=== PATIENT | female | born 1935 | race Caucasian/White ===

== ENCOUNTER 2017-04-10 11:57 | Inpatient (IN) ==
[2017-04-10] MEDS ORDERED: MORPHINE 2 MG/1 ML SYRINGE IV STA (12:23)
[2017-04-10] MEDS ORDERED: MORPHINE 2 MG/1 ML SYRINGE ONE (12:28)
[2017-04-10] MEDS ORDERED: SODIUM CHLORIDE 0.9% 1,000 ML IV STA (12:30)
[2017-04-10 12:50] LABS: Basophils # 0.1 10*3/uL (0.0-0.2); Basophils % 0.3 % (0.0-0.8); Eosinophils # 0.1 10*3/uL (0.0-0.87); Eosinophils % 0.3 % (0.00-10.9); Hematocrit 39.9 VOL% (35.7-47.0); Hemoglobin 13.1 GM/DL (12.0-16.0); Immature Granulocytes % 0.5 %; Lymphocytes # 1.5 10*3/uL (1.4-4.0); Lymphocytes % 8.3 % (21.3-54.2); Mean Corpuscular HGB Conc 32.8 GM/DL (32-36); Mean Corpuscular Hemoglobin 27 PG (27-34); Mean Corpuscular Volume 82.6 FL (87-102); Mean Platelet Volume 11.4 FL (9.6-12.0); Monocytes # 0.8 10*3/uL (0.11-0.8); Monocytes % 4.5 % (1.7-12.7); Neutrophils % 86.1 % (38.7-73.9); Platelet Count 245 T/CUMM (130-400); Red Blood Count 4.83 MC/CUMM (3.8-5.5); Red Cell Distribution Width 12.8 % (9.3-17.3); White Blood Count 18.5 T/CUMM (4-12)
[2017-04-10] MEDS ORDERED: HYDROmorphone 2 MG/1 ML VIAL IV STA ×2 (12:59→14:18)
[2017-04-10] MEDS ORDERED: HYDROmorphone 2 MG/1 ML VIAL ONE ×2 (13:01→14:22)
[2017-04-10 13:20] LABS: Lactic Acid 1.7 MMOL/L (0.4-2.0)
[2017-04-10 13:21] LABS: Albumin 3.8 G/DL (3.4-5.0); Bilirubin,Total 0.6 MG/DL (0.2-1.0); Calcium 8.6 MG/DL (8.5-10.1); Osmolality,Calculated 274.2 MOS/KG (273-304); Potassium 3.5 MMOL/L (3.5-5.1); Total Protein 7.5 G/DL (6.4-8.3)
[2017-04-10] MEDS ORDERED: LORazepam 2 MG/1 ML VIAL IV STA (14:19)
[2017-04-10] MEDS ORDERED: LORazepam 2 MG/1 ML VIAL ONE (14:22)
--- NOTE | 2017-04-10 15:18 | CT Report ---
History generalized abdominal pain 100 cc Omnipaque 350 utilized Comparison 04/28/2009 There is a 2.5 cm hypodensity in the spleen. This is very questionably present on a prior chest CT 2012 obscured by differences in timing of the contrast bolus. The contours of the spleen in this area are unchanged from prior noncontrasted CT of 2008 No focal defects seen in the liver, pancreas, adrenals, or kidneys There is an mild gallbladder wall thickening There is a small hiatal hernia present. 1 cm periportal nodes unchanged No enlarged retroperitoneal narrowing seen. There are atherosclerotic changes present throughout the abdominal aorta. There are believed to be 4 vessels arising directly from the abdominal aorta supplying the celiac and SMA territories. The small caliber of some of these vessels limits visualization however there is atherosclerotic plaque present with at least mild stenosis of the main celiac axis and at least moderate to severe stenosis from a small branch just above this area and just below this area. There is also a severe stenosis of the superior mesenteric artery proximally. There are at least 2 renal arteries bilaterally. The JOEY is patent with at least moderate stenosis at its origin. Pelvis: There are mild sigmoid diverticuli present. No free fluid or focal inflammatory changes seen. Presumed ovary versus node in the far lateral left adnexa is unchanged. Impression: 1. 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 Mild diverticulosis 3. Mild nonspecific gallbladder wall thickening 4. Small hiatal hernia 5. 2.5 cm nonspecific splenic hypodensity is very questionably present on prior CT. Correlation with any additional prior studies be helpful for confirmation The CT exam was performed using one or more of the following dose reduction techniques: Automated exposure control, adjustment of the mA and/or kV according to patient size, or use of iterative reconstruction technique. PROCEDURE INTERPRETED AT [facility] DEPARTMENT OF RADIOLOGY Final Report Signed by: Dr. Tiffany Hercules
[2017-04-10 18:31] LABS: Apearance,Urine CLEAR (Clear); Bilirubin,Urine Negative (Negative); Blood, Urine Small mg/dL (Negative); Glucose,Urine (UA) 50 mg/dL (Negative); Ketones,Urine 5 mg/dL (Negative); Nitrite,Urine Negative (Negative); Protein,Urine Negative; RBC,Urine 1 /HPF (0-4); Squamous Epithelial Cell,Urine Occasional /HPF (0-10); Urine Color Straw (Yellow); Urine Specific Gravity 1.053 (1.001-1.035); Urine Urobilinogen < 2.0 EU/DL (0.2-1.0); WBC,Urine <1 /HPF (0-6)
--- NOTE | 2017-04-10 19:30 | Hospitalist History & Physical ---
Assessment and Plan - Time spent with patient Time spent with patient: Greater than 30 minutes (1) Abdominal pain Status: Acute Assessment and plan: Abnormal CT, however no definitive diagnosis. Admit to observation, ask Surgery to evaluate in the morning. Keep NPO except meds. Current Visit: Yes (2) Leukocytosis Status: Acute Assessment and plan: Most likely steroid induced. Current Visit: Yes (3) Atrial fibrillation Status: Acute Assessment and plan: In atrial fibrillation. Continue medications. Current Visit: Yes (4) Asthma Status: Acute Assessment and plan: Continue medications. Current Visit: No (5) Diabetes mellitus Status: Acute Assessment and plan: SSI and accuchecks. Obtain HgA1c tomorrow. Current Visit: No History of Present Illness Chief complaint: Abdominal Pain History of present illness: Ms. Charles is a 81 year old female with a medical history of Atrial fibrillation , asthma presents to the ER with several days of worsening abdominal pain. She states she has been having occasional episodes of abdominal pain for the last several months. She feels it is associated with constipation and states that upon defecation, with bright red blood per rectum. This time the pain kept worsening over the course of several days to the point where she would classify it as 10 out of 10. Right lower quadrant. She states it is very sharp and continuous with no radiation. Not associated with anything. Not aggravated by anything. Pain medications relieved the pain while in the ER. CT the abdomen revealed possible mesenteric artery stenosis. She denies a fever, shortness of breath, chest pain, vomiting or diarrhea however endorses nausea. Home Medications Medication Instructions Recorded Confirmed Type Esomeprazole Magnesium 40 mg PO DAILY 08/21/15 04/10/17 History [Esomeprazole] Montelukast Tab [Singulair Tab] 10 mg PO DAILY 08/21/15 04/10/17 History Tiotropium Inhalation [Spiriva 18 mcg INH DAILY 08/21/15 04/10/17 History Handihaler] traMADol TAB [Ultram] 100 mg PO BID PRN 08/21/15 04/10/17 History Apixaban [Eliquis] 5 mg PO BID #60 tablet 08/25/15 04/10/17 Rx Digoxin Tab [Lanoxin Tab] 0.125 mg PO BID 04/10/17 04/10/17 History Ipratropium Inhaler [Atrovent 2 puff INH Q6HR 04/10/17 04/10/17 History Inhaler] Olodaterol HCl [Striverdi Respimat] 4 gm IH DAILY 04/10/17 04/10/17 History Potassium Chloride 20 meq PO DAILY 04/10/17 04/10/17 History dilTIAZem HCl [Tiazac] 120 mg PO DAILY 04/10/17 04/10/17 History prednisoLONE [Millipred Tab] 5 mg PO DAILY 04/10/17 04/10/17 History Allergies Allergy/AdvReac Type Severity Reaction Status Date / Time No Known Allergies Allergy Verified 08/21/15 09:48 Medical,Surgical,& Family Hx - Medical History Cardio: History of: Cardiac Dysrhythmia (AFIB), Hypertension - Surgical History Abdominal Surgeries: Surgical HX of: Appendectomy Reproductive Surgeries: Surgical HX of;: Hysterectomy (PARTIAL) - Family History Family History: Reports;: Family Heart Disease (FATHER, SON), Family Hypertension (FATHER, SON), Family Stroke (FATHER) - Social History Smoking Status: Never smoker Frequency of Alcohol Use: None Type of Drug Use: None 12 point system: reviewed and no additional remarkable complaints except as stated - Constitutional Constitutional: Absent: anorexia, chills, daytime sleepiness, excessive sweating , fatigue, fever(s), frequent falls, headache(s), increased appetite, lethargy, night sweats, weakness, weight gain, weight loss - EENT Nose, mouth and throat: Absent: dysphagia, headache(s), sore throat, throat swelling - Cardiovascular Cardiovascular: Absent: chest pain at rest, chest pain with activity, claudication, diaphoresis, dyspnea, dyspnea on exertion, radiating jaw, neck or arm pain, orthopnea, palpitations - Gastrointestinal Gastrointestinal: Present: abdominal pain, constipation, hematochezia, nausea. Absent: bloating, diarrhea, dyspepsia, dysphagia, early satiety, fecal incontinence, hematemesis, melena, odynophagia, vomiting, jaundice - Genitourinary Genitourinary: Absent: dysuria, hematuria, urinary hesitancy, urinary incontinence, vaginal discharge - Neurological Neurological: Absent: abnormal gait, abnormal speech, disequilibrium, dizziness , headache(s) - Psychiatric Psychiatric: Absent: confusion, depression, difficulty concentrating - Endocrine Endocrine: Absent: cold intolerance, fatigue, polydipsia, polyphagia, polyuria Exam - Constitutional Vitals: Period Temp Pulse Resp BP Sys/Hernández Pulse Ox Last 24 Hr 97.2 F-97.2 F 94-127 16-22 125-168/78-109 94-100 General appearance: no acute distress - Head Head exam: Present: normocephalic, atraumatic - Eye Eye exam: Present: EOMI Pupils: Present: BRISEIDA - ENT ENT exam: Present: normal exam - Neck Neck exam: Present: normal inspection - Respiratory Respiratory exam: Present: clear to auscultation bilaterally. Absent: rhonchi, wheezes - Cardiovascular Cardiovascular exam: Present: irregular rhythm, tachycardia. Absent: gallop, rubs, systolic murmur - GI/Abdominal GI/Abdominal exam: Present: normal bowel sounds, tenderness, soft. Absent: distended, firm, guarding, rebound - Extremities Exam Extremities exam: Present: normal inspection. Absent: calf tenderness, edema Results - Labs CBC & BMP: 04/10/17 12:37 04/10/17 12:37 Lab Results: I have reviewed the past 24 hour labs
[2017-04-10] MEDS ORDERED: DEXTROSE 50% 25 GM/50 ML VIAL IV PRN (19:47)
[2017-04-10] MEDS ORDERED: GLUCAGON 1 MG VIAL IM PRN (19:47)
[2017-04-10] MEDS: traMADol 50 MG TABLET PO SCH (21:30)
[2017-04-10] MEDS: DIGOXIN 0.125 MG TABLET PO SCH (22:07)
[2017-04-10] MEDS: APIXABAN 5 MG TABLET PO SCH (22:07)
[2017-04-11] MEDS: INSULIN LISPRO 100 UNIT/ML SUBCUT SCH ×4 (00:33→18:07)
[2017-04-11] MEDS: HYDROmorphone 2 MG/1 ML VIAL IV PRN ×3 (03:57→22:08)
[2017-04-11 06:24] LABS: Basophils # 0.1 10*3/uL (0.0-0.2); Basophils % 0.4 % (0.0-0.8); Eosinophils # 0.2 10*3/uL (0.0-0.87); Eosinophils % 1.4 % (0.00-10.9); Hematocrit 37.6 VOL% (35.7-47.0); Hemoglobin 12.1 GM/DL (12.0-16.0); Immature Granulocytes % 0.5 %; Immature Granulocytes Absolute 0.07 #; Lymphocytes # 2.6 10*3/uL (1.4-4.0); Lymphocytes % 18.2 % (21.3-54.2); Mean Corpuscular HGB Conc 32.2 GM/DL (32-36); Mean Corpuscular Hemoglobin 27 PG (27-34); Mean Platelet Volume 12.5 FL (9.6-12.0); Monocytes # 1.4 10*3/uL (0.11-0.8); Monocytes % 9.4 % (1.7-12.7); Neutrophils # 10.1 10*3/uL (1.4-7.4); Neutrophils % 70.1 % (38.7-73.9); Platelet Count 245 T/CUMM (130-400); Red Blood Count 4.53 MC/CUMM (3.8-5.5); White Blood Count 14.4 T/CUMM (4-12)
[2017-04-11 07:03] LABS: Albumin 3.2 G/DL (3.4-5.0); Bilirubin,Total 0.7 MG/DL (0.2-1.0); Calcium 8.5 MG/DL (8.5-10.1); Osmolality,Calculated 275.7 MOS/KG (273-304); Potassium 3.7 MMOL/L (3.5-5.1); Total Protein 6.2 G/DL (6.4-8.3)
[2017-04-11] MEDS: IPRATROPIUM 500 MCG/2.5 ML NEB RESP TX SCH ×4 (07:17→20:33)
[2017-04-11] MEDS: DIGOXIN 0.125 MG TABLET PO SCH ×2 (08:30→20:52)
[2017-04-11] MEDS: MONTELUKAST 10 MG TABLET PO SCH (08:30)
[2017-04-11] MEDS: traMADol 50 MG TABLET PO SCH ×2 (08:31→20:54)
[2017-04-11] MEDS: APIXABAN 5 MG TABLET PO SCH ×2 (08:33→20:54)
[2017-04-11] MEDS ORDERED: NON-FORMULARY MEDICATION (Tiotropium Inhalation 18 MCG) INH SCH (09:00)
--- NOTE | 2017-04-11 10:14 | Pulmonology Consult Note ---
History of Present Illness Chief complaint: COPD. Right lower quadrant abdominal pain History of present illness: Ms. Charles is a 81 year old white female whose been a patient of mine for several years. This patient was admitted to the hospital with 2 oh more day history of right lower quadrant abdominal pain. She complained of obstipation. She says the pain does not vary with bowel movements she is recently taken cathartics. She is also had a recent vaginal yeast infection and complain of mild dysuria. She said the pain in the right lower quadrant of her abdomen was not affected by urination. Patient is not seen any hematuria or melena. Patient says her breathing is doing fine she has not had any cardiac angina. There is been no syncope near syncope or TIAs. The remainder of the review of systems is negative. Allergy. Patient does not tolerate Daliresp well. Home medicines. See below Hospital medicines. See below Immunology. Pneumovax 2009. Flu vaccination 10/22/2016. Swine flu vaccination 2008. Past history. COPD. Lifelong history of asthma. High blood pressure. Pulmonary hypertension with cor pulmonale secondary to asthma. Degenerative joint disease. Gastroesophageal reflux disease. History of low back pain. July 2015 [place]'s hospitalization for atrial fib with rapid ventricular response. She is been seen in cardiology consultation the past by Dr. Dinesh Estrada. She is followed from a GI standpoint by Dr. Gilliam. Family history. Her brother had glaucoma and lung disease. Her father had arthritis and CVA at age 91. Her brother also had emphysema. Social history. Patient quit smoking in 1981. She is she occasionally drinks 1 she has an associate degree. She previously lived in [facility] in the 1949s. Her was a marine. She lived up and down the [facility] in [facility] in [facility]. Her cousin Ivonne Alfaro is a patient of [employer]. Surgeries. Hysterectomy 1970s. Breast surgery 196 in 1985. Eye surgery in 1999 with an implant. Varicose vein surgery of the right leg by Dr. Rao 08/2014. Procedures. Carotid ultrasound done 02/13/2014 showed 50% stenosis or less bilaterally. 2D echocardiogram done 01/17/[address] Ellis showed ejection fraction greater than 55% with mild concentric left ventricular hypertrophy and a trace of mitral regurgitation. Pulmonary function test done 01/27/2017 read by me showed 1. Pulse ox 95% on room air 2. Severe obstructive disease 3. Small positive response to inhaled bronchodilators 4. Normal diffusion 5. Severe decrease in maximum voluntary ventilation 6. Stable compared to studies done 06/11/2014 CT of the abdomen and pelvis done 04/10/2017. See report. Lab. Admit white blood cell count was 18,500 with 86 segs. This is dropped to 14,400 with 70 segs 18 lymphs and 9 monocytes. Electrolytes normal. Creatinine is 0.5. BUN is 9. Glucoses are normal. Hemoglobin A1c was elevated 8.7. Liver function tests are normal. Protein and albumin are low at 6.2 and 3.2 respectively. Urinalysis showed a specific gravity 1.053. Physical exam. Vital signs. See below Psychiatric. Oriented 3 Neurologic. Cranial nerves are intact. Long track motor functions intact. Sensory exam and gait were not done. Face. Symmetrical. Eyes lips tongue are normal. Neck. Symmetrical. No meningismus. Lymphatics. No submandibular cervical supraclavicular or epitrochlear adenopathy. Chest. Prolonged expiration. No wheeze. No chest wall tenderness. Heart. Beats are 80/min. There is a grade 1/6 systolic ejection murmur at the left sternal border. I do not hear any radiation of the murmur. There is no gallop. Abdomen is minimally tender with deep pressure just medial to McBurney's point in the right lower quadrant. No mass-effect. No direct or indirect rebound. Breasts. Deferred and rectal. Deferred Extremities. No edema. Nothing to suggest deep venous thrombophlebitis. Skin. Face and hands show no infectious or cancerous lesions. Appropriate on the dorsum of both upper extremities and there are changes of venous stasis over both lower extremities. No other areas of skin were examined Arterial. Carotid upstrokes decreased without bruits. Upper extremity pulses are palpable lower extremity pulses are nonpalpable. Venous exam neck upper extremities are normal lower extremities show some chronic venous stasis changes. The remainder the physical exam is noncontributory. Impression. #1. 2 day history of right lower quadrant abdominal pain with elevated white blood cell count. Etiology undetermined. Consider infectious etiology 2. COPD/asthma. Steroid dependent. Stable 3. High blood pressure. Good control 4. Arteriosclerotic heart disease 5. Atrial fib with a history of rapid ventricular response followed by Dr. Mitch Ellis and Dr. ron Alvarez. We have been advised to avoid beta blockers and amiodarone if possible 6. Hyperlipidemia 7. Diabetes mellitus. Januvia was started for 12/2016. Note elevated hemoglobin A1c. 8. Past history of pulmonary hypertension with cor pulmonale 9. Degenerative joint disease 10. Gastroesophageal reflux disease 11. Restless leg syndrome 12. Chronic constipation. Followed by Dr. Jonathan disla Plan. 1. Continue patient's present medicines. 2. Chest x-ray and EKG 3. We will cover for ingested infectious causes. 4. See orders. Home Medications Medication Instructions Recorded Confirmed Type Esomeprazole Magnesium 40 mg PO DAILY 08/21/15 04/10/17 History [Esomeprazole] Montelukast Tab [Singulair Tab] 10 mg PO DAILY 08/21/15 04/10/17 History Tiotropium Inhalation [Spiriva 18 mcg INH DAILY 08/21/15 04/10/17 History Handihaler] traMADol TAB [Ultram] 100 mg PO BID 08/21/15 04/10/17 History Apixaban [Eliquis] 5 mg PO BID #60 tablet 08/25/15 04/10/17 Rx Digoxin Tab [Lanoxin Tab] 0.125 mg PO DAILY 04/10/17 04/11/17 History Ipratropium Inhaler [Atrovent 2 puff INH Q6HR 04/10/17 04/10/17 History Inhaler] Olodaterol HCl [Striverdi Respimat] 4 gm IH BID 04/10/17 04/11/17 History Potassium Chloride 10 meq PO DAILY W/BREAKFAST 04/10/17 04/11/17 History dilTIAZem HCl [Tiazac] 120 mg PO BID 04/10/17 04/11/17 History prednisoLONE [Millipred Tab] 10 mg PO DAILY 04/10/17 04/11/17 History Allergies Allergy/AdvReac Type Severity Reaction Status Date / Time No Known Allergies Allergy Verified 08/21/15 09:48 Exam (Pulmonay) H&P - Constitutional Vitals: Period Temp Pulse Resp BP Sys/Hernández Pulse Ox Last 24 Hr 97.2 F-98.8 F 84-127 16-22 125-168/78-109 94-100 Medical,Surgical,& Family Hx - Medical History Cardio: History of: Cardiac Dysrhythmia (AFIB), Hypertension Endocrine: History of: Diabetes Mellitus (NIDDM) Gastrointestinal: History of: GERD - Surgical History Abdominal Surgeries: Surgical HX of: Appendectomy Reproductive Surgeries: Surgical HX of;: Hysterectomy (PARTIAL) - Family History Family History: Reports;: Family Heart Disease (FATHER, SON), Family Hypertension (FATHER, SON), Family Stroke (FATHER) - Social History Smoking Status: Never smoker Frequency of Alcohol Use: None Type of Drug Use: None Results - Labs CBC & BMP: 04/11/17 04:48 04/11/17 04:48 Quality Measures - Stroke Symptom Onset Unknown: No
--- NOTE | 2017-04-11 10:50 | General Surgery Consult Note ---
Assessment and Plan (1) Abdominal pain Status: Acute Assessment and plan: Right lower quadrant abdominal pain etiology unclear at this point. Patient does have a history of diverticulitis but there is no evidence of acute flare at this time on imaging. Patient with leukocytosis now decreased after IV antibiotics suggest possible infectious etiology; patient also on chronic steroids which could be a source. There is possibility of SMA severe stenosis which could be consideration for source of pain. Dr. Catherine to follow with assessment and additional recommendations. GI consultation also pending. Current Visit: Yes History of Present Illness Chief complaint: RLQ abd pain History of present illness: Ms. Charles is a 81 year old female with past medical history of steroid- dependent COPD, atrial fibrillation on Eliquis, diabetes mellitus, and diverticulosis/-itis currently admitted for observation and evaluation of right lower quadrant pain. The patient reports she began with constipation approximately a week ago which was relieved with Dulcolax and associated with department of blood per rectum; last bowel movement yesterday which then began with right lower quadrant pain approximately 4 days ago which has progressively worsened. Pain is described as sharp and relieved with lying flat and no specific exacerbating factors. She states this feels similar to when she had a diverticulitis flare in the past and is surprised this is the finding on CT scan. Regardless, she reports associated nausea with 2 episodes of nonbilious vomiting over the past 4 days. She denies fever, chills, rigors, rash or arthralgias. She has some irritative voiding symptoms and is currently being treated for yeast infection; she is status post partial hysterectomy and denies vaginal bleeding or discharge. White blood cell count on admission was 18 repeat this morning was 14; she has been treated with Levaquin and Flagyl. She reports she had severe abdominal pain requiring multiple medications in the emergency department after which she was able to actually rest overnight. Her pain did not return until this morning and was much less severe. She is currently virtually pain-free. GI consultation is pending. Home Medications Medication Instructions Recorded Confirmed Type Esomeprazole Magnesium 40 mg PO DAILY 08/21/15 04/10/17 History [Esomeprazole] Montelukast Tab [Singulair Tab] 10 mg PO DAILY 08/21/15 04/10/17 History Tiotropium Inhalation [Spiriva 18 mcg INH DAILY 08/21/15 04/10/17 History Handihaler] traMADol TAB [Ultram] 100 mg PO BID 08/21/15 04/10/17 History Apixaban [Eliquis] 5 mg PO BID #60 tablet 08/25/15 04/10/17 Rx Digoxin Tab [Lanoxin Tab] 0.125 mg PO DAILY 04/10/17 04/11/17 History Ipratropium Inhaler [Atrovent 2 puff INH Q6HR 04/10/17 04/10/17 History Inhaler] Olodaterol HCl [Striverdi Respimat] 4 gm IH BID 04/10/17 04/11/17 History Potassium Chloride 10 meq PO DAILY W/BREAKFAST 04/10/17 04/11/17 History dilTIAZem HCl [Tiazac] 120 mg PO BID 04/10/17 04/11/17 History prednisoLONE [Millipred Tab] 10 mg PO DAILY 04/10/17 04/11/17 History Allergies Allergy/AdvReac Type Severity Reaction Status Date / Time No Known Allergies Allergy Verified 08/21/15 09:48 Medical,Surgical,& Family Hx - Medical History Cardio: History of: Cardiac Dysrhythmia (AFIB on Eliquis), Hypertension, Cardiovascular Problems (Carotid artery disease) Endocrine: History of: Diabetes Mellitus (NIDDM) Respiratory: History of: Asthma, COPD (steroid-dependent) Gastrointestinal: History of: Diverticulitis/ Diverticulosis, GERD - Surgical History Abdominal Surgeries: Surgical HX of: Appendectomy Reproductive Surgeries: Surgical HX of;: Hysterectomy (PARTIAL) - Family History Family History: Reports;: Family Heart Disease (FATHER, SON), Family Hypertension (FATHER, SON), Family Stroke (FATHER) - Social History Smoking Status: Never smoker Frequency of Alcohol Use: None Type of Drug Use: None - Constitutional Constitutional: Present: as per HPI - Cardiovascular Cardiovascular: Absent: chest pain at rest, orthopnea, palpitations - Respiratory Respiratory: Present: other (no change in cough or wheeze) - Gastrointestinal Gastrointestinal: Present: as per HPI. Absent: coffee ground emesis, early satiety, heartburn, hematochezia, melena, odynophagia - Genitourinary Genitourinary: Absent: dysuria, flank pain, hematuria - Musculoskeletal Musculoskeletal: Present: as per HPI Hematologic/Lymphatic: Absent: easy bleeding, easy bruising Exam - Constitutional Vitals: Period Temp Pulse Resp BP Sys/Hernández Pulse Ox Last 24 Hr 97.2 F-98.8 F 84-127 16-22 125-168/78-109 94-100 General appearance: normal weight, no acute distress - Head Head exam: Present: normal inspection, normocephalic - Eye Eye exam: Absent: conjunctival injection, scleral icterus - Neck Neck exam: Present: trachea midline - Respiratory Respiratory exam: Present: decreased breath sounds. Absent: rhonchi, wheezes - Cardiovascular Cardiovascular exam: Present: irregular rhythm - GI/Abdominal GI/Abdominal exam: Present: normal bowel sounds, tenderness (Minimal RLQ tenderness. ), soft. Absent: distended, guarding, Florez's sign, psoas sign, rebound - Extremities Exam Extremities exam: Absent: calf tenderness, edema - Neurological Exam Neurological exam: Present: alert, oriented X3 Speech: Present: normal - Skin Skin exam: Present: normal color, warm Quality Measures - Stroke Symptom Onset Unknown: No Results - Labs CBC & BMP: 04/11/17 04:48 04/11/17 04:48 Labs: LFTs unremarkable Urinalysis without evidence of acute infection - Diagnostic Findings Procedure: CT Abdomen and Pelvis: image reviewed by me, report reviewed by me
[2017-04-11] MEDS: LEVOFLOXACIN INJ 500 MG in PREMIX 1 EACH IV SCH (11:09)
--- NOTE | 2017-04-11 11:40 | Gastrointestinal Consult Note ---
Assessment and Plan (1) Abdominal pain Status: Acute Assessment and plan: 04/11-5 day history of lower right lower quadrant abdominal pain with associated nausea, reported episodes of small amount of rectal bleeding with bowel movement. CT of abdomen findings noted as below. Hemoglobin stable at 12.1. Obtain endoscopy records from endoscopic center. Surgery consult noted. Plan an addendum to followed by Dr. Gilliam. Current Visit: Yes History of Present Illness Chief complaint: Abdominal pain History of present illness: Ms. Charles is a 81 year old female who was admitted to the hospital with 5 day history of severe right lower quadrant abdominal pain. Patient states that she was in her usual state of health until when she had a fairly sudden onset of right lower quadrant abdominal pain. She describes the pain as sharp and stabbing and became progressively more severe in nature. She denies any precipitating factors with the pain and denies any thing that improves the pain. She states that she had some mild nausea but denies any vomiting associated with this. Patient has a history of diverticulitis in the past and she states she felt like at onset of pain was very similar to previous episodes of diverticulitis. She states that she has had fairly normal bowel movements up until onset of the pain however has had some increased constipation the last several days. She also brought forth that she has had some bright red rectal bleeding over the last several days off and on but brought forth as well that she has had this in the past and it was related to what she felt like was her hemorrhoids. She denies any melena. Denies any fever or chills. 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 Findings of mild diverticulosis, nonspecific gallbladder wall thickening and nonspecific splenic hypodensities. On admission she was noted to have leukocytosis with WBCs at 18,000 IV antibiotics of Levaquin and Flagyl were initiated and today her WBCs are down at 14,000. Her pain is now more controlled with analgesics however states it is still present but much less severity. She has had colonoscopies in the past however cannot recall the date of her last one which she states was between 5 and 10 years which followed her last flare of diverticulitis. She reports that she has lost approximately 30 pounds over the last year just from decreased appetite. Denies family history of colon cancer. She does have COPD and has a history of tobacco use. She is also noted to be on Eliquis for history of atrial fibrillation. Home Medications Medication Instructions Recorded Confirmed Type Digoxin Tab [Lanoxin Tab] 0.125 mg PO DAILY 04/10/17 04/11/17 History Ipratropium Inhaler [Atrovent 2 puff INH Q6HR 04/10/17 04/10/17 History Inhaler] Olodaterol HCl [Striverdi Respimat] 4 gm IH BID 04/10/17 04/11/17 History Potassium Chloride 10 meq PO DAILY W/BREAKFAST 04/10/17 04/11/17 History dilTIAZem HCl [Tiazac] 120 mg PO BID 04/10/17 04/11/17 History prednisoLONE [Millipred Tab] 10 mg PO DAILY 04/10/17 04/11/17 History Allergies Allergy/AdvReac Type Severity Reaction Status Date / Time No Known Allergies Allergy Verified 08/21/15 09:48 Medical,Surgical,& Family Hx - Medical History Cardio: History of: Cardiac Dysrhythmia (AFIB on Eliquis), Hypertension, Cardiovascular Problems (Carotid artery disease) Endocrine: History of: Diabetes Mellitus (NIDDM) Respiratory: History of: Asthma, COPD (steroid-dependent) Gastrointestinal: History of: Diverticulitis/ Diverticulosis, GERD - Surgical History Abdominal Surgeries: Surgical HX of: Appendectomy Reproductive Surgeries: Surgical HX of;: Hysterectomy (PARTIAL) - Family History Family History: Reports;: Family Heart Disease (FATHER, SON), Family Hypertension (FATHER, SON), Family Stroke (FATHER) - Social History Smoking Status: Never smoker Frequency of Alcohol Use: None Type of Drug Use: None 12 point system: reviewed and no additional remarkable complaints except as stated - Constitutional Constitutional: Present: as per HPI - EENT Eyes: Present: as per HPI Ears: Present: as per HPI Nose, mouth and throat: Present: as per HPI - Cardiovascular Cardiovascular: Present: as per HPI - Respiratory Respiratory: Present: as per HPI - Gastrointestinal Gastrointestinal: Present: as per HPI, abdominal pain, hematochezia, nausea - Genitourinary Genitourinary: Present: as per HPI - Musculoskeletal Musculoskeletal: Present: as per HPI - Neurological Neurological: Present: as per HPI - Psychiatric Psychiatric: Present: as per HPI - Endocrine Endocrine: Present: as per HPI - Hematologic/Lymphatic Hematologic/Lymphatic: Present: as per HPI Exam - Constitutional Vitals: Period Temp Pulse Resp BP Sys/Hernández Pulse Ox Last 24 Hr 97.2 F-98.8 F 84-127 16-22 125-168/78-109 92-100 General appearance: normal weight, no acute distress - Head Head exam: Present: normal inspection, normocephalic - Eye Eye exam: Present: other (Lids and conjunctive are unremarkable). Absent: scleral icterus - ENT ENT exam: Present: normal exam, normal oropharynx - Neck Neck exam: Present: normal inspection - Respiratory Respiratory exam: Present: clear to auscultation bilaterally. Absent: rales, rhonchi, wheezes - Cardiovascular Cardiovascular exam: Present: regular rate and rhythm. Absent: diastolic murmur , JVD, systolic murmur - GI/Abdominal GI/Abdominal exam: Present: normal bowel sounds, tenderness (Right lower quadrant), soft. Absent: ascites, distended, mass, organomegaly - Extremities Exam Extremities exam: Present: normal inspection, full ROM - Back Exam Back exam: Present: normal inspection - Neurological Exam Neurological exam: Present: alert, oriented X3 - Psychiatric Psychiatric exam: Present: normal affect, normal mood - Skin Skin exam: Present: normal color, warm, dry Results - Labs CBC & BMP: 04/11/17 04:48 04/11/17 04:48 Lab Results: I have reviewed the past 24 hour labs - Diagnostic Findings Procedure: CT Abdomen and Pelvis: report reviewed by me Quality Measures - Stroke Symptom Onset Unknown: No
--- NOTE | 2017-04-11 13:01 | Hospitalist Progress Note ---
<Richard Curran - Last Filed: 04/11/17 12:51> Assessment and Plan (1) Abdominal pain Status: Acute Assessment and plan: Patient reports minimal relief from abdominal pain, tenderness noted upon gentle palpation to the right upper quadrant. Patient has been seen and evaluated by surgery; no abnormalities were identified. I agree with their recommendations to start a regular diet and reassess. Current Visit: Yes (2) Atrial fibrillation Status: Acute Assessment and plan: Rate is controlled; we will continue to monitor. Current Visit: Yes (3) Leukocytosis Status: Acute Assessment and plan: WBCs noted at 14.4, noted decrease from 18.5 noted at admission. We will continue empiric antibiotics as previously ordered. Current Visit: Yes (4) COPD, severe Status: Acute Assessment and plan: We will continue current medications as previously ordered. Current Visit: No Hospitalist: Subjective Interval history: Patient seen and examined; no significant overnight events. Continues to report right upper quadrant abdominal pain, however states that it is less severe than before but present. Evaluated by GI and surgery today. Exam - Constitutional Vitals: Period Temp Pulse Resp BP Sys/Hernández Pulse Ox Last 24 Hr 97.5 F-98.8 F 84-127 16-22 125-156/78-104 92-100 General appearance: normal weight, no acute distress - Head Head exam: Present: normal inspection, normocephalic - Eye Eye exam: Present: EOMI, conjunctival injection Pupils: Present: BRISEIDA, normal accommodation - ENT ENT exam: Present: normal exam, normal external ear exam, normal oropharynx - Neck Neck exam: Present: normal inspection. Absent: lymphadenopathy, meningismus, tenderness, thyromegaly - Respiratory Respiratory exam: Present: accessory muscle use, rhonchi - Cardiovascular Cardiovascular exam: Present: regular rate and rhythm. Absent: bradycardia, carotid bruit, diastolic murmur, gallop, irregular rhythm, JVD, rubs, systolic murmur, tachycardia - GI/Abdominal GI/Abdominal exam: Present: normal bowel sounds, tenderness (Right upper quadrant) - Extremities Exam Extremities exam: Present: normal inspection, normal capillary refill, full ROM - Back Exam Back exam: Present: normal inspection - Neurological Exam Neurological exam: Present: alert, oriented X3, CN II-XII intact - Psychiatric Psychiatric exam: Present: agitated - Skin Skin exam: Present: normal color, warm, dry Results - Labs CBC & BMP: 04/11/17 04:48 04/11/17 04:48 Lab Results: I have reviewed the past 24 hour labs Quality Measures - Stroke Symptom Onset Unknown: No <Cy Ingram - Last Filed: 04/11/17 16:37> Hospitalist: Subjective Interval history: Patient has seen and examined. I have reviewed the progress note by MARIBELL Curran , and I agree with the documentation to include the assessment and plan. Active issues: 1. A-fib with RVR: now transferred to telemetry on dilt drip; obtain TSH; keep K at least 4 and Magnesium at least 2; consult cardiology; on eliquis 2. 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 COPD, severe and steroid dependent: stable 5. Leukocytosis: improving; monitor Exam - Constitutional Vitals: Period Temp Pulse Resp BP Sys/Hernández Pulse Ox Last 24 Hr 96.2 F-98.8 F 84-131 16-20 117-156/68-99 92-992 Results - Labs CBC & BMP: 04/11/17 04:48 04/11/17 04:48
--- NOTE | 2017-04-11 13:09 | EKG Report ---
Stationary ECG Study [facility] Test Date: 04/11/2017 1:10:58 PM Pat Name: YESENIA FALCON Department: Room: 525 Gender: F [employer] Waste Technician: GABE TO READ : 1935 Requested by: Giancarlo Stahl Order Number: [id number] Reading MD: DOMINGO DUDLEY Intervals [place] Rate: 99 P: 999 DE: 0 QRS: 68 QRSD: 85 T: 69 QT: 324 QTc: 380 Interpretive Statements ATRIAL FIBRILLATION WITH CONTROLLED VENTRICULAR RESPONSE LOW VOLTAGE TRACING IN THE LIMB LEADS ST-T DEPRESSION IN THE INFEROLATERAL LEADS, CONSIDER ISCHEMIA Electronically Signed On 04-17-17 08:11:46 CDT by DOMINGO DUDLEY [email or web address]
[2017-04-11] MEDS: DILTIAZEM CD 120 MG CAPSULE PO SCH (14:32)
[2017-04-11] MEDS: metroNIDAZOLE INJ 250 MG in IV BAG 1 EACH IV SCH ×2 (14:33→22:10)
[2017-04-11] MEDS: prednisoLONE 5 MG TABLET PO SCH (14:48)
--- NOTE | 2017-04-11 14:48 | XRay Report ---
Exam: Chest 2 views Date: April 11, 2017 at 10:40 AM Comparison: Chest 2 views August 22, 2015 Reason: COPD Findings: The cardiac silhouette is upper normal in size, and there is calcified plaque at the aortic arch. There is minimal atelectasis or scarring within both lungs, mainly at the lung bases. No pneumothorax or pleural effusion is identified. No acute osseous process is seen. Impression: Minimal atelectasis or scarring within both lungs. PROCEDURE INTERPRETED AT [facility] DEPARTMENT OF RADIOLOGY Final Report Signed by: Dr. Efra Márquez
--- NOTE | 2017-04-11 15:02 | Event Note ---
Noted increase in heart rate. Upon review of EKG patient was noted in atrial fibrillation with RVR. She denies chest pain or discomfort. Vital signs are stable. We will transfer to telemetry and start Cardizem drip and titrate for rate control for rate control. We will reassess in a.m.
[2017-04-11] MEDS: DILTIAZEM INJ 100 MG in SODIUM CHLORIDE 0.9% 100 ML IV SCH (16:13)
[2017-04-12] MEDS: DILTIAZEM INJ 100 MG in SODIUM CHLORIDE 0.9% 100 ML IV SCH ×3 (01:38→21:53)
[2017-04-12] MEDS: INSULIN LISPRO 100 UNIT/ML SUBCUT SCH ×4 (01:49→17:54)
[2017-04-12] MEDS: HYDROmorphone 2 MG/1 ML VIAL IV PRN ×2 (03:13→08:28)
[2017-04-12] MEDS: metroNIDAZOLE INJ 250 MG in IV BAG 1 EACH IV SCH ×3 (04:45→23:07)
[2017-04-12 05:01] LABS: Basophils # 0.1 10*3/uL (0.0-0.2); Basophils % 0.5 % (0.0-0.8); Eosinophils # 0.3 10*3/uL (0.0-0.87); Eosinophils % 2.1 % (0.00-10.9); Hematocrit 37.3 VOL% (35.7-47.0); Hemoglobin 11.9 GM/DL (12.0-16.0); Immature Granulocytes % 0.4 %; Immature Granulocytes Absolute 0.05 #; Lymphocytes # 3.5 10*3/uL (1.4-4.0); Lymphocytes % 26.6 % (21.3-54.2); Mean Corpuscular HGB Conc 31.9 GM/DL (32-36); Mean Corpuscular Hemoglobin 26 PG (27-34); Mean Corpuscular Volume 82.7 FL (87-102); Mean Platelet Volume 11.7 FL (9.6-12.0); Monocytes # 1.5 10*3/uL (0.11-0.8); Monocytes % 11.1 % (1.7-12.7); Neutrophils # 7.8 10*3/uL (1.4-7.4); Neutrophils % 59.3 % (38.7-73.9); Platelet Count 257 T/CUMM (130-400); Red Blood Count 4.51 MC/CUMM (3.8-5.5); White Blood Count 13.1 T/CUMM (4-12)
[2017-04-12 05:51] LABS: Albumin 3.5 G/DL (3.4-5.0); Bilirubin,Total 0.6 MG/DL (0.2-1.0); Calcium 8.9 MG/DL (8.5-10.1); Magnesium 1.9 MG/DL (1.8-2.4); Osmolality,Calculated 274.8 MOS/KG (273-304); Phosphorous 3.8 MG/DL (2.5-4.9); Potassium 3.6 MMOL/L (3.5-5.1); Total Protein 6.5 G/DL (6.4-8.3)
[2017-04-12] MEDS: IPRATROPIUM 500 MCG/2.5 ML NEB RESP TX SCH ×4 (07:51→21:13)
[2017-04-12] MEDS: prednisoLONE 5 MG TABLET PO SCH (08:26)
[2017-04-12] MEDS: traMADol 50 MG TABLET PO SCH ×2 (08:27→22:02)
[2017-04-12] MEDS: DILTIAZEM CD 120 MG CAPSULE PO SCH ×2 (08:27→22:00)
[2017-04-12] MEDS: DIGOXIN 0.125 MG TABLET PO SCH ×2 (08:27→22:01)
[2017-04-12] MEDS: APIXABAN 5 MG TABLET PO SCH ×2 (08:28→22:00)
[2017-04-12] MEDS: MONTELUKAST 10 MG TABLET PO SCH (08:28)
--- NOTE | 2017-04-12 09:53 | Gastrointestinal Progress Note ---
Assessment and Plan (1) Abdominal pain Status: Acute Assessment and plan: 04/12-Abd pain controlled at present, no N/V. Afebrile. Tolerating small amounts of diet. Continue IV antibiotics if IV access can be obtained d/t cardizem infusion. Plan and addendum to follow by Dr Gilliam. 04/11-5 day history of lower right lower quadrant abdominal pain with associated nausea, reported episodes of small amount of rectal bleeding with bowel movement. CT of abdomen findings noted as below. Hemoglobin stable at 12.1. Obtain endoscopy records from endoscopic center. Surgery consult noted. Plan an addendum to followed by Dr. Gilliam. Current Visit: Yes Gastroenterology - PN: Subj Interval history: CC: Abdominal pain She is seen awake alert sitting up in chair, family in room. States that she was awake most of the night with abdominal discomfort. States that she was finally able to get some relief with her pain medication early this morning. Denies any nausea vomiting. Nursing staff is having difficulty with IV access due to her Cardizem infusion and patient is a difficult to obtain access. Abdomen is soft, mild tenderness to palpation. She is afebrile at this time. Pt is noted to have a bit of anxiety over things at this time and is asking to change her antibiotics to po at this time due to fear of another venous stick. After discussion, pt agreed to have one more attempt at starting additional IV to continue her antibiotics. ROS: Denies SOB or chest pain Exam (Progress Note) - Constitutional Vitals: Period Temp Pulse Resp BP Sys/Hernández Pulse Ox Last 24 Hr 96.2 F-98.7 F 69-131 18-20 104-150/55-83 92-992 - Other Additional findings: General appearance: normal weight, no acute distress - Head Head exam: Present: normal inspection, normocephalic - Eye Eye exam: Present: other (Lids and conjunctive are unremarkable). Absent: scleral icterus - ENT ENT exam: Present: normal exam, normal oropharynx - Neck Neck exam: Present: normal inspection - Respiratory Respiratory exam: Present: clear to auscultation bilaterally. Absent: rales, rhonchi, wheezes - Cardiovascular Cardiovascular exam: Present: regular rate and rhythm. Absent: diastolic murmur , JVD, systolic murmur - GI/Abdominal GI/Abdominal exam: Present: normal bowel sounds, tenderness (Right lower quadrant), soft. Absent: ascites, distended, mass, organomegaly - Extremities Exam Extremities exam: Present: normal inspection, full ROM - Back Exam Back exam: Present: normal inspection - Neurological Exam Neurological exam: Present: alert, oriented X3 - Psychiatric Psychiatric exam: Present: normal affect, normal mood - Skin Skin exam: Present: normal color, warm, dry Results - Labs CBC & BMP: 04/12/17 04:27 04/12/17 04:27 Lab Results: I have reviewed the past 24 hour labs
[2017-04-12] MEDS ORDERED: SODIUM PHOSPHATE ENEMA 133 ML BOTTLE RECTAL ONE (10:19)
[2017-04-12] MEDS ORDERED: SODIUM PHOSPHATE ENEMA 133 ML BOTTLE RECTAL PRN (10:19)
[2017-04-12] MEDS: LEVOFLOXACIN INJ 500 MG in PREMIX 1 EACH IV SCH (10:41)
[2017-04-12] MEDS: POTASSIUM CHLORIDE 20 MEQ TABLET PO SCH (10:41)
--- NOTE | 2017-04-12 10:46 | Pulmonology Progress Note ---
Pulmonary - PN: Subj Interval history: This is a 81-year-old white female who is also followed in my office. I saw her in consultation on 04/11/2017. My impressions were. #1. 2 day history of right lower quadrant abdominal pain with elevated white blood cell count. Etiology undetermined. Consider infectious etiology 2. COPD/asthma. Steroid dependent. Stable 3. High blood pressure. Good control 4. Arteriosclerotic heart disease 5. Atrial fib with a history of rapid ventricular response followed by Dr. Mitch Ellis and Dr. ron Alvarez. We have been advised to avoid beta blockers and amiodarone if possible 6. Hyperlipidemia 7. Diabetes mellitus. Januvia was started for 12/2016. Note elevated hemoglobin A1c. 8. Past history of pulmonary hypertension with cor pulmonale 9. Degenerative joint disease 10. Gastroesophageal reflux disease 11. Restless leg syndrome 12. Chronic constipation. Followed by Dr. Jonathan disla 04/12/2017. I have reviewed Dr. Gilliam's GI consultation and I agree with his recommendations. Patient still complains of pain and she is obstipated. I offered fleets enema and she also requested additional oral cathartics. Both have been ordered. Her family was present at the time and so was Giancarlo Stahl , nurse practitioner. White blood cell count is dropped from 18,000 513,100 with 59 segs 27 lymphs and 11 monos. H&H 11.9/37.3 and platelets are 257,000. Electrolytes are normal. Creatinine is 0.6 with a BUN of 11. Magnesium is normal. Protein and albumin are normal. Physical exam. Vital signs see below Face symmetrical. Lips and tongue show no edema. Neck is symmetrical with no meningismus. Lymphatics. No submandibular cervical supraclavicular or epitrochlear adenopathy. Psychiatric. Oriented 3. Neurologic. Cranial nerves are intact. Long track motor functions intact Chest. Hyperinflated with mild to moderate prolongation of expiration. No wheezing. No chest wall tenderness. Heart. Irregular at 80 bpm. Patient has known atrial fib. Abdomen. Very mild tenderness to direct pressure in the right lower quadrant. Extremities. Nothing to suggest deep venous thrombophlebitis. The remainder the physical exam is noncontributory. Plan. 04/11/2017 1. Continue patient's present medicines. 2. Chest x-ray and EKG 3. We will cover for ingested infectious causes. 4. See orders. 04/12/2017. 1. See today's note above. 2. Lactulose. Fleets enema. 3. Continue to treat as diverticulosis with diverticulitis Exam (Progress Note) - Constitutional Vitals: Period Temp Pulse Resp BP Sys/Hernández Pulse Ox Last 24 Hr 96.2 F-98.7 F 69-131 18-20 104-150/55-83 92-992 Results - Labs CBC & BMP: 04/12/17 04:27 04/12/17 04:27
[2017-04-12] MEDS: LACTULOSE 20 GM/30 ML UDCUP PO SCH ×2 (13:12→17:52)
--- NOTE | 2017-04-12 13:49 | General Surgery Progress Note ---
Assessment and Plan (1) Abdominal pain Status: Acute Assessment and plan: Patient's clinical presentation and improvement on IV antibiotics as well as decreasing leukocytosis leaning more towards infectious etiology for her pain; likely early diverticulitis. Recommend continued IV antibiotics and monitoring. No surgical indications present at this time. Current Visit: Yes Subjective Patient reports: Present: still having pain, no bowel movement, afebrile ( Patient went to [facility] with RVR overnight), other (Tolerating oral intake without difficulty. No nausea, vomiting or diarrhea overnight.) Exam - Constitutional Vitals: Period Temp Pulse Resp BP Sys/Hernández Pulse Ox Last 24 Hr 96.2 F-99.0 F 69-131 18-20 104-149/55-78 93-992 General appearance: no acute distress - GI/Abdominal GI/Abdominal exam: Present: normal bowel sounds, soft. Absent: distended, tenderness - Extremities Exam Extremities exam: Absent: calf tenderness, edema - Neurological Exam Neurological exam: Present: alert, oriented X3 Speech: Present: normal - Skin Skin exam: Present: normal color, warm Results - Labs CBC & BMP: 04/12/17 04:27 04/12/17 04:27 Quality Measures - Stroke Symptom Onset Unknown: No
--- NOTE | 2017-04-12 14:10 | Hospitalist Progress Note ---
Assessment and Plan (1) Abdominal pain Status: Acute Assessment and plan: The patient is admitted to the hospital with right lower quadrant pain and exacerbation of COPD. We are treating the patient with IV antibiotics, general surgery, GI and pulmonary consultations are ongoing. Current Visit: Yes (2) Lumbar back pain with radiculopathy affecting right lower extremity Status: Acute Current Visit: Yes (3) Atrial fibrillation with RVR Status: Acute Current Visit: Yes Hospitalist: Subjective Interval history: The patient is having some radiculopathy on the outside of the right leg today. She had pain during the night but now mostly pins and needle paresthesia. In addition the patient has a continued right lower quadrant discomfort that is thought to be due to early diverticulitis and improving with IV antibiotics. Exam - Constitutional Vitals: Period Temp Pulse Resp BP Sys/Hernández Pulse Ox Last 24 Hr 96.2 F-99.0 F 69-131 18-20 104-149/55-78 93-992 - Respiratory Respiratory exam: Present: clear to auscultation bilaterally - Cardiovascular Cardiovascular exam: Present: regular rate and rhythm - GI/Abdominal GI/Abdominal exam: Present: hypoactive bowel sounds, tenderness (Right lower quadrant) Results - Labs CBC & BMP: 04/12/17 04:27 04/12/17 04:27 Lab Results: I have reviewed the past 24 hour labs Quality Measures - Stroke Symptom Onset Unknown: No
--- NOTE | 2017-04-12 18:10 | ECHO Report ---
Bella Charles 04/12/2017 Exam Date: 10:01 Referring Physician: julien Dougherty Technologist: EMELI HORTON Age: 81 Ht (in): 63 Wt (lb): 143 FExam Location: [facility] Gender: Echo [id number]: Atrial fibrillation, Severe COPD, Indications:Leukocytosis, Abdominal pain BP: 104 / 55 HR: 99 SinusRhythm: Technical Quality: IMPRESSIONS Technically adequate study Normal chamber sizes 1+ concentric LVH Normal LV systolic function with ejection fraction estimated 55% without obvious segmental wall motion abnormality 1+ mitral regurgitation 1-2+ tricuspid regurgitation with RVSP 38 mmHg plus RAP Irregular rhythm noted MEASUREMENTS (Male / Female) Normal Values 2D ECHO LV Diastolic Diameter PLAX 3.9 cm 4.2 - 5.9 / 3.9 - 5.3 cm LV Systolic Diameter PLAX 2.9 cm LV Fractional Shortening PLAX 25.2 % IVS Diastolic Thickness 1.1 cm 0.6 - 1.0 / 0.6 - 0.9 cm LVPW Diastolic Thickness 1.1 cm 0.6 - 1.0 / 0.6 - 0.9 cm RV Internal Dim ED PLAX 2.9 cm Aortic Root Diameter 3.4 cm LA Systolic Diameter LX 3.1 cm 3.0 - 4.0 / 2.7 - 3.8 cm DOPPLER TR Peak Velocity 307.0 cm/s TR Peak Gradient 37.7 mmHg FINDINGS Left Ventricle Normal left ventricular cavity size. Normal left ventricular wall thickness. Left ventricular ejection fraction is estimated at 55%. Right Ventricle The right ventricle is normal in size and function. Right Atrium The right atrium is normal in size. Left Atrium Mild atrial enlargement in apical view (elongated LA). Mitral Valve Morphologically normal mitral valve. Mild-moderate mitral valve regurgitation. Aortic Valve Morphologically normal aortic valve without significant sclerosis or stenosis. There is no aortic regurgitation. Tricuspid Valve Morphologically normal tricuspid valve. [id number] tricuspid valve regurgitation. Tricuspid regurgitation velocities suggest a PAP of 48 mmHg. Pulmonic Valve Morphologically normal pulmonic valve without significant stenosis. There is no pulmonic regurgitation. Pericardium Normal pericardium without effusion. Aorta Normal ascending aorta dimension. Ambrocio Carrillo (Electronically Signed) 12 April 2017 Final Date: 18:09
[2017-04-13] MEDS: INSULIN LISPRO 100 UNIT/ML SUBCUT SCH ×5 (00:54→21:56)
[2017-04-13] MEDS: LACTULOSE 20 GM/30 ML UDCUP PO SCH ×3 (00:54→12:37)
[2017-04-13] MEDS: HYDROmorphone 2 MG/1 ML VIAL IV PRN ×3 (01:49→21:58)
[2017-04-13] MEDS: metroNIDAZOLE INJ 250 MG in IV BAG 1 EACH IV SCH ×3 (04:40→21:56)
[2017-04-13] MEDS: DILTIAZEM INJ 100 MG in SODIUM CHLORIDE 0.9% 100 ML IV SCH (07:14)
[2017-04-13] MEDS: IPRATROPIUM 500 MCG/2.5 ML NEB RESP TX SCH ×4 (07:25→20:14)
[2017-04-13] MEDS: APIXABAN 5 MG TABLET PO SCH ×2 (08:20→21:56)
[2017-04-13] MEDS: prednisoLONE 5 MG TABLET PO SCH (08:20)
[2017-04-13] MEDS: MONTELUKAST 10 MG TABLET PO SCH (08:21)
[2017-04-13] MEDS: DILTIAZEM CD 120 MG CAPSULE PO SCH (08:25)
[2017-04-13] MEDS: DIGOXIN 0.125 MG TABLET PO SCH (08:26)
[2017-04-13] MEDS: traMADol 50 MG TABLET PO SCH ×2 (08:27→21:55)
[2017-04-13] MEDS: POTASSIUM CHLORIDE 20 MEQ TABLET PO SCH (08:27)
[2017-04-13] MEDS: SPIRIVA INH SCH (08:30)
--- NOTE | 2017-04-13 08:46 | Cardiology Consult Note ---
Assessment and Plan (1) Atrial fibrillation with RVR Status: Acute Assessment and plan: 1. 81-year-old with hypertension, cor pulmonale, asthma, NIDDM, permanent atrial fibrillation, presented with right lower quadrant pain and some bright red blood per rectum with modest RVR control with IV diltiazem currently. 2. Ms. Hayes is adamant she does not want any of her p.o. medications changed to control her heart rate, and she is afraid that we will worsen her COPD; she is on her usual diltiazem and digoxin dose, we will simply discontinue her IV infusion and see how her rate response. 3. On Eliquis for her atrial fibrillation to reduce cardioembolic risk. 4. Echocardiogram December 2015 showed EF greater than 55% (also noted EF 55% this admission) 5. We will follow with you Current Visit: Yes (2) COPD, severe Status: Chronic Current Visit: Yes (3) Chronic anticoagulation Status: Chronic Current Visit: Yes History of Present Illness - Consult Narrative History of present illness: Ms. Charles is a 81 year old female who is routinely followed by Dr. Ellis, she last saw him in the office 02/03/2017. She had a history of permanent atrial fibrillation, hypertension, cor pulmonale, asthma, and NIDDM. She is chronically anticoagulated on Eliquis 5 mg twice daily and is on digoxin 0.25 daily and diltiazem 120 mg twice daily for rate control. She saw Dr. Tracey in December and he noted that amiodarone had been tried and provided better rate control, but was stopped due to her severe lung disease. She had an echocardiogram at Dr. Ellis's office January 15, 2016 with ejection fraction noted to be greater than 55%. Surgical history includes bilateral cataract, hysterectomy, and appendectomy. Family history is positive for father with arthritis and hypertension in brothers with lung disease. She reports she does not smoke, stating she quit about 35 years ago. She presented to the emergency room Tuesday with right lower quadrant abdominal pain that she had been complaining of for about 1 week. She is also reported bright red blood in her bowel movements. She has had CT abdomen and pelvis, GI and surgery are following. EKG done yesterday morning showed atrial fibrillation with heart rate of 99. According to nursing staff yesterday afternoon her heart rates in the 130s-140s and she was transferred to telemetry where she was started on Cardizem infusion. This morning she is sitting up in chair in no acute distress. She continues to complain of the abdominal discomfort she has been having and states that her right leg was the night before admission. She denies any chest pain or palpitations presently. Oxygen is in use via nasal cannula and she states she is at her baseline breathing. She reports she does get very dyspneic on exertion. She states yesterday when her heart rate was elevated she can feel her heart racing and she felt weak. She denies any other symptoms at that time. Cardizem is currently infusing at 10 cc an hour. trial court justice currently shows atrial fibrillation with heart rates in the 90s. Labs are unremarkable. RSJ she had RVR yesterday which responded to IV diltiazem. I discussed discussed with her adjusting her p.o. medications we can get her off of the IV infusion. She was taken off the infusion but does not want any medicines change from her usual home medications. She is adamant that "we got the medicine just right so as not to affect my asthma". She believes her right was just elevated because of her pain and distress when she came in. She currently has decrease in her right lower quadrant pain but it does persist and is modestly tender. She has not had any blood in her stool this morning. CC: Bert Donato MD - Home Medications and Allergies Home Medications: Home Medications Medication Instructions Recorded Confirmed Type Esomeprazole Magnesium 40 mg PO DAILY 08/21/15 04/10/17 History [Esomeprazole] Montelukast Tab [Singulair Tab] 10 mg PO DAILY 08/21/15 04/10/17 History Tiotropium Inhalation [Spiriva 18 mcg INH DAILY 08/21/15 04/10/17 History Handihaler] traMADol TAB [Ultram] 100 mg PO BID 08/21/15 04/10/17 History Apixaban [Eliquis] 5 mg PO BID #60 tablet 08/25/15 04/10/17 Rx Digoxin Tab [Lanoxin Tab] 0.125 mg PO DAILY 04/10/17 04/11/17 History Ipratropium Inhaler [Atrovent 2 puff INH Q6HR 04/10/17 04/10/17 History Inhaler] Olodaterol HCl [Striverdi Respimat] 2 puffs IH DAILY 04/10/17 04/11/17 History Potassium Chloride 10 meq PO DAILY W/BREAKFAST 04/10/17 04/11/17 History dilTIAZem HCl [Tiazac] 120 mg PO BID 04/10/17 04/11/17 History prednisoLONE [Millipred Tab] 10 mg PO DAILY 04/10/17 04/11/17 History Allergies/Adverse Reactions: Allergies Allergy/AdvReac Type Severity Reaction Status Date / Time No Known Allergies Allergy Verified 08/21/15 09:48 Medical,Surgical,& Family Hx - Medical History Cardio: History of: Cardiac Dysrhythmia (AFIB on Eliquis), Hypertension, Cardiovascular Problems (Carotid artery disease) Endocrine: History of: Diabetes Mellitus (NIDDM) Respiratory: History of: Asthma, COPD (steroid-dependent) Gastrointestinal: History of: Diverticulitis/ Diverticulosis, GERD - Surgical History Abdominal Surgeries: Surgical HX of: Appendectomy Reproductive Surgeries: Surgical HX of;: Hysterectomy (PARTIAL) - Family History Family History: Reports;: Family Heart Disease (FATHER, SON), Family Hypertension (FATHER, SON), Family Stroke (FATHER) - Social History Smoking Status: Never smoker Frequency of Alcohol Use: None Type of Drug Use: None Physical Examination Vital Signs Temp Pulse Resp BP Pulse Ox 97.2 F L 125 H 22 168/109 96 04/10/17 12:05 04/10/17 12:05 04/10/17 12:05 04/10/17 12:05 04/10/17 12:05 General: Present: Appears Well, No Apparent Distress Cardiac: Present: Reg Rate and Rhythm, Regular Rate, Regular Rhythm. Absent: Diastolic Murmur Lungs: Present: Normal Exam, No Wheeze, Rales, Rhonchi Neuro: Absent: Weakness, Essential Tremor Abdomen: Present: Soft, Tender (Modestly tender right lower quadrant) Extremities: Present: Normal Gait, No Edema Result/EKG - Labs CBC & BMP: 04/12/17 04:27 04/12/17 04:27 Labs: Laboratory Results - last 24 hr 04/12/17 04/12/17 04/12/17 11:14 15:19 20:50 POC Glucose 241 H 230 H 198 H 04/13/17 04/13/17 05:46 07:16 POC Glucose 156 H 169 H Quality Measures - Stroke Symptom Onset Unknown: No
--- NOTE | 2017-04-13 08:47 | EKG Report ---
Stationary ECG Study [facility] Test Date: 04/13/2017 8:49:16 AM Pat Name: YESENIA FALCON Department: Room: 270 Gender: F Hand Pattern Marker: : 1935 Requested by: Ambrocio Capone Order Number: [id number] Reading MD: VIJAYA VALENCIA Intervals [place] Rate: 91 P: 999 IN: 0 QRS: 74 QRSD: 99 T: -23 QT: 359 QTc: 408 Interpretive Statements ATRIAL FIBRILLATION ST DEVIATION AND MODERATE T-WAVE ABNORMALITY, CONSIDER LATERAL ISCHEMIA Electronically Signed On 04-14-17 07:37:30 CDT by VIJAYA VALENCIA [email or web address]
[2017-04-13] MEDS: LEVOFLOXACIN INJ 500 MG in PREMIX 1 EACH IV SCH (09:33)
--- NOTE | 2017-04-13 10:25 | Gastrointestinal Progress Note ---
Assessment and Plan (1) Abdominal pain Status: Acute Assessment and plan: 04/13-abdominal pain improved. Tolerating more of diet. No nausea vomiting. Continue IV antibiotics at present time. Plan an addendum to follow Dr. Gilliam. 04/12-Abd pain controlled at present, no N/V. Afebrile. Tolerating small amounts of diet. Continue IV antibiotics if IV access can be obtained d/t cardizem infusion. Plan and addendum to follow by Dr Gilliam. 04/11-5 day history of lower right lower quadrant abdominal pain with associated nausea, reported episodes of small amount of rectal bleeding with bowel movement. CT of abdomen findings noted as below. Hemoglobin stable at 12.1. Obtain endoscopy records from endoscopic center. Surgery consult noted. Plan an addendum to followed by Dr. Gilliam. Current Visit: Yes Gastroenterology - PN: Subj Interval history: CC: Abdominal pain Patient is seen awake and alert sitting up in chair. Family is at bedside. States that she had an uneventful night and rested better. States her abdominal pain has improved 100% from time of admission however she is having some continued episodes and requiring analgesics at times. Reports that she is tolerating her diet without nausea vomiting. States her bowels are moving without any reports of overt bleeding. Abdomen is soft, nontender. She is afebrile without leukocytosis. Nursing staff was able to obtain a second venous access and IV antibiotics have been continued. ROS: Denies shortness breath or chest pain Exam (Progress Note) - Constitutional Vitals: Period Temp Pulse Resp BP Sys/Hernández Pulse Ox Last 24 Hr 97 F-100.1 F 70-106 16-22 121-172/68-86 95-100 - Other Additional findings: General appearance: normal weight, no acute distress - Head Head exam: Present: normal inspection, normocephalic - Eye Eye exam: Present: other (Lids and conjunctive are unremarkable). Absent: scleral icterus - ENT ENT exam: Present: normal exam, normal oropharynx - Neck Neck exam: Present: normal inspection - Respiratory Respiratory exam: Present: clear to auscultation bilaterally. Absent: rales, rhonchi, wheezes - Cardiovascular Cardiovascular exam: Present: regular rate and rhythm. Absent: diastolic murmur , JVD, systolic murmur - GI/Abdominal GI/Abdominal exam: Present: normal bowel sounds, tenderness (Right lower quadrant), soft. Absent: ascites, distended, mass, organomegaly - Extremities Exam Extremities exam: Present: normal inspection, full ROM - Back Exam Back exam: Present: normal inspection - Neurological Exam Neurological exam: Present: alert, oriented X3 - Psychiatric Psychiatric exam: Present: normal affect, normal mood - Skin Skin exam: Present: normal color, warm, dry Results - Labs CBC & BMP: 04/12/17 04:27 04/12/17 04:27 Lab Results: I have reviewed the past 24 hour labs
--- NOTE | 2017-04-13 10:28 | Pulmonology Progress Note ---
Pulmonary - PN: Subj Interval history: This is a 81-year-old white female who is also followed in my office. I saw her in consultation on 04/11/2017. My impressions were. #1. 2 day history of right lower quadrant abdominal pain with elevated white blood cell count. Etiology undetermined. Consider infectious etiology 2. COPD/asthma. Steroid dependent. Stable 3. High blood pressure. Good control 4. Arteriosclerotic heart disease 5. Atrial fib with a history of rapid ventricular response followed by Dr. Mitch Ellis and Dr. ron Alvarez. We have been advised to avoid beta blockers and amiodarone if possible 6. Hyperlipidemia 7. Diabetes mellitus. Januvia was started for 12/2016. Note elevated hemoglobin A1c. 8. Past history of pulmonary hypertension with cor pulmonale 9. Degenerative joint disease 10. Gastroesophageal reflux disease 11. Restless leg syndrome 12. Chronic constipation. Followed by Dr. Jonathan disla 04/12/2017. I have reviewed Dr. Gilliam's GI consultation and I agree with his recommendations. Patient still complains of pain and she is obstipated. I offered fleets enema and she also requested additional oral cathartics. Both have been ordered. Her family was present at the time and so was Giancarlo Stahl , nurse practitioner. White blood cell count is dropped from 18,000 513,100 with 59 segs 27 lymphs and 11 monos. H&H 11.9/37.3 and platelets are 257,000. Electrolytes are normal. Creatinine is 0.6 with a BUN of 11. Magnesium is normal. Protein and albumin are normal. 04/13/2017. Patient has had several fairly large bowel movements. She says she still has pain in her right upper quadrant but is better. I have reviewed her medicines with her. Over time Dr. Mitch Ellis and I gradually adjusted her medicines to the protocol that she said she was taken at the time of this admission. We will continue that if all goes well. Patient is being treated for acute diverticulitis. There was no new lab today but all lab was reviewed and medicines have been reviewed. Physical exam. Vital signs see below Face symmetrical. Lips and tongue show no edema. Neck is symmetrical with no meningismus. Lymphatics. No submandibular cervical supraclavicular or epitrochlear adenopathy. Psychiatric. Oriented 3. Neurologic. Cranial nerves are intact. Long track motor functions intact Chest. Hyperinflated with mild to moderate prolongation of expiration. No wheezing. No chest wall tenderness. Heart. Irregular at 80 bpm. Patient has known atrial fib. Abdomen. Very mild tenderness to direct pressure in the right lower quadrant. Extremities. Nothing to suggest deep venous thrombophlebitis. The remainder the physical exam is noncontributory. Plan. 04/11/2017 1. Continue patient's present medicines. 2. Chest x-ray and EKG 3. We will cover for ingested infectious causes. 4. See orders. 04/12/2017. 1. See today's note above. 2. Lactulose. Fleets enema. 3. Continue to treat as diverticulosis with diverticulitis 04/13/2017. 1. See today's note above. 2. Having bowel movements. 3. Medicines adjusted. 4. Continue antibody Exam (Progress Note) - Constitutional Vitals: Period Temp Pulse Resp BP Sys/Hernández Pulse Ox Last 24 Hr 97 F-100.1 F 70-106 16-22 121-172/68-86 95-100 Results - Labs CBC & BMP: 04/12/17 04:27 04/12/17 04:27
--- NOTE | 2017-04-13 12:18 | Hospitalist Progress Note ---
Assessment and Plan (1) Diabetes mellitus Status: Chronic Current Visit: Yes (2) Atrial fibrillation Status: Acute Current Visit: Yes (3) Abdominal pain Status: Acute Current Visit: Yes (4) Leukocytosis Status: Acute Current Visit: Yes (5) Chronic anticoagulation Status: Chronic Assessment and plan: Patient seems to be doing okay. Will order a lower extremity ultrasound for asymmetric swelling. Continue with IV antibiotics. Going to recheck her labs tomorrow there were no labs drawn today. The elevation in white count would lead toward an infectious process regarding her abdominal pain. Surgery thought possibly early diverticulitis. GI is following along with us Current Visit: Yes Hospitalist: Subjective Interval history: Patient still complaining of right lower quadrant pain. She is very concerned about her lower extremity asymmetric swelling. Exam - Constitutional Vitals: Period Temp Pulse Resp BP Sys/Hernández Pulse Ox Last 24 Hr 97 F-100.1 F 70-104 16-22 133-172/68-86 91-100 General appearance: normal weight - Head Head exam: Present: normal inspection - ENT ENT exam: Present: normal exam - Neck Neck exam: Present: normal inspection - Respiratory Respiratory exam: Present: clear to auscultation bilaterally - Cardiovascular Cardiovascular exam: Present: regular rate and rhythm - GI/Abdominal GI/Abdominal exam: Present: normal bowel sounds, tenderness (Right lower quadrant) - Extremities Exam Extremities exam: Present: normal inspection, edema (Mild increase edema on the right leg.) - Back Exam Back exam: Present: normal inspection - Neurological Exam Neurological exam: Present: alert, oriented X3 - Psychiatric Psychiatric exam: Present: normal affect, normal mood Results - Labs CBC & BMP: 04/12/17 04:27 04/12/17 04:27 Quality Measures - Stroke Symptom Onset Unknown: No
[2017-04-13] MEDS ORDERED: LACTULOSE 20 GM/30 ML UDCUP PO PRN (12:38)
--- NOTE | 2017-04-13 13:24 | Ultrasound Report ---
Bilateral lower extremity venous Doppler with rose scale, Spectral Doppler and color-flow analysis performed and interpreted. Indication: Swelling. Scanning over both common femoral veins, superficial femoral veins, greater saphenous veins and popliteal veins demonstrates normal compressibility, color flow, and augmentation. Impression: No evidence of DVT seen in either lower extremity. PROCEDURE INTERPRETED AT [facility] DEPARTMENT OF RADIOLOGY Final Report Signed by: Dr. Dominique Hercules
--- NOTE | 2017-04-13 14:15 | General Surgery Progress Note ---
Assessment and Plan (1) Abdominal pain Status: Acute Assessment and plan: Patient continues to clinically improve. At this point, there are no surgical indications. If her pain persists repeat CT scan should be considered which could be on an outpatient basis at approximately 1 week. No follow-up is required. We will set up at this time. If there are any changes the patient's condition or questions please feel free to call. Current Visit: Yes Subjective Patient reports: Present: no new complaints, pain is less, tolerating a regular diet, afebrile (Patient is overall improved.) Exam - Constitutional Vitals: Period Temp Pulse Resp BP Sys/Hernández Pulse Ox Last 24 Hr 97 F-100.1 F 70-104 16-22 133-172/68-86 91-100 General appearance: no acute distress - Head Head exam: Present: normal inspection, normocephalic - Eye Eye exam: Absent: conjunctival injection, periorbital swelling - GI/Abdominal GI/Abdominal exam: Present: normal bowel sounds, soft. Absent: tenderness - Neurological Exam Neurological exam: Present: alert, oriented X3 Speech: Present: normal - Skin Skin exam: Present: normal color, warm Results - Labs CBC & BMP: 04/12/17 04:27 04/12/17 04:27 Quality Measures - Stroke Symptom Onset Unknown: No
[2017-04-14] MEDS: HYDROmorphone 2 MG/1 ML VIAL IV PRN (04:13)
[2017-04-14] MEDS: metroNIDAZOLE INJ 250 MG in IV BAG 1 EACH IV SCH (04:14)
[2017-04-14 04:33] LABS: Basophils # 0.1 10*3/uL (0.0-0.2); Basophils % 0.5 % (0.0-0.8); Eosinophils # 0.3 10*3/uL (0.0-0.87); Eosinophils % 2.6 % (0.00-10.9); Hematocrit 35.4 VOL% (35.7-47.0); Hemoglobin 11.3 GM/DL (12.0-16.0); Immature Granulocytes % 0.3 %; Immature Granulocytes Absolute 0.03 #; Lymphocytes # 3.2 10*3/uL (1.4-4.0); Mean Corpuscular HGB Conc 31.9 GM/DL (32-36); Mean Corpuscular Hemoglobin 27 PG (27-34); Mean Corpuscular Volume 82.9 FL (87-102); Mean Platelet Volume 12.2 FL (9.6-12.0); Monocytes # 1.2 10*3/uL (0.11-0.8); Monocytes % 10.8 % (1.7-12.7); Neutrophils # 6.5 10*3/uL (1.4-7.4); Neutrophils % 57.8 % (38.7-73.9); Platelet Count 215 T/CUMM (130-400); Red Blood Count 4.27 MC/CUMM (3.8-5.5); Red Cell Distribution Width 13.2 % (9.3-17.3); White Blood Count 11.3 T/CUMM (4-12)
[2017-04-14 05:02] LABS: Calcium 8.7 MG/DL (8.5-10.1); Osmolality,Calculated 280.1 MOS/KG (273-304); Potassium 3.7 MMOL/L (3.5-5.1)
[2017-04-14] MEDS: IPRATROPIUM 500 MCG/2.5 ML NEB RESP TX SCH ×2 (07:10→11:10)
[2017-04-14] MEDS: INSULIN LISPRO 100 UNIT/ML SUBCUT SCH ×2 (08:08→12:47)
[2017-04-14] MEDS: MONTELUKAST 10 MG TABLET PO SCH (08:22)
[2017-04-14] MEDS: prednisoLONE 5 MG TABLET PO SCH (08:22)
[2017-04-14] MEDS: traMADol 50 MG TABLET PO SCH (08:22)
[2017-04-14] MEDS: APIXABAN 5 MG TABLET PO SCH (08:23)
[2017-04-14] MEDS: POTASSIUM CHLORIDE 20 MEQ TABLET PO SCH (08:24)
[2017-04-14] MEDS: SPIRIVA INH SCH (08:25)
[2017-04-14] MEDS ORDERED: DILTIAZEM CD 120 MG CAPSULE PO SCH (09:00)
[2017-04-14] MEDS ORDERED: DIGOXIN 0.125 MG TABLET PO SCH (09:00)
[2017-04-14] MEDS: LEVOFLOXACIN INJ 500 MG in PREMIX 1 EACH IV SCH (09:39)
--- NOTE | 2017-04-14 10:29 | Cardiology Progress Note ---
<Dominique Corona - Last Filed: 04/14/17 10:07> Assessment and Plan (1) Abdominal pain Status: Acute Assessment and plan: SEE PLAN OF CARE LISTED BELOW Current Visit: Yes (2) Atrial fibrillation Status: Chronic Assessment and plan: SEE PLAN OF CARE LISTED BELOW Current Visit: Yes Qualifiers: Atrial fibrillation type: chronic Qualified Code(s): I48.2 - Chronic atrial fibrillation (3) Chronic anticoagulation Status: Chronic Assessment and plan: SEE PLAN OF CARE LISTED BELOW Current Visit: Yes (4) Asthma Status: Chronic Assessment and plan: SEE PLAN OF CARE LISTED BELOW Current Visit: Yes (5) Cor pulmonale Status: Chronic Assessment and plan: SEE PLAN OF CARE LISTED BELOW Current Visit: Yes Cardiology - PN: Subj Interval history: Epic Application Coordinator: Dr. Ellis SUMMARY - Ms. Charles is a 81 year old female who is routinely followed by Dr. Ellis, she last saw him in the office 02/03/2017. She had a history of permanent atrial fibrillation, hypertension, cor pulmonale, asthma, and NIDDM. She is chronically anticoagulated on Eliquis 5 mg twice daily and is on digoxin 0.25 daily and diltiazem 120 mg twice daily for rate control. She saw Dr. Tracey in December and he noted that amiodarone had been tried and provided better rate control, but was stopped due to her severe lung disease. She had an echocardiogram at Dr. Ellis's office January 15, 2016 with ejection fraction noted to be greater than 55%. She presented to the emergency room Tuesday with right lower quadrant abdominal pain that she had been complaining of for about 1 week. She is also reported bright red blood in her bowel movements. She has had CT abdomen and pelvis, GI and surgery are following. EKG done yesterday morning showed atrial fibrillation with heart rate of 99. According to nursing staff yesterday afternoon her heart rates in the 130s-140s and she was transferred to telemetry where she was started on Cardizem infusion. Cardiology was then consulted to further assist with patient's chronic atrial fibrillation. Cardizem infusion was discontinued yesterday as patient obtained rate control. Today, she remains rate controlled. March UPDATE - Patient was seen and examined on the telemetry unit. She is sitting up in bed in no acute distress. property assessment monitor has been reviewed. She remains in atrial fibrillation as this is chronic for her. She is rate controlled with heart rates in the 80s. At this point, we will continue with current plan of care. Anticoagulation with Eliquis. She denies chest pain, heaviness and tightness as well as shortness of breath and palpitations. She tells me that her abdominal pain is improving. Currently she is being treated empirically for diverticulitis. GI is following. At this point, she is doing reasonably well from a cardiac standpoint. We will not make any further changes today. I will further discuss with Dr. Carrillo and await his recommendations. ASSESSMENT/PLAN: 1. CHRONIC ATRIAL FIBRILLATION - Patient is now rate controlled. Will continue with current plan of care with Eliquis, digoxin and calcium channel michelle. 2. ABDOMINAL PAIN - Improving. Being treated empirically for diverticulitis. GI is following. 3. ASTHMA - Clinically stable at present. Continue with current plan of care. Dr. Medrano is following. 4. CHRONIC ANTICOAGULATION - H&H is stable. Continue Eliquis for stroke prevention. 5. COR PULMONALE - Stable at present. Further plan and addendum to follow per Dr. Carrillo. Exam (Progress Note) - Constitutional Vitals: Period Temp Pulse Resp BP Sys/Hernández Pulse Ox Last 24 Hr 97.1 F-98.9 F 82-101 16-20 123-159/60-90 91-99 Exam: General: Appears well with no apparent distress. Pleasant and cooperative. Appears comfortable. HEENT: PERRL, normocephalic, atraumatic. Mucous membranes moist. No jaundice noted. Conjunctiva moist and clear, sclerae anicteric Neck: No JVD/HJR, no thyromegaly or lymphadenopathy noted. No carotid bruit appreciated Cardiac: Irregular rhythm. No murmur rub or gallop. Lungs: Clear to auscultation without accessory muscle use to assist the respiratory pattern. Not requiring oxygen. Abdomen: Soft, bowel sounds normoactive. Mildly tender, nondistended. No abdominal bruit or thrill noted. Extremities: No clubbing, cyanosis noted. No edema noted. Upper extremity pulses 2+. Lower extremity pulses 2+. Capillary refill less than 3 seconds. Skin: No unusual lesions or rashes. No skin breakdown appreciated. Neuro: Awake, alert and oriented 3. Moves all extremities well without hemiparesis or paralysis. No essential tremor is appreciated. Result/EKG - Labs CBC & BMP: 04/14/17 03:32 04/14/17 03:32 Lab Results: I have reviewed the past 24 hour labs Labs: Laboratory Results - last 24 hr 04/13/17 04/13/17 04/13/17 11:56 15:21 19:28 WBC RBC Hgb Hct MCV MCH MCHC RDW Plt Count MPV Neut % (Auto) Lymph % (Auto) [place] % (Auto) Eos % (Auto) Baso % (Auto) Neut # (Auto) Lymph # (Auto) [place] # (Auto) Eos # (Auto) Baso # (Auto) Immature Gran % Nucleated RBC % Immature Gran # Nucleated RBCs # Sodium Potassium Chloride Carbon Dioxide Anion Gap BUN Creatinine GFR Calculation BUN/Creatinine Ratio Glucose POC Glucose 211 H 245 H 231 H Calculated Osmolality Calcium Magnesium 04/14/17 04/14/17 04/14/17 03:32 03:32 07:30 WBC 11.3 RBC 4.27 Hgb 11.3 L Hct 35.4 L MCV 82.9 L MCH 27 MCHC 31.9 L RDW 13.2 Plt Count 215 MPV 12.2 H Neut % (Auto) 57.8 Lymph % (Auto) 28.0 [place] % (Auto) 10.8 Eos % (Auto) 2.6 Baso % (Auto) 0.5 Neut # (Auto) 6.5 Lymph # (Auto) 3.2 [place] # (Auto) 1.2 H Eos # (Auto) 0.3 Baso # (Auto) 0.1 Immature Gran % 0.3 Nucleated RBC % 0.0 Immature Gran # 0.03 Nucleated RBCs # 0.00 Sodium 142 Potassium 3.7 Chloride 103 Carbon Dioxide 30 Anion Gap 12.7 BUN 5 L Creatinine 0.50 L GFR Calculation 89 BUN/Creatinine Ratio 10.00 Glucose 117 H POC Glucose 137 H Calculated Osmolality 280.1 Calcium 8.7 Magnesium 2.0 Quality Measures - Stroke Symptom Onset Unknown: No <Ambrocio Carrillo - Last Filed: 04/14/17 11:38> Assessment and Plan (1) Atrial fibrillation with RVR Status: Acute Current Visit: Yes (2) COPD, severe Status: Chronic Current Visit: Yes (3) Chronic anticoagulation Status: Chronic Current Visit: Yes Exam (Progress Note) - Constitutional Vitals: Period Temp Pulse Resp BP Sys/Hernández Pulse Ox Last 24 Hr 97.1 F-98.9 F 83-101 16-18 123-159/60-90 91-99 Result/EKG - Labs CBC & BMP: 04/14/17 03:32 04/14/17 03:32 Labs: Laboratory Results - last 24 hr 04/13/17 04/13/17 04/13/17 11:56 15:21 19:28 WBC RBC Hgb Hct MCV MCH MCHC RDW Plt Count MPV Neut % (Auto) Lymph % (Auto) [place] % (Auto) Eos % (Auto) Baso % (Auto) Neut # (Auto) Lymph # (Auto) [place] # (Auto) Eos # (Auto) Baso # (Auto) Immature Gran % Nucleated RBC % Immature Gran # Nucleated RBCs # Sodium Potassium Chloride Carbon Dioxide Anion Gap BUN Creatinine GFR Calculation BUN/Creatinine Ratio Glucose POC Glucose 211 H 245 H 231 H Calculated Osmolality Calcium Magnesium 04/14/17 04/14/17 04/14/17 03:32 03:32 07:30 WBC 11.3 RBC 4.27 Hgb 11.3 L Hct 35.4 L MCV 82.9 L MCH 27 MCHC 31.9 L RDW 13.2 Plt Count 215 MPV 12.2 H Neut % (Auto) 57.8 Lymph % (Auto) 28.0 [place] % (Auto) 10.8 Eos % (Auto) 2.6 Baso % (Auto) 0.5 Neut # (Auto) 6.5 Lymph # (Auto) 3.2 [place] # (Auto) 1.2 H Eos # (Auto) 0.3 Baso # (Auto) 0.1 Immature Gran % 0.3 Nucleated RBC % 0.0 Immature Gran # 0.03 Nucleated RBCs # 0.00 Sodium 142 Potassium 3.7 Chloride 103 Carbon Dioxide 30 Anion Gap 12.7 BUN 5 L Creatinine 0.50 L GFR Calculation 89 BUN/Creatinine Ratio 10.00 Glucose 117 H POC Glucose 137 H Calculated Osmolality 280.1 Calcium 8.7 Magnesium 2.0
--- NOTE | 2017-04-14 10:42 | Pulmonology Progress Note ---
Pulmonary - PN: Subj Interval history: This is a 81-year-old white female who is also followed in my office. I saw her in consultation on 04/11/2017. My impressions were. #1. 2 day history of right lower quadrant abdominal pain with elevated white blood cell count. Etiology undetermined. Consider infectious etiology 2. COPD/asthma. Steroid dependent. Stable 3. High blood pressure. Good control 4. Arteriosclerotic heart disease 5. Atrial fib with a history of rapid ventricular response followed by Dr. Mitch Ellis and Dr. ron Alvarez. We have been advised to avoid beta blockers and amiodarone if possible 6. Hyperlipidemia 7. Diabetes mellitus. Januvia was started for 12/2016. Note elevated hemoglobin A1c. 8. Past history of pulmonary hypertension with cor pulmonale 9. Degenerative joint disease 10. Gastroesophageal reflux disease 11. Restless leg syndrome 12. Chronic constipation. Followed by Dr. Jonathan disla 04/12/2017. I have reviewed Dr. Gilliam's GI consultation and I agree with his recommendations. Patient still complains of pain and she is obstipated. I offered fleets enema and she also requested additional oral cathartics. Both have been ordered. Her family was present at the time and so was Giancarlo Stahl , nurse practitioner. White blood cell count is dropped from 18,000 513,100 with 59 segs 27 lymphs and 11 monos. H&H 11.9/37.3 and platelets are 257,000. Electrolytes are normal. Creatinine is 0.6 with a BUN of 11. Magnesium is normal. Protein and albumin are normal. 04/13/2017. Patient has had several fairly large bowel movements. She says she still has pain in her right upper quadrant but is better. I have reviewed her medicines with her. Over time Dr. Mitch Ellis and I gradually adjusted her medicines to the protocol that she said she was taken at the time of this admission. We will continue that if all goes well. Patient is being treated for acute diverticulitis. There was no new lab today but all lab was reviewed and medicines have been reviewed. 04/14/2017. Patient says her stomach pain is better. She wonders when she will be discharged. From my standpoint I think she will be safe to discharge any time. I would send her home on her present medicines. She can see me in follow -up in about 2 or 3 months or just keep her next visit. The patient is off antibiotics and I suspect but I do not know for sure that she insisted these be stopped. She has no known allergies. Lighted her history and physical findings that strongly suggest diverticulitis I suggested we send her home on Cipro 250 mg p.o. twice daily for 7 days and Flagyl 250 mg p.o. 3 times daily for 7 days. If there is a problem with Flagyl from her standpoint we could send her home on Cleocin 150 mg p.o. 3 times daily for 7 days. Her abdomen is essentially nontender today. She says she has had a bowel movement. Patient was seen along with a male family member whom I think it is her son and also Giancarlo Stahl nurse practitioner was present Physical exam. Vital signs see below Face symmetrical. Lips and tongue show no edema. Neck is symmetrical with no meningismus. Lymphatics. No submandibular cervical supraclavicular or epitrochlear adenopathy. Psychiatric. Oriented 3. Neurologic. Cranial nerves are intact. Long track motor functions intact Chest. Hyperinflated with mild to moderate prolongation of expiration. No wheezing. No chest wall tenderness. Heart. Irregular at 80 bpm. Patient has known atrial fib. Abdomen. Very mild tenderness to direct pressure in the right lower quadrant. Extremities. Nothing to suggest deep venous thrombophlebitis. The remainder the physical exam is noncontributory. Plan. 04/11/2017 1. Continue patient's present medicines. 2. Chest x-ray and EKG 3. We will cover for ingested infectious causes. 4. See orders. 04/12/2017. 1. See today's note above. 2. Lactulose. Fleets enema. 3. Continue to treat as diverticulosis with diverticulitis 04/13/2017. 1. See today's note above. 2. Having bowel movements. 3. Medicines adjusted. 4. Continue antibody 04/14/2017. 1. Patient would like to go home. I think she is ready from my standpoint. Please see today's note above with my suggestions. 2. The patient has a follow-up appointment. We will let her keep that Exam (Progress Note) - Constitutional Vitals: Period Temp Pulse Resp BP Sys/Hernández Pulse Ox Last 24 Hr 97.1 F-98.9 F 82-101 16-20 123-159/60-90 91-99 Results - Labs CBC & BMP: 04/14/17 03:32 04/14/17 03:32
--- NOTE | 2017-04-14 11:34 | Cardiology Progress Note ---
Assessment and Plan (1) Atrial fibrillation with RVR Status: Acute Assessment and plan: 1. 81-year-old with hypertension, cor pulmonale, asthma, NIDDM, permanent atrial fibrillation, presented with right lower quadrant pain and some bright red blood per rectum with modest RVR control with IV diltiazem currently. 2. Ms. Hayes is adamant she does not want any of her p.o. medications changed to control her heart rate, and she is afraid that we will worsen her COPD; she is on her usual diltiazem and digoxin dose, we will simply discontinue her IV infusion and see how her rate response. 3. On Eliquis for her atrial fibrillation to reduce cardioembolic risk. 4. Echocardiogram December 2015 showed EF greater than 55% (also noted EF 55% this admission) 5. We will follow with you Current Visit: Yes (2) COPD, severe Status: Chronic Current Visit: Yes (3) Chronic anticoagulation Status: Chronic Current Visit: Yes Exam (Progress Note) - Constitutional Vitals: Period Temp Pulse Resp BP Sys/Hernández Pulse Ox Last 24 Hr 97.1 F-98.9 F 83-101 16-18 123-159/60-90 91-99 Result/EKG - Labs CBC & BMP: 04/14/17 03:32 04/14/17 03:32 Labs: Laboratory Results - last 24 hr 04/13/17 04/13/17 04/13/17 11:56 15:21 19:28 WBC RBC Hgb Hct MCV MCH MCHC RDW Plt Count MPV Neut % (Auto) Lymph % (Auto) [place] % (Auto) Eos % (Auto) Baso % (Auto) Neut # (Auto) Lymph # (Auto) [place] # (Auto) Eos # (Auto) Baso # (Auto) Immature Gran % Nucleated RBC % Immature Gran # Nucleated RBCs # Sodium Potassium Chloride Carbon Dioxide Anion Gap BUN Creatinine GFR Calculation BUN/Creatinine Ratio Glucose POC Glucose 211 H 245 H 231 H Calculated Osmolality Calcium Magnesium 04/14/17 04/14/17 04/14/17 03:32 03:32 07:30 WBC 11.3 RBC 4.27 Hgb 11.3 L Hct 35.4 L MCV 82.9 L MCH 27 MCHC 31.9 L RDW 13.2 Plt Count 215 MPV 12.2 H Neut % (Auto) 57.8 Lymph % (Auto) 28.0 [place] % (Auto) 10.8 Eos % (Auto) 2.6 Baso % (Auto) 0.5 Neut # (Auto) 6.5 Lymph # (Auto) 3.2 [place] # (Auto) 1.2 H Eos # (Auto) 0.3 Baso # (Auto) 0.1 Immature Gran % 0.3 Nucleated RBC % 0.0 Immature Gran # 0.03 Nucleated RBCs # 0.00 Sodium 142 Potassium 3.7 Chloride 103 Carbon Dioxide 30 Anion Gap 12.7 BUN 5 L Creatinine 0.50 L GFR Calculation 89 BUN/Creatinine Ratio 10.00 Glucose 117 H POC Glucose 137 H Calculated Osmolality 280.1 Calcium 8.7 Magnesium 2.0 Quality Measures - Stroke Symptom Onset Unknown: No
--- NOTE | 2017-04-14 11:38 | Gastrointestinal Progress Note ---
Assessment and Plan (1) Abdominal pain Status: Acute Assessment and plan: 04/14-Abd pain improved today, no N/V. Tolerating diet. Afebrile. Change to oral antibiotics today and continue to monitor. Plan and addendum to follow by DR Gilliam. 04/13-abdominal pain improved. Tolerating more of diet. No nausea vomiting. Continue IV antibiotics at present time. Plan an addendum to follow Dr. Gilliam. 04/12-Abd pain controlled at present, no N/V. Afebrile. Tolerating small amounts of diet. Continue IV antibiotics if IV access can be obtained d/t cardizem infusion. Plan and addendum to follow by Dr Gilliam. 04/11-5 day history of lower right lower quadrant abdominal pain with associated nausea, reported episodes of small amount of rectal bleeding with bowel movement. CT of abdomen findings noted as below. Hemoglobin stable at 12.1. Obtain endoscopy records from endoscopic center. Surgery consult noted. Plan an addendum to followed by Dr. Gilliam. Current Visit: Yes Gastroenterology - PN: Subj Interval history: CC: Abdominal pain Pt is awake and alert, ambulating around the room. States that she is feeling much better at this time. She states that her pain is improved however is continuing but states the pain medication is helping more than initially. She denies any nausea or vomiting. She is afebrile and tolerating her diet well. Abdomen is soft, nontender. ROS: Denies SOB or chest pain Exam (Progress Note) - Constitutional Vitals: Period Temp Pulse Resp BP Sys/Hernández Pulse Ox Last 24 Hr 97.1 F-98.9 F 83-101 16-18 123-159/60-90 91-99 - Other Additional findings: General appearance: normal weight, no acute distress - Head Head exam: Present: normal inspection, normocephalic - Eye Eye exam: Present: other (Lids and conjunctive are unremarkable). Absent: scleral icterus - ENT ENT exam: Present: normal exam, normal oropharynx - Neck Neck exam: Present: normal inspection - Respiratory Respiratory exam: Present: clear to auscultation bilaterally. Absent: rales, rhonchi, wheezes - Cardiovascular Cardiovascular exam: Present: regular rate and rhythm. Absent: diastolic murmur , JVD, systolic murmur - GI/Abdominal GI/Abdominal exam: Present: normal bowel sounds, tenderness (Right lower quadrant), soft. Absent: ascites, distended, mass, organomegaly - Extremities Exam Extremities exam: Present: normal inspection, full ROM - Back Exam Back exam: Present: normal inspection - Neurological Exam Neurological exam: Present: alert, oriented X3 - Psychiatric Psychiatric exam: Present: normal affect, normal mood - Skin Skin exam: Present: normal color, warm, dry Results - Labs CBC & BMP: 04/14/17 03:32 04/14/17 03:32 Lab Results: I have reviewed the past 24 hour labs
[2017-04-14 12:35] VITALS: BP 163/72
--- NOTE | 2017-04-14 13:37 | Discharge Summary ---
Hospital Course - Hospital Course Hospital Course: Ms. Hayes is a 81-year-old white female with history of A. fib on anticoagulation, asthma, diabetes admitted to the hospitalist service on 2016 with right lower quadrant abdominal pain due to acute diverticulitis. Patient was started on IV antibiotics and pain and nausea control. Dr. Catherine from surgery was consulted and he did not recommend surgery at this time. GI was consulted and they recommended continuing IV antibiotics as well. Dr. Medrano is her family doctor and he followed her during this hospital stay. She will follow-up with him in clinic in a few weeks. Cardiology was consulted due to patient going into A. fib with RVR. She was transitioned back to her home medicines and she is doing well at this time. She is on diltiazem and digoxin and Eliquis for her A. fib. Patient is still mildly tender in that right lower quadrant but she is much improved from admission. She has no nausea and no vomiting and she is tolerating a diet. All consultants are agreeable to her being discharged home. She will be discharged home on 7-10 more days of Cipro and Flagyl and narcotic pain medicine as needed. She will follow-up with Dr. Medrano in his office in 2 weeks and she already has an follow-up appointment with Dr. Ellis scheduled. Patient's case was coordinated with Dr. Abreu the hospitalist, GI, cardiology, pulmonary, patient family and nursing. Case coordination, chart review, and discharge paperwork took a total of 38 minutes. - Time spent with patient Time with patient DS: Greater than 30 minutes Diagnosis - Discharge Diagnosis (1) Atrial fibrillation with RVR Status: Resolved (2) Asthma Status: Chronic (3) Diabetes mellitus Status: Chronic (4) Abdominal pain Status: Resolved Specialty Discharge - Follow Up or Referrals Follow up with: Jeff Ellis MD [Physician] - 2 Weeks Discharge Plan - Discharge Data Disposition: Disch To Home/Self Care Condition at Discharge: Stable Discharge Diet: advance to your usual diet Activity: resume usual activities as tolerated Contact your physician if you experience:: Nausea/Vomiting, pain uncontrolled by pain medications - Discharge Medications New Levofloxacin Tab [Levaquin Tab] 500 mg PO DAILY #10 tablet metroNIDAZOLE TAB [Flagyl Cap/Tab] 250 mg PO QID #40 tablet Continue Montelukast Tab [Singulair Tab] 10 mg PO DAILY Esomeprazole Magnesium [Esomeprazole] 40 mg PO DAILY Tiotropium Inhalation [Spiriva Handihaler] 18 mcg INH DAILY Apixaban [Eliquis] 5 mg PO BID #60 tablet Ipratropium Inhaler [Atrovent Inhaler] 2 puff INH Q6HR prednisoLONE [Millipred Tab] 10 mg PO DAILY Digoxin Tab [Lanoxin Tab] 0.125 mg PO DAILY Potassium Chloride 10 meq PO DAILY W/BREAKFAST Olodaterol HCl [Striverdi Respimat] 2 puffs IH DAILY dilTIAZem HCl [Tiazac] 120 mg PO BID traMADol TAB [Ultram] 100 mg PO BID #30 - Follow Up or Referral Follow Up: Jeff Ellis MD [Physician] - 2 Weeks Gurvinder Medrano MD [Physician] - 2 Weeks - Forms/Instructions Exam - Constitutional Vitals: Period Temp Pulse Resp BP Sys/Hernández Pulse Ox Last 24 Hr 97.1 F-98.9 F 83-106 16-20 123-163/60-90 92-99 Exam: 81-year-old white female, no acute distress, alert and oriented Chest clear CV irregularly irregular Abdomen soft mild tenderness and right lower quadrant Extremities no edema Discharge Results Procedures and tests throughout hospitalization: Pending Orders 04/15/17 04:00 BMP w/ Mg [Basic Metabolic Panel w/Mg] IN AM CBC [Comp Blood Count Auto Diff] IN AM 04/16/17 04:00 BMP w/ Mg [Basic Metabolic Panel w/Mg] IN AM CBC [Comp Blood Count Auto Diff] IN AM 04/17/17 04:00 BMP w/ Mg [Basic Metabolic Panel w/Mg] IN AM CBC [Comp Blood Count Auto Diff] IN AM 04/18/17 04:00 BMP w/ Mg [Basic Metabolic Panel w/Mg] IN AM CBC [Comp Blood Count Auto Diff] IN AM Labs on day of discharge: Labs from last 24 hours 04/14/17 04/14/17 04/14/17 12:06 07:30 03:32 WBC RBC Hgb Hct MCV MCH MCHC RDW Plt Count MPV Neut % (Auto) Lymph % (Auto) [place] % (Auto) Eos % (Auto) Baso % (Auto) Neut # (Auto) Lymph # (Auto) [place] # (Auto) Eos # (Auto) Baso # (Auto) Immature Gran % Nucleated RBC % Immature Gran # Nucleated RBCs # Sodium 142 Potassium 3.7 Chloride 103 Carbon Dioxide 30 Anion Gap 12.7 BUN 5 L Creatinine 0.50 L GFR Calculation 89 BUN/Creatinine Ratio 10.00 Glucose 117 H POC Glucose 202 H 137 H Calculated Osmolality 280.1 Calcium 8.7 Magnesium 2.0 04/14/17 04/13/17 04/13/17 03:32 19:28 15:21 WBC 11.3 RBC 4.27 Hgb 11.3 L Hct 35.4 L MCV 82.9 L MCH 27 MCHC 31.9 L RDW 13.2 Plt Count 215 MPV 12.2 H Neut % (Auto) 57.8 Lymph % (Auto) 28.0 [place] % (Auto) 10.8 Eos % (Auto) 2.6 Baso % (Auto) 0.5 Neut # (Auto) 6.5 Lymph # (Auto) 3.2 [place] # (Auto) 1.2 H Eos # (Auto) 0.3 Baso # (Auto) 0.1 Immature Gran % 0.3 Nucleated RBC % 0.0 Immature Gran # 0.03 Nucleated RBCs # 0.00 Sodium Potassium Chloride Carbon Dioxide Anion Gap BUN Creatinine GFR Calculation BUN/Creatinine Ratio Glucose POC Glucose 231 H 245 H Calculated Osmolality Calcium Magnesium DS: Provider Date of admission: 04/11/17 14:46 Primary care physician: . No PCP Attending physician on admission: Yevgeniy Wu MD Consults: 04/10/17 19:21 Consult to Physician [CONS] Routine Comment: severe abdominal pain, Consulting Provider: Nicholas Catherine Consult to Specialist Group: Surgery When should Consulting Provider be notified: In am Person Notified: NEELA Date Notified: 04/11/17 Time Notified: 09:15 04/11/17 09:23 Consult to Physician [CONS] Routine Comment: Consulting Provider: Gurvinder Medrano Person Notified: Dr Medrano Date Notified: 04/11/17 Time Notified: 09:23 04/11/17 09:59 Consult to Physician [CONS] Routine Comment: known to you; abd pain, abn CT Consulting Provider: Gurvinder Gilliam Person Notified: Tiara GARIBAY Date Notified: 04/11/17 Time Notified: 15:27 04/11/17 16:37 Consult to Physician [CONS] Routine Comment: a-fib with rvr Consulting Provider: Ambrocio Carrillo Consulting Provider Notified: Yes When should Consulting Provider be notified: Now Consult to Specialist Group: Hospitalist When should Consulting Provider be notified: Now Person Notified: Libia Date Notified: 04/11/17 Time Notified: 16:51 Discharging clinician: CARITO Vyas Expected date of discharge: 04/14/17
[2017-04-14] MEDS ORDERED: metroNIDAZOLE 250 MG TABLET PO SCH (14:00)
[2017-04-15] MEDS ORDERED: LEVOFLOXACIN 500 MG TABLET PO SCH (09:00)
== END 2017-04-14 15:30 | disposition home or self-care (01) | DRG 392 ==
LOC: EDUNIT# → EDBD → N.EDINP 11:57 → N.ED 11:57 → SUATTDRO 18:24 → N.5E 19:20 → SUATTDRO 04-11 14:46 → N.TELES 04-11 16:07
PROVIDERS: ADMIT Internal Medicine Infectious Disease; ATTEND Internal Medicine Nephrology

== ENCOUNTER 2017-04-23 04:21 | Inpatient (IN) ==
[2017-04-23] MEDS ORDERED: KETOROLAC 30 MG/1 ML VIAL IV STA (04:56)
--- NOTE | 2017-04-23 04:58 | Emergency Department Note ---
IAkhil Rolonda, am scribing for, and in the presence of, Aysha Otero DO 04: 58. IBranden Debra, DO, personally performed the services described in this documentation, ascribed by Gerhard Landaverde in my presence, and it is both accurate and complete 458 . Arrival - Arrival ED Nursing Triage Note: Pt arrives via ems from home with complaints of right upper leg pain. States that it has been ongoing for a week. Pt has been seen for complaint and told they do not know what is wrong. Pt states she was given medication for her leg by her PCP today but that it just does not help. + pulse noted to right foot. No obvious deformity noted at time of triage. Mode of Arrival: Stretcher Limitations: No Limitations Source: Patient, Old Records Reviewed, RN Notes Reviewed - History of Present Illness Onset (ago): week(s) Consistency: constant Severity: mild Severity scale (1-10): 3 Quality: aching Date of Last Menstrual Period: Hyster <Aysha Otero - Last Filed: 04/23/17 05:43> <Gilberto Olivera - Last Filed: 04/23/17 10:27> - Arrival Chief Complaint: Extremity Problem - History of Present Illness HPI Narrative: Pt is a 81 y/o female who presents to the ED via EMS with a c/o right upper leg pain that radiates down her leg with an onset of x1 week. Pt has a PMHx of diverticulitis. She was seen in the ED x1 week ago and was d/c with no diagnosis. Pt f/u with her PCP today, was given medication PO but with no relief which prompted her visit to the ED. No other complaint/pain in ED. (Gerhard Landaverde) Pt is a 81 y/o female who presents to the ED via EMS with a c/o right upper leg pain that radiates down her leg with an onset of x1 week. Pt has a PMHx of diverticulitis. She was seen in the ED x1 week ago and was d/c with no diagnosis. Pt f/u with her PCP today, was given medication PO but with no relief which prompted her visit to the ED. No other complaint/pain in ED. (Aysha Otero) Allergies/Adverse Reactions: Allergies Allergy/AdvReac Type Severity Reaction Status Date / Time No Known Allergies Allergy Verified 08/21/15 09:48 Home Medications: Home Medications Medication Instructions Recorded Confirmed Type Esomeprazole Magnesium 40 mg PO DAILY 08/21/15 04/23/17 History [Esomeprazole] Montelukast Tab [Singulair Tab] 10 mg PO DAILY 08/21/15 04/23/17 History Tiotropium Inhalation [Spiriva 18 mcg INH DAILY 08/21/15 04/23/17 History Handihaler] Apixaban [Eliquis] 5 mg PO BID #60 tablet 08/25/15 04/23/17 Rx Digoxin Tab [Lanoxin Tab] 0.125 mg PO DAILY 04/10/17 04/23/17 History Ipratropium Inhaler [Atrovent 2 puff INH Q6HR 04/10/17 04/23/17 History Inhaler] Olodaterol HCl [Striverdi Respimat] 2 puffs IH DAILY 04/10/17 04/23/17 History Potassium Chloride 10 meq PO DAILY W/BREAKFAST 04/10/17 04/23/17 History dilTIAZem HCl [Tiazac] 120 mg PO BID 04/10/17 04/23/17 History prednisoLONE [Millipred Tab] 10 mg PO DAILY 04/10/17 04/23/17 History Levofloxacin Tab [Levaquin Tab] 500 mg PO DAILY #10 tablet 04/14/17 04/23/17 Rx metroNIDAZOLE TAB [Flagyl Cap/Tab] 250 mg PO QID #40 tablet 04/14/17 04/23/17 Rx traMADol TAB [Ultram] 100 mg PO BID #30 04/14/17 04/23/17 Rx traMADol TAB [Ultram] 100 mg PO BID #30 tablet 04/14/17 04/23/17 Rx Review of System - Review of System Constitutional: Absent: chills, fever Respiratory: Absent: cough, respiratory distress Cardiovascular: Absent: chest pain, dyspnea on exertion Gastrointestinal: Absent: abdominal pain Musculoskeletal: Present: leg pain (right ). Absent: back pain Skin: Absent: rash Neurological: Absent: headache, weakness <Aysha Otero - Last Filed: 04/23/17 05:43> Medical,Surgical,& Family Hx - Medical History Cardio: History of: Cardiac Dysrhythmia (AFIB on Eliquis), Hypertension, Cardiovascular Problems (Carotid artery disease) Endocrine: History of: Diabetes Mellitus (NIDDM) Respiratory: History of: Asthma, COPD (steroid-dependent) Gastrointestinal: History of: Diverticulitis/ Diverticulosis, GERD - Surgical History Abdominal Surgeries: Surgical HX of: Appendectomy Reproductive Surgeries: Surgical HX of;: Hysterectomy (PARTIAL) - Family History Family History: Reports;: Family Heart Disease (FATHER, SON), Family Hypertension (FATHER, SON), Family Stroke (FATHER) - Social History Smoking Status: Never smoker Frequency of Alcohol Use: None Type of Drug Use: None <Aysha Otero - Last Filed: 04/23/17 05:43> Exam - General General appearance: alert, in no apparent distress - Head Head exam: Present: atraumatic, normocephalic - Eye Eye exam: Present: normal appearance, PERRL, EOMI - ENT ENT exam: Present: normal exam, normal oropharynx, mucous membranes moist. Absent: mucous membranes dry - Neck Neck exam: Present: normal inspection, full ROM. Absent: tenderness - Chest Chest inspection: Present: normal inspection, symmetric chest wall rise. Absent : tenderness - Respiratory Respiratory exam: Present: normal lung sounds bilaterally. Absent: wheezes - Cardiovascular Cardiovascular exam: Present: regular rate, normal rhythm, normal heart sounds. Absent: bradycardia - Abdominal Exam Abdominal exam: Present: soft, normal bowel sounds. Absent: tenderness - Female exam ED: Present: other (groin pain) - Extremities Exam Extremities exam: Present: full ROM. Absent: normal inspection (right upper leg pain) - Back Exam Back exam: Present: normal inspection, full ROM. Absent: tenderness - Neurological Exam Neurological exam: Present: alert, oriented X3, CN II-XII intact - Psychiatric Psychiatric exam: Present: normal affect, normal mood - Skin Skin exam: Present: warm, dry, intact, normal color. Absent: rash <Aysha Otero - Last Filed: 04/23/17 05:43> Vital Signs: Vital Signs Temperature 98.4 F 04/23/17 04:21 Pulse Rate 114 H 04/23/17 09:45 Respiratory Rate 18 04/23/17 09:45 Blood Pressure 132/94 04/23/17 09:45 O2 Sat by Pulse Oximetry 96 04/23/17 09:45 Course <Aysha Otero - Last Filed: 04/23/17 05:43> <Gliberto Olivera - Last Filed: 04/23/17 10:27> - Reevaluation(s) Reevaluation #1: Discussed at length the results of her studies which revealed virtually nothing by standard laboratory but did demonstrate some significant problems with vasculature of the mesentery. To this end she was advised given the persistence of this problem to be hospitalized for further evaluation. (Gilberto Olivera) - Consultations Consultation #1: Discussed with Dr. Yi several times and it was her final decision to place the patient in for observation for further evaluation treatment. (Gilberto Olivera) Results - Labs CBC & BMP: 04/23/17 05:12 Lab Results: I have reviewed the patients labs <Aysha Otero - Last Filed: 04/23/17 05:43> - Labs CBC & BMP: 04/23/17 05:12 04/23/17 05:12 - Diagnostic Findings Procedure: CT Abdomen and Pelvis: image reviewed by me, report reviewed by me ( Evidence of significant ischemic disease of the mesenteric vasculature with a particularly severe stenotic area of the superior mesenteric artery. Likewise noted was constipation.), X-ray: image reviewed by me, report reviewed by me ( Right hip and pelvis films unremarkable) <Gilberto Olivera - Last Filed: 04/23/17 10:27> - Labs Labs: Laboratory Tests 04/23/17 05:12 WBC 15.9 H RBC 4.85 Hgb 13.3 Hct 39.6 MCV 81.6 L Plt Count 285 Neut # (Auto) 10.5 H [place] # (Auto) 1.6 H (Gerhard Landaverde) Laboratory Tests 04/23/17 05:12 WBC 15.9 H RBC 4.85 Hgb 13.3 Hct 39.6 MCV 81.6 L Plt Count 285 Neut # (Auto) 10.5 H [place] # (Auto) 1.6 H (Aysha Otero) I have reviewed the remainder the lab and noted its normality. (Gilberto Olivera ) Disposition <Aysha Otero - Last Filed: 04/23/17 05:43> Case discussed with: patient, patient's family Time of Disposition: 10:27 <Gilberto Olivera - Last Filed: 04/23/17 10:27> Clinical Impression: Chronic abdominal pain, Mesenteric vascular ischemic disease, Constipation Disposition: Still a Patient
[2017-04-23] MEDS ORDERED: KETOROLAC 30 MG/1 ML VIAL ONE (05:11)
[2017-04-23 05:31] LABS: Basophils # 0.1 10*3/uL (0.0-0.2); Basophils % 0.4 % (0.0-0.8); Eosinophils # 0.1 10*3/uL (0.0-0.87); Eosinophils % 0.8 % (0.00-10.9); Hematocrit 39.6 VOL% (35.7-47.0); Hemoglobin 13.3 GM/DL (12.0-16.0); Immature Granulocytes % 0.3 %; Immature Granulocytes Absolute 0.05 #; Lymphocytes # 3.6 10*3/uL (1.4-4.0); Lymphocytes % 22.5 % (21.3-54.2); Mean Corpuscular HGB Conc 33.6 GM/DL (32-36); Mean Corpuscular Hemoglobin 27 PG (27-34); Mean Corpuscular Volume 81.6 FL (87-102); Mean Platelet Volume 11.3 FL (9.6-12.0); Monocytes # 1.6 10*3/uL (0.11-0.8); Monocytes % 9.8 % (1.7-12.7); Neutrophils # 10.5 10*3/uL (1.4-7.4); Neutrophils % 66.2 % (38.7-73.9); Platelet Count 285 T/CUMM (130-400); Red Blood Count 4.85 MC/CUMM (3.8-5.5); Red Cell Distribution Width 13.2 % (9.3-17.3); White Blood Count 15.9 T/CUMM (4-12)
[2017-04-23 05:47] LABS: Apearance,Urine CLEAR (Clear); Bilirubin,Urine Negative (Negative); Blood, Urine Negative (Negative); Glucose,Urine (UA) Negative (Negative); Ketones,Urine Negative (Negative); Mucus,Urine Occasional /LPF (Occasional); Nitrite,Urine Negative (Negative); Protein,Urine Negative; RBC,Urine <1 /HPF (0-4); Urine Color Yellow (Yellow); Urine Specific Gravity 1.006 (1.001-1.035); Urine Urobilinogen < 2.0 EU/DL (0.2-1.0); WBC,Urine 1 /HPF (0-6)
[2017-04-23] MEDS ORDERED: HYDROmorphone 2 MG/1 ML VIAL IV STA (05:49)
[2017-04-23] MEDS ORDERED: ONDANSETRON 4 MG/2 ML VIAL IV STA (05:49)
[2017-04-23 05:51] LABS: Albumin 3.9 G/DL (3.4-5.0); Bilirubin,Total 0.5 MG/DL (0.2-1.0); Calcium 9.3 MG/DL (8.5-10.1); Potassium 3.6 MMOL/L (3.5-5.1)
[2017-04-23] MEDS ORDERED: ONDANSETRON 4 MG/2 ML VIAL ONE (05:53)
[2017-04-23] MEDS ORDERED: HYDROmorphone 2 MG/1 ML VIAL ONE (05:53)
[2017-04-23] MEDS ORDERED: LEVOFLOXACIN INJ 750 MG in PREMIX 1 EACH IV STA (06:29)
[2017-04-23] MEDS ORDERED: LEVOFLOXACIN INJ 150 ML IV ONE (06:36)
--- NOTE | 2017-04-23 07:53 | CT Report ---
Referring physician: Gilberto Olivera EXAM: CT abdomen and pelvis with contrast DATE: 04/23/2017 COMPARISON: 04/10/2017 REASON: Generalized abdominal pain, groin pain, history of diverticulitis TECHNIQUE: Axial images of the abdomen and pelvis were obtained after administration of 100 cc of Omnipaque 350 IV contrast. Oral contrast was also administered. Coronal and sagittal reformatted images were also provided. Total DLP is 639.40 mGy*cm. FINDINGS: No acute parenchymal findings at the lung bases. Elongation of the right lobe of the liver with fatty infiltration. No masses, dilated ducts, or calcified gallstones. Gallbladder folds upon itself with persistent minimal wall thickening. Stable 25 mm hypodensity in the spleen which fills in with contrast on the delayed scans. The pancreas, adrenal glands, and kidneys are stable in appearance. No renal or ureteral calculi are identified. Calcification in the wall of the nondilated abdominal aorta with no adjacent adenopathy. Atheromatous plaque formation with diffuse arterial calcifications with stenoses especially in the proximal SMA with persistent developmental variation with 4 vessels arising from the abdominal aorta supplying the celiac and SMA territories. 40 mm hiatal hernia. No dilatation of the small bowel. Diverticulosis of the colon with increased fecal material. Prior appendectomy and hysterectomy. No evidence of diverticulitis, free air, or free fluid. Stable urinary bladder. Degenerative changes are noted with grade 1 spondylolisthesis at L4-L5 and dextroscoliosis of the lumbar spine. IMPRESSION: Developmental variation of the mesenteric vessels with multifocal stenoses as previously described. Diverticulosis of the colon with increased fecal material consistent with constipation. Small hiatal hernia with limited evaluation of bowel without oral contrast. The gallbladder folds upon itself with nonspecific wall thickening. Stable 25 mm indeterminate splenic hypodensity. Prior hysterectomy and appendectomy. Grade 1 spondylolisthesis at L4-L5 with dextroscoliosis. The CT exam was performed using one or more of the following dose reduction techniques: Automated exposure control and adjustment of the mA and/or kV according to patient size. PROCEDURE INTERPRETED AT [facility] DEPARTMENT OF RADIOLOGY Final Report Signed by: Dr. Bella Muñoz
--- NOTE | 2017-04-23 09:01 | XRay Report ---
Exam: XR hip 2v w pelvis RT Date: 04/23/2017 8:16 AM Comparison: CT 04/23/2017 Indication: Pelvic pain Technique:[AP pelvis with AP and lateral right hip] Findings: Osteopenia. No fracture or dislocation. Degenerative changes especially in the visualized lumbar spine. Retained contrast in the urinary tract from recent CT. Impression: Osteopenia with degenerative changes. No fracture or dislocation. PROCEDURE INTERPRETED AT [facility] DEPARTMENT OF RADIOLOGY Final Report Signed by: Dr. Bella Muñoz
[2017-04-23 09:11] LABS: Lactic Acid 1.4 MMOL/L (0.4-2.0)
[2017-04-23] MEDS ORDERED: ONDANSETRON 4 MG/2 ML VIAL IV PRN (10:29)
[2017-04-23] MEDS ORDERED: ALBUTEROL/IPRATROPIUM 3 ML NEB RESP TX STA (10:31)
[2017-04-23] MEDS ORDERED: DIGOXIN 0.125 MG TABLET PO STA (10:31)
[2017-04-23] MEDS ORDERED: POLYETHYLENE GLYCOL POWDER 255 GM BOTTLE PO ONE (10:32)
[2017-04-23] MEDS ORDERED: DIGOXIN 0.125 MG TABLET ONE (10:39)
--- NOTE | 2017-04-23 12:14 | General Surg History&Physical ---
Assessment and Plan (1) Mesenteric ischemia, chronic Status: Acute Assessment and plan: This patient has chronic mesenteric ischemia that has been worsening over the past week. She has all the classic symptoms of this disease and given the severity of her abdominal pain she is admitted for optimization from cardiac and pulmonary standpoint. I will recommend an arteriogram on Tuesday so we space out her IV contrast load a little bit and we will see with the arteriogram shows whether or not any stent can be placed to avoid having to do an abdominal surgery on this medically comorbid patient that cannot walk up one flight of stairs without becoming short of breath significantly from her asthma and also has some difficulty with control of her atrial fibrillation. There is only about 4-5 mm of proximal SMA between the aorta and the narrowing of the SMA and this might not be enough to place a stent but I think we should at least get the diagnostic information with an arteriogram and see if any interventional procedure can be done to alleviate her symptoms. Dr. Dunn will be back Tuesday and I will discuss this case with him and handed over to him if he so desires at that time. There are no acute indications for operation or intervention today. Current Visit: Yes History of Present Illness Chief complaint: Abdominal pain History of present illness: Ms. Charles is a 81 year old female with a history of severe asthma on steroids but not home oxygen and also atrial fibrillation who is followed by Dr. Conor Medrano and Dr. Ellis who presents to the hospital with worsening abdominal pain was excruciating and she came in today. No nausea or vomiting. The patient had a CT scan done by the ER which showed findings of visceral disease in the celiac and superior mesenteric arteries with collateral formation consistent with chronic mesenteric ischemia. The patient reports food fear and 40 pound weight loss in the past year and she also had pain out of proportion to exam both when the ER doctor saw her and when I saw her today. She is limited by her asthma to the point where she cannot really walk across a room in her house without getting winded but she does live independently and take care of herself completely independently and currently lives in [facility]. Her atrial fibrillation is currently well-controlled but she had a recent admission for her A. fib was so out of control that none of her other workup was performed in her opinion because of her atrial fibrillation. She was recently admitted for similar episode of abdominal pain. She has never had a cardiac catheterization. Her lab work revealed leukocytosis 15,000 and she does have some symptoms of UTI but her urinalysis was negative for any infection. Her lactic acid was normal. She has a past surgical history of hysterectomy as well as bladder tack and also had an abdominoplasty by plastic surgeon and has had some work done for varicose veins in her right leg at the plastic surgery Center. He does not smoke tobacco. She has no symptoms of claudication or rest pain in her legs. Home Medications Medication Instructions Recorded Confirmed Type Esomeprazole Magnesium 40 mg PO DAILY 08/21/15 04/23/17 History [Esomeprazole] Montelukast Tab [Singulair Tab] 10 mg PO DAILY 08/21/15 04/23/17 History Tiotropium Inhalation [Spiriva 18 mcg INH DAILY 08/21/15 04/23/17 History Handihaler] Apixaban [Eliquis] 5 mg PO BID #60 tablet 08/25/15 04/23/17 Rx Digoxin Tab [Lanoxin Tab] 0.125 mg PO DAILY 04/10/17 04/23/17 History Ipratropium Inhaler [Atrovent 2 puff INH Q6HR 04/10/17 04/23/17 History Inhaler] Olodaterol HCl [Striverdi Respimat] 2 puffs IH DAILY 04/10/17 04/23/17 History Potassium Chloride 10 meq PO DAILY W/BREAKFAST 04/10/17 04/23/17 History dilTIAZem HCl [Tiazac] 120 mg PO BID 04/10/17 04/23/17 History prednisoLONE [Millipred Tab] 10 mg PO DAILY 04/10/17 04/23/17 History Levofloxacin Tab [Levaquin Tab] 500 mg PO DAILY #10 tablet 04/14/17 04/23/17 Rx metroNIDAZOLE TAB [Flagyl Cap/Tab] 250 mg PO QID #40 tablet 04/14/17 04/23/17 Rx traMADol TAB [Ultram] 100 mg PO BID #30 04/14/17 04/23/17 Rx traMADol TAB [Ultram] 100 mg PO BID #30 tablet 04/14/17 04/23/17 Rx Allergies Allergy/AdvReac Type Severity Reaction Status Date / Time No Known Allergies Allergy Verified 08/21/15 09:48 Medical,Surgical,& Family Hx - Medical History Cardio: History of: Cardiac Dysrhythmia (AFIB on Eliquis), Hypertension, Cardiovascular Problems (Carotid artery disease) Endocrine: History of: Diabetes Mellitus (NIDDM) Respiratory: History of: Asthma, COPD (steroid-dependent) Gastrointestinal: History of: Diverticulitis/ Diverticulosis, GERD - Surgical History Abdominal Surgeries: Surgical HX of: Appendectomy Reproductive Surgeries: Surgical HX of;: Hysterectomy (PARTIAL) - Family History Family History: Reports;: Family Heart Disease (FATHER, SON), Family Hypertension (FATHER, SON), Family Stroke (FATHER) - Social History Smoking Status: Never smoker Frequency of Alcohol Use: None Type of Drug Use: None Exam - Constitutional Vitals: Period Temp Pulse Resp BP Sys/Hernández Pulse Ox Last 24 Hr 98.4 F-98.4 F 84-134 18-21 105-168/66-113 95-98 General appearance: normal weight, no acute distress - Head Head exam: Present: normal inspection, normocephalic - Eye Eye exam: Present: EOMI Pupils: Present: BRISEIDA - ENT ENT exam: Present: normal exam Mouth exam: Present: normal external inspection, normal voice - Neck Neck exam: Present: normal inspection, trachea midline - Respiratory Respiratory exam: Present: clear to auscultation bilaterally. Absent: accessory muscle use, chest wall tenderness - Cardiovascular Cardiovascular exam: Present: RRR. Absent: irregular rhythm, systolic murmur - GI/Abdominal GI/Abdominal exam: Present: normal bowel sounds, soft. Absent: Florez's sign, tenderness, rebound - Extremities Exam Extremities exam: Present: normal inspection, normal capillary refill, other ( Patient has varicose veins worse in her right leg. She has palpable pulses in both feet) - Back Exam Back exam: Present: normal inspection - Neurological Exam Neurological exam: Present: alert, oriented X3 Speech: Present: normal - Skin Skin exam: Present: normal color, warm - Constitutional Constitutional: Present: as per HPI - EENT Nose, mouth and throat: Present: as per HPI - Cardiovascular Cardiovascular: Present: as per HPI - Respiratory Respiratory: Present: as per HPI - Gastrointestinal Gastrointestinal: Present: as per HPI - Genitourinary Genitourinary: Present: as per HPI - Musculoskeletal Musculoskeletal: Present: as per HPI - Neurological Neurological: Present: as per HPI - Endocrine Endocrine: Present: as per HPI Hematologic/Lymphatic: Present: as per HPI Results - Labs CBC & BMP: 04/23/17 05:12 04/23/17 05:12 - Diagnostic Findings Procedure: CT Abdomen and Pelvis: image reviewed by me, report reviewed by me ( Narrowing of the celiac and SMA near but not at the ostia of both vessels. There is about 5 mm or at least 4-5 mm between the SMA narrowing in the origin of the SMA off the aorta. There are collateral vessel formation consistent with chronic disease of these vessels. No other acute findings are present. The bowel looks healthy on CT scan.)
--- NOTE | 2017-04-23 12:54 | Cardiology Consult Note ---
Assessment and Plan (1) Abdominal pain Status: Resolved Assessment and plan: This was recently evaluated and may be secondary to some chronic mesenteric ischemia. Angiogram is being planned for Tuesday. Current Visit: No (2) Mesenteric ischemia, chronic Status: Acute Assessment and plan: Workup as per surgery recommendations Current Visit: Yes (3) Atrial fibrillation with RVR Status: Resolved Assessment and plan: I am going to start her on IV diltiazem and adjust oral medications to try to get this optimally controlled Current Visit: No (4) Asthma Status: Chronic Assessment and plan: She apparently has severe chronic asthma with chronic dyspnea on exertion. Pulmonary medicine will be consulted for assistance and management. Current Visit: No (5) Diabetes mellitus Status: Chronic Current Visit: No History of Present Illness - Consult Narrative History of present illness: Ms. Charles is a 81 year old female with a history of multiple medical problems including chronic atrial fibrillation, hypertension, asthma, tonic abdominal pain, and diabetes. She was recently in the hospital with some chronic right lower abdominal discomfort. She also had atrial fibrillation with rapid ventricular response during the hospital stay. Ultimately she was managed conservatively improved enough to go home, but is now readmitted with ongoing abdominal discomfort. This seems to be primarily in the right lower abdominal region. I discussed her case today with Dr. Yi. There is concern that this could be some degree of ischemic bowel. I have been asked to see the patient to assist in managing her cardiac status. Patient has chronic atrial fibrillation, really does not have any significant palpitations, even though at this time her heart rate is suboptimally controlled. During her last hospital stay, she was adamant that she did not want changes made to her oral medical regimen because she was concerned that this would worsen her asthma. At the time I was seeing her she does not appear to be in any significant discomfort. She did not have any chest pain, palpitations, or change in her baseline dyspnea , (she has chronic dyspnea with light to moderate exertion). She denies any fever, chills, or cough. She denies any nausea, vomiting, or gastrointestinal blood loss. Home Medications Medication Instructions Recorded Confirmed Type Esomeprazole Magnesium 40 mg PO DAILY 08/21/15 04/23/17 History [Esomeprazole] Montelukast Tab [Singulair Tab] 10 mg PO DAILY 08/21/15 04/23/17 History Tiotropium Inhalation [Spiriva 18 mcg INH DAILY 08/21/15 04/23/17 History Handihaler] Apixaban [Eliquis] 5 mg PO BID #60 tablet 08/25/15 04/23/17 Rx Digoxin Tab [Lanoxin Tab] 0.125 mg PO DAILY 04/10/17 04/23/17 History Ipratropium Inhaler [Atrovent 2 puff INH Q6HR 04/10/17 04/23/17 History Inhaler] Olodaterol HCl [Striverdi Respimat] 2 puffs IH DAILY 04/10/17 04/23/17 History Potassium Chloride 10 meq PO DAILY W/BREAKFAST 04/10/17 04/23/17 History dilTIAZem HCl [Tiazac] 120 mg PO BID 04/10/17 04/23/17 History prednisoLONE [Millipred Tab] 10 mg PO DAILY 04/10/17 04/23/17 History Levofloxacin Tab [Levaquin Tab] 500 mg PO DAILY #10 tablet 04/14/17 04/23/17 Rx metroNIDAZOLE TAB [Flagyl Cap/Tab] 250 mg PO QID #40 tablet 04/14/17 04/23/17 Rx traMADol TAB [Ultram] 100 mg PO BID #30 04/14/17 04/23/17 Rx traMADol TAB [Ultram] 100 mg PO BID #30 tablet 04/14/17 04/23/17 Rx CC: Elroy Yi MD - Home Medications and Allergies Home Medications: Home Medications Medication Instructions Recorded Confirmed Type Esomeprazole Magnesium 40 mg PO DAILY 08/21/15 04/23/17 History [Esomeprazole] Montelukast Tab [Singulair Tab] 10 mg PO DAILY 08/21/15 04/23/17 History Tiotropium Inhalation [Spiriva 18 mcg INH DAILY 08/21/15 04/23/17 History Handihaler] Apixaban [Eliquis] 5 mg PO BID #60 tablet 08/25/15 04/23/17 Rx Digoxin Tab [Lanoxin Tab] 0.125 mg PO DAILY 04/10/17 04/23/17 History Ipratropium Inhaler [Atrovent 2 puff INH Q6HR 04/10/17 04/23/17 History Inhaler] Olodaterol HCl [Striverdi Respimat] 2 puffs IH DAILY 04/10/17 04/23/17 History Potassium Chloride 10 meq PO DAILY W/BREAKFAST 04/10/17 04/23/17 History dilTIAZem HCl [Tiazac] 120 mg PO BID 04/10/17 04/23/17 History prednisoLONE [Millipred Tab] 10 mg PO DAILY 04/10/17 04/23/17 History Levofloxacin Tab [Levaquin Tab] 500 mg PO DAILY #10 tablet 04/14/17 04/23/17 Rx metroNIDAZOLE TAB [Flagyl Cap/Tab] 250 mg PO QID #40 tablet 04/14/17 04/23/17 Rx traMADol TAB [Ultram] 100 mg PO BID #30 04/14/17 04/23/17 Rx traMADol TAB [Ultram] 100 mg PO BID #30 tablet 04/14/17 04/23/17 Rx Allergies/Adverse Reactions: Allergies Allergy/AdvReac Type Severity Reaction Status Date / Time No Known Allergies Allergy Verified 08/21/15 09:48 12 point system: reviewed and no additional remarkable complaints except as stated Medical,Surgical,& Family Hx - Medical History Cardio: History of: Cardiac Dysrhythmia (AFIB on Eliquis), Hypertension, Cardiovascular Problems (Carotid artery disease) Endocrine: History of: Diabetes Mellitus (NIDDM) Respiratory: History of: Asthma, COPD (steroid-dependent) Gastrointestinal: History of: Diverticulitis/ Diverticulosis, GERD - Surgical History Abdominal Surgeries: Surgical HX of: Appendectomy Reproductive Surgeries: Surgical HX of;: Hysterectomy (PARTIAL) - Family History Family History: Reports;: Family Heart Disease (FATHER, SON), Family Hypertension (FATHER, SON), Family Stroke (FATHER) - Social History Smoking Status: Never smoker Frequency of Alcohol Use: None Type of Drug Use: None Physical Examination Vital Signs Temp Pulse Resp BP Pulse Ox 98.4 F 110 H 18 164/109 96 04/23/17 04:21 04/23/17 04:21 04/23/17 04:21 04/23/17 04:21 04/23/17 04:21 Other: General: Frail, elderly HEENT: Normocephalic, atraumatic Neck: Supple Neck, Midline Trachea Cardiac: Irregular Rhythm, 2/6 systolic murmur, no gallop, no rub Lungs: Clear to Ascultation, increased expiratory phase, no Wheeze, Rales, Rhonchi Neuro: Cranial Nerve 2-12 Intact, diffuse generalized weakness Abdomen: Soft, Active Bowel Sounds, No Masses, No Pulsations/Bruits, nontender nondistended Skin: Normal color, no rash Extremities: No Clubbing, No Cyanosis, No Edema, Normal Upper Extr. Pulses Musculoskeletal: No acute abnormality noted Psychiatric: The patient is alert and oriented. The patient has a flat affect but does not appear to be anxious or depressed. Result/EKG - Labs CBC & BMP: 04/23/17 05:12 04/23/17 05:12 Lab Results: I have reviewed the past 24 hour labs Labs: Laboratory Results - last 24 hr 04/23/17 04/23/17 04/23/17 05:12 05:12 05:12 WBC 15.9 H RBC 4.85 Hgb 13.3 Hct 39.6 MCV 81.6 L MCH 27 MCHC 33.6 RDW 13.2 Plt Count 285 MPV 11.3 Neut % (Auto) 66.2 Lymph % (Auto) 22.5 Harding % (Auto) 9.8 Eos % (Auto) 0.8 Baso % (Auto) 0.4 Neut # (Auto) 10.5 H Lymph # (Auto) 3.6 Harding # (Auto) 1.6 H Eos # (Auto) 0.1 Baso # (Auto) 0.1 Immature Gran % 0.3 Nucleated RBC % 0.0 Immature Gran # 0.05 Nucleated RBCs # 0.00 D-Dimer, Quantitative <= 0.5 Sodium Potassium Chloride Carbon Dioxide Anion Gap BUN Creatinine GFR Calculation BUN/Creatinine Ratio Glucose Calculated Osmolality Lactic Acid Calcium Total Bilirubin AST ALT Alkaline Phosphatase Total Protein Albumin Globulin Albumin/Globulin Ratio Amylase Lipase Urine Color Yellow Urine Appearance Clear Urine pH 6.0 Ur Specific [place] 1.006 Urine Protein Negative Urine Glucose (UA) Negative Urine Ketones Negative Urine Blood Negative Urine Nitrate Negative Urine Bilirubin Negative Urine Urobilinogen < 2.0 H Urine Leukocytes Negative Urine RBC <1 Urine WBC 1 Urine Mucus Occasional Ur Culture Indicated? Not indicated 04/23/17 04/23/17 05:12 08:37 WBC RBC Hgb Hct MCV MCH MCHC RDW Plt Count MPV Neut % (Auto) Lymph % (Auto) [place] % (Auto) Eos % (Auto) Baso % (Auto) Neut # (Auto) Lymph # (Auto) [place] # (Auto) Eos # (Auto) Baso # (Auto) Immature Gran % Nucleated RBC % Immature Gran # Nucleated RBCs # D-Dimer, Quantitative Sodium 136 Potassium 3.6 Chloride 99 Carbon Dioxide 30 Anion Gap 10.6 BUN 9 Creatinine 0.70 GFR Calculation 79 BUN/Creatinine Ratio 12.00 Glucose 157 H Calculated Osmolality 273.0 Lactic Acid 1.4 Calcium 9.3 Total Bilirubin 0.50 AST 18 ALT 23 Alkaline Phosphatase 66 Total Protein 7.0 Albumin 3.9 Globulin 3.1 Albumin/Globulin Ratio 1.2 Amylase 19 L Lipase 84.0 Urine Color Urine Appearance Urine pH Ur Specific [place] Urine Protein Urine Glucose (UA) Urine Ketones Urine Blood Urine Nitrate Urine Bilirubin Urine Urobilinogen Urine Leukocytes Urine RBC Urine WBC Urine Mucus Ur Culture Indicated? - EKG EKG results: interpreted by me
[2017-04-23] MEDS ORDERED: DILTIAZEM 100 MG VIAL.ADD IV ONE (13:34)
[2017-04-23] MEDS ORDERED: SODIUM CHLORIDE 0.9% 100 ML IV ONE ×2 (13:35→13:36)
[2017-04-23] MEDS: DILTIAZEM INJ 100 MG in SODIUM CHLORIDE 0.9% 100 ML IV SCH ×2 (13:54→22:50)
[2017-04-23] MEDS: IPRATROPIUM 500 MCG/2.5 ML NEB RESP TX SCH ×2 (14:13→19:47)
[2017-04-23] MEDS: HYDROmorphone 2 MG/1 ML VIAL IV PRN ×2 (14:31→23:54)
[2017-04-23] MEDS: MAGNESIUM CITRATE 300 ML BOTTLE PO SCH (15:03)
[2017-04-23] MEDS: metroNIDAZOLE INJ 500 MG in PREMIX 1 EACH IV SCH ×2 (15:22→20:13)
[2017-04-23] MEDS: LEVOFLOXACIN INJ 750 MG in PREMIX 1 EACH IV SCH (16:32)
[2017-04-23] MEDS: SODIUM CHLORIDE 0.9% 1,000 ML IV SCH (17:09)
[2017-04-23] MEDS ORDERED: IPRATROPIUM 500 MCG/2.5 ML NEB RESP TX SCH (19:00)
[2017-04-23] MEDS: traMADol 50 MG TABLET PO SCH (20:13)
[2017-04-23] MEDS: DILTIAZEM CD 120 MG CAPSULE PO SCH (20:13)
[2017-04-23] MEDS: APIXABAN 5 MG TABLET PO SCH (20:13)
[2017-04-23] MEDS ORDERED: DILTIAZEM 60 MG TABLET PO SCH (21:00)
[2017-04-23] MEDS ORDERED: traMADol 50 MG TABLET PO SCH (21:00)
[2017-04-23] MEDS ORDERED: MONTELUKAST 10 MG TABLET PO SCH (21:00)
[2017-04-24] MEDS: SODIUM CHLORIDE 0.9% 1,000 ML IV SCH ×2 (03:24→11:18)
[2017-04-24] MEDS: metroNIDAZOLE INJ 500 MG in PREMIX 1 EACH IV SCH ×4 (04:20→20:21)
[2017-04-24] MEDS: HYDROmorphone 2 MG/1 ML VIAL IV PRN (06:25)
[2017-04-24] MEDS: DILTIAZEM INJ 100 MG in SODIUM CHLORIDE 0.9% 100 ML IV SCH (06:25)
[2017-04-24] MEDS: IPRATROPIUM 500 MCG/2.5 ML NEB RESP TX SCH ×4 (07:39→20:43)
[2017-04-24] MEDS: MAGNESIUM CITRATE 300 ML BOTTLE PO SCH (08:46)
[2017-04-24] MEDS: POTASSIUM CHLORIDE 20 MEQ TABLET PO SCH (08:49)
[2017-04-24] MEDS: DIGOXIN 0.125 MG TABLET PO SCH (08:50)
[2017-04-24] MEDS: DILTIAZEM CD 120 MG CAPSULE PO SCH (08:50)
[2017-04-24] MEDS: PANTOPRAZOLE 40 MG TABLET PO SCH (08:50)
[2017-04-24] MEDS: prednisoLONE 5 MG TABLET PO SCH (08:51)
[2017-04-24] MEDS: MONTELUKAST 10 MG TABLET PO SCH (08:51)
[2017-04-24] MEDS: APIXABAN 5 MG TABLET PO SCH ×2 (08:51→20:22)
[2017-04-24] MEDS: traMADol 50 MG TABLET PO SCH ×2 (08:51→20:22)
[2017-04-24] MEDS ORDERED: PANTOPRAZOLE 40 MG TABLET PO SCH (09:00)
[2017-04-24] MEDS ORDERED: predniSONE 10 MG TABLET PO SCH (09:00)
--- NOTE | 2017-04-24 09:19 | General Surgery Progress Note ---
Assessment and Plan (1) Mesenteric ischemia, chronic Status: Acute Assessment and plan: I have discussed this case with Dr. Dunn and Dr. Felder. Based on her symptom complex and the findings of her CT scan we will plan for arteriogram tomorrow with possible angioplasty and stenting of celiac and SMA. Current Visit: Yes Subjective Patient reports: Present: no new complaints, feels better, still having pain, pain is less, tolerating a regular diet, afebrile Exam - Constitutional Vitals: Period Temp Pulse Resp BP Sys/Hernández Pulse Ox Last 24 Hr 97.1 F-98.8 F 64-130 15-21 115-157/56-100 93-100 General appearance: no acute distress, over weight - Head Head exam: Present: normal inspection, normocephalic - Eye Eye exam: Present: EOMI Pupils: Present: BRISEIDA - ENT ENT exam: Present: normal exam Mouth exam: Present: normal external inspection, normal voice - Neck Neck exam: Present: normal inspection, trachea midline - Respiratory Respiratory exam: Present: clear to auscultation bilaterally. Absent: accessory muscle use, chest wall tenderness - Cardiovascular Cardiovascular exam: Present: RRR. Absent: systolic murmur, tachycardia - GI/Abdominal GI/Abdominal exam: Present: soft. Absent: tenderness, rebound - Extremities Exam Extremities exam: Present: normal inspection, normal capillary refill - Back Exam Back exam: Present: normal inspection - Neurological Exam Neurological exam: Present: alert, oriented X3 Speech: Present: normal - Skin Skin exam: Present: normal color, warm Results - Labs CBC & BMP: 04/23/17 05:12 04/23/17 05:12
--- NOTE | 2017-04-24 09:23 | Pulmonology Consult Note ---
Assessment and Plan (1) COPD, severe Status: Chronic Assessment and plan: The patient has severe obstructive airways disease but is fairly stable at present. She gets short of breath moving around but is comfortable at rest. She is not wheezing now. She should do okay with the anticipated arteriogram. Current Visit: No (2) Atrial fibrillation Status: Chronic Assessment and plan: Patient's heart rate is under good control. Current Visit: No Qualifiers: Atrial fibrillation type: chronic Qualified Code(s): I48.2 - Chronic atrial fibrillation (3) Abdominal pain Status: Resolved Assessment and plan: She has had intermittent abdominal pain and constipation and is felt to have mesenteric ischemia. Current Visit: No (4) Mesenteric ischemia, chronic Status: Acute Assessment and plan: She is scheduled to have an arteriogram tomorrow. Current Visit: Yes History of Present Illness Chief complaint: Abdominal pain History of present illness: Ms. Charles is a 81 year old white female that has been followed by Dr. Medrano for a long time. She has had problems with abdominal pain off and on for quite some time and comes in with possible mesenteric ischemia. She is scheduled for an arteriogram tomorrow. The patient is a former smoker who has significant obstructive airways disease. She is felt to have at least some asthmatic component. She apparently has fixed obstruction also. She says she is not having that much trouble with her breathing at present. She has been using bronchodilators and is fairly stable. Other than the abdominal pain she has been doing okay lately. Home Medications Medication Instructions Recorded Confirmed Type Esomeprazole Magnesium 40 mg PO DAILY 08/21/15 04/23/17 History [Esomeprazole] Montelukast Tab [Singulair Tab] 10 mg PO DAILY 08/21/15 04/23/17 History Tiotropium Inhalation [Spiriva 18 mcg INH DAILY 08/21/15 04/23/17 History Handihaler] Apixaban [Eliquis] 5 mg PO BID #60 tablet 08/25/15 04/23/17 Rx Digoxin Tab [Lanoxin Tab] 0.125 mg PO DAILY 04/10/17 04/23/17 History Ipratropium Inhaler [Atrovent 2 puff INH Q6HR 04/10/17 04/23/17 History Inhaler] Olodaterol HCl [Striverdi Respimat] 2 puffs IH DAILY 04/10/17 04/23/17 History Potassium Chloride 10 meq PO DAILY W/BREAKFAST 04/10/17 04/23/17 History dilTIAZem HCl [Tiazac] 120 mg PO BID 04/10/17 04/23/17 History prednisoLONE [Millipred Tab] 10 mg PO DAILY 04/10/17 04/23/17 History Levofloxacin Tab [Levaquin Tab] 500 mg PO DAILY #10 tablet 04/14/17 04/23/17 Rx metroNIDAZOLE TAB [Flagyl Cap/Tab] 250 mg PO QID #40 tablet 04/14/17 04/23/17 Rx traMADol TAB [Ultram] 100 mg PO BID #30 04/14/17 04/23/17 Rx traMADol TAB [Ultram] 100 mg PO BID #30 tablet 04/14/17 04/23/17 Rx Allergies Allergy/AdvReac Type Severity Reaction Status Date / Time No Known Allergies Allergy Verified 08/21/15 09:48 - Constitutional Constitutional: Present: fatigue. Absent: chills, fever(s), weight loss - EENT Eyes: Absent: loss of vision Ears: Absent: decreased hearing Nose, mouth and throat: Absent: dysphagia, headache(s), sinus pressure - Cardiovascular Cardiovascular: Present: dyspnea on exertion. Absent: chest pain at rest, chest pain with activity, edema, orthopnea, palpitations, PND - Respiratory Respiratory: Present: dyspnea, wheezing. Absent: cough, hemoptysis, pain on inspiration, change in phlegm color - Gastrointestinal Gastrointestinal: Present: abdominal pain, constipation. Absent: dysphagia, nausea, vomiting - Genitourinary Genitourinary: Absent: difficulty urinating, dysuria, hematuria, urinary frequency - Musculoskeletal Musculoskeletal: Absent: arthralgias, joint swelling - Neurological Neurological: Absent: abnormal speech, focal weakness, paresthesias - Psychiatric Psychiatric: Absent: anxiety, depression Exam (Pulmonay) H&P - Constitutional Vitals: Period Temp Pulse Resp BP Sys/Hernández Pulse Ox Last 24 Hr 97.1 F-98.8 F 64-130 15-21 115-157/56-100 93-100 General appearance: normal weight, no acute distress, other (The patient does look somewhat chronically ill but is comfortable at rest.) - Head Head exam: Present: normal inspection, normocephalic - Eye Eye exam: Present: EOMI. Absent: scleral icterus Pupils: Present: BRISEIDA - ENT ENT exam: Present: normal exam - Neck Neck exam: Present: normal inspection. Absent: lymphadenopathy, thyromegaly - Respiratory Respiratory exam: Present: decreased breath sounds, prolonged expiratory phase. Absent: accessory muscle use, rhonchi, wheezes - Cardiovascular Cardiovascular exam: Present: irregular rhythm, systolic murmur (She does have a soft systolic murmur.). Absent: tachycardia - GI/Abdominal GI/Abdominal exam: Present: normal bowel sounds, soft. Absent: distended, organomegaly, tenderness - Extremities Exam Extremities exam: Absent: calf tenderness, edema - Neurological Exam Neurological exam: Present: alert, oriented X3, CN II-XII intact - Psychiatric Psychiatric exam: Present: normal affect, normal mood - Skin Skin exam: Present: warm, dry Medical,Surgical,& Family Hx - Medical History Cardio: History of: Cardiac Dysrhythmia (AFIB on Eliquis), Hypertension, Cardiovascular Problems (Carotid artery disease) Endocrine: History of: Diabetes Mellitus (NIDDM) Rheumatology: History of;: Rheumatoid Arthritis Respiratory: History of: Asthma, COPD (steroid-dependent) Gastrointestinal: History of: Diverticulitis/ Diverticulosis, GERD - Surgical History Abdominal Surgeries: Surgical HX of: Appendectomy, Colonoscopy Patient denies: Cholecystectomy Reproductive Surgeries: Surgical HX of;: Hysterectomy (PARTIAL) Orthopedic Surgeries: Patient denies;: Orthopedic Surgery - Family History Family History: Reports;: Family Heart Disease (FATHER, SON), Family Hypertension (FATHER, SON), Family Stroke (FATHER) - Social History Smoking Status: Former smoker Frequency of Alcohol Use: None Type of Drug Use: None Results - Labs CBC & BMP: 04/23/17 05:12 04/23/17 05:12
--- NOTE | 2017-04-24 11:01 | Cardiology Progress Note ---
Assessment and Plan (1) Abdominal pain Status: Resolved Assessment and plan: This was recently evaluated and may be secondary to some chronic mesenteric ischemia. Angiogram and possible intervention is planned for Tuesday. Current Visit: No (2) Mesenteric ischemia, chronic Status: Acute Assessment and plan: Workup as above Current Visit: Yes (3) Atrial fibrillation with RVR Status: Resolved Assessment and plan: Her heart rate was much better controlled with the IV diltiazem. I am going to adjust her oral dose to try to keep this better control. Current Visit: No (4) Asthma Status: Chronic Assessment and plan: She apparently has severe chronic asthma with chronic dyspnea on exertion. Pulmonary medicine will be consulted for assistance and management. Current Visit: No (5) Diabetes mellitus Status: Chronic Current Visit: No Cardiology - PN: Subj Interval history: Clinically, the patient is about the same. She still has some abdominal discomfort. Her atrial fibrillation rate was much better controlled with the IV diltiazem. I am going to change her oral dose to try to keep this better controlled on oral medication only. She is being scheduled for arteriogram and possible mesenteric arterial intervention tomorrow. Current Medications Apixaban (Eliquis) 5 mg PO BID [facility] Last Admin: 04/24/17 08:51 Dose: 5 mg Digoxin (Lanoxin Tab) 0.125 mg PO DAILY [facility] Last Admin: 04/24/17 08:50 Dose: 0.125 mg Diltiazem HCl (Cardizem Cd) 120 mg PO BID [facility] Last Admin: 04/24/17 08:50 Dose: 120 mg Metronidazole/Sodium Chloride (500 mg/ Premix) 100 mls @ 100 mls/hr IV Q8H [facility] Last Infusion: 04/24/17 05:39 Dose: Infused Levofloxacin/Dextrose 750 mg/ (Premix) 150 mls @ 100 mls/hr IV Q24H [facility] Last Infusion: 04/23/17 18:11 Dose: Infused Sodium Chloride (Ns) 1,000 mls @ 100 mls/hr IV .Q10H [facility] Last Admin: 04/24/17 03:24 Dose: 100 mls/hr Diltiazem HCl 100 mg/ Sodium (Chloride) 100 mls @ 5 mls/hr IV TITRATE JAZ; 5 MG /HR PRN Reason: Protocol Last Admin: 04/24/17 06:25 Dose: 5 mg/hr, 5 mls/hr Ipratropium [place] (Atrovent Neb) 500 mcg RESP TX RT QID [facility] Last Admin: 04/24/17 10:29 Dose: 500 mcg Magnesium Citrate (Citroma) 300 ml PO DAILY [facility] Stop: 04/24/17 23:59 Last Admin: 04/24/17 08:46 Dose: 300 ml Montelukast Sodium (Singulair Tab) 10 mg PO DAILY [facility] Last Admin: 04/24/17 08:51 Dose: 10 mg Non-Formulary Medication (Olodaterol Hcl [Striverdi Respimat]) 2 puffs IH DAILY [facility] Ondansetron HCl (Zofran Inj) 4 mg IV Q4H PRN PRN Reason: Nausea/Vomiting Pantoprazole Sodium (Protonix Tab) 40 mg PO DAILY [facility] Last Admin: 04/24/17 08:50 Dose: 40 mg Potassium Chloride (K Dur) 10 meq PO DAILY W/BREAKFAST [facility] Last Admin: 04/24/17 08:49 Dose: 10 meq Prednisolone () 10 mg PO DAILY [facility] Last Admin: 04/24/17 08:51 Dose: 10 mg Tramadol HCl (Ultram) 100 mg PO BID [facility] Last Admin: 04/24/17 08:51 Dose: 100 mg Exam (Progress Note) - Constitutional Vitals: Period Temp Pulse Resp BP Sys/Hernández Pulse Ox Last 24 Hr 97.1 F-98.8 F 64-130 15-21 115-143/56-100 93-100 Exam: General: Frail, elderly HEENT: Normocephalic, atraumatic Neck: Supple Neck, Midline Trachea Cardiac: Irregular Rhythm, 2/6 systolic murmur, no gallop, no rub Lungs: Clear to Ascultation, increased expiratory phase, no Wheeze, Rales, Rhonchi Neuro: Cranial Nerve 2-12 Intact, diffuse generalized weakness Abdomen: Soft, Active Bowel Sounds, No Masses, No Pulsations/Bruits, nontender nondistended Skin: Normal color, no rash Extremities: No Clubbing, No Cyanosis, No Edema, Normal Upper Extr. Pulses Musculoskeletal: No acute abnormality noted Psychiatric: The patient is alert and oriented. The patient has a flat affect but does not appear to be anxious or depressed. Result/EKG - Labs CBC & BMP: 04/23/17 05:12 04/23/17 05:12 Lab Results: I have reviewed the past 24 hour labs - EKG EKG results: interpreted by me
[2017-04-24] MEDS: LEVOFLOXACIN INJ 750 MG in PREMIX 1 EACH IV SCH (13:41)
[2017-04-24] MEDS: DILTIAZEM CD 180 MG CAPSULE PO SCH (20:22)
[2017-04-25] MEDS: metroNIDAZOLE INJ 500 MG in PREMIX 1 EACH IV SCH ×3 (04:34→20:17)
[2017-04-25 05:14] LABS: Basophils % 0.4 % (0.0-0.8); Eosinophils # 0.3 10*3/uL (0.0-0.87); Eosinophils % 2.5 % (0.00-10.9); Hematocrit 34.3 VOL% (35.7-47.0); Immature Granulocytes % 0.4 %; Immature Granulocytes Absolute 0.04 #; Lymphocytes # 2.7 10*3/uL (1.4-4.0); Lymphocytes % 25.5 % (21.3-54.2); Mean Corpuscular HGB Conc 32.1 GM/DL (32-36); Mean Corpuscular Hemoglobin 27 PG (27-34); Mean Corpuscular Volume 83.7 FL (87-102); Mean Platelet Volume 11.8 FL (9.6-12.0); Monocytes # 1.3 10*3/uL (0.11-0.8); Monocytes % 12.5 % (1.7-12.7); Neutrophils # 6.3 10*3/uL (1.4-7.4); Neutrophils % 58.7 % (38.7-73.9); Platelet Count 237 T/CUMM (130-400); Red Cell Distribution Width 13.5 % (9.3-17.3); White Blood Count 10.8 T/CUMM (4-12)
[2017-04-25 05:54] LABS: Calcium 8.3 MG/DL (8.5-10.1); Magnesium 2.5 MG/DL (1.8-2.4); Osmolality,Calculated 277.5 MOS/KG (273-304)
[2017-04-25] MEDS: IPRATROPIUM 500 MCG/2.5 ML NEB RESP TX SCH ×4 (07:25→20:03)
[2017-04-25] MEDS ORDERED: HEPARIN/NACL 0.9% 2 UNITS/ML 2,000 ML IV ONE (07:35)
[2017-04-25 08:26] LABS: INR 1.1; PT Patient Result 11.3 SECS
[2017-04-25] MEDS: prednisoLONE 5 MG TABLET PO SCH (08:27)
[2017-04-25] MEDS: DIGOXIN 0.125 MG TABLET PO SCH (08:27)
[2017-04-25] MEDS: PANTOPRAZOLE 40 MG TABLET PO SCH (08:27)
[2017-04-25] MEDS: MONTELUKAST 10 MG TABLET PO SCH (08:27)
[2017-04-25] MEDS: traMADol 50 MG TABLET PO SCH ×2 (08:28→20:18)
[2017-04-25] MEDS: DILTIAZEM CD 180 MG CAPSULE PO SCH ×2 (08:28→20:17)
[2017-04-25] MEDS: APIXABAN 5 MG TABLET PO SCH ×2 (09:00→20:17)
[2017-04-25] MEDS ORDERED: MIDAZOLAM 2 MG/2 ML VIAL IV ONE (09:28)
[2017-04-25] MEDS ORDERED: DIAZEPAM 5 MG TABLET PO ONE (09:28)
[2017-04-25] MEDS ORDERED: fentaNYL 100 MCG/2 ML VIAL IV ONE (09:28)
--- NOTE | 2017-04-25 09:32 | IR History and Physical Update ---
IR Pre-Procedure - History and Physical H&P was reviewed, the patient examined and there: are no changes in the patients condition since last H&P was completed. Reason for procedure:: 81-year-old female with 2 recent episodes of severe abdominal pain with subsequent bloody diarrhea. 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 Asked to evaluate for possible stent today via angiography. - Dictation Physical: refer to H&P completed by admitting physician - Physical Exam Vital Signs: Last Vital Signs Temp 97.7 F 04/25/17 07:56 Pulse 75 04/25/17 07:56 Resp 18 04/25/17 07:56 BP 154/75 04/25/17 07:56 Pulse Ox 95 04/25/17 07:56 Mental Status: alert and oriented - Sedation IR anesthesia plan for sedation: minimal ASA Class: III - Risks Risks: Procedures explained. Risks discussed include, but not limited to, the following:[Blood, propagation of the mesentery, need for emergency surgery, bleeding, pain, continued abdominal pain and bloody diarrhea despite t stenting] All questions answered. 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 History of abdominal pain with bloody diarrhea. Plan: Mesenteric angiogram. Possible stent if severity of stenosis warrants therapy. Extensive time spent with patient discussing risks of blood clot propagation, restenosis of the stent in the future, and possibility that SMA stenosis may not be the cause of her abdominal pain and other symptoms. Current Visit: Yes
--- NOTE | 2017-04-25 09:51 | Pulmonology Progress Note ---
Pulmonary - PN: Subj Interval history: Giancarlo Stahl, AGMARIBELL-, acting as scribe for Dr. Gurvinder Medrano Ms. Hayes is a 81-year-old white female who was admitted 04/23/2017 with right lower quadrant abdominal pain found to be secondary to chronic mesenteric ischemia. She was recently inpatient 04/11/2017 through 04/14/2017 for similar symptoms. At that time, the patient had a high white count was treated as diverticulitis. Her symptoms improved and she was discharged home. Please see those hospital records for more information. Other past history includes: #1: Atrial fibrillation with history of rapid ventricular response #2: COPD/asthma #3: Increased shortness of breath secondary to #1 and #2; resolved #4: Diabetes mellitus, usually diet controlled #5: Hypertension #6: Arteriosclerotic heart disease #7: Hyperlipidemia #8: Hx of chronic bronchitis, under much better control #9: Hx of pneumonia treated in the emergency room in the spring #10: Past history of pulmonary hypertension with cor pulmonale #11: Degenerative joint disease #12: Gastro-esophageal reflux disease #13: Restless leg syndrome #14: Chronic constipation #15: Mild allergic sinusitis 04/25/2017. Patient continues to report right lower quadrant abdominal pain. We have discussed the case with Dr. Felder and coordinated her care. The patient is planned for possible stent placement today via angiography. Her home medications have been restarted. From a pulmonary/medical standpoint she is stable at this time. Medications have been reviewed. We made no changes today. Labs have been reviewed. White count is 10,800 (note, was 15,900 at admission) with a normal differential; H&H 11.0/34.3; platelet count 237,000; INR 1.1; d- dimer less than 0.5; creatinine 0.60, BUN 11, electrolytes are normal; magnesium is slightly elevated at 2.5; calcium 8.3; amylase and lipase are 19 and 84 respectively; urinalysis obtained at admission showed no evidence of infection; liver function tests at admission were normal Exam (Progress Note) - Constitutional Vitals: Period Temp Pulse Resp BP Sys/Hernández Pulse Ox Last 24 Hr 97.7 F-100.1 F 72-107 15-20 127-185/61-83 92-99 Exam: Chest is wheeze free Heart no gallop Abdomen is presently nontender and nondistended; bowel sounds are positive 4 Lower extremities with nothing to suggest acute deep venous femoral phlebitis Psychiatric oriented 3 Neurologic long-term motor function is intact Plan: Continue present treatment. Agree with angiography as per Dr. Felder today. See orders. Results - Labs CBC & BMP: 04/25/17 04:44 04/25/17 04:44
--- NOTE | 2017-04-25 10:18 | Cardiology Progress Note ---
Assessment and Plan (1) Atrial fibrillation Status: Chronic Assessment and plan: SEE PLAN OF CARE LISTED BELOW. Current Visit: Yes Qualifiers: Atrial fibrillation type: chronic Qualified Code(s): I48.2 - Chronic atrial fibrillation (2) Mesenteric ischemia, chronic Status: Chronic Assessment and plan: SEE PLAN OF CARE LISTED BELOW. Current Visit: Yes (3) Abdominal pain Status: Acute Assessment and plan: SEE PLAN OF CARE LISTED BELOW. Current Visit: Yes (4) Asthma Status: Chronic Assessment and plan: SEE PLAN OF CARE LISTED BELOW. Current Visit: No (5) Chronic anticoagulation Status: Chronic Assessment and plan: SEE PLAN OF CARE LISTED BELOW. Current Visit: No (6) Cor pulmonale Status: Chronic Assessment and plan: SEE PLAN OF CARE LISTED BELOW. Current Visit: No (7) Diabetes mellitus Status: Chronic Assessment and plan: SEE PLAN OF CARE LISTED BELOW. Current Visit: Yes Qualifiers: Diabetes mellitus type: type 2 (8) Hypertension Status: Chronic Assessment and plan: SEE PLAN OF CARE LISTED BELOW. Current Visit: Yes Cardiology - PN: Subj Interval history: Head Waiter: Dr. Ellis SUMMARY - Ms. Charles is a 81 year old female who is routinely followed by Dr. Ellis, she last saw him in the office 02/03/2017. She had a history of chronic atrial fibrillation, hypertension, cor pulmonale, asthma, and NIDDM. She is chronically anticoagulated on Eliquis 5 mg twice daily and is on digoxin 0.125 daily and diltiazem 120 mg twice daily for rate control at home. She saw Dr. Tracey in December and he noted that amiodarone had been tried and provided better rate control, but was stopped due to her severe lung disease. She had an echocardiogram at Dr. Ellis's office January 15, 2016 with ejection fraction noted to be greater than 55%. She was recently in the hospital with some chronic right lower abdominal discomfort. She also had atrial fibrillation with rapid ventricular response during the hospital stay. She is now readmitted with ongoing abdominal discomfort. There is concern that this could be some degree of ischemic bowel. General surgery is following. Cardiology was consulted in order to assist in managing her chronic atrial fibrillation. During her last hospital stay, she was adamant that she did not want changes made to her oral medical regimen because she was concerned that this would worsen her asthma. Over the weekend, patient was started on IV diltiazem. She has now been transitioned to p.o. diltiazem. March UPDATE - Patient was seen and examined on the telemetry unit. She is sitting up in bed in no acute distress. air sampling and monitoring has been reviewed. She remains in atrial fibrillation as this is chronic for her. She is rate controlled with heart rates in the 70s. Patient was transitioned to p.o. Cardizem yesterday and is tolerating well. At this point, we will continue with current plan of care. Anticoagulate with Eliquis. She denies chest pain, heaviness and tightness as well as shortness of breath and palpitations. There is concern that this could be some degree of ischemic bowel. General surgery is following. Angiogram and possible intervention is planned for today. I will further discuss with Dr. Vega and await his recommendations. ASSESSMENT/PLAN: 1. CHRONIC ATRIAL FIBRILLATION - Patient is now rate controlled. Cardizem was transitioned to p.o. yesterday. Patient has tolerated well and remains rate controlled with current regimen. At this point, we will continue current plan of care with p.o. diltiazem, digoxin and Eliquis. We will adjust her medications as needed throughout her hospitalization. 2. ABDOMINAL PAIN - This was recently evaluated and may be secondary to some chronic mesenteric ischemia. Angiogram and possible intervention is planned for today. 3. MESENTERIC ISCHEMIA, CHRONIC - Workup underway per GI. 4. ASTHMA - Clinically stable at present. Continue with current plan of care. Dr. Medrano is following. 5. CHRONIC ANTICOAGULATION - H&H is stable. Continue Eliquis for stroke prevention. 6. COR PULMONALE - Stable at present. 7. DIABETES - Management per attending. 8. HYPERTENSION - Suboptimally controlled this morning. We will add a low- dose ISI inhibitor as patient is a diabetic. Further plan and addendum to follow per Dr. Vega. Exam (Progress Note) - Constitutional Vitals: Period Temp Pulse Resp BP Sys/Hernández Pulse Ox Last 24 Hr 97.7 F-100.1 F 72-107 15-20 127-185/61-83 92-99 Exam: General: Appears well with no apparent distress. Pleasant and cooperative. Appears comfortable. HEENT: PERRL, normocephalic, atraumatic. Mucous membranes moist. No jaundice noted. Conjunctiva moist and clear, sclerae anicteric Neck: No JVD/HJR, no thyromegaly or lymphadenopathy noted. No carotid bruit appreciated Cardiac: Irregular rhythm. 2/6 systolic murmur. No gallop or rub noted. Lungs: Clear to auscultation without accessory muscle use to assist the respiratory pattern. Increased expiratory phase. Not requiring oxygen. Abdomen: Soft, bowel sounds normoactive. Nontender and nondistended. No abdominal bruit or thrill noted. No masses noted. Extremities: No clubbing, cyanosis noted. No edema noted. Upper extremity pulses 2+. Lower extremity pulses 2+. Capillary refill less than 3 seconds. Skin: No unusual lesions or rashes. No skin breakdown appreciated. Neuro: Awake, alert and oriented 3. Moves all extremities well without hemiparesis or paralysis. No essential tremor is appreciated. Result/EKG - Labs CBC & BMP: 04/25/17 04:44 04/25/17 04:44 Lab Results: I have reviewed the past 24 hour labs Labs: Laboratory Results - last 24 hr 04/25/17 04/25/17 04/25/17 04:44 04:44 08:06 WBC 10.8 D RBC 4.10 Hgb 11.0 L D Hct 34.3 L MCV 83.7 L MCH 27 MCHC 32.1 RDW 13.5 Plt Count 237 MPV 11.8 Neut % (Auto) 58.7 Lymph % (Auto) 25.5 Crook % (Auto) 12.5 Eos % (Auto) 2.5 Baso % (Auto) 0.4 Neut # (Auto) 6.3 Lymph # (Auto) 2.7 Crook # (Auto) 1.3 H Eos # (Auto) 0.3 Baso # (Auto) 0.0 Immature Gran % 0.4 Nucleated RBC % 0.0 Immature Gran # 0.04 Nucleated RBCs # 0.00 INR 1.1 PT Patient/Control Mix 11.3 Sodium 139 Potassium 4.0 Chloride 103 Carbon Dioxide 30 Anion Gap 10.0 BUN 11 Creatinine 0.60 GFR Calculation 87 BUN/Creatinine Ratio 18.00 Glucose 140 H Calculated Osmolality 277.5 Calcium 8.3 L Magnesium 2.5 H
[2017-04-25] MEDS: SODIUM CHLORIDE 0.45% 1,000 ML IV SCH ×2 (11:08→23:30)
--- NOTE | 2017-04-25 11:15 | General Surgery Progress Note ---
Assessment and Plan (1) Mesenteric ischemia, chronic Status: Chronic Assessment and plan: Plan for visceral arteriogram with possible intervention today Current Visit: Yes Subjective Patient reports: Present: no new complaints, feels better, bowel movement, afebrile. Absent: nausea, vomiting Exam - Constitutional Vitals: Period Temp Pulse Resp BP Sys/Hernández Pulse Ox Last 24 Hr 97.7 F-100.1 F 72-107 15-20 127-185/61-83 92-99 General appearance: no acute distress, over weight - Head Head exam: Present: normal inspection, normocephalic - Eye Eye exam: Present: EOMI Pupils: Present: BRISEIDA - ENT ENT exam: Present: normal exam Mouth exam: Present: normal external inspection, normal voice - Neck Neck exam: Present: normal inspection, trachea midline - Respiratory Respiratory exam: Present: clear to auscultation bilaterally. Absent: accessory muscle use, chest wall tenderness - Cardiovascular Cardiovascular exam: Present: RRR. Absent: systolic murmur, tachycardia - GI/Abdominal GI/Abdominal exam: Present: normal bowel sounds, soft. Absent: tenderness, rebound - Extremities Exam Extremities exam: Present: normal inspection, normal capillary refill - Back Exam Back exam: Present: normal inspection - Neurological Exam Neurological exam: Present: alert, oriented X3 Speech: Present: normal - Skin Skin exam: Present: normal color, warm Results - Labs CBC & BMP: 04/25/17 04:44 04/25/17 04:44
--- NOTE | 2017-04-25 12:21 | Cardiology Progress Note ---
Cardiology - PN: Subj Interval history: Cardiology note 81-year-old woman with chronic abdominal pain. She reports a 30-40 pound weight pounds over the last year. Telemetry shows atrial fib with a controlled rate which is chronic. Blood pressure 140/80 O2 sat 96% Irregular rhythm no murmur Decreased breath sounds but no wheezing or rhonchi Abdomen soft nontender No leg edema Impression Chronic abdominal pain with weight loss evaluate for mesenteric ischemia Chronic atrial fibrillation Hypertension Cor pulmonale Asthma/ diabetes Plan Abdominal arteriogram today Exam (Progress Note) - Constitutional Vitals: Period Temp Pulse Resp BP Sys/Hernández Pulse Ox Last 24 Hr 97.7 F-100.1 F 75-107 15-20 128-185/61-83 92-99 Result/EKG - Labs CBC & BMP: 04/25/17 04:44 04/25/17 04:44 Labs: Laboratory Results - last 24 hr 04/25/17 04/25/17 04/25/17 04:44 04:44 08:06 WBC 10.8 D RBC 4.10 Hgb 11.0 L D Hct 34.3 L MCV 83.7 L MCH 27 MCHC 32.1 RDW 13.5 Plt Count 237 MPV 11.8 Neut % (Auto) 58.7 Lymph % (Auto) 25.5 Delta % (Auto) 12.5 Eos % (Auto) 2.5 Baso % (Auto) 0.4 Neut # (Auto) 6.3 Lymph # (Auto) 2.7 Delta # (Auto) 1.3 H Eos # (Auto) 0.3 Baso # (Auto) 0.0 Immature Gran % 0.4 Nucleated RBC % 0.0 Immature Gran # 0.04 Nucleated RBCs # 0.00 INR 1.1 PT Patient/Control Mix 11.3 Sodium 139 Potassium 4.0 Chloride 103 Carbon Dioxide 30 Anion Gap 10.0 BUN 11 Creatinine 0.60 GFR Calculation 87 BUN/Creatinine Ratio 18.00 Glucose 140 H Calculated Osmolality 277.5 Calcium 8.3 L Magnesium 2.5 H
[2017-04-25] MEDS: LISINOPRIL 5 MG TABLET PO SCH (12:53)
[2017-04-25] MEDS: LEVOFLOXACIN INJ 750 MG in PREMIX 1 EACH IV SCH (14:39)
[2017-04-25] MEDS ORDERED: fentaNYL 100 MCG/2 ML VIAL ONE (15:09)
[2017-04-25] MEDS ORDERED: MIDAZOLAM 2 MG/2 ML VIAL ONE (15:10)
--- NOTE | 2017-04-25 16:07 | Post Interventional Procedure ---
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 History of abdominal pain with bloody diarrhea. Plan: Mesenteric angiogram. Possible stent if severity of stenosis warrants therapy. Extensive time spent with patient discussing risks of blood clot propagation, restenosis of the stent in the future, and possibility that SMA stenosis may not be the cause of her abdominal pain and other symptoms. start Plavix 75 mg PO daily for 180 days Current Visit: Yes
--- NOTE | 2017-04-25 16:27 | Interventional Radiology Rpt ---
IR angio mesenteric Indication: Clinical mesenteric ischemia. Recent CT the abdomen and pelvis shows proximal SMA stenosis. MESENTERIC ANGIOGRAM, SMA STENT, PERCLOSE DEPLOYMENT Description: A formal timeout was performed. Maximum sterile barrier technique was instituted. The patient is on anticoagulation. Therefore, sonographic evaluation of the right groin was performed showing a patent and compressible common femoral artery. The artery was accessed with a micropunch needle with one pass using sonographic guidance. Captured sonographic image documents needle position. Needle was exchanged over a wire for a steerable 7 Welsh sheath which was advanced into the abdominal aorta. Aortogram was performed through the sheath confirming the position of the origin of the celiac and SMA. The tip of the sheath was deflected into the kwong's crook in the ostium of the celiac artery engaged. Celiac angiogram was performed showing no ostial stenosis. The tip was then engaged the origin of the SMA and an arteriogram performed. In both an AP and lateral projection, 70% diameter stenotic lesion of the proximal SMA was identified. Tegtmeier catheter was advanced across the stenosis into the distal SMA and a repeat arteriogram was performed confirming positioning. Tegtmeier catheter was removed over wire. A 7 x 17 mm Express balloon expandable stent was advanced and deployed across the stenotic lesion without difficulty. Post stent deployment angiogram through the steerable sheath showed excellent patency of the SMA and no dissection. Therefore, the sheath was removed over wire. A Perclose device was then advanced, wire removed, and the Perclose device successfully deployed for hemostasis. Patient tolerated the procedure well. Contrast: Omnipaque 350, 120 cc. Fluoroscopy: 7.2 minutes. Conscious sedation: Under physician supervision, Versed 1 mg, fentanyl 50 mcg were administered intravenously for conscious sedation. Vital signs, including pulse oximetry, heart rate and blood pressure, continuously monitored by nursing present in the room. Physicians spent 35 minutes [id number] sedation time with the patient. Impression: 1. 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 2. Uncomplicated deployment of a Perclose device for hemostasis. 3. Plavix 75 mg daily for 180 days minimum. Order written. PROCEDURE INTERPRETED AT [facility] DEPARTMENT OF RADIOLOGY Final Report Signed by: Bert Felder M.D.
[2017-04-25] MEDS: CLOPIDOGREL 75 MG TABLET PO SCH (18:05)
[2017-04-25] MEDS: POTASSIUM CHLORIDE 20 MEQ TABLET PO SCH (18:05)
[2017-04-26] MEDS: metroNIDAZOLE INJ 500 MG in PREMIX 1 EACH IV SCH (04:30)
[2017-04-26 04:54] LABS: Basophils # 0.1 10*3/uL (0.0-0.2); Basophils % 0.4 % (0.0-0.8); Eosinophils # 0.2 10*3/uL (0.0-0.87); Eosinophils % 1.5 % (0.00-10.9); Hematocrit 36.6 VOL% (35.7-47.0); Hemoglobin 11.8 GM/DL (12.0-16.0); Immature Granulocytes % 0.4 %; Immature Granulocytes Absolute 0.05 #; Lymphocytes # 2.4 10*3/uL (1.4-4.0); Lymphocytes % 17.8 % (21.3-54.2); Mean Corpuscular HGB Conc 32.2 GM/DL (32-36); Mean Corpuscular Hemoglobin 27 PG (27-34); Mean Corpuscular Volume 83.6 FL (87-102); Mean Platelet Volume 11.5 FL (9.6-12.0); Monocytes # 1.6 10*3/uL (0.11-0.8); Monocytes % 11.9 % (1.7-12.7); Neutrophils # 9.2 10*3/uL (1.4-7.4); Platelet Count 242 T/CUMM (130-400); Red Blood Count 4.38 MC/CUMM (3.8-5.5); Red Cell Distribution Width 13.5 % (9.3-17.3); White Blood Count 13.5 T/CUMM (4-12)
[2017-04-26 05:25] LABS: Calcium 8.3 MG/DL (8.5-10.1); Magnesium 2.3 MG/DL (1.8-2.4); Osmolality,Calculated 275.5 MOS/KG (273-304); Potassium 3.6 MMOL/L (3.5-5.1)
[2017-04-26] MEDS: IPRATROPIUM 500 MCG/2.5 ML NEB RESP TX SCH ×2 (07:26→10:57)
--- NOTE | 2017-04-26 08:17 | General Surgery Progress Note ---
Assessment and Plan (1) Mesenteric ischemia, chronic Status: Chronic Assessment and plan: The patient had successful placement of SMA stent and angioplasty by Dr. Felder yesterday her postprandial pain has resolved. She is having some pain in her right groin from her access. Her white blood cell count is barely elevated today but she has no complaints that are suspicious for infectious processes. We will go ahead and discharge her home today if this is okay with her medical teams and we will clarify the blood thinner regimen with Dr. Felder and the sheet metal worker helper team that seeing her. I will see her back in 2 weeks for follow-up. Current Visit: Yes Subjective Patient reports: Present: no new complaints, feels better, pain is less, tolerating a regular diet, afebrile Exam - Constitutional Vitals: Period Temp Pulse Resp BP Sys/Hernández Pulse Ox Last 24 Hr 97.4 F-98.9 F 80-113 14-22 115-167/61-94 92-100 General appearance: normal weight, no acute distress - Head Head exam: Present: normal inspection, normocephalic - Eye Eye exam: Present: EOMI Pupils: Present: BRISEIDA - ENT ENT exam: Present: normal exam Mouth exam: Present: normal external inspection, normal voice - Neck Neck exam: Present: normal inspection, trachea midline - Respiratory Respiratory exam: Present: clear to auscultation bilaterally. Absent: accessory muscle use, chest wall tenderness - Cardiovascular Cardiovascular exam: Present: irregular rhythm. Absent: systolic murmur, tachycardia - GI/Abdominal GI/Abdominal exam: Present: normal bowel sounds, soft. Absent: tenderness, rebound - Extremities Exam Extremities exam: Present: normal inspection, other (Puncture site in right groin with no significant hematoma or bleed) - Back Exam Back exam: Present: normal inspection - Neurological Exam Neurological exam: Present: alert, oriented X3 Speech: Present: normal - Skin Skin exam: Present: normal color, warm Results - Labs CBC & BMP: 04/26/17 04:33 04/26/17 04:33
[2017-04-26] MEDS: PANTOPRAZOLE 40 MG TABLET PO SCH (08:50)
[2017-04-26] MEDS: CLOPIDOGREL 75 MG TABLET PO SCH (08:50)
[2017-04-26] MEDS: DIGOXIN 0.125 MG TABLET PO SCH (08:50)
[2017-04-26] MEDS: APIXABAN 5 MG TABLET PO SCH (08:50)
[2017-04-26] MEDS: POTASSIUM CHLORIDE 20 MEQ TABLET PO SCH (08:51)
[2017-04-26] MEDS: LISINOPRIL 5 MG TABLET PO SCH (08:51)
[2017-04-26] MEDS: traMADol 50 MG TABLET PO SCH (08:51)
[2017-04-26] MEDS: MONTELUKAST 10 MG TABLET PO SCH (08:54)
[2017-04-26] MEDS: prednisoLONE 5 MG TABLET PO SCH (08:54)
[2017-04-26] MEDS: DILTIAZEM CD 180 MG CAPSULE PO SCH (08:54)
[2017-04-26] MEDS ORDERED: STRIVERDI RESPIMAT IH SCH (09:00)
--- NOTE | 2017-04-26 09:34 | Cardiology Progress Note ---
<Dominique Corona - Last Filed: 04/26/17 09:27> Assessment and Plan (1) Atrial fibrillation Status: Chronic Assessment and plan: SEE PLAN OF CARE LISTED BELOW. Current Visit: Yes Qualifiers: Atrial fibrillation type: chronic Qualified Code(s): I48.2 - Chronic atrial fibrillation (2) Mesenteric ischemia, chronic Status: Chronic Assessment and plan: SEE PLAN OF CARE LISTED BELOW. Current Visit: Yes (3) Abdominal pain Status: Acute Assessment and plan: SEE PLAN OF CARE LISTED BELOW. Current Visit: Yes (4) Asthma Status: Chronic Assessment and plan: SEE PLAN OF CARE LISTED BELOW. Current Visit: No (5) Chronic anticoagulation Status: Chronic Assessment and plan: SEE PLAN OF CARE LISTED BELOW. Current Visit: No (6) Cor pulmonale Status: Chronic Assessment and plan: SEE PLAN OF CARE LISTED BELOW. Current Visit: No (7) Diabetes mellitus Status: Chronic Assessment and plan: SEE PLAN OF CARE LISTED BELOW. Current Visit: Yes Qualifiers: Diabetes mellitus type: type 2 (8) Hypertension Status: Chronic Assessment and plan: SEE PLAN OF CARE LISTED BELOW. Current Visit: Yes Cardiology - PN: Subj Interval history: Varitypist: Dr. Ellis SUMMARY - Ms. Charles is a 81 year old female who is routinely followed by Dr. Ellis, she last saw him in the office 02/03/2017. She had a history of chronic atrial fibrillation, hypertension, cor pulmonale, asthma, and NIDDM. She is chronically anticoagulated on Eliquis 5 mg twice daily and is on digoxin 0.125 daily and diltiazem 120 mg twice daily for rate control at home. She saw Dr. Tracey in December and he noted that amiodarone had been tried and provided better rate control, but was stopped due to her severe lung disease. She had an echocardiogram at Dr. Ellis's office January 15, 2016 with ejection fraction noted to be greater than 55%. She was recently in the hospital with some chronic right lower abdominal discomfort. She also had atrial fibrillation with rapid ventricular response during the hospital stay. She is now readmitted with ongoing abdominal discomfort. There is concern that this could be some degree of ischemic bowel. General surgery is following. Cardiology was consulted in order to assist in managing her chronic atrial fibrillation. During her last hospital stay, she was adamant that she did not want changes made to her oral medical regimen because she was concerned that this would worsen her asthma. Over the weekend, patient was started on IV diltiazem. She has now been transitioned to p.o. diltiazem. March UPDATE - Patient was seen and examined on the telemetry unit. She is sitting up in bed in no acute distress. lift manager has been reviewed. She remains in atrial fibrillation as this is chronic for her. She is rate controlled with heart rates in the 80s. She is status post successful placement of SMA stent and angioplasty per Dr. Felder yesterday. Her abdominal pain has much improved per her report. Right groin is soft without bleeding, and hematoma and bruit. From a cardiology standpoint, she is stable for discharge home. Recommend that she be discharged home on both Plavix and Eliquis. She will be given a follow-up appointment with Dr. Ellis in 1 week with CBC, BMP and EKG. I will further discuss with Dr. Vega and await his recommendations. ASSESSMENT/PLAN: 1. CHRONIC ATRIAL FIBRILLATION - Patient is now rate controlled. At this point, we will continue current plan of care with p.o. diltiazem, digoxin and Eliquis. She is status post successful placement of SMA stent and angioplasty per Dr. Felder yesterday. From a cardiology standpoint, she is stable for discharge home. Recommend that she be discharged home on both Plavix and Eliquis. She will be given a follow-up appointment with Dr. Ellis in 1 week with CBC, BMP and EKG. 2. ABDOMINAL PAIN - Now resolved after successful placement of SMA stent and angioplasty per Dr. Felder yesterday. 3. MESENTERIC ISCHEMIA, CHRONIC - She is status post successful placement of SMA stent and angioplasty per Dr. Felder yesterday. Her abdominal pain has much improved per her report. Right groin is soft without bleeding, and hematoma and bruit. Patient will be discharged home on both Plavix and Eliquis. 4. ASTHMA - Clinically stable at present. Continue with current plan of care. Dr. Medrano is following. 5. CHRONIC ANTICOAGULATION - H&H is stable. Continue Eliquis for stroke prevention. 6. COR PULMONALE - Stable at present. 7. DIABETES - Management per attending. 8. HYPERTENSION - Continue current plan of care per Further plan and addendum to follow per Dr. Vega. Exam (Progress Note) - Constitutional Vitals: Period Temp Pulse Resp BP Sys/Hernández Pulse Ox Last 24 Hr 97.4 F-98.9 F 74-113 14-22 115-167/61-94 92-100 Exam: General: Appears well with no apparent distress. Pleasant and cooperative. Appears comfortable. HEENT: PERRL, normocephalic, atraumatic. Mucous membranes moist. No jaundice noted. Conjunctiva moist and clear, sclerae anicteric Neck: No JVD/HJR, no thyromegaly or lymphadenopathy noted. No carotid bruit appreciated Cardiac: Irregular rhythm. 2/6 systolic murmur. No gallop or rub noted. Lungs: Clear to auscultation without accessory muscle use to assist the respiratory pattern. Increased expiratory phase. Not requiring oxygen. Abdomen: Soft, bowel sounds normoactive. Nontender and nondistended. No abdominal bruit or thrill noted. No masses noted. Extremities: No clubbing, cyanosis noted. No edema noted. Upper extremity pulses 2+. Lower extremity pulses 2+. Capillary refill less than 3 seconds. Right groin without bleeding, hematoma and bruit. Pulses present. Skin: No unusual lesions or rashes. No skin breakdown appreciated. Neuro: Awake, alert and oriented 3. Moves all extremities well without hemiparesis or paralysis. No essential tremor is appreciated. Result/EKG - Labs CBC & BMP: 04/26/17 04:33 04/26/17 04:33 Lab Results: I have reviewed the past 24 hour labs Labs: Laboratory Results - last 24 hr 04/26/17 04/26/17 04:33 04:33 WBC 13.5 H RBC 4.38 Hgb 11.8 L Hct 36.6 MCV 83.6 L MCH 27 MCHC 32.2 RDW 13.5 Plt Count 242 MPV 11.5 Neut % (Auto) 68.0 Lymph % (Auto) 17.8 L [place] % (Auto) 11.9 Eos % (Auto) 1.5 Baso % (Auto) 0.4 Neut # (Auto) 9.2 H Lymph # (Auto) 2.4 [place] # (Auto) 1.6 H Eos # (Auto) 0.2 Baso # (Auto) 0.1 Immature Gran % 0.4 Nucleated RBC % 0.0 Immature Gran # 0.05 Nucleated RBCs # 0.00 Sodium 139 Potassium 3.6 Chloride 100 Carbon Dioxide 30 Anion Gap 12.6 BUN 6 L Creatinine 0.60 GFR Calculation 84 BUN/Creatinine Ratio 10.00 Glucose 118 H Calculated Osmolality 275.5 Calcium 8.3 L Magnesium 2.3 Specialty Discharge - Follow Up or Referrals Follow up with: Jeff Ellis MD [Physician] - (Patient will need to follow-up with Dr. Ellis in 1 week with CBC, BMP and EKG.) <Tab Vega - Last Filed: 04/26/17 09:40> Cardiology - PN: Subj Interval history: Cardiology addendum Status post SMA stent by Dr. Felder. Chronic atrial fibrillation Discharge home per Dr. Yi. Office visit with Dr. Ellis in 1 week. Continue Eliquis 5 mg twice daily Continue Plavix 75 mg daily Exam (Progress Note) - Constitutional Vitals: Period Temp Pulse Resp BP Sys/Hernández Pulse Ox Last 24 Hr 97.4 F-98.9 F 74-113 14-22 115-167/61-94 92-100 Result/EKG - Labs CBC & BMP: 04/26/17 04:33 04/26/17 04:33 Labs: Laboratory Results - last 24 hr 04/26/17 04/26/17 04:33 04:33 WBC 13.5 H RBC 4.38 Hgb 11.8 L Hct 36.6 MCV 83.6 L MCH 27 MCHC 32.2 RDW 13.5 Plt Count 242 MPV 11.5 Neut % (Auto) 68.0 Lymph % (Auto) 17.8 L [place] % (Auto) 11.9 Eos % (Auto) 1.5 Baso % (Auto) 0.4 Neut # (Auto) 9.2 H Lymph # (Auto) 2.4 [place] # (Auto) 1.6 H Eos # (Auto) 0.2 Baso # (Auto) 0.1 Immature Gran % 0.4 Nucleated RBC % 0.0 Immature Gran # 0.05 Nucleated RBCs # 0.00 Sodium 139 Potassium 3.6 Chloride 100 Carbon Dioxide 30 Anion Gap 12.6 BUN 6 L Creatinine 0.60 GFR Calculation 84 BUN/Creatinine Ratio 10.00 Glucose 118 H Calculated Osmolality 275.5 Calcium 8.3 L Magnesium 2.3
--- NOTE | 2017-04-26 10:31 | Pulmonology Progress Note ---
Pulmonary - PN: Subj Interval history: Ms. Hayes is a 81-year-old white female who was admitted 04/23/2017 with right lower quadrant abdominal pain found to be secondary to chronic mesenteric ischemia. She was recently inpatient 04/11/2017 through 04/14/2017 for similar symptoms. At that time, the patient had a high white count was treated as diverticulitis. Her symptoms improved and she was discharged home. Please see those hospital records for more information. Other past history includes: #1: Atrial fibrillation with history of rapid ventricular response #2: COPD/asthma #3: Increased shortness of breath secondary to #1 and #2; resolved #4: Diabetes mellitus, usually diet controlled #5: Hypertension #6: Arteriosclerotic heart disease #7: Hyperlipidemia #8: Hx of chronic bronchitis, under much better control #9: Hx of pneumonia treated in the emergency room in the spring #10: Past history of pulmonary hypertension with cor pulmonale #11: Degenerative joint disease #12: Gastro-esophageal reflux disease #13: Restless leg syndrome #14: Chronic constipation #15: Mild allergic sinusitis 04/25/2017. Patient continues to report right lower quadrant abdominal pain. We have discussed the case with Dr. Felder and coordinated her care. The patient is planned for possible stent placement today via angiography. Her home medications have been restarted. From a pulmonary/medical standpoint she is stable at this time. Medications have been reviewed. We made no changes today. Labs have been reviewed. White count is 10,800 (note, was 15,900 at admission) with a normal differential; H&H 11.0/34.3; platelet count 237,000; INR 1.1; d- dimer less than 0.5; creatinine 0.60, BUN 11, electrolytes are normal; magnesium is slightly elevated at 2.5; calcium 8.3; amylase and lipase are 19 and 84 respectively; urinalysis obtained at admission showed no evidence of infection; liver function tests at admission were normal 04/26/2017. On 04/25/2017 the patient had a stent placed in the superior mesenteric artery. She says her pain is less. She complains she did not sleep well last night. She is asking to go home. I agree and I note that the other doctors on the case of agreed. Dr. Echeverria is recommended that patient go home on Plavix and and Eliquis. See his consultation. The patient has done surprisingly well from the standpoint of her asthma and her heart disease. White count is 13,500 with 68 segs. H&H 11.8/36.6. Platelets 242,000. Electrolytes are normal. Creatinine is 0.60 with a BUN of 6. There are no positive cultures. Medicines have been reviewed. Labs been reviewed. Exam (Progress Note) - Constitutional Vitals: Period Temp Pulse Resp BP Sys/Hernández Pulse Ox Last 24 Hr 97.7 F-100.1 F 72-107 15-20 127-185/61-83 92-99 Exam: Face. Symmetrical. No swelling in the lips or tongue. Neck. Symmetrical. No mass. Thyroid was not palpated. No meningismus. Lymphatics. No submandibular cervical supraclavicular or epitrochlear adenopathy Chest is wheeze free Heart no gallop Abdomen is presently nontender and nondistended; bowel sounds are positive 4 Lower extremities with nothing to suggest acute deep venous femoral phlebitis Psychiatric oriented 3 Neurologic long-term motor function is intact The remainder the physical exam is negative. Plan: 04/25/2017 1. Continue present treatment. 2. Agree with angiography as per Dr. Felder today. 3. See orders. 04/26/2016. 1. See today's note above. 2. I agree with your plans. I will sign off. Please reconsult as needed Exam (Progress Note) - Constitutional Vitals: Period Temp Pulse Resp BP Sys/Hernández Pulse Ox Last 24 Hr 97.4 F-98.9 F 74-113 14-22 115-167/61-94 92-100 Results - Labs CBC & BMP: 04/26/17 04:33 04/26/17 04:33 Specialty Discharge - Follow Up or Referrals Follow up with: Jeff Ellis MD [Physician] - (Patient will need to follow-up with Dr. Ellis in 1 week with CBC, BMP and EKG.)
--- NOTE | 2017-04-26 10:47 | Discharge Summary ---
Hospital Course - Hospital Course Hospital Course: Ms. Charles is a 81-year-old white female with history of chronic A. fib on anticoagulation, COPD/asthma, diabetes, hypertension, CAD, hyperlipidemia, DJD and GERD admitted by Dr. Yi on 04/23/2017 with chronic mesenteric ischemia with worsening pain over the last week. She reported food fear and a 40 pound weight loss in the past year with pain out of proportion to exam and labs. CT of the abdomen and pelvis did show developmental variation of the mesenteric vessels with multifocal stenosis. Her mesenteric angiogram done by Dr. Felder showed a 70% diameter stenosis of the proximal SMA that was treated with a 7 x 17 mm Express stent on 04/25/2017. Dr. Felder is recommending Plavix 75 mg daily for a minimum of 6 months. Patient was followed by Dr. Medrano from pulmonary and Dr. ward from cardiology. She will be continued on her Eliquis for chronic anticoagulation. Patient is feeling well and is tolerating a diet with no abdominal pain. She will continue her current regimen of Levaquin and Flagyl for her presumed diverticulitis. She will need to follow- up with Dr. Yi's office in 2 weeks, Dr. Ellis in 1 week with a CBC, BMP, and EKG, and Dr. Medrano in 1 month with a CBC, BMP, and mag level. Patient's case was discussed with Dr. Yi, cardiology, pulmonary, patient and nursing staff. Care coordination, chart review, and discharge paperwork took approximately 40 minutes. - Time spent with patient Time with patient DS: Greater than 30 minutes Diagnosis - Discharge Diagnosis (1) Diabetes mellitus Status: Chronic (2) COPD, severe Status: Chronic (3) Atrial fibrillation Status: Chronic (4) Abdominal pain Status: Resolved (5) Chronic anticoagulation Status: Chronic (6) Mesenteric ischemia, chronic Status: Resolved Specialty Discharge - Follow Up or Referrals Follow up with: Jeff Ellis MD [Physician] - (Patient will need to follow-up with Dr. Ellis in 1 week with CBC, BMP and EKG.) Discharge Plan - Discharge Data Disposition: Disch To Home/Self Care Condition at Discharge: Stable Discharge Diet: advance to your usual diet Activity: resume usual activities as tolerated Hygiene: may shower Driving: other (No driving if taking pain medicine) Contact your physician if you experience:: fever over 101, Redness or swelling - Discharge Medications New Clopidogrel [Plavix] 75 mg PO DAILY #90 tablet Continue Montelukast Tab [Singulair Tab] 10 mg PO DAILY Esomeprazole Magnesium [Esomeprazole] 40 mg PO DAILY Tiotropium Inhalation [Spiriva Handihaler] 18 mcg INH DAILY Apixaban [Eliquis] 5 mg PO BID #60 tablet Ipratropium Inhaler [Atrovent Inhaler] 2 puff INH Q6HR prednisoLONE [Millipred Tab] 10 mg PO DAILY Digoxin Tab [Lanoxin Tab] 0.125 mg PO DAILY Potassium Chloride 10 meq PO DAILY W/BREAKFAST Levofloxacin Tab [Levaquin Tab] 500 mg PO DAILY #10 tablet metroNIDAZOLE TAB [Flagyl Cap/Tab] 250 mg PO QID #40 tablet Olodaterol HCl [Striverdi Respimat] 2 puffs IH DAILY dilTIAZem HCl [Tiazac] 120 mg PO BID traMADol TAB [Ultram] 100 mg PO BID #30 traMADol TAB [Ultram] 100 mg PO BID #30 tablet - Follow Up or Referral Follow Up: Jeff Ellis MD [Physician] - (Patient will need to follow-up with Dr. Ellis in 1 week with CBC, BMP and EKG.) Gurvinder Medrano MD [Primary Care Provider] - 1 Month (cx appt on 04/29 and resched for 1month cbc, bmp w mag) Elroy Yi MD [Physician] - 2 Weeks - Forms/Instructions Exam - Constitutional Vitals: Period Temp Pulse Resp BP Sys/Hernández Pulse Ox Last 24 Hr 97.4 F-98.9 F 74-113 14-22 115-167/61-94 92-100 Exam: 81-year-old white female, no acute distress, alert and oriented Chest clear CV irregularly irregular Abdomen soft nontender Extremities with no edema, right groin with mild tenderness but no signs of infection or hematoma Discharge Results Procedures and tests throughout hospitalization: Pending Orders 04/27/17 04:00 BMP w/ Mg [Basic Metabolic Panel w/Mg] IN AM CBC [Comp Blood Count Auto Diff] IN AM 04/28/17 04:00 BMP w/ Mg [Basic Metabolic Panel w/Mg] IN AM CBC [Comp Blood Count Auto Diff] IN AM 04/29/17 04:00 BMP w/ Mg [Basic Metabolic Panel w/Mg] IN AM CBC [Comp Blood Count Auto Diff] IN AM Labs on day of discharge: Labs from last 24 hours 04/26/17 04/26/17 04:33 04:33 WBC 13.5 H RBC 4.38 Hgb 11.8 L Hct 36.6 MCV 83.6 L MCH 27 MCHC 32.2 RDW 13.5 Plt Count 242 MPV 11.5 Neut % (Auto) 68.0 Lymph % (Auto) 17.8 L [place] % (Auto) 11.9 Eos % (Auto) 1.5 Baso % (Auto) 0.4 Neut # (Auto) 9.2 H Lymph # (Auto) 2.4 [place] # (Auto) 1.6 H Eos # (Auto) 0.2 Baso # (Auto) 0.1 Immature Gran % 0.4 Nucleated RBC % 0.0 Immature Gran # 0.05 Nucleated RBCs # 0.00 Sodium 139 Potassium 3.6 Chloride 100 Carbon Dioxide 30 Anion Gap 12.6 BUN 6 L Creatinine 0.60 GFR Calculation 84 BUN/Creatinine Ratio 10.00 Glucose 118 H Calculated Osmolality 275.5 Calcium 8.3 L Magnesium 2.3 DS: Provider Date of admission: 04/23/17 10:28 Primary care physician: Gurvinder Medrano MD Attending physician on admission: Elroy Yi MD Consults: 04/23/17 13:29 Consult to Physician [CONS] Routine Comment: established patient, atrial fibrillation Consulting Provider: Consult to Specialist Group: Cardiology When should Consulting Provider be notified: Now Consult to Physician [CONS] Routine Comment: established patient, severe asthma Consulting Provider: Gurvinder Medrano Person Notified: Dr Avendano Date Notified: 04/23/17 Time Notified: 14:50 Consult Notification Comment: will see pt tomorrow 04/23/17 13:37 Consult to Dietitian [CONS] Routine Reason for Dietitian: Other Discharging clinician: CARITO Vyas Expected date of discharge: 04/26/17
[2017-04-26 11:47] VITALS: BP 135/65
--- NOTE | 2017-04-26 11:58 | Event Note ---
No adverse events overnight. Patient's abdominal pain persists but is less severe. She was comfortable eating, which represents an improvement from her perspective. Afebrile. Vital signs are stable. Patient okay to discharge. Recommend antiplatelet therapy such as Plavix for 180 days.
[2017-04-26] MEDS ORDERED: PNEUMOCOCCAL VACCINE (23 VALENT) 0.5 ML VIAL IM ONE (12:16)
[2017-04-26] MEDS: SODIUM CHLORIDE 0.45% 1,000 ML IV SCH (12:17)
== END 2017-04-26 12:32 | disposition home or self-care (01) | DRG 357 ==
LOC: EDUNIT# → EDBD → N.ED 04:21 → N.EDINP 10:28 → N.3E 12:03 → N.TELEN 13:32
PROVIDERS: ADMIT Surgery; ATTEND Surgery
PROC: IRAGMES (2017-04-25 15:00)

== ENCOUNTER 2017-05-10 09:50 | Inpatient (IN) ==
[2017-05-10] MEDS ORDERED: SODIUM CHLORIDE 0.9% 500 ML IV STA (10:06)
[2017-05-10] MEDS ORDERED: DILTIAZEM 50 MG/10 ML VIAL IV STA (10:06)
[2017-05-10] MEDS ORDERED: HYDROmorphone 2 MG/1 ML VIAL IV STA ×3 (10:06→11:36)
[2017-05-10] MEDS ORDERED: ONDANSETRON 4 MG/2 ML VIAL IV STA (10:06)
--- NOTE | 2017-05-10 10:14 | Emergency Department Note ---
Arrival - Arrival Chief Complaint: Abdominal / Flank Pain Stated Complaint: abdominal pain ED Nursing Triage Note: Patient is status post abominal stent for 70% blockage right groin one week and a half ago. She reports continue right quadrant pain and radiates down her right leg with numbness. SHe reports the pain is the same as before surgery. Mode of Arrival: Stretcher Limitations: No Limitations Source: Patient Time Seen by Provider: 05/10/17 10:06 - History of Present Illness HPI Narrative: This 81-year-old white female previously treated 10 days ago for superior mesenteric artery thrombosis with stenting presents with complaints of evolving pain similar and at the same volume as prior to stenting. She states the pain is midepigastric radiating down the right leg as in the past. She denies red blood per rectum or melena but does have complaints of nausea without jordi vomiting. She currently appears very uncomfortable with significant acceleration of her atrial fibrillation. In that regard she has no complaints of chest pain or shortness of breath. Onset (ago): day(s) (Patient presents 2 days post onset of symptoms) Allergies/Adverse Reactions: Allergies Allergy/AdvReac Type Severity Reaction Status Date / Time No Known Allergies Allergy Verified 08/21/15 09:48 Home Medications: Home Medications Medication Instructions Recorded Confirmed Type Esomeprazole Magnesium 40 mg PO DAILY 08/21/15 04/23/17 History [Esomeprazole] Montelukast Tab [Singulair Tab] 10 mg PO DAILY 08/21/15 04/23/17 History Tiotropium Inhalation [Spiriva 18 mcg INH DAILY 08/21/15 04/23/17 History Handihaler] Apixaban [Eliquis] 5 mg PO BID #60 tablet 08/25/15 04/23/17 Rx Digoxin Tab [Lanoxin Tab] 0.125 mg PO DAILY 04/10/17 04/23/17 History Ipratropium Inhaler [Atrovent 2 puff INH Q6HR 04/10/17 04/23/17 History Inhaler] Olodaterol HCl [Striverdi Respimat] 2 puffs IH DAILY 04/10/17 04/23/17 History Potassium Chloride 10 meq PO DAILY W/BREAKFAST 04/10/17 04/23/17 History dilTIAZem HCl [Tiazac] 120 mg PO BID 04/10/17 04/23/17 History prednisoLONE [Millipred Tab] 10 mg PO DAILY 04/10/17 04/23/17 History Levofloxacin Tab [Levaquin Tab] 500 mg PO DAILY #10 tablet 04/14/17 04/23/17 Rx metroNIDAZOLE TAB [Flagyl Cap/Tab] 250 mg PO QID #40 tablet 04/14/17 04/23/17 Rx traMADol TAB [Ultram] 100 mg PO BID #30 04/14/17 04/23/17 Rx traMADol TAB [Ultram] 100 mg PO BID #30 tablet 04/14/17 04/23/17 Rx Clopidogrel [Plavix] 75 mg PO DAILY #90 tablet 04/26/17 Rx Review of System - Review of System 12 point system: reviewed and no additional remarkable complaints except as stated - Review of System Respiratory: Present: as per HPI Cardiovascular: Present: as per HPI Gastrointestinal: Present: as per HPI Medical,Surgical,& Family Hx - Medical History Cardio: History of: Cardiac Dysrhythmia (AFIB on Eliquis), Hypertension, Cardiovascular Problems (Carotid artery disease) Neurology: No history of: Seizures Endocrine: History of: Diabetes Mellitus (NIDDM) Rheumatology: History of;: Rheumatoid Arthritis Respiratory: History of: Asthma, COPD (steroid-dependent) Gastrointestinal: History of: Diverticulitis/ Diverticulosis, GERD - Surgical History Abdominal Surgeries: Surgical HX of: Appendectomy, Colonoscopy Patient denies: Cholecystectomy Reproductive Surgeries: Surgical HX of;: Hysterectomy (PARTIAL) Orthopedic Surgeries: Patient denies;: Orthopedic Surgery - Family History Family History: Reports;: Family Heart Disease (FATHER, SON), Family Hypertension (FATHER, SON), Family Stroke (FATHER) - Social History Smoking Status: Never smoker Frequency of Alcohol Use: None Type of Drug Use: None Exam Physical Examination: GENERAL: Well developed, well nourished elderly white female in no acute distress. HEENT: Normocephalic. No trauma. Moist mucous membranes. EOMI. PERRLA. ENT NML NECK: Supple. No adenopathy. CARDIAC: Irregular. No murmurs. Heart rate 140 CHEST: Clear to auscultation. No respiratory distress. ABDOMEN: Soft. Diffusely tender with hypoactive bowel sounds. EXTREMITIES: No trauma. Normal ROM. No pedal edema. SKIN: No diaphoresis. No rash. NEURO: Alert. Neuro intact. No focal deficits. Vital Signs: Vital Signs Temperature 98.8 F 05/10/17 09:51 Pulse Rate 96 H 05/10/17 13:13 Respiratory Rate 20 05/10/17 13:13 Blood Pressure 114/66 05/10/17 13:13 O2 Sat by Pulse Oximetry 99 05/10/17 12:45 Course Course Narrative: During the initial course of the hospitalization the patient demonstrated atrial fibrillation with rapid response which responded well to Cardizem. - Reevaluation(s) Reevaluation #1: Discussed with patient need for admission for further evaluation of her abdominal pain. - Consultations Consultation #1: Discussed the case with Dr. Yi who will see the patient in ER. It was both our feelings that despite the degree of constipation her chronic pain warrants further workup. Consultation #2: Discussed with the hospitalist service who will admit for further evaluation treatment. Results - Labs CBC & BMP: 05/10/17 10:06 05/10/17 10:06 Labs: I reviewed the laboratory noted the elevated white count and blood sugar. - Impressions EKG: Atrial fibrillation at 122 with normal QRS duration. Diffuse nonspecific ST changes. No acute injury pattern noted. - Diagnostic Findings Procedure: CT Abdomen and Pelvis: image reviewed by me, report reviewed by me ( Mesenteric vessels are remaining patent patient is significantly constipated.) Disposition Clinical Impression: Stable superior mesenteric atheroscleros, Atrial fibrillation, Constipation Case discussed with: patient Condition: Guarded Time of Disposition: 14:09
[2017-05-10 10:17] LABS: Basophils # 0.1 10*3/uL (0.0-0.2); Basophils % 0.5 % (0.0-0.8); Eosinophils # 0.3 10*3/uL (0.0-0.87); Eosinophils % 1.5 % (0.00-10.9); Hematocrit 38.9 VOL% (35.7-47.0); Hemoglobin 12.6 GM/DL (12.0-16.0); Immature Granulocytes % 0.4 %; Immature Granulocytes Absolute 0.07 #; Lymphocytes # 1.7 10*3/uL (1.4-4.0); Lymphocytes % 9.7 % (21.3-54.2); Mean Corpuscular HGB Conc 32.4 GM/DL (32-36); Mean Corpuscular Hemoglobin 27 PG (27-34); Mean Corpuscular Volume 82.6 FL (87-102); Mean Platelet Volume 11.2 FL (9.6-12.0); Monocytes # 0.8 10*3/uL (0.11-0.8); Monocytes % 4.8 % (1.7-12.7); Neutrophils # 14.3 10*3/uL (1.4-7.4); Neutrophils % 83.1 % (38.7-73.9); Platelet Count 277 T/CUMM (130-400); Red Blood Count 4.71 MC/CUMM (3.8-5.5); Red Cell Distribution Width 13.5 % (9.3-17.3); White Blood Count 17.3 T/CUMM (4-12)
[2017-05-10] MEDS ORDERED: HYDROmorphone 2 MG/1 ML VIAL ONE ×2 (10:18→11:43)
[2017-05-10] MEDS ORDERED: ONDANSETRON 4 MG/2 ML VIAL ONE (10:18)
[2017-05-10] MEDS ORDERED: DILTIAZEM 50 MG/10 ML VIAL IV ONE (10:18)
[2017-05-10] MEDS ORDERED: DILTIAZEM INJ 100 MG in SODIUM CHLORIDE 0.9% 100 ML IV SCH (10:30)
[2017-05-10 10:34] LABS: Alanine Aminotransferase 20 U/L (13-56); Albumin 3.5 G/DL (3.4-5.0); Alkaline Phosphatase 69 U/L (45-117); Amylase 21 U/L (25-115); Aspartate Amino Transferase 12 U/L (0-37); Blood Urea Nitrogen 8 MG/DL (7-18); Calcium 8.8 MG/DL (8.5-10.1); Glucose 259 MG/DL (74-106); Potassium 3.8 MMOL/L (3.5-5.1); Sodium 136 MMOL/L (136-145); Total Protein 6.9 G/DL (6.4-8.3); Troponin I Only < 0.015 NG/ML (0.00-0.045)
--- NOTE | 2017-05-10 10:57 | EKG Report ---
Stationary ECG Study [facility] ER Test Date: 05/10/2017 10:30:50 AM Pat Name: YESENIA FALCON Department: Room: Gender: F Cigar [employer]cer: : 1935 Requested by: Gilberto Mcduffie Order Number: [id number] Reading MD: VIJAYA VALENCIA Intervals [place] Rate: 122 P: 999 DE: 0 QRS: 76 QRSD: 90 T: 26 QT: 276 QTc: 349 Interpretive Statements ATRIAL FIBRILLATION WITH RAPID VENTRICULAR RESPONSE LOW QRS VOLTAGE IN EXTREMITY LEADS ABNORMAL RHYTHM ECG Electronically Signed On 05-10-17 17:18:06 CDT by VIJAYA VALENCIA [id number]
--- NOTE | 2017-05-10 12:29 | CT Report ---
CT angio abdomen pelvis TECHNIQUE: Axial CT images of the Abdomen and Pelvis were obtained during the arterial phase of contrast injection. 3-D vascular MIPS reconstructions and multiplanar reformats were evaluated. Omnipaque 350, 100 cc was administered intravenously with no immediate complication. Dose reduction: This CT exam was performed using one or more of the following dose reduction techniques: Automated exposure control, automated adjustment of the mA and/or KV according to patient size, or use of iterative reconstruction technique. COMPARISON: Prior angiographic imaging 04/25/[address] abdomen pelvis 04/23/2017 CLINICAL HISTORY: Right lower quadrant pain CTA FINDINGS: Since prior study, there has been interval stenting of moderate-severe stenosis at the proximal superior mesenteric artery. The superior mesenteric artery stent is widely patent and in good position on the current study. Again, there is mild-moderate (50%) proximal stenosis at the celiac artery origin with separate origin of the left gastric artery with moderate stenosis (75%), unchanged from prior. The descending thoracic aorta is nonaneurysmal. Multifocal atherosclerotic plaque is noted throughout the abdomen/pelvis. There is no evidence of aortic aneurysm. There are single bilateral dominant renal arteries with additional accessory bilateral renal arteries, which are all patent. Inferior mesenteric artery is diminutive but patent. The bilateral common iliac arteries are nonaneurysmal multifocal atherosclerotic plaque but no significant luminal stenosis. External and internal iliac vessels are also patent with no significant focal findings. The bilateral common femoral arteries are widely patent with no pseudoaneurysm or other focal abnormality. There is suggestion of at least mild stenosis at the proximal superficial femoral arteries bilaterally due to atherosclerotic plaque. NON--CTA FINDINGS: Very minimal posterior basilar atelectatic changes are noted bilaterally. Centrilobular emphysematous changes are noted. Lung bases are otherwise clear. There is no pleural or pericardial effusion. ABDOMEN: Liver/Gallbladder: No abnormal enhancing hepatic lesions. Gallbladder is nondilated. There is no biliary ductal dilatation or gallstones visualized. Spleen: No acute findings. Pancreas: No acute findings. Adrenals: Within normal limits in appearance. Kidneys: Both kidneys enhance symmetrically. No evidence of hydronephrosis or obstructive uropathy. Bowel/mesentery: Small bowel is nondilated. There is no free fluid/air within the abdomen. There is a prominent amount of stool throughout the colon suggesting fecal stasis/constipation changes. The appendix is not definitely identified. There are no secondary signs of acute appendicitis. There is no mesenteric adenopathy. There is no free fluid/air within the abdomen. Retroperitoneum: No evidence of significant retroperitoneal adenopathy. PELVIS: Bladder is mildly distended but otherwise unremarkable. There has been a prior hysterectomy. There are no adnexal masses. There is no free fluid in the pelvis. There is no pelvic adenopathy. BONES: No acute or suspicious osseous abnormalities are identified. Multilevel degenerative changes noted throughout the thoracic and lumbar spine with scoliotic deformity also partially imaged. Moderate disc space loss is noted at T12-L1. There is also moderate disc loss at L4-L5 with anterolisthesis grade 1 noted. Advanced facet arthropathy is noted at L3-S1. IMPRESSION: 1. No acute abnormality within the abdomen/pelvis to explain patient's symptoms. 2. Widely patent superior mesenteric artery with indwelling stent now noted in place. Distal branches of the SMA appear well opacified. Similar mild stenosis at the proximal celiac artery origin, which is likely of little significance clinically. 3. Prominent stool throughout the colon suggesting fecal stasis/constipation. 05/10/2017 12:16 PM PROCEDURE INTERPRETED AT [facility] DEPARTMENT OF RADIOLOGY Final Report Signed by: Bora Verma
[2017-05-10 13:15] LABS: Lactic Acid 1.6 MMOL/L (0.4-2.0)
[2017-05-10] MEDS ORDERED: ONDANSETRON 4 MG/2 ML VIAL IV PRN (14:43)
[2017-05-10] MEDS ORDERED: MORPHINE 2 MG/1 ML SYRINGE IV PRN ×2 (14:43→20:05)
--- NOTE | 2017-05-10 15:03 | Hospitalist History & Physical ---
Assessment and Plan (1) Leukocytosis Status: Acute Assessment and plan: White blood cell count noted at 17.3 at the time of admission. CT abdomen and pelvis showed insignificant for any possible infectious processes. We will obtain pancultures and reassess. The patient is not exhibiting any obvious signs of infection at the time of encounter therefore we will hold antibiotic initiation. The leukocytosis may attribute be attributed to the chronic steroid use. We will monitor closely Current Visit: No (2) Atrial fibrillation Status: Chronic Assessment and plan: The patient experienced atrial fibrillation with rapid ventricular response in the ED. The patient was given IV Cardizem and her heart rate responded appropriately. However and I anticipate the the patient may have issues regarding rate control, therefore the patient will be placed on the telemetry unit for close observation. Current Visit: No Qualifiers: Atrial fibrillation type: chronic Qualified Code(s): I48.2 - Chronic atrial fibrillation (3) Abdominal pain Status: Resolved Assessment and plan: CT abdomen pelvis was significant for constipation and fecal impaction. The patient reports chronic constipation. We will consult gastroenterology to evaluate. We will start a gentle bowel regimen. Current Visit: No History of Present Illness Chief complaint: Abdominal pain History of present illness: This is a very pleasant 81-year-old female that presented to the ED at [facility] this afternoon for the evaluation of abdominal pain. The patient has a medical history significant for: Superior mesenteric artery thrombosis, asthma, gastroesophageal reflux disease, atrial fibrillation, coronary artery disease, [id number] diabetes mellitus, rheumatoid arthritis, chronic obstructive pulmonary disease, diverticulitis, and diverticulosis. Patient has surgical history significant for appendectomy, colonoscopy, partial hysterectomy, and arteriogram with stenting of the celiac and superior mesenteric artery. The patient reported the onset of symptoms 1 week prior to presentation. Ironically, the patient was recently hospitalized here at [facility] from April 23, 2017 through April 26, 2017 for symptoms similar in nature. During that hospitalization, the patient was noted to have superior mesenteric artery thrombosis with an estimated 70% blockage. The patient subsequently underwent arteriogram with stent placement to the celiac and superior mesenteric artery. She reports that her pain has never subsided and that she has continued to experience numbness to the right leg. The patient denied melena or hematochezia however, reported intermittent feelings of nausea. The patient became alarmed and decided to present to the ED for further evaluation. At the time of ED presentation, the patient was noted to be in atrial fibrillation with rapid ventricular response. The patient was assessed and immediately given intravenous Cardizem. The patient's heart rate gradually improved. Labs were obtained; complete blood count reported blood cell count at 17.3, hemoglobin 12.6, hematocrit 30.9, platelet count of 277. Chemistry panel reported sodium at 136, potassium 3.8, chloride 98, carbon dioxide 27, BUN 8, creatinine 0.70, and glucose of 259. EKG reported atrial fibrillation with a rate of 122 and a normal QRS duration. In addition, EKG also reported diffuse nonspecific ST changes however no acute injury pattern was noted. CTA of the abdomen and pelvis suggested widely patent superior mesenteric artery with indwelling stent noted, distal branches of the superior mesenteric artery appear will opacified, similar mild stenosis was noted at the proximal celiac artery origin, and prominent stool was noted throughout the colon suggesting fecal stasis and constipation. After brief discussion with both Dr. Courtney and Dr. Gaspar, the patient will be admitted to the hospitalist services and placed on the telemetry unit for continuation of care. The patient has requested courtesy consultations with Dr. Wilkins, Dr. Ellis, and Dr. Yi the patient is well-known to these practices. Home medications have been reviewed and reconciled. CODE STATUS has been discussed; the patient is a FULL CODE. Home Medications Medication Instructions Recorded Confirmed Type Esomeprazole Magnesium 40 mg PO DAILY 08/21/15 05/10/17 History [Esomeprazole] Montelukast Tab [Singulair Tab] 10 mg PO DAILY 08/21/15 05/10/17 History Tiotropium Inhalation [Spiriva 18 mcg INH DAILY 08/21/15 05/10/17 History Handihaler] Digoxin Tab [Lanoxin Tab] 0.125 mg PO DAILY 04/10/17 05/10/17 History Ipratropium Inhaler [Atrovent 2 puff INH Q6HR 04/10/17 05/10/17 History Inhaler] Olodaterol HCl [Striverdi Respimat] 2 puffs IH DAILY 04/10/17 05/10/17 History Potassium Chloride 10 meq PO DAILY W/BREAKFAST 04/10/17 05/10/17 History dilTIAZem HCl [Tiazac] 120 mg PO BID 04/10/17 05/10/17 History traMADol TAB [Ultram] 100 mg PO BID #30 04/14/17 05/10/17 Rx Clopidogrel [Plavix] 75 mg PO DAILY #90 tablet 04/26/17 05/10/17 Rx Apixaban [Eliquis] 2.5 mg PO BID 05/10/17 05/10/17 History prednisoLONE [Millipred Tab] 10 mg PO DAILY 05/10/17 05/10/17 History Allergies Allergy/AdvReac Type Severity Reaction Status Date / Time No Known Allergies Allergy Verified 08/21/15 09:48 Medical,Surgical,& Family Hx - Medical History Cardio: History of: Cardiac Dysrhythmia (AFIB on Eliquis), Hypertension, Cardiovascular Problems (Carotid artery disease) Neurology: No history of: Seizures Endocrine: History of: Diabetes Mellitus (NIDDM) Rheumatology: History of;: Rheumatoid Arthritis Respiratory: History of: Asthma, COPD (steroid-dependent) Gastrointestinal: History of: Diverticulitis/ Diverticulosis, GERD - Surgical History Abdominal Surgeries: Surgical HX of: Appendectomy, Colonoscopy Patient denies: Cholecystectomy Reproductive Surgeries: Surgical HX of;: Hysterectomy (PARTIAL) Orthopedic Surgeries: Patient denies;: Orthopedic Surgery - Family History Family History: Reports;: Family Heart Disease (FATHER, SON), Family Hypertension (FATHER, SON), Family Stroke (FATHER) - Social History Smoking Status: Never smoker Frequency of Alcohol Use: None Type of Drug Use: None 12 point system: reviewed and no additional remarkable complaints except as stated Exam - Constitutional Vitals: Period Temp Pulse Resp BP Sys/Hernández Pulse Ox Last 24 Hr 98.8 F-98.8 F 88-135 12-28 110-167/62-98 92-99 General appearance: normal weight, no acute distress - Head Head exam: Present: normal inspection, normocephalic, atraumatic - Eye Eye exam: Present: EOMI, conjunctival injection Pupils: Present: BRISEIDA, normal accommodation - ENT ENT exam: Present: normal exam, normal external ear exam, normal oropharynx - Neck Neck exam: Present: normal inspection. Absent: lymphadenopathy, meningismus, thyromegaly - Respiratory Respiratory exam: Present: clear to auscultation bilaterally. Absent: rales, rhonchi, stridor, wheezes - Cardiovascular Cardiovascular exam: Present: irregular rhythm (Atrial fibrillation with rapid ventricular response) - GI/Abdominal GI/Abdominal exam: Present: normal bowel sounds, tenderness (Diffuse tenderness noted throughout), soft - Extremities Exam Extremities exam: Present: normal inspection, normal capillary refill, full ROM. Absent: edema - Back Exam Back exam: Present: CVA tenderness (R) - Neurological Exam Neurological exam: Present: alert, oriented X3, CN II-XII intact - Psychiatric Psychiatric exam: Present: normal affect, normal mood - Skin Skin exam: Present: normal color, warm, dry Results - Labs CBC & BMP: 05/10/17 10:06 05/10/17 10:06 Lab Results: I have reviewed the past 24 hour labs
[2017-05-10] MEDS ORDERED: LACTULOSE 20 GM/30 ML UDCUP PO ONE (17:55)
[2017-05-10] MEDS: SODIUM CHLORIDE 0.9% 1,000 ML IV SCH (18:18)
--- NOTE | 2017-05-10 19:42 | General Surgery Consult Note ---
Assessment and Plan (1) Leukocytosis Status: Acute Assessment and plan: This patient is admitted with leukocytosis and abdominal pain. I do not see any etiology for her pain on her CT scan and her SMA stent is patent. Would recommend further medical workup to determine etiology of abdominal pain. Current Visit: No History of Present Illness Chief complaint: Right lower quadrant abdominal pain History of present illness: Ms. Charles is a 81 year old female who has a history of chronic arterial mesenteric ischemia was recently treated with visceral arteriogram and SMA stent with angioplasty by Dr. Felder. She did well after the procedure but returns with recurrent abdominal pain mostly in the right lower quadrant and leukocytosis. She is admitted to medicine for evaluation and further management and treatment after initial workup revealed patency of the stent with no problems related to the stent itself. Home Medications Medication Instructions Recorded Confirmed Type Esomeprazole Magnesium 40 mg PO DAILY 08/21/15 05/10/17 History [Esomeprazole] Montelukast Tab [Singulair Tab] 10 mg PO DAILY 08/21/15 05/10/17 History Tiotropium Inhalation [Spiriva 18 mcg INH DAILY 08/21/15 05/10/17 History Handihaler] Digoxin Tab [Lanoxin Tab] 0.125 mg PO DAILY 04/10/17 05/10/17 History Ipratropium Inhaler [Atrovent 2 puff INH Q6HR PRN 04/10/17 05/10/17 History Inhaler] Olodaterol HCl [Striverdi Respimat] 2 puffs IH DAILY 04/10/17 05/10/17 History Potassium Chloride 10 meq PO DAILY W/BREAKFAST 04/10/17 05/10/17 History dilTIAZem HCl [Tiazac] 120 mg PO BID 04/10/17 05/10/17 History traMADol TAB [Ultram] 100 mg PO BID #30 04/14/17 05/10/17 Rx Clopidogrel [Plavix] 75 mg PO DAILY #90 tablet 04/26/17 05/10/17 Rx Apixaban [Eliquis] 2.5 mg PO BID 05/10/17 05/10/17 History prednisoLONE [Millipred Tab] 10 mg PO DAILY 05/10/17 05/10/17 History Allergies Allergy/AdvReac Type Severity Reaction Status Date / Time No Known Allergies Allergy Verified 08/21/15 09:48 Medical,Surgical,& Family Hx - Medical History Cardio: History of: Cardiac Dysrhythmia (AFIB on Eliquis), Hypertension, Cardiovascular Problems (Carotid artery disease) Neurology: No history of: Seizures Endocrine: History of: Diabetes Mellitus (NIDDM) Rheumatology: History of;: Rheumatoid Arthritis Respiratory: History of: Asthma, COPD (steroid-dependent) Gastrointestinal: History of: Diverticulitis/ Diverticulosis, GERD - Surgical History Cardiac Surgeries: Sugical HX of: Cardiac Surgery Abdominal Surgeries: Surgical HX of: Appendectomy, Colonoscopy Patient denies: Cholecystectomy Reproductive Surgeries: Surgical HX of;: Hysterectomy (PARTIAL) Orthopedic Surgeries: Patient denies;: Orthopedic Surgery - Family History Family History: Reports;: Family Heart Disease (FATHER, SON), Family Hypertension (FATHER, SON), Family Stroke (FATHER) - Social History Smoking Status: Never smoker Frequency of Alcohol Use: None Type of Drug Use: None - Constitutional Constitutional: Present: as per HPI - EENT Nose, mouth and throat: Present: as per HPI - Cardiovascular Cardiovascular: Present: as per HPI - Respiratory Respiratory: Present: as per HPI - Gastrointestinal Gastrointestinal: Present: as per HPI - Genitourinary Genitourinary: Present: as per HPI - Musculoskeletal Musculoskeletal: Present: as per HPI - Neurological Neurological: Present: as per HPI - Endocrine Endocrine: Present: as per HPI Hematologic/Lymphatic: Present: as per HPI Exam - Constitutional Vitals: Period Temp Pulse Resp BP Sys/Hernández Pulse Ox Last 24 Hr 98.8 F-98.8 F 88-135 12-28 110-167/62-98 92-99 General appearance: normal weight, no acute distress - Head Head exam: Present: normal inspection, normocephalic - Eye Eye exam: Present: EOMI Pupils: Present: BRISEIDA - ENT ENT exam: Present: normal exam Mouth exam: Present: normal external inspection, normal voice - Neck Neck exam: Present: normal inspection, trachea midline - Respiratory Respiratory exam: Present: clear to auscultation bilaterally. Absent: accessory muscle use, chest wall tenderness - Cardiovascular Cardiovascular exam: Present: RRR. Absent: systolic murmur, tachycardia - GI/Abdominal GI/Abdominal exam: Present: tenderness (Minimal tenderness in the right lower quadrant), soft. Absent: rebound - Extremities Exam Extremities exam: Present: normal inspection, normal capillary refill - Back Exam Back exam: Present: normal inspection - Neurological Exam Neurological exam: Present: alert, oriented X3 Speech: Present: normal - Skin Skin exam: Present: normal color, warm Results - Labs CBC & BMP: 05/10/17 10:06 05/10/17 10:06 - Diagnostic Findings Procedure: CT Abdomen and Pelvis: image reviewed by me, report reviewed by me ( Patent SMA stent. No evidence of acute infectious pathology on CT scan of abdomen and pelvis)
[2017-05-10] MEDS ORDERED: MAGNESIUM CITRATE 300 ML BOTTLE PO ONE (20:03)
[2017-05-10] MEDS ORDERED: IPRATROPIUM INH PRN (20:04)
[2017-05-10] MEDS: DOCUSATE SODIUM 100 MG CAPSULE PO SCH (21:43)
[2017-05-10] MEDS: SENNA 8.6 MG TABLET PO SCH (21:45)
[2017-05-10] MEDS: APIXABAN 2.5 MG TABLET PO SCH (21:51)
[2017-05-11] MEDS: HYDROmorphone 2 MG/1 ML VIAL IV PRN ×3 (00:22→09:00)
[2017-05-11] MEDS: traMADol 50 MG TABLET PO PRN ×3 (00:41→22:05)
[2017-05-11] MEDS: SODIUM CHLORIDE 0.9% 1,000 ML IV SCH ×3 (04:03→15:55)
[2017-05-11 04:42] LABS: Basophils # 0.1 10*3/uL (0.0-0.2); Basophils % 0.5 % (0.0-0.8); Eosinophils # 0.4 10*3/uL (0.0-0.87); Eosinophils % 2.3 % (0.00-10.9); Hematocrit 38.4 VOL% (35.7-47.0); Hemoglobin 12.2 GM/DL (12.0-16.0); Immature Granulocytes % 0.5 %; Immature Granulocytes Absolute 0.08 #; Lymphocytes # 3.6 10*3/uL (1.4-4.0); Lymphocytes % 21.3 % (21.3-54.2); Mean Corpuscular HGB Conc 31.8 GM/DL (32-36); Mean Corpuscular Hemoglobin 27 PG (27-34); Mean Platelet Volume 11.3 FL (9.6-12.0); Monocytes # 1.7 10*3/uL (0.11-0.8); Monocytes % 10.1 % (1.7-12.7); Neutrophils # 10.9 10*3/uL (1.4-7.4); Neutrophils % 65.3 % (38.7-73.9); Platelet Count 279 T/CUMM (130-400); Red Blood Count 4.57 MC/CUMM (3.8-5.5); Red Cell Distribution Width 13.5 % (9.3-17.3); White Blood Count 16.7 T/CUMM (4-12)
[2017-05-11 05:29] LABS: Albumin 3.6 G/DL (3.4-5.0); Bilirubin,Total 0.9 MG/DL (0.2-1.0); Magnesium 2.2 MG/DL (1.8-2.4); Osmolality,Calculated 273.7 MOS/KG (273-304); Potassium 3.5 MMOL/L (3.5-5.1); Risk Ratio 3.96; Thyroid Stimulating Hormone 1.43 uIU/ml (0.358-3.74); Total Protein 6.8 G/DL (6.4-8.3); VLDL CHOLESTEROL 37.2 MG/DL
--- NOTE | 2017-05-11 07:40 | General Surgery Progress Note ---
Assessment and Plan (1) Leukocytosis Status: Acute Assessment and plan: I will add a urinalysis because of the leukocytosis and no infection seen on CT scan. Patient is now complaining of some neurologic symptoms in her right leg and I will leave this up to the hospital service to workup. I agree with gastroenterology consultation for severe constipation and redundant colon. Current Visit: No Subjective Patient reports: Present: no new complaints, still having pain, afebrile Narrative: The patient is now stating that she has numbness and pain shooting down her right thigh but she denies any back pain or's paraspinal muscular type pain. Exam - Constitutional Vitals: Period Temp Pulse Resp BP Sys/Hernández Pulse Ox Last 24 Hr 98.7 F-98.9 F 88-135 12-28 110-167/62-99 92-99 General appearance: normal weight, no acute distress - Head Head exam: Present: normal inspection, normocephalic - Eye Eye exam: Present: EOMI Pupils: Present: BRISEIDA - ENT ENT exam: Present: normal exam Mouth exam: Present: normal external inspection, normal voice - Neck Neck exam: Present: normal inspection, trachea midline - Respiratory Respiratory exam: Present: clear to auscultation bilaterally. Absent: accessory muscle use, chest wall tenderness - Cardiovascular Cardiovascular exam: Present: RRR. Absent: systolic murmur, tachycardia - GI/Abdominal GI/Abdominal exam: Present: tenderness (Minimal right lower quadrant tenderness) , soft - Extremities Exam Extremities exam: Present: normal inspection, normal capillary refill - Back Exam Back exam: Present: normal inspection - Neurological Exam Neurological exam: Present: alert, oriented X3 Speech: Present: normal - Skin Skin exam: Present: normal color, warm Results - Labs CBC & BMP: 05/11/17 04:19 05/11/17 04:19
[2017-05-11] MEDS: IPRATROPIUM 500 MCG/2.5 ML NEB RESP TX SCH ×4 (08:02→19:12)
[2017-05-11] MEDS: APIXABAN 2.5 MG TABLET PO SCH ×2 (08:57→21:29)
[2017-05-11] MEDS: prednisoLONE 5 MG TABLET PO SCH (08:57)
[2017-05-11] MEDS: DOCUSATE SODIUM 100 MG CAPSULE PO SCH ×2 (08:58→21:30)
[2017-05-11] MEDS: MONTELUKAST 10 MG TABLET PO SCH (08:59)
[2017-05-11] MEDS: CLOPIDOGREL 75 MG TABLET PO SCH (08:59)
[2017-05-11] MEDS: POTASSIUM CHLORIDE 10 MEQ TABLET PO SCH (08:59)
[2017-05-11] MEDS: PANTOPRAZOLE 40 MG TABLET PO SCH (08:59)
--- NOTE | 2017-05-11 09:48 | Gastrointestinal Consult Note ---
Assessment and Plan (1) Abdominal pain Status: Resolved Assessment and plan: 05/11-8 month history of right lower quadrant abdominal pain with reported 40 pound weight loss with recent SMA stent placed last month, with findings of patent stent on repeat CTA. Reports of increased constipation with findings of this also on CT. No overt bleeding. Leukocytosis of 16,000 on admission without febrile illness. Last known colonoscopy 2008 with findings of diverticulosis. Plan an addendum to followed by Dr. Gilliam. Current Visit: No History of Present Illness Chief complaint: Abdominal pain History of present illness: Ms. Charles is a 81 year old female who was admitted to the hospital and yesterday with continued reports of abdominal pain. Patient was inpatient in our facility approximately 2 weeks ago and was discharged home on April 26 with similar complaints. Patient states that she has an 8 month history of right lower quadrant abdominal pain that has worsened in severity over the last several months. 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 This was successfully stented the arteriogram however patient states the pain has not subsided since this time. She states that she was discharged the pain is continued the same as prior admission however over the last 2-3 days this pain is worsened. She denies any nausea, vomiting or diarrhea associated with this pain. She denies any fever or chills. She states that she is continued to have bowel movements every 1-2 days however as of recent she has been unable to have these without the assistance of a laxative. Patient states that over the last year she has lost approximately 40 pounds due to the nature of this pain. She denies any melena or hematochezia. She is on Plavix daily for history of atrial fibrillation. On admission patient had an abdominal CTA with findings of widely patent SMA with stent in place and distal branches of SMA well opacified. She is also noted to have prominent stool throughout the colon with fecal stasis/ constipation. Surgery has consulted with patient and no further workup planned at this time. Patient is also complaining of some right leg pain which she states radiates down to her toes and causes numbness and tingling. She states she has had this pain since prior to onset of abdominal pain. She denies any associated back pain. Last known colonoscopy 2008 with findings of diverticulosis. Home Medications Medication Instructions Recorded Confirmed Type Esomeprazole Magnesium 40 mg PO DAILY 08/21/15 05/10/17 History [Esomeprazole] Montelukast Tab [Singulair Tab] 10 mg PO DAILY 08/21/15 05/10/17 History Tiotropium Inhalation [Spiriva 18 mcg INH DAILY 08/21/15 05/10/17 History Handihaler] Digoxin Tab [Lanoxin Tab] 0.125 mg PO DAILY 04/10/17 05/10/17 History Ipratropium Inhaler [Atrovent 2 puff INH Q6HR PRN 04/10/17 05/10/17 History Inhaler] Olodaterol HCl [Striverdi Respimat] 2 puffs IH DAILY 04/10/17 05/10/17 History Potassium Chloride 10 meq PO DAILY W/BREAKFAST 04/10/17 05/10/17 History dilTIAZem HCl [Tiazac] 120 mg PO BID 04/10/17 05/10/17 History traMADol TAB [Ultram] 100 mg PO BID #30 04/14/17 05/10/17 Rx Clopidogrel [Plavix] 75 mg PO DAILY #90 tablet 04/26/17 05/10/17 Rx Apixaban [Eliquis] 2.5 mg PO BID 05/10/17 05/10/17 History prednisoLONE [Millipred Tab] 10 mg PO DAILY 05/10/17 05/10/17 History Allergies Allergy/AdvReac Type Severity Reaction Status Date / Time No Known Allergies Allergy Verified 08/21/15 09:48 Medical,Surgical,& Family Hx - Medical History Cardio: History of: Cardiac Dysrhythmia (AFIB on Eliquis), Hypertension, Cardiovascular Problems (Carotid artery disease) Neurology: No history of: Seizures Endocrine: History of: Diabetes Mellitus (NIDDM) Rheumatology: History of;: Rheumatoid Arthritis Respiratory: History of: Asthma, COPD (steroid-dependent) Gastrointestinal: History of: Diverticulitis/ Diverticulosis, GERD - Surgical History Cardiac Surgeries: Sugical HX of: Cardiac Surgery Abdominal Surgeries: Surgical HX of: Appendectomy, Colonoscopy Patient denies: Cholecystectomy Reproductive Surgeries: Surgical HX of;: Hysterectomy (PARTIAL) Orthopedic Surgeries: Patient denies;: Orthopedic Surgery - Family History Family History: Reports;: Family Heart Disease (FATHER, SON), Family Hypertension (FATHER, SON), Family Stroke (FATHER) - Social History Smoking Status: Never smoker Frequency of Alcohol Use: None Type of Drug Use: None 12 point system: reviewed and no additional remarkable complaints except as stated - Constitutional Constitutional: Present: as per HPI - EENT Eyes: Present: as per HPI Ears: Present: as per HPI Nose, mouth and throat: Present: as per HPI - Cardiovascular Cardiovascular: Present: as per HPI - Respiratory Respiratory: Present: as per HPI - Gastrointestinal Gastrointestinal: Present: as per HPI, abdominal pain, constipation - Genitourinary Genitourinary: Present: as per HPI - Musculoskeletal Musculoskeletal: Present: as per HPI - Neurological Neurological: Present: as per HPI - Psychiatric Psychiatric: Present: as per HPI - Endocrine Endocrine: Present: as per HPI - Hematologic/Lymphatic Hematologic/Lymphatic: Present: as per HPI Exam - Constitutional Vitals: Period Temp Pulse Resp BP Sys/Hernández Pulse Ox Last 24 Hr 97.2 F-98.9 F 73-135 12-28 107-167/62-99 92-99 General appearance: normal weight, no acute distress - Head Head exam: Present: normal inspection, normocephalic - Eye Eye exam: Present: other (Lids and conjunctive are unremarkable). Absent: scleral icterus - ENT ENT exam: Present: normal exam, normal oropharynx - Neck Neck exam: Present: normal inspection - Respiratory Respiratory exam: Present: clear to auscultation bilaterally. Absent: rales, rhonchi, wheezes - Cardiovascular Cardiovascular exam: Present: regular rate and rhythm. Absent: diastolic murmur , JVD, systolic murmur - GI/Abdominal GI/Abdominal exam: Present: normal bowel sounds, soft. Absent: ascites, distended, mass, organomegaly, tenderness - Extremities Exam Extremities exam: Present: normal inspection, full ROM - Back Exam Back exam: Present: normal inspection - Neurological Exam Neurological exam: Present: alert, oriented X3 - Psychiatric Psychiatric exam: Present: normal affect, normal mood - Skin Skin exam: Present: normal color, warm, dry Results - Labs CBC & BMP: 05/11/17 04:19 05/11/17 04:19 Lab Results: I have reviewed the past 24 hour labs - Diagnostic Findings Procedure: CT: report reviewed by me
[2017-05-11] MEDS: LACTULOSE 20 GM/30 ML UDCUP PO PRN (11:04)
--- NOTE | 2017-05-11 11:27 | Cardiology Consult Note ---
<Dominique Corona - Last Filed: 05/11/17 10:28> Assessment and Plan - Time spent with patient Time spent with patient: Greater than 30 minutes (1) Chronic atrial fibrillation Status: Chronic Assessment and plan: See plan of care listed below. Current Visit: Yes (2) Leukocytosis Status: Acute Assessment and plan: See plan of care listed below. Current Visit: Yes (3) Asthma Status: Chronic Assessment and plan: See plan of care listed below. Current Visit: Yes (4) COPD, severe Status: Chronic Assessment and plan: See plan of care listed below. Current Visit: Yes (5) Chronic anticoagulation Status: Chronic Assessment and plan: See plan of care listed below. Current Visit: Yes (6) Cor pulmonale Status: Chronic Assessment and plan: See plan of care listed below. Current Visit: Yes (7) Diabetes mellitus Status: Chronic Assessment and plan: See plan of care listed below. Current Visit: Yes Qualifiers: Diabetes mellitus type: type 2 (8) Hypertension Status: Chronic Assessment and plan: See plan of care listed below. Current Visit: Yes (9) Abdominal pain Status: Acute Assessment and plan: See plan of care listed below. Current Visit: Yes Qualifiers: Abdominal location: epigastric Qualified Code(s): R10.13 - Epigastric pain History of Present Illness - Data of Consult Patient: known to practice within the last 3 years Consult date: 05/11/17 Requesting Physician: Richard Curran Primary care physician: Gurvinder Medrano - Consult Narrative Reason for consult: atrial fibrillation History of present illness: Bottom Stainer: Dr. Ellis PCP: Dr. Medrano Ms. Charles is a 81 year old female who is routinely followed by Dr. Ellis, she last saw him in the office 02/03/2017. She had a history of chronic atrial fibrillation, hypertension, cor pulmonale, asthma, and NIDDM. She is chronically anticoagulated on Eliquis 2.5 mg twice daily and is on digoxin 0.125 daily and diltiazem 120 mg twice daily for rate control at home. She saw Dr. Tracey in December and he noted that amiodarone had been tried and provided better rate control, but was stopped due to her severe lung disease. Her most recent stress test was performed March 2011. Perfusion scan was normal without segmental wall abnormality. Low risk for future cardiovascular events. Her most recent echocardiogram was performed March 2017. This revealed preserved LV systolic function with ejection fraction estimated 55%. 1+ LVH. Unable to determine diastolic function due to chronic atrial fibrillation. She has been in and out of the hospital over the past couple of months for complaints of recurrent abdominal pain. She was last hospitalized March 2017. At that time, there was concern that there could be some degree of ischemic bowel. She is status post successful angioplasty and placement of stent to SMA. She did well postoperatively and was discharged home on both Eliquis and Plavix. She last saw Dr. Ellis in the cardiology clinic May 29 and 17. At that time , he decreased her Eliquis to 2.5 twice daily due to significant weight loss. Patient presented to [facility] with complaints of recurrent abdominal pain May 10, 2017. Her pain is located in the midepigastric area and radiates down her right leg. She reports that her abdominal pain has been ongoing and has never gotten better even after stent placement to SMA in March. She confirms constipation, weight loss and nausea. Denies diarrhea and vomiting. Denies chest pain, heaviness or tightness. Reports her breathing has been under good control. Denies wheezing. Denies fever, chills, vomiting, bright red blood per rectum, melena, orthopnea, PND and lower extremity edema. She tells me that her atrial fibrillation has overall been under good control. She only has rapid ventricular response when she is having significant abdominal pain. While in the ER last night, she developed RVR. This responded well to IV Cardizem bolus. She was then transferred to the telemetry unit for close observation. Cardiology has been consulted to further assist in the management of her chronic atrial fibrillation. Patient was seen and examined on the telemetry unit. She remains in atrial fibrillation with a controlled ventricular response. She continues to complain of intermittent abdominal pain. She underwent abdominal CT yesterday which revealed widely patent superior mesenteric artery stent and constipation. She does report having a bowel movement this morning. No acute abnormality was found in order to explain patient's symptoms. Gastroenterology as well as general surgery has been consulted in order to further workup patient's symptomology. Leukocytosis was noted upon arrival to the emergency room. This is most likely secondary to patient's steroid therapy as she takes prednisone daily. Urinalysis is pending and patient has been afebrile. Patient is now rate controlled. At this point, we will continue current plan of care with p.o. diltiazem, digoxin and Eliquis. We will monitor her on the telemetry unit for recurrent RVR and adjust her medication regimen as needed throughout her hospitalization. I will discuss with Dr. Ellis and await his additional recommendations. ASSESSMENT/PLAN: 1. CHRONIC ATRIAL FIBRILLATION - Patient is now rate controlled. At this point, we will continue current plan of care with p.o. diltiazem, digoxin and Eliquis. We will monitor her on the telemetry unit for recurrent RVR and adjust her medication regimen as needed throughout her hospitalization. I will discuss with Dr. Ellis and await his additional recommendations. 2. ABDOMINAL PAIN - Continues to complain of ongoing abdominal pain. Abdominal CT revealed widely patent superior mesenteric artery stent and constipation. No acute abnormality was found in order to explain patient's symptoms. Will defer workup further workup of this to gastroenterology. 3. HISTORY OF SMA STENT - She is status post successful placement of SMA stent and angioplasty per Dr. Felder March 2017. Continue Plavix. 4. LEUKOCYTOSIS - Most likely secondary to patient's steroid therapy. Takes prednisone daily. Urinalysis pending. Afebrile. 5. ASTHMA - Clinically stable at present. Continue with current plan of care. 6. CHRONIC ANTICOAGULATION - Patient's Eliquis was decreased to low dose at her last cardiology appointment due to significant weight loss. She is tolerating this well. H&H is stable. Will monitor for bleeding with daily H&H. 7. COR PULMONALE - Stable at present. 8. DIABETES - Management per attending. 9. HYPERTENSION - Currently well controlled. Will monitor blood pressure and adjust her medications accordingly. 10. COPD - No wheezing auscultated. Appears to be clinically stable. Defer management of this to attending. Further plan and addendum to follow per Dr. Ellis CC: Johnson Gaspar MD - Home Medications and Allergies Home Medications: Home Medications Medication Instructions Recorded Confirmed Type Esomeprazole Magnesium 40 mg PO DAILY 08/21/15 05/10/17 History [Esomeprazole] Montelukast Tab [Singulair Tab] 10 mg PO DAILY 08/21/15 05/10/17 History Tiotropium Inhalation [Spiriva 18 mcg INH DAILY 08/21/15 05/10/17 History Handihaler] Digoxin Tab [Lanoxin Tab] 0.125 mg PO DAILY 04/10/17 05/10/17 History Ipratropium Inhaler [Atrovent 2 puff INH Q6HR PRN 04/10/17 05/10/17 History Inhaler] Olodaterol HCl [Striverdi Respimat] 2 puffs IH DAILY 04/10/17 05/10/17 History Potassium Chloride 10 meq PO DAILY W/BREAKFAST 04/10/17 05/10/17 History dilTIAZem HCl [Tiazac] 120 mg PO BID 04/10/17 05/10/17 History traMADol TAB [Ultram] 100 mg PO BID #30 04/14/17 05/10/17 Rx Clopidogrel [Plavix] 75 mg PO DAILY #90 tablet 04/26/17 05/10/17 Rx Apixaban [Eliquis] 2.5 mg PO BID 05/10/17 05/10/17 History prednisoLONE [Millipred Tab] 10 mg PO DAILY 05/10/17 05/10/17 History Allergies/Adverse Reactions: Allergies Allergy/AdvReac Type Severity Reaction Status Date / Time No Known Allergies Allergy Verified 08/21/15 09:48 - Constitutional Constitutional: Present: fatigue, malaise, weakness, weight loss. Absent: chills, excessive sweating, fever(s), frequent falls, headache(s), increased appetite, night sweats - Cardiovascular Cardiovascular: Present: dyspnea (Chronic), palpitations. Absent: chest pain at rest, chest pain with activity, diaphoresis, dyspnea on exertion, edema, radiating jaw, neck or arm pain, lightheadedness, orthopnea, PND - Respiratory Respiratory: Present: cough (Chronic), dyspnea (Chronic). Absent: hemoptysis, dyspnea on exertion, wheezing, snoring, pain on inspiration, change in phlegm color - Gastrointestinal Gastrointestinal: Present: abdominal pain, bloating, change in bowel habits, constipation, cramping, early satiety, nausea. Absent: coffee ground emesis, hematemesis, hematochezia, loose stools, melena, vomiting Medical,Surgical,& Family Hx - Medical History Cardio: History of: Cardiac Dysrhythmia (AFIB on Eliquis), Hypertension, Cardiovascular Problems (Carotid artery disease) Endocrine: History of: Diabetes Mellitus (NIDDM) Respiratory: History of: Asthma, Bronchitis, COPD (steroid-dependent) Gastrointestinal: History of: Diverticulitis/ Diverticulosis, GERD - Surgical History Abdominal Surgeries: Surgical HX of: Appendectomy, Colonoscopy Patient denies: Cholecystectomy Reproductive Surgeries: Surgical HX of;: Hysterectomy (PARTIAL) Orthopedic Surgeries: Patient denies;: Orthopedic Surgery - Family History Family History: Reports;: Family Heart Disease (FATHER, SON), Family Hypertension (FATHER, SON), Family Stroke (FATHER) - Social History Smoking Status: Never smoker Frequency of Alcohol Use: None Type of Drug Use: None Marital Status: Single Lives With:: Alone Functional capacity: independent ambulation Physical Examination Vital Signs Temp Pulse Resp BP Pulse Ox 98.8 F 135 H 24 158/98 96 05/10/17 09:51 05/10/17 09:51 05/10/17 09:51 05/10/17 09:51 05/10/17 09:51 Other: General: Appears well with no apparent distress. Pleasant and cooperative. Appears comfortable. HEENT: PERRL, normocephalic, atraumatic. Mucous membranes moist. No jaundice noted. Conjunctiva moist and clear, sclerae anicteric Neck: No JVD/HJR, no thyromegaly or lymphadenopathy noted. Cardiac: Irregular rhythm, controlled rate. No murmur rub or gallop. Lungs: Clear to auscultation without accessory muscle use to assist the respiratory pattern. Not requiring oxygen. Abdomen: Soft, bowel sounds normoactive. Slightly tender. No abdominal bruit or thrill noted. No masses noted. Extremities: No clubbing, cyanosis noted. No edema noted. Upper extremity pulses 2+. Lower extremity pulses 2+. Capillary refill less than 3 seconds. Skin: No unusual lesions or rashes. No skin breakdown appreciated. Neuro: Awake, alert and oriented 3. Moves all extremities well without hemiparesis or paralysis. No essential tremor is appreciated. Result/EKG - Labs CBC & BMP: 05/11/17 04:19 05/11/17 04:19 Lab Results: I have reviewed the past 24 hour labs Labs: Laboratory Results - last 24 hr 05/10/17 05/10/17 05/11/17 10:06 19:44 04:19 WBC 16.7 H RBC 4.57 Hgb 12.2 Hct 38.4 MCV 84.0 L MCH 27 MCHC 31.8 L RDW 13.5 Plt Count 279 MPV 11.3 Neut % (Auto) 65.3 Lymph % (Auto) 21.3 [place] % (Auto) 10.1 Eos % (Auto) 2.3 Baso % (Auto) 0.5 Neut # (Auto) 10.9 H Lymph # (Auto) 3.6 [place] # (Auto) 1.7 H Eos # (Auto) 0.4 Baso # (Auto) 0.1 Immature Gran % 0.5 Nucleated RBC % 0.0 Immature Gran # 0.08 Nucleated RBCs # 0.00 Sodium 136 Potassium 3.8 Chloride 98 Carbon Dioxide 27 Anion Gap 14.8 BUN 8 Creatinine 0.70 GFR Calculation 79 BUN/Creatinine Ratio 11.00 Glucose 259 H POC Glucose 198 H Calculated Osmolality 278.0 Lactic Acid 1.6 Calcium 8.8 Magnesium Total Bilirubin 0.60 AST 12 ALT 20 Alkaline Phosphatase 69 Total Creatine Kinase 47 CK-MB (CK-2) 1.4 Troponin I < 0.015 Total Protein 6.9 Albumin 3.5 Globulin 3.4 Albumin/Globulin Ratio 1.0 L Triglycerides Cholesterol LDL Cholesterol VLDL Cholesterol HDL Cholesterol Heart Disease Risk Ratio Amylase 21 L Lipase 65.0 L TSH 3rd Generation 05/11/17 05/11/17 04:19 08:04 WBC RBC Hgb Hct MCV MCH MCHC RDW Plt Count MPV Neut % (Auto) Lymph % (Auto) [place] % (Auto) Eos % (Auto) Baso % (Auto) Neut # (Auto) Lymph # (Auto) [place] # (Auto) Eos # (Auto) Baso # (Auto) Immature Gran % Nucleated RBC % Immature Gran # Nucleated RBCs # Sodium 138 Potassium 3.5 Chloride 100 Carbon Dioxide 28 Anion Gap 13.5 BUN 6 L Creatinine 0.50 L GFR Calculation 88 BUN/Creatinine Ratio 12.00 Glucose 114 H POC Glucose 128 H Calculated Osmolality 273.7 Lactic Acid Calcium 9.0 Magnesium 2.2 Total Bilirubin 0.90 AST 11 ALT 20 Alkaline Phosphatase 65 Total Creatine Kinase CK-MB (CK-2) Troponin I Total Protein 6.8 Albumin 3.6 Globulin 3.2 Albumin/Globulin Ratio 1.1 Triglycerides 186 H Cholesterol 186 LDL Cholesterol 107.0 VLDL Cholesterol 37.2 HDL Cholesterol 47 Heart Disease Risk Ratio 3.96 Amylase Lipase TSH 3rd Generation 1.430 <Jeff Ellis - Last Filed: 05/11/17 14:52> History of Present Illness - Consult Narrative History of present illness: Ms. Charles is a 81 year old female well known to me with a history of severe COPD cor pulmonale history of chronic atrial fibrillation for rate control. She has a history of chronic anticoagulation. She is admitted because of abdominal pain. She had stenting of the mesenteric artery and has done reasonably well from that and there is not evidence of any problem by CT today. She is on rate control meds and her rates are reasonable and we will continue as currently. Her exam is unchanged from a cardiovascular standpoint. I have discussed in detail the particulars of this case and I have examined the patient and reviewed the patient's chart both current and old. I was directly involved in the patient's evaluation and management and I completely agree with Dominique Corona NP regarding this patient's evaluation and treatment plan. CC: Johnson Gaspar MD Physical Examination Vital Signs Temp Pulse Resp BP Pulse Ox 98.8 F 135 H 24 158/98 96 05/10/17 09:51 05/10/17 09:51 05/10/17 09:51 05/10/17 09:51 05/10/17 09:51 Result/EKG - Labs CBC & BMP: 05/11/17 04:19 05/11/17 04:19 Labs: Laboratory Results - last 24 hr 05/10/17 05/11/17 05/11/17 19:44 04:19 04:19 WBC 16.7 H RBC 4.57 Hgb 12.2 Hct 38.4 MCV 84.0 L MCH 27 MCHC 31.8 L RDW 13.5 Plt Count 279 MPV 11.3 Neut % (Auto) 65.3 Lymph % (Auto) 21.3 [place] % (Auto) 10.1 Eos % (Auto) 2.3 Baso % (Auto) 0.5 Neut # (Auto) 10.9 H Lymph # (Auto) 3.6 [place] # (Auto) 1.7 H Eos # (Auto) 0.4 Baso # (Auto) 0.1 Immature Gran % 0.5 Nucleated RBC % 0.0 Immature Gran # 0.08 Nucleated RBCs # 0.00 Sodium 138 Potassium 3.5 Chloride 100 Carbon Dioxide 28 Anion Gap 13.5 BUN 6 L Creatinine 0.50 L GFR Calculation 88 BUN/Creatinine Ratio 12.00 Glucose 114 H POC Glucose 198 H Calculated Osmolality 273.7 Calcium 9.0 Magnesium 2.2 Total Bilirubin 0.90 AST 11 ALT 20 Alkaline Phosphatase 65 Total Protein 6.8 Albumin 3.6 Globulin 3.2 Albumin/Globulin Ratio 1.1 Triglycerides 186 H Cholesterol 186 LDL Cholesterol 107.0 VLDL Cholesterol 37.2 HDL Cholesterol 47 Heart Disease Risk Ratio 3.96 TSH 3rd Generation 1.430 05/11/17 05/11/17 08:04 12:17 WBC RBC Hgb Hct MCV MCH MCHC RDW Plt Count MPV Neut % (Auto) Lymph % (Auto) [place] % (Auto) Eos % (Auto) Baso % (Auto) Neut # (Auto) Lymph # (Auto) [place] # (Auto) Eos # (Auto) Baso # (Auto) Immature Gran % Nucleated RBC % Immature Gran # Nucleated RBCs # Sodium Potassium Chloride Carbon Dioxide Anion Gap BUN Creatinine GFR Calculation BUN/Creatinine Ratio Glucose POC Glucose 128 H 178 H Calculated Osmolality Calcium Magnesium Total Bilirubin AST ALT Alkaline Phosphatase Total Protein Albumin Globulin Albumin/Globulin Ratio Triglycerides Cholesterol LDL Cholesterol VLDL Cholesterol HDL Cholesterol Heart Disease Risk Ratio TSH 3rd Generation
[2017-05-11] MEDS: DIGOXIN 0.125 MG TABLET PO SCH (14:02)
--- NOTE | 2017-05-11 15:36 | Hospitalist Progress Note ---
Assessment and Plan - Time spent with patient Time spent with patient: Greater than 30 minutes (1) Abdominal pain Status: Chronic Assessment and plan: The etiology of this pain is unclear at this time. CTA shows patency of her SMA after stenting. Despite having a bowel movement she still has abdominal pain. She is considering colonoscopy. Awaiting GI evaluation. Current Visit: Yes Qualifiers: Abdominal location: epigastric Qualified Code(s): R10.13 - Epigastric pain (2) Atrial fibrillation with RVR Status: Acute Assessment and plan: Cardiology following. Rate controlled. Continue Eliquis. Current Visit: No (3) COPD, severe Status: Chronic Current Visit: Yes (4) Chronic anticoagulation Status: Chronic Assessment and plan: On Eliquis and Pradaxa after stent placement Current Visit: Yes (5) Cor pulmonale Status: Chronic Current Visit: Yes (6) Mesenteric ischemia, chronic Status: Resolved Current Visit: No (7) Hypertension Status: Chronic Current Visit: Yes Qualifiers: Hypertension type: essential hypertension Qualified Code(s): I10 - Essential (primary) hypertension Hospitalist: Subjective Interval history: Patient seen and examined. No acute events overnight. Case discussed with nursing staff. Labs reviewed. Patient continues to have pain. Magnesium citrate and lactulose have produced a bowel movement Exam - Constitutional Vitals: Period Temp Pulse Resp BP Sys/Hernández Pulse Ox Last 24 Hr 97.1 F-98.9 F 73-125 15-22 107-166/66-99 94-99 Exam: Constitutional System: Mild distress. No tremulousness. Head: Normocephalic, atraumatic. Ears, Nose and Throat System: No pain or tenderness. No epistaxis or discharge Eyes System: Pupils equal, round, and reactive. Extraocular muscles intact. Neck: Supple, without adenopathy, No jugular venous distention. Respiratory System: Chest clear to auscultation. Cardiovascular System: Heart with regular rate and rhythm. No murmur. GI System: Abdomen soft, nontender. Normo active bowel sounds present. Musculoskeletal System: limbs with no pedal edema. Full distal pulses. Neurological System: No discernable sensory deficit. No aphasia Psychiatric System: Conversation is rational Results - Labs CBC & BMP: 05/11/17 04:19 05/11/17 04:19 Lab Results: I have reviewed the past 24 hour labs - Diagnostic Findings Procedure: CT Abdomen and Pelvis: image reviewed by me, report reviewed by me
[2017-05-11 19:39] LABS: Apearance,Urine CLEAR (Clear); Bilirubin,Urine Negative (Negative); Blood, Urine Negative (Negative); Glucose,Urine (UA) Negative (Negative); Ketones,Urine Negative (Negative); Mucus,Urine Occasional /LPF (Occasional); Nitrite,Urine Negative (Negative); Protein,Urine Negative; Urine Color Yellow (Yellow); Urine Specific Gravity 1.008 (1.001-1.035); Urine Urobilinogen < 2.0 EU/DL (0.2-1.0); WBC,Urine 1 /HPF (0-6)
[2017-05-11] MEDS: SENNA 8.6 MG TABLET PO SCH (21:30)
[2017-05-12] MEDS: SODIUM CHLORIDE 0.9% 1,000 ML IV SCH ×2 (03:23→15:42)
[2017-05-12 04:44] LABS: Basophils # 0.1 10*3/uL (0.0-0.2); Basophils % 0.6 % (0.0-0.8); Eosinophils # 0.3 10*3/uL (0.0-0.87); Eosinophils % 2.8 % (0.00-10.9); Hemoglobin 11.9 GM/DL (12.0-16.0); Immature Granulocytes % 0.4 %; Immature Granulocytes Absolute 0.05 #; Lymphocytes # 2.9 10*3/uL (1.4-4.0); Lymphocytes % 25.3 % (21.3-54.2); Mean Corpuscular HGB Conc 32.2 GM/DL (32-36); Mean Corpuscular Hemoglobin 27 PG (27-34); Mean Corpuscular Volume 83.3 FL (87-102); Mean Platelet Volume 11.7 FL (9.6-12.0); Monocytes # 1.3 10*3/uL (0.11-0.8); Monocytes % 11.3 % (1.7-12.7); Neutrophils # 6.8 10*3/uL (1.4-7.4); Neutrophils % 59.6 % (38.7-73.9); Platelet Count 231 T/CUMM (130-400); Red Blood Count 4.44 MC/CUMM (3.8-5.5); Red Cell Distribution Width 13.4 % (9.3-17.3); White Blood Count 11.5 T/CUMM (4-12)
[2017-05-12 05:15] LABS: Calcium 8.9 MG/DL (8.5-10.1); Magnesium 2.2 MG/DL (1.8-2.4); Osmolality,Calculated 275.4 MOS/KG (273-304); Potassium 3.6 MMOL/L (3.5-5.1)
[2017-05-12 05:29] LABS: % Iron Saturation 25.9 % (18-50); Ferritin 21.7 ng/ml (8-252)
[2017-05-12] MEDS: HYDROmorphone 2 MG/1 ML VIAL IV PRN ×2 (05:46→20:41)
[2017-05-12] MEDS: IPRATROPIUM 500 MCG/2.5 ML NEB RESP TX SCH ×4 (07:26→21:29)
--- NOTE | 2017-05-12 08:11 | EKG Report ---
Stationary ECG Study [facility] Test Date: 05/12/2017 7:42:58 AM Pat Name: YESENIA FALCON Department: Room: 277 Gender: F [employer]: MARLEY : 1935 Requested by: Dominique Corona Order Number: [id number] Reading MD: JOSHUA STEWART Intervals [place] Rate: 80 P: 999 OR: 0 QRS: 17 QRSD: 97 T: 63 QT: 357 QTc: 393 Interpretive Statements ATRIAL FIBRILLATION WITH ABERRANT CONDUCTION OR VENTRICULAR PREMATURE COMPLEXES at 80 bpm [address] AXIS MODER[address] DEPRESSION; MAY BE RATE RELATED, CONSIDER ISCHEMIA Electronically Signed On 05-12-17 11:06:51 CDT by JOSHUA STEWART [email or web address]
[2017-05-12] MEDS: APIXABAN 2.5 MG TABLET PO SCH ×2 (08:50→20:34)
[2017-05-12] MEDS: MONTELUKAST 10 MG TABLET PO SCH (08:51)
[2017-05-12] MEDS: DOCUSATE SODIUM 100 MG CAPSULE PO SCH ×2 (08:51→20:35)
[2017-05-12] MEDS: prednisoLONE 5 MG TABLET PO SCH (08:51)
[2017-05-12] MEDS: POTASSIUM CHLORIDE 10 MEQ TABLET PO SCH (08:51)
[2017-05-12] MEDS: PANTOPRAZOLE 40 MG TABLET PO SCH (08:52)
[2017-05-12] MEDS: CLOPIDOGREL 75 MG TABLET PO SCH (08:52)
[2017-05-12] MEDS ORDERED: STRIVERDI RESPIMAT IH SCH (09:00)
[2017-05-12] MEDS: LACTULOSE 20 GM/30 ML UDCUP PO PRN (10:49)
--- NOTE | 2017-05-12 11:10 | Pulmonology Consult Note ---
History of Present Illness Chief complaint: Known to you. COPD. History of present illness: Giancarlo Stahl, ANP-BC, GNP-BC, scribe for Dr. Gurvinder Medrano Mrs. Charles is a 81-year-old white female from [place], [place]. She presented [facility] room 05/10/2017 with chief complaint of right lower quadrant abdominal pain. She has had 2 recent hospitalizations with similar complaints. 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 Dr. Felder placed a stent in this. The patient has been on Plavix since. Prior to discharge at that hospitalization, the patient reported that her pain had improved. Now, she states that never fully went away. Upon arrival in the emergency room, the patient was noted to be in atrial fibrillation with rapid ventricular response. She required IV Cardizem and quickly converted. We've been asked to see the patient in pulmonary consultation regarding her chronic medical conditions and COPD. The request for consultation was made by Dr. Gaspar. She has had progressively worsening right lower quadrant abdominal pain since discharge. She has chronic constipation/obstipation. Her breathing has remained stable without increased shortness of breath or dyspnea on exertion. She denies any fever. There's been no hemoptysis. She denies any reflux or dysphagia. No bleeding from any site reported. No change in bowel or bladder habits. She denies any cardiac angina or palpitations. No TIA symptoms or syncope. All other systems were reviewed and were noncontributory. She has been seen in GI consultation by Dr. Gilliam. She has been seen in cardiology consultation by Dr. Ellis. She has been seen in surgical consultation by Dr. Yi. All of their notes have been reviewed. Allergies: The patient does not tolerate Daliresp well Medications: See list She takes a yearly flu vaccination. She had a Pneumovax in 2009. She had an H1N1 vaccination 2008. Past medical history: [facility] 04/23/2017 3 04/26/2017 under the care of Dr. Yi. 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 Dr. Felder placed a stent in this. The patient has been on Plavix since. Prior to discharge at that hospitalization, the patient reported that her pain had improved. [facility] 04/11/2017 through 2016 care of the hospitalist secondary to abdominal pain. At that time, when she began having bowel movements her abdominal pain subsided. Severe COPD secondary to lifelong history of asthma. Hypertension. Pulmonary hypertension with cor pulmonale secondary to asthma. Degenerative joint disease. Gastroesophageal reflux, asymptomatic. History of low back pain. History of right hip and knee pain. Family history: Her brother has glaucoma and lung disease. Father had arthritis and had a CVA at age 91. Brother actually had emphysema. Social history: The patient quit smoking in 1981. She says she has one glass of wine about once a month. She is . She has an associate degree. The patient lived at [facility] in [place] in the 1950s. Her was a Marine. She [facility] and down the [facility] [place] Past surgical history: Stent placed in the SMA by Dr. Felder 04/25/2017. Hysterectomy in the . Breast surgery 1961 in 1985. Eye surgery in 1999 with an implant. She had varicose vein surgery of the right leg by Dr. Rao 04/10/2014. Past procedures: Carotid ultrasound done 02/13/2014 showed less than 50% stenosis bilaterally. 2-D echocardiogram done 01/17/[address] Ellis showed an ejection fraction greater than 55%, mild concentric left ventricular hypertrophy with trace MR. Pulmonary function tests done 07/30/2013 showed: #1 severe obstructive disease with a forced vital capacity of 1.24 L or 42% of predicted, an FEV1 of 0.59 L or 27% of predicted, and FEF 25/75 of 0.34 L or 19 % of predicted #2 no clear-cut bronchodilator effect #3 severe decrease in maximum voluntary ventilation at 23 L/m or 27% of predicted number for oxygen saturations were 95% on room air #5 the patient's pulmonary function tests were slightly better than on 05/07/2013 but there had been a small deterioration compared to test on 01/06/2012. CTA of the abdomen and pelvis done 05/10/2017 showed no acute abnormality within the abdomen/pelvis to explain her symptoms. Superior mesenteric artery was widely patent with indwelling stent. Distal branches of the SMA appeared well opacified. Minimal mild stenosis of the proximal celiac artery origin which is felt likely little significance clinically. There is also prominent stool throughout the colon suggesting fecal stasis/constipation. Laboratory: White count was initially 17,300 but has now fallen to 11,500 with 59.6% segs, 25.3% lymphs, 11.3% monos; H&H 11.9/37.0 with low to low normal indices and normal red blood cell distribution with; platelet count 231,000; creatinine 0.50, BUN 4, sodium 140, potassium 3.6, magnesium 2.2; calcium 8.9, albumin 3.6, total protein 6.8; liver function tests within normal limits; amylase and lipase were normal; TSH is normal at 1.430; fasting lipid profile showed a total cholesterol 186, LDL 107, HDL 47, triglycerides 186; iron studies were normal; urinalysis shows no evidence of infection Home Medications Medication Instructions Recorded Confirmed Type Esomeprazole Magnesium 40 mg PO DAILY 08/21/15 05/10/17 History [Esomeprazole] Montelukast Tab [Singulair Tab] 10 mg PO DAILY 08/21/15 05/10/17 History Tiotropium Inhalation [Spiriva 18 mcg INH DAILY 08/21/15 05/10/17 History Handihaler] Digoxin Tab [Lanoxin Tab] 0.125 mg PO DAILY 04/10/17 05/10/17 History Ipratropium Inhaler [Atrovent 2 puff INH Q6HR PRN 04/10/17 05/10/17 History Inhaler] Olodaterol HCl [Striverdi Respimat] 2 puffs IH DAILY 04/10/17 05/10/17 History Potassium Chloride 10 meq PO DAILY W/BREAKFAST 04/10/17 05/10/17 History dilTIAZem HCl [Tiazac] 120 mg PO BID 04/10/17 05/10/17 History traMADol TAB [Ultram] 100 mg PO BID #30 04/14/17 05/10/17 Rx Clopidogrel [Plavix] 75 mg PO DAILY #90 tablet 04/26/17 05/10/17 Rx Apixaban [Eliquis] 2.5 mg PO BID 05/10/17 05/10/17 History prednisoLONE [Millipred Tab] 10 mg PO DAILY 05/10/17 05/10/17 History Allergies Allergy/AdvReac Type Severity Reaction Status Date / Time No Known Allergies Allergy Verified 08/21/15 09:48 Exam (Pulmonay) H&P - Constitutional Vitals: Period Temp Pulse Resp BP Sys/Hernández Pulse Ox Last 24 Hr 97.1 F-98.3 F 76-129 16-20 110-144/57-84 91-99 Exam: Psych: Oriented x 3; a pleasant and mostly cooperative patient HEENT: Pupils, irises, sclera, conjunctiva, and eyelids are normal. The face is symmetrical without rash or masses. Lips, tongue, buccal mucosa, soft and hard palates, and pharynx are WNL Neck: Symmetrical. Thyroid was not palpated. Lymphatics: No submandibular, cervical, or supraclavicular adenopathy Chest: Symmetrical with a very faint high pitched end expiratory wheeze Breasts: Deferred CV: Slightly tachycardic and irregularly irregular. I can hear no murmur, rub, or gallop. Arterial: Decreased right carotid upstroke. No bruit. Exam of the upper and lower extremities is normal. Venous: Exam of the neck, upper, and lower extremities is normal Abd: No appreciable organomegaly, masses, tenderness, or bruit; Bowel sounds are positive x 4; The aorta was not palpated; we could not reproduce her pain with palpation /Rectal: Deferred Extremities: No clubbing, cyanosis, significant edema, or obvious DVT Skin: No cancerous or infectious lesions of the exposed, examined skin; the perineal area was not examined; there are some purpura on the dorsum of both upper extremities M/S: Age appropriate loss of the normal curvature of the cervical, thoracic, and lumbar spine Neurological: Cranial nerves are intact, Long tract motor function is intact; Sensory exam was not done; gait was not tested. The remainder of the exam was noncontributory. 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 Done 04/25/[address] Felder. #3: COPD/asthma #4: Leukocytosis--- improved; could be secondary to chronic steroid use, but consider other causes #5: Diabetes mellitus, usually diet controlled #6: Hypertension #7: Arteriosclerotic heart disease #8: Hyperlipidemia #9: Hx of chronic bronchitis, under much better control #10: Hx of pneumonia treated in the emergency room in the spring #11: Past history of pulmonary hypertension with cor pulmonale #12: Degenerative joint disease #13: Gastro-esophageal reflux disease #14: Restless leg syndrome #15: Chronic constipation/obstipation #16: Mild allergic sinusitis #17: Chronic atrial fibrillation on chronic anticoagulation with Eliquis. Followed by Dr. Ellis. Note, at presentation in the ER the patient was in A. fib with RVR. This is now controlled. #18: See past history Plan: #1: Continue home medications as she was taking them #2: Send stools for blood have been negative and Dr. Gilliam does not feel proceed with endoscopy at this time would offer any benefit in light of the fact she had a recent stent placed and is on Plavix/Eliquis, we have ordered an MRI of the lumbar spine. Note, the patient denies any known back pain, but when she has her abdominal pain there is extension into her right thigh. #3: Continue breathing treatments #4: See orders We appreciate this consult and will follow along with you. Medical,Surgical,& Family Hx - Medical History Cardio: History of: Cardiac Dysrhythmia (AFIB on Eliquis), Hypertension, Cardiovascular Problems (Carotid artery disease) Neurology: No history of: Seizures Endocrine: History of: Diabetes Mellitus (NIDDM) Rheumatology: History of;: Rheumatoid Arthritis Respiratory: History of: Asthma, Bronchitis, COPD (steroid-dependent) Gastrointestinal: History of: Diverticulitis/ Diverticulosis, GERD - Surgical History Cardiac Surgeries: Sugical HX of: Cardiac Surgery Abdominal Surgeries: Surgical HX of: Appendectomy, Colonoscopy Patient denies: Cholecystectomy Reproductive Surgeries: Surgical HX of;: Hysterectomy (PARTIAL) Orthopedic Surgeries: Patient denies;: Orthopedic Surgery - Family History Family History: Reports;: Family Heart Disease (FATHER, SON), Family Hypertension (FATHER, SON), Family Stroke (FATHER) - Social History Smoking Status: Never smoker Frequency of Alcohol Use: None Type of Drug Use: None Results - Labs CBC & BMP: 05/12/17 03:40 05/12/17 03:40
[2017-05-12] MEDS: DILTIAZEM CD 120 MG CAPSULE PO SCH ×3 (11:38→20:36)
--- NOTE | 2017-05-12 11:44 | Gastrointestinal Progress Note ---
Assessment and Plan (1) Abdominal pain Status: Chronic Assessment and plan: 05/12-abdominal pain improved, tolerating diet. Stools are negative for occult blood. Advance diet and continue to monitor at this time. Plan an addendum to followed by Dr. Gilliam. 05/11-8 month history of right lower quadrant abdominal pain with reported 40 pound weight loss with recent SMA stent placed last month, with findings of patent stent on repeat CTA. Reports of increased constipation with findings of this also on CT. No overt bleeding. Leukocytosis of 16,000 on admission without febrile illness. Last known colonoscopy 2008 with findings of diverticulosis. Plan an addendum to followed by Dr. Gilliam. Current Visit: Yes Qualifiers: Abdominal location: epigastric Qualified Code(s): R10.13 - Epigastric pain Gastroenterology - PN: Subj Interval history: CC: Abdominal pain Patient is seen, awake and alert sitting on side of bed. States she slept well overnight and have 1 of the best night she has had a long time with decreased abdominal pain. She denies any nausea, vomiting. She is tolerating clear liquids and is requesting to increase her diet at present time. Her stools 2 have been negative for occult blood. Hemoglobin is stable 11.9. Abdomen is soft, nontender. She is having good bowel movements at present time with the laxatives. ROS: Denies shortness of breath or chest pain Exam (Progress Note) - Constitutional Vitals: Period Temp Pulse Resp BP Sys/Hernández Pulse Ox Last 24 Hr 97.3 F-98.3 F 76-129 16-20 116-144/57-84 91-99 - Other Additional findings: General appearance: normal weight, no acute distress - Head Head exam: Present: normal inspection, normocephalic - Eye Eye exam: Present: other (Lids and conjunctive are unremarkable). Absent: scleral icterus - ENT ENT exam: Present: normal exam, normal oropharynx - Neck Neck exam: Present: normal inspection - Respiratory Respiratory exam: Present: clear to auscultation bilaterally. Absent: rales, rhonchi, wheezes - Cardiovascular Cardiovascular exam: Present: regular rate and rhythm. Absent: diastolic murmur , JVD, systolic murmur - GI/Abdominal GI/Abdominal exam: Present: normal bowel sounds, soft. Absent: ascites, distended, mass, organomegaly, tenderness - Extremities Exam Extremities exam: Present: normal inspection, full ROM - Back Exam Back exam: Present: normal inspection - Neurological Exam Neurological exam: Present: alert, oriented X3 - Psychiatric Psychiatric exam: Present: normal affect, normal mood - Skin Skin exam: Present: normal color, warm, dry Results - Labs CBC & BMP: 05/12/17 03:40 05/12/17 03:40 Lab Results: I have reviewed the past 24 hour labs
--- NOTE | 2017-05-12 12:08 | Hospitalist Progress Note ---
Assessment and Plan (1) Abdominal pain Status: Chronic Assessment and plan: The etiology of this pain is unclear at this time. CTA shows patency of her SMA after stenting. Despite having a bowel movement she still has abdominal pain. She is considering colonoscopy. GI evaluation underway. Current Visit: Yes Qualifiers: Abdominal location: epigastric Qualified Code(s): R10.13 - Epigastric pain (2) Atrial fibrillation with RVR Status: Acute Assessment and plan: Cardiology following. Rate controlled. Continue Eliquis. Current Visit: No (3) COPD, severe Status: Chronic Current Visit: Yes (4) Chronic anticoagulation Status: Chronic Assessment and plan: On Eliquis and Pradaxa after stent placement Current Visit: Yes (5) Cor pulmonale Status: Chronic Current Visit: Yes (6) Hypertension Status: Chronic Current Visit: Yes Qualifiers: Hypertension type: essential hypertension Qualified Code(s): I10 - Essential (primary) hypertension Hospitalist: Subjective Interval history: Patient seen and examined. No acute events overnight. Case discussed with nursing staff. Labs reviewed. Patient reports a good night last night. Multiple bowel movements and passing flatus. Exam - Constitutional Vitals: Period Temp Pulse Resp BP Sys/Hernández Pulse Ox Last 24 Hr 97.3 F-98.3 F 76-129 16-20 116-144/57-84 91-99 Exam: Constitutional System: Mild distress. No tremulousness. Head: Normocephalic, atraumatic. Ears, Nose and Throat System: No pain or tenderness. No epistaxis or discharge Eyes System: Pupils equal, round, and reactive. Extraocular muscles intact. Neck: Supple, without adenopathy, No jugular venous distention. Respiratory System: Chest clear to auscultation. Cardiovascular System: Heart with regular rate and rhythm. No murmur. GI System: Abdomen soft, nontender. Normo active bowel sounds present. Musculoskeletal System: limbs with no pedal edema. Full distal pulses. Neurological System: No discernable sensory deficit. No aphasia Psychiatric System: Conversation is rational Results - Labs CBC & BMP: 05/12/17 03:40 05/12/17 03:40 Lab Results: I have reviewed the past 24 hour labs
[2017-05-12] MEDS: DIGOXIN 0.125 MG TABLET PO SCH (13:05)
--- NOTE | 2017-05-12 13:12 | Cardiology Progress Note ---
Shyla Carson April RN, am scribing for, and in the presence of, Jeff Ellis MD 13:12. Assessment and Plan (1) Chronic atrial fibrillation Status: Chronic Assessment and plan: Patient is now rate controlled. At this point, we will continue current plan of care with p.o. diltiazem, digoxin and Eliquis. We will monitor her on the telemetry unit for recurrent RVR and adjust her medication regimen as needed throughout her hospitalization. Current Visit: Yes (2) Leukocytosis Status: Acute Assessment and plan: Most likely secondary to patient's steroid therapy. Takes prednisone daily. Afebrile. Current Visit: Yes (3) Abdominal pain Status: Chronic Assessment and plan: Reports improvement in her abdominal pain. Abdominal CT revealed widely patent superior mesenteric artery stent and constipation. No acute abnormality was found in order to explain patient's symptoms. Will defer workup further workup of this to gastroenterology. Current Visit: Yes Qualifiers: Abdominal location: epigastric Qualified Code(s): R10.13 - Epigastric pain (4) Asthma Status: Chronic Assessment and plan: Clinically stable at present. Continue with current plan of care. Current Visit: Yes (5) COPD, severe Status: Chronic Assessment and plan: No wheezing auscultated. Appears to be clinically stable. Defer management of this to attending. Current Visit: Yes (6) Chronic anticoagulation Status: Chronic Assessment and plan: Patient's Eliquis was decreased to low dose at her last cardiology appointment due to significant weight loss. She is tolerating this well. H&H is stable. Will monitor for bleeding with daily H&H. Current Visit: Yes (7) Cor pulmonale Status: Chronic Assessment and plan: Stable at present. Current Visit: Yes (8) Diabetes mellitus Status: Chronic Assessment and plan: This is being managed by the hospitalist service. Current Visit: Yes Qualifiers: Diabetes mellitus type: type 2 (9) Hypertension Status: Chronic Assessment and plan: Currently well controlled. Will monitor blood pressure and adjust her medications accordingly. Current Visit: Yes Qualifiers: Hypertension type: essential hypertension Qualified Code(s): I10 - Essential (primary) hypertension Cardiology - PN: Subj Interval history: [place] Cleaner: Dr. Ellis PCP: Dr. Medrano SUMMARY: Ms. Charles is a 81 year old female who is routinely followed by Dr. Ellis, she last saw him in the office 02/03/2017. She had a history of chronic atrial fibrillation, hypertension, cor pulmonale, asthma, and NIDDM. She is chronically anticoagulated on Eliquis 2.5 mg twice daily and is on digoxin 0.125 daily and diltiazem 120 mg twice daily for rate control at home. She saw Dr. Tracey in December and he noted that amiodarone had been tried and provided better rate control, but was stopped due to her severe lung disease. Her most recent stress test was performed March 2011. Perfusion scan was normal without segmental wall abnormality. Low risk for future cardiovascular events. Her most recent echocardiogram was performed March 2017. This revealed preserved LV systolic function with ejection fraction estimated 55%. 1+ LVH. Unable to determine diastolic function due to chronic atrial fibrillation. She has been in and out of the hospital over the past couple of months for complaints of recurrent abdominal pain. She was last hospitalized March 2017. At that time, there was concern that there could be some degree of ischemic bowel. She is status post successful angioplasty and placement of stent to [facility]. She did well postoperatively and was discharged home on both Eliquis and Plavix. She last saw Dr. Ellis in the cardiology clinic May 29 and 17. At that time , he decreased her Eliquis to 2.5 twice daily due to significant weight loss. Patient presented to [facility] with complaints of recurrent abdominal pain May 10, 2017. Her pain is located in the midepigastric area and radiates down her right leg. She reports that her abdominal pain has been ongoing and has never gotten better even after stent placement to SMA in March. She confirms constipation, weight loss and nausea. Denies diarrhea and vomiting. Denies chest pain, heaviness or tightness. Reports her breathing has been under good control. Denies wheezing. Denies fever, chills, vomiting, bright red blood per rectum, melena, orthopnea, PND and lower extremity edema. She tells me that her atrial fibrillation has overall been under good control. She only has rapid ventricular response when she is having significant abdominal pain. While in the ER last night, she developed RVR. This responded well to IV Cardizem bolus. She was then transferred to the telemetry unit for close observation. Cardiology has been consulted to further assist in the management of her chronic atrial fibrillation. She underwent abdominal CT yesterday which revealed widely patent superior mesenteric artery stent and constipation. Leukocytosis was noted upon arrival to the emergency room. This is most likely secondary to patient's steroid therapy as she takes prednisone daily. May 12, 2017: Ms. Hyaes is seen sitting up on side of bed in no acute distress. She reports she had a good night. She said the pain medications seem to relieve her abdominal pain better and she was able to go longer between doses. She says this is the first good night's sleep she has had in a while. Stool was negative for occult blood. She denies any chest pain, shortness of breath, palpitations. 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 Vital signs have been stable. Labs this morning are unremarkable. Her rhythm has been stable and she continues to have reasonable rate control of her atrial fibrillation. Hopefully we can discharge her in the next 12-24 hours. I have discussed in detail the particulars of this case and I have examined the patient and reviewed the patient's chart both current and old. I was directly involved in the patient's evaluation and management and I completely agree with Ledy Mansfield RN regarding this patient's evaluation and treatment plan. Exam (Progress Note) - Constitutional Vitals: Period Temp Pulse Resp BP Sys/Hernández Pulse Ox Last 24 Hr 97.3 F-98.3 F 76-129 16-20 116-144/57-84 91-99 Exam: General: Appears well with no apparent distress. Pleasant and cooperative. Appears comfortable. HEENT: PERRL, normocephalic, atraumatic. Mucous membranes moist. No jaundice noted. Conjunctiva moist and clear, sclerae anicteric Neck: No JVD/HJR, no thyromegaly or lymphadenopathy noted. Cardiac: Irregular rhythm, controlled rate. No murmur rub or gallop. Lungs: Clear to auscultation without accessory muscle use to assist the respiratory pattern. Not requiring oxygen. Abdomen: Soft, bowel sounds normoactive. Slightly tender. No abdominal bruit or thrill noted. No masses noted. Extremities: No clubbing, cyanosis noted. No edema noted. Upper extremity pulses 2+. Lower extremity pulses 2+. Capillary refill less than 3 seconds. Skin: No unusual lesions or rashes. No skin breakdown appreciated. Neuro: Awake, alert and oriented 3. Moves all extremities well without hemiparesis or paralysis. No essential tremor is appreciated. Result/EKG - Labs CBC & BMP: 05/12/17 03:40 05/12/17 03:40 Lab Results: I have reviewed the past 24 hour labs Labs: Laboratory Results - last 24 hr 05/11/17 05/11/17 05/11/17 12:17 15:32 22:10 WBC RBC Hgb Hct MCV MCH MCHC RDW Plt Count MPV Neut % (Auto) Lymph % (Auto) Hardeman % (Auto) Eos % (Auto) Baso % (Auto) Neut # (Auto) Lymph # (Auto) Hardeman # (Auto) Eos # (Auto) Baso # (Auto) Immature Gran % Nucleated RBC % Immature Gran # Nucleated RBCs # Sodium Potassium Chloride Carbon Dioxide Anion Gap BUN Creatinine GFR Calculation BUN/Creatinine Ratio Glucose POC Glucose 178 H 236 H 97 Calculated Osmolality Calcium Magnesium Iron TIBC % Saturation Ferritin Urine Color Urine Appearance Urine pH Ur Specific Kila Urine Protein Urine Glucose (UA) Urine Ketones Urine Blood Urine Nitrate Urine Bilirubin Urine Urobilinogen Urine Leukocytes Urine WBC Urine Mucus Ur Culture Indicated? 05/11/17 05/12/17 05/12/17 Unknown 03:40 03:40 WBC 11.5 D RBC 4.44 Hgb 11.9 L Hct 37.0 MCV 83.3 L MCH 27 MCHC 32.2 RDW 13.4 Plt Count 231 MPV 11.7 Neut % (Auto) 59.6 Lymph % (Auto) 25.3 Hardeman % (Auto) 11.3 Eos % (Auto) 2.8 Baso % (Auto) 0.6 Neut # (Auto) 6.8 Lymph # (Auto) 2.9 Hardeman # (Auto) 1.3 H Eos # (Auto) 0.3 Baso # (Auto) 0.1 Immature Gran % 0.4 Nucleated RBC % 0.0 Immature Gran # 0.05 Nucleated RBCs # 0.00 Sodium Potassium Chloride Carbon Dioxide Anion Gap BUN Creatinine GFR Calculation BUN/Creatinine Ratio Glucose POC Glucose Calculated Osmolality Calcium Magnesium Iron 89 TIBC 343 % Saturation 25.9 Ferritin 21.7 Urine Color Yellow Urine Appearance Clear Urine pH 5.0 Ur Specific Kila 1.008 Urine Protein Negative Urine Glucose (UA) Negative Urine Ketones Negative Urine Blood Negative Urine Nitrate Negative Urine Bilirubin Negative Urine Urobilinogen < 2.0 H Urine Leukocytes Negative Urine WBC 1 Urine Mucus Occasional Ur Culture Indicated? Not indicated 05/12/17 05/12/17 03:40 08:29 WBC RBC Hgb Hct MCV MCH MCHC RDW Plt Count MPV Neut % (Auto) Lymph % (Auto) Hardeman % (Auto) Eos % (Auto) Baso % (Auto) Neut # (Auto) Lymph # (Auto) Hardeman # (Auto) Eos # (Auto) Baso # (Auto) Immature Gran % Nucleated RBC % Immature Gran # Nucleated RBCs # Sodium 140 Potassium 3.6 Chloride 102 Carbon Dioxide 28 Anion Gap 13.6 BUN 4 L Creatinine 0.50 L GFR Calculation 88 BUN/Creatinine Ratio 8.00 Glucose 104 POC Glucose 163 H Calculated Osmolality 275.4 Calcium 8.9 Magnesium 2.2 Iron TIBC % Saturation Ferritin Urine Color Urine Appearance Urine pH Ur Specific Kila Urine Protein Urine Glucose (UA) Urine Ketones Urine Blood Urine Nitrate Urine Bilirubin Urine Urobilinogen Urine Leukocytes Urine WBC Urine Mucus Ur Culture Indicated? - EKG EKG results: interpreted by me EKG shows: atrial fibrillation ICaleb Wesley, MD, personally performed the services described in this documentation, ascribed by Ledy Mansfield RN in my presence, and it is both accurate and complete 312 .
--- NOTE | 2017-05-12 16:31 | Magnetic Resonance Report ---
MRI of the lumbar spine without contrast. Indication: Sciatica. Right thigh pain. Sagittal T2, sagittal T1, sagittal STIR, axial T2, axial T1. No prior studies. There is distention of the urinary bladder. There is exaggerated lordosis of the lumbar spine. A degree of scoliosis is present, convex to the right. There is a grade 1 retrolisthesis of T12 on L1. There is a grade 1 anterolisthesis of L4 on L5. The conus is normally located. At T12-L1, in addition to the retrolisthesis, there is loss of disc space height, disc desiccation and moderate anterior and mild posterior osteophyte formation. There is prominent right neural foraminal narrowing. At L1-L2, there is disc desiccation. There is mild bulging along both lateral aspects of the disc, with moderate right and mild left neural foraminal narrowing. There is moderate facet arthropathy. At L2-L3, there is disc desiccation. There is moderate circumferential disc bulging and moderate facet arthropathy. There is thecal sac effacement. There is prominent bilateral neural foraminal narrowing. There is ligamentum flavum hypertrophy. At L3-L4, there is disc desiccation. There is a small hemangioma. There is a prominent right lateral osteophyte. There is circumferential disc bulging and severe facet arthropathy. There is thecal sac effacement and prominent bilateral neural foraminal narrowing. At L4-L5, in addition to the malalignment, there is complete loss of disc space height with desiccation and circumferential disc bulging. There is severe facet arthropathy. There is canal stenosis, and prominent bilateral neural foraminal narrowing. There is left lateral recess narrowing from the osteophyte and facet arthropathy changes. At L5-S1, bilateral facet arthropathy worse to the left. Impression: Multilevel lumbar spondylosis with multilevel malalignment. The findings are most severe at L4-L5. PROCEDURE INTERPRETED AT [facility] DEPARTMENT OF RADIOLOGY Final Report Signed by: Dr. Dominique Hercules
[2017-05-12] MEDS: STRIVERDI RESPIMAT IH SCH (17:06)
[2017-05-12] MEDS: SENNA 8.6 MG TABLET PO SCH (20:35)
[2017-05-13] MEDS: SODIUM CHLORIDE 0.9% 1,000 ML IV SCH ×2 (01:58→14:55)
[2017-05-13 05:56] LABS: Basophils # 0.1 10*3/uL (0.0-0.2); Basophils % 0.6 % (0.0-0.8); Eosinophils # 0.3 10*3/uL (0.0-0.87); Eosinophils % 3.1 % (0.00-10.9); Hematocrit 34.2 VOL% (35.7-47.0); Hemoglobin 11.2 GM/DL (12.0-16.0); Immature Granulocytes % 0.3 %; Immature Granulocytes Absolute 0.03 #; Lymphocytes # 3.3 10*3/uL (1.4-4.0); Lymphocytes % 30.4 % (21.3-54.2); Mean Corpuscular HGB Conc 32.7 GM/DL (32-36); Mean Corpuscular Hemoglobin 27 PG (27-34); Mean Corpuscular Volume 82.8 FL (87-102); Mean Platelet Volume 11.5 FL (9.6-12.0); Monocytes # 1.2 10*3/uL (0.11-0.8); Neutrophils % 54.6 % (38.7-73.9); Platelet Count 208 T/CUMM (130-400); Red Blood Count 4.13 MC/CUMM (3.8-5.5); Red Cell Distribution Width 13.5 % (9.3-17.3)
[2017-05-13 06:37] LABS: Calcium 8.9 MG/DL (8.5-10.1); Magnesium 2.2 MG/DL (1.8-2.4); Osmolality,Calculated 279.3 MOS/KG (273-304); Potassium 3.6 MMOL/L (3.5-5.1)
[2017-05-13] MEDS: IPRATROPIUM 500 MCG/2.5 ML NEB RESP TX SCH ×4 (07:39→19:05)
--- NOTE | 2017-05-13 09:44 | Gastrointestinal Progress Note ---
Assessment and Plan (1) Abdominal pain Status: Chronic Assessment and plan: 05/13-Abd pain improved. Tolerating regular diet. Plan and addendum to follow by Dr Gilliam. 05/12-abdominal pain improved, tolerating diet. Stools are negative for occult blood. Advance diet and continue to monitor at this time. Plan an addendum to followed by Dr. Gilliam. 05/11-8 month history of right lower quadrant abdominal pain with reported 40 pound weight loss with recent SMA stent placed last month, with findings of patent stent on repeat CTA. Reports of increased constipation with findings of this also on CT. No overt bleeding. Leukocytosis of 16,000 on admission without febrile illness. Last known colonoscopy 2008 with findings of diverticulosis. Plan an addendum to followed by Dr. Gilliam. Current Visit: Yes Qualifiers: Abdominal location: epigastric Qualified Code(s): R10.13 - Epigastric pain Gastroenterology - PN: Subj Interval history: CC: Abdominal pain Patient is seen, awake and alert with son at bedside. She states that she is feeling some better at this time. She states that she has not had a bowel movement today however feels like when she gets up and moves around this will help facilitate that. Her abdominal pain is much better at this time and she is tolerating her diet without any nausea or vomiting. Discussed management of constipation and a bowel regimen including MiraLAX and Colace daily as well as other measures such as warm prune juice and dietary changes to help regulate her bowels better. Patient instructed that if upon discharge her pain continues or returns then she is to contact Dr Toledo office. Abdomen is soft , nontender. ROS: Denies SOB or chest pain Exam (Progress Note) - Constitutional Vitals: Period Temp Pulse Resp BP Sys/Hernández Pulse Ox Last 24 Hr 96.7 F-99.2 F 71-134 16-20 111-158/66-93 93-99 General appearance: normal weight, no acute distress - Head Head exam: Present: normal inspection, normocephalic - Eye Eye exam: Present: other (lids and conjunctiva unremarkable). Absent: scleral icterus - ENT ENT exam: Present: normal exam, normal oropharynx - Neck Neck exam: Present: normal inspection - Respiratory Respiratory exam: Present: clear to auscultation bilaterally. Absent: rales, rhonchi, wheezes - Cardiovascular Cardiovascular exam: Present: regular rate and rhythm. Absent: diastolic murmur , JVD, systolic murmur - GI/Abdominal GI/Abdominal exam: Present: normal bowel sounds, soft. Absent: ascites, distended, mass, organomegaly, tenderness - Extremities Exam Extremities exam: Present: normal inspection, full ROM - Back Exam Back exam: Present: normal inspection - Neurological Exam Neurological exam: Present: alert, oriented X3 - Psychiatric Psychiatric exam: Present: normal affect, normal mood - Skin Skin exam: Present: normal color, warm, dry Results - Labs CBC & BMP: 05/13/17 05:31 05/13/17 05:31 Lab Results: I have reviewed the past 24 hour labs
[2017-05-13] MEDS: POTASSIUM CHLORIDE 10 MEQ TABLET PO SCH (09:46)
[2017-05-13] MEDS: prednisoLONE 5 MG TABLET PO SCH (09:46)
[2017-05-13] MEDS: DOCUSATE SODIUM 100 MG CAPSULE PO SCH ×2 (09:46→22:34)
[2017-05-13] MEDS: PANTOPRAZOLE 40 MG TABLET PO SCH (09:47)
[2017-05-13] MEDS: MONTELUKAST 10 MG TABLET PO SCH (09:47)
[2017-05-13] MEDS: DILTIAZEM CD 120 MG CAPSULE PO SCH ×2 (09:47→22:35)
[2017-05-13] MEDS: APIXABAN 2.5 MG TABLET PO SCH ×2 (09:47→22:33)
[2017-05-13] MEDS: CLOPIDOGREL 75 MG TABLET PO SCH (09:47)
[2017-05-13] MEDS: STRIVERDI RESPIMAT IH SCH (09:50)
--- NOTE | 2017-05-13 11:16 | Hospitalist Progress Note ---
Assessment and Plan - Time spent with patient Time spent with patient: Less than 30 minutes (1) Leukocytosis Status: Acute Assessment and plan: Takes prednisone daily. WBC this 11.0. Will continue to monitor, a.m. labs. Current Visit: Yes (2) Abdominal pain Status: Chronic Assessment and plan: GI is following for abdominal pain. She has advanced her diet per recommendations and appreciate their assistance in the care. Continues to complain of right sided lower abdominal pain. XR KUB of abdomen for further evaluation ordered. Current Visit: Yes Qualifiers: Abdominal location: epigastric Qualified Code(s): R10.13 - Epigastric pain (3) Asthma Status: Chronic Assessment and plan: Continue inhalers and steroids. Current Visit: Yes (4) COPD, severe Status: Chronic Assessment and plan: No wheezing this a.m. No acute distress. Will continue inhalers, steroids, and respiratory treatments. Current Visit: Yes (5) Chronic anticoagulation Status: Chronic Assessment and plan: Continue Eliquis (low dose) and Plavix daily. Current Visit: Yes (6) Chronic atrial fibrillation Status: Chronic Assessment and plan: Cardiology following. Rate controlled. Continue Eliquis. Current Visit: Yes (7) Cor pulmonale Status: Chronic Current Visit: Yes (8) Hypertension Status: Chronic Assessment and plan: Hypertension is being controlled at present. Cardiology is following and adjusting medications. Current Visit: Yes Qualifiers: Hypertension type: essential hypertension Qualified Code(s): I10 - Essential (primary) hypertension Hospitalist: Subjective Interval history: 05/13/17 - Patient seen and examined. No acute events throughout the night. Labs reviewed. Verbalizes having the same right sided lower abdominal pain but no vomiting, diarrhea. She had ok night but did not rest as well as the night before. Exam - Constitutional Vitals: Period Temp Pulse Resp BP Sys/Hernández Pulse Ox Last 24 Hr 96.7 F-99.2 F 71-134 16-20 111-158/66-93 93-99 General appearance: no acute distress, under weight - Head Head exam: Present: normal inspection - Eye Eye exam: Present: EOMI Pupils: Present: BRISEIDA - Neck Neck exam: Present: normal inspection - Respiratory Respiratory exam: Present: clear to auscultation bilaterally - Cardiovascular Cardiovascular exam: Present: regular rate and rhythm - GI/Abdominal GI/Abdominal exam: Present: normal bowel sounds, soft - Extremities Exam Extremities exam: Present: full ROM. Absent: edema - Neurological Exam Neurological exam: Present: alert, oriented X3 - Psychiatric Psychiatric exam: Present: normal affect, normal mood - Skin Skin exam: Present: normal color, warm, dry Results - Labs CBC & BMP: 05/13/17 05:31 05/13/17 05:31 Lab Results: I have reviewed the past 24 hour labs
--- NOTE | 2017-05-13 12:00 | Pulmonology Progress Note ---
Pulmonary - PN: Subj Interval history: Giancarlo Stahl, [facility] acting as scribe for Dr. Gurvinder Medrano Mrs. Charles is a 81-year-old white female who we saw in initial pulmonary consultation on 05/12/2017. 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 Done 04/25/[address] Felder. #3: COPD/asthma #4: Leukocytosis--- improved; could be secondary to chronic steroid use, but consider other causes #5: Diabetes mellitus, usually diet controlled #6: Hypertension #7: Arteriosclerotic heart disease #8: Hyperlipidemia #9: Hx of chronic bronchitis, under much better control #10: Hx of pneumonia treated in the emergency room in the spring #11: Past history of pulmonary hypertension with cor pulmonale #12: Degenerative joint disease #13: Gastro-esophageal reflux disease #14: Restless leg syndrome #15: Chronic constipation/obstipation #16: Mild allergic sinusitis #17: Chronic atrial fibrillation on chronic anticoagulation with Eliquis. Followed by Dr. Ellis. Note, at presentation in the ER the patient was in A. fib with RVR. This is now controlled. #18: See past history 05/13/2017. Patient was seen today along with her son. See her note yesterday regarding the need for an MRI of the lumbar spine. This was done and showed multilevel lumbar spondylosis with multilevel malalignment the findings were most severe at L4-L5. We talked with patient again this morning about her pain. She is quite sure that the pain originates in her right lower quadrant with pain radiating down her right leg and seems to stop around her knee. External rotation does not cause the pain, but internal rotation does. We have ordered an x-ray of the right hip and thigh, but in the meantime we will consult Dr. Banks for pain management evaluation for any suggestions that he may have. Medications have been reviewed. We made no changes. Labs have been reviewed. White count is 11,000 with a normal differential; H&H 11.2/34.2; platelet count 208,000; creatinine 0.60, BUN 6, electrolytes are normal Exam (Progress Note) - Constitutional Vitals: Period Temp Pulse Resp BP Sys/Hernández Pulse Ox Last 24 Hr 96.7 F-99.2 F 71-134 16-20 111-158/66-93 93-99 Exam: Chest is fairly clear Heart no gallop Abdomen... See above Extremities with nothing to suggest acute deep venous thrombophlebitis Psychiatric oriented 3 Neurologic long-term motor function is intact Plan: X-ray of the right hip and thigh today. Consult Dr. Banks for pain management evaluation. Continue other present treatment. See orders. Results - Labs CBC & BMP: 05/13/17 05:31 05/13/17 05:31
--- NOTE | 2017-05-13 12:01 | XRay Report ---
KUB. Indication: Constipation. Right lower quadrant pain. The heart is normal in size. The lung bases are clear. There is scoliosis and spondylosis of the spinal column. A short stent projects over the midline of the abdomen. Considerable fecal material in the right colon. No evidence of bowel obstruction. Normal bowel gas pattern. No organomegaly. Impression: Increased right colon fecal material. PROCEDURE INTERPRETED AT [facility] DEPARTMENT OF RADIOLOGY Final Report Signed by: Dr. Dominique Hercules
--- NOTE | 2017-05-13 12:15 | XRay Report ---
Right femur, 4 views. Indication: Right leg pain. There is mild narrowing of the inferior medial hip joint space. There is mild spurring at the greater trochanter. There is femoral artery calcification. There is narrowing of the medial knee joint compartment, with medial and lateral compartment osteophyte formation and anterior tibial spine spurring. There is patellofemoral joint space loss and minimal osteophyte formation. No lytic or blastic lesion. No evidence of acute fracture. Impression: Degenerative changes at the hip and knee. PROCEDURE INTERPRETED AT [facility] DEPARTMENT OF RADIOLOGY Final Report Signed by: Dr. Dominique Hercules
--- NOTE | 2017-05-13 12:16 | XRay Report ---
Right hip, 2 views. Indication: Right leg pain. Comparison: April 23, 2017. Small bone island at the inferior pubic ramus. Narrowing of the inferior medial hip joint space with mild acetabular spurring. The osseous structures are diffusely demineralized. There is mild greater trochanter spurring. The trabecular pattern is preserved. No evidence of fracture or dislocation. No lytic or blastic lesion. The femoral head contour is preserved. Impression: Osteoarthritis and demineralization. PROCEDURE INTERPRETED AT [facility] DEPARTMENT OF RADIOLOGY Final Report Signed by: Dr. Dominique Hercules
--- NOTE | 2017-05-13 12:32 | Cardiology Progress Note ---
Shyla Carson April RN, am scribing for, and in the presence of, Jeff Ellis MD 12:32. Assessment and Plan (1) Chronic atrial fibrillation Status: Chronic Assessment and plan: Patient is now rate controlled. At this point, we will continue current plan of care with p.o. diltiazem, digoxin and Eliquis. We will monitor her on the telemetry unit for recurrent RVR and adjust her medication regimen as needed throughout her hospitalization. Current Visit: Yes (2) Leukocytosis Status: Acute Assessment and plan: Most likely secondary to patient's steroid therapy. Takes prednisone daily. Afebrile. Current Visit: Yes (3) Abdominal pain Status: Chronic Assessment and plan: Abdominal CT revealed widely patent superior mesenteric artery stent and constipation. No acute abnormality was found in order to explain patient's symptoms. KUB has been ordered per hospitalist to further evaluate. Will defer workup further workup of this to gastroenterology. Current Visit: Yes Qualifiers: Abdominal location: epigastric Qualified Code(s): R10.13 - Epigastric pain (4) Asthma Status: Chronic Assessment and plan: Clinically stable at present. Continue with current plan of care. Current Visit: Yes (5) COPD, severe Status: Chronic Assessment and plan: No wheezing auscultated. Appears to be clinically stable. Defer management of this to attending. Current Visit: Yes (6) Chronic anticoagulation Status: Chronic Assessment and plan: Patient's Eliquis was decreased to low dose at her last cardiology appointment due to significant weight loss. She is tolerating this well. H&H is stable. Will monitor for bleeding with daily H&H. Current Visit: Yes (7) Cor pulmonale Status: Chronic Assessment and plan: Stable at present. Current Visit: Yes (8) Diabetes mellitus Status: Deleted Assessment and plan: This is being managed by the hospitalist service. Current Visit: Yes Qualifiers: Diabetes mellitus type: type 2 (9) Hypertension Status: Chronic Assessment and plan: Currently well controlled. Will monitor blood pressure and adjust her medications accordingly. Current Visit: Yes Qualifiers: Hypertension type: essential hypertension Qualified Code(s): I10 - Essential (primary) hypertension Cardiology - PN: Subj Interval history: Comic Book Designer: Dr. Ellis PCP: Dr. Medrano SUMMARY: Ms. Charles is a 81 year old female who is routinely followed by Dr. Ellis, she last saw him in the office 02/03/2017. She had a history of chronic atrial fibrillation, hypertension, cor pulmonale, asthma, and NIDDM. She is chronically anticoagulated on Eliquis 2.5 mg twice daily and is on digoxin 0.125 daily and diltiazem 120 mg twice daily for rate control at home. She saw Dr. Tracey in December and he noted that amiodarone had been tried and provided better rate control, but was stopped due to her severe lung disease. Her most recent stress test was performed March 2011. Perfusion scan was normal without segmental wall abnormality. Low risk for future cardiovascular events. Her most recent echocardiogram was performed March 2017. This revealed preserved LV systolic function with ejection fraction estimated 55%. 1+ LVH. Unable to determine diastolic function due to chronic atrial fibrillation. She has been in and out of the hospital over the past couple of months for complaints of recurrent abdominal pain. She was last hospitalized March 2017. At that time, there was concern that there could be some degree of ischemic bowel. She is status post successful angioplasty and placement of stent to [facility]. She did well postoperatively and was discharged home on both Eliquis and Plavix. She last saw Dr. Ellis in the cardiology clinic May 29 and . At that time , he decreased her Eliquis to 2.5 twice daily due to significant weight loss. Patient presented to [facility] with complaints of recurrent abdominal pain May 10, 2017. Her pain is located in the midepigastric area and radiates down her right leg. She reports that her abdominal pain has been ongoing and has never gotten better even after stent placement to SMA in March. She confirms constipation, weight loss and nausea. Denies diarrhea and vomiting. Denies chest pain, heaviness or tightness. Reports her breathing has been under good control. Denies wheezing. Denies fever, chills, vomiting, bright red blood per rectum, melena, orthopnea, PND and lower extremity edema. She tells me that her atrial fibrillation has overall been under good control. She only has rapid ventricular response when she is having significant abdominal pain. While in the ER last night, she developed RVR. This responded well to IV Cardizem bolus. She was then transferred to the telemetry unit for close observation. Cardiology has been consulted to further assist in the management of her chronic atrial fibrillation. She underwent abdominal CT yesterday which revealed widely patent superior mesenteric artery stent and constipation. Leukocytosis was noted upon arrival to the emergency room. This is most likely secondary to patient's steroid therapy as she takes prednisone daily. May 12, 2017: Ms. Charles is seen sitting up on side of bed in no acute distress. She reports she had a good night. She said the pain medications seem to relieve her abdominal pain better and she was able to go longer between doses. She says this is the first good night's sleep she has had in a while. Stool was negative for occult blood. She denies any chest pain, shortness of breath, palpitations. contract forester currently shows A. fib with heart rates in the 90s. Vital signs have been stable. Labs this morning are unremarkable. May 13, 2017: Ms Charles does not feel as well today as yesterday. She is having increasing abdominal pain. KUB has been ordered to futher evaluate. She denies any chest pain, shortness of breath, palpitations, or dizziness. contract forester currently shows atrial fibrillation with heart rates in the 80s. She does complain of persistent nausea and will be sure we have checked a dig level to be sure that this not playing some role in her nausea. She is continuing a GI evaluation. Her rates are good and we will continue following. I have discussed in detail the particulars of this case and I have examined the patient and reviewed the patient's chart both current and old. I was directly involved in the patient's evaluation and management and I completely agree with Ledy Mansfield RN regarding this patient's evaluation and treatment plan. Exam (Progress Note) - Constitutional Vitals: Period Temp Pulse Resp BP Sys/Hernández Pulse Ox Last 24 Hr 96.7 F-99.2 F 71-134 16-20 111-158/66-93 93-99 Exam: General: Appears well with no apparent distress. Pleasant and cooperative. Appears comfortable. HEENT: PERRL, normocephalic, atraumatic. Mucous membranes moist. No jaundice noted. Conjunctiva moist and clear, sclerae anicteric Neck: No JVD/HJR, no thyromegaly or lymphadenopathy noted. Cardiac: Irregular rhythm, controlled rate. No murmur rub or gallop. Lungs: Clear to auscultation without accessory muscle use to assist the respiratory pattern. Not requiring oxygen. Abdomen: Soft, bowel sounds normoactive. Slightly tender. No abdominal bruit or thrill noted. No masses noted. Extremities: No clubbing, cyanosis noted. No edema noted. Upper extremity pulses 2+. Lower extremity pulses 2+. Capillary refill less than 3 seconds. Skin: No unusual lesions or rashes. No skin breakdown appreciated. Neuro: Awake, alert and oriented 3. Moves all extremities well without hemiparesis or paralysis. No essential tremor is appreciated. Result/EKG - Labs CBC & BMP: 05/13/17 05:31 05/13/17 05:31 Lab Results: I have reviewed the past 24 hour labs Labs: Laboratory Results - last 24 hr 05/12/17 05/12/17 05/12/17 11:36 16:47 18:56 WBC RBC Hgb Hct MCV MCH MCHC RDW Plt Count MPV Neut % (Auto) Lymph % (Auto) [place] % (Auto) Eos % (Auto) Baso % (Auto) Neut # (Auto) Lymph # (Auto) [place] # (Auto) Eos # (Auto) Baso # (Auto) Immature Gran % Nucleated RBC % Immature Gran # Nucleated RBCs # Sodium Potassium Chloride Carbon Dioxide Anion Gap BUN Creatinine GFR Calculation BUN/Creatinine Ratio Glucose POC Glucose 210 H 191 H 263 H Calculated Osmolality Calcium Magnesium 05/13/17 05/13/17 05/13/17 05:31 05:31 07:37 WBC 11.0 RBC 4.13 Hgb 11.2 L Hct 34.2 L MCV 82.8 L MCH 27 MCHC 32.7 RDW 13.5 Plt Count 208 MPV 11.5 Neut % (Auto) 54.6 Lymph % (Auto) 30.4 [place] % (Auto) 11.0 Eos % (Auto) 3.1 Baso % (Auto) 0.6 Neut # (Auto) 6.0 Lymph # (Auto) 3.3 [place]lette # (Auto) 1.2 H Eos # (Auto) 0.3 Baso # (Auto) 0.1 Immature Gran % 0.3 Nucleated RBC % 0.0 Immature Gran # 0.03 Nucleated RBCs # 0.00 Sodium 141 Potassium 3.6 Chloride 102 Carbon Dioxide 30 Anion Gap 12.6 BUN 6 L Creatinine 0.60 GFR Calculation 82 BUN/Creatinine Ratio 10.00 Glucose 125 H POC Glucose 165 H Calculated Osmolality 279.3 Calcium 8.9 Magnesium 2.2 - EKG EKG results: interpreted by me EKG shows: atrial fibrillation Caleb Carson Wesley, MD, personally performed the services described in this documentation, ascribed by Ledy Mansfield RN in my presence, and it is both accurate and complete [id number] .
[2017-05-13] MEDS: DIGOXIN 0.125 MG TABLET PO SCH (14:50)
[2017-05-13] MEDS: traMADol 50 MG TABLET PO PRN ×2 (14:53→22:44)
[2017-05-13] MEDS ORDERED: MAGNESIUM CITRATE 300 ML BOTTLE PO ONE (15:49)
[2017-05-13] MEDS: METHYLNALTREXONE 12 MG/0.6 ML VIAL SUBCUT SCH (17:06)
--- NOTE | 2017-05-13 17:14 | Pain Management Consult Note ---
Assessment and Plan (1) Lumbar back pain with radiculopathy affecting right lower extremity Problem details: Right lower quadrant back and right leg pain Status: Acute Assessment and plan: The patient has recent onset of right lower quadrant abdominal pain as well as back and leg pain in the right side. Associated with this she has numbness and tingling in the right leg. The pain started in the right lower quadrant into the right flank and lower back. She has had a very extensive workup and even stenting of the SMA. She continues to have discomfort however somewhat better over the past 24 hours. She has not asked for a pain pill or shot in over 20 hours. Reviewing her MRI she has a right-sided disc at T12-L1 as well as a significant disc protrusion broad-based at L4-5 that causes moderate spinal stenosis and significant foraminal narrowing bilaterally. I think that she has a lumbar radiculopathy related to both the disc at T12-L1 and at L4-5. She has secondary spondylolisthesis at L4-5. She is not a surgical candidate based on the multilevel pathology and other comorbid disease processes. Will initially try careful medical management. If this fails we will consider injection therapy only if she can come off of blood thinners. We will follow her carefully after discharge. Current Visit: No History of Present Illness Chief complaint: Right lower quadrant pain History of present illness: Ms. Charles is a 81 year old female who complains of the new onset of right lower quadrant abdominal pain 4-6 weeks ago. Over the past for this week 6 weeks it is progressed to back pain and down her right leg to pass the knee with numbness in the right leg. The pain is a throbbing aching pain worse with activity and lying flat on her back. It is not necessarily associated with eating. Home Medications Medication Instructions Recorded Confirmed Type Esomeprazole Magnesium 40 mg PO DAILY 08/21/15 05/10/17 History [Esomeprazole] Montelukast Tab [Singulair Tab] 10 mg PO DAILY 08/21/15 05/10/17 History Tiotropium Inhalation [Spiriva 18 mcg INH DAILY 08/21/15 05/10/17 History Handihaler] Digoxin Tab [Lanoxin Tab] 0.125 mg PO DAILY 04/10/17 05/10/17 History Ipratropium Inhaler [Atrovent 2 puff INH Q6HR PRN 04/10/17 05/10/17 History Inhaler] Olodaterol HCl [Striverdi Respimat] 2 puffs IH DAILY 04/10/17 05/10/17 History Potassium Chloride 10 meq PO DAILY W/BREAKFAST 04/10/17 05/10/17 History dilTIAZem HCl [Tiazac] 120 mg PO BID 04/10/17 05/10/17 History traMADol TAB [Ultram] 100 mg PO BID #30 04/14/17 05/10/17 Rx Clopidogrel [Plavix] 75 mg PO DAILY #90 tablet 04/26/17 05/10/17 Rx Apixaban [Eliquis] 2.5 mg PO BID 05/10/17 05/10/17 History prednisoLONE [Millipred Tab] 10 mg PO DAILY 05/10/17 05/10/17 History Allergies Allergy/AdvReac Type Severity Reaction Status Date / Time No Known Allergies Allergy Verified 08/21/15 09:48 Medical,Surgical,& Family Hx - Medical History Cardio: History of: Cardiac Dysrhythmia (AFIB on Eliquis), Hypertension, Cardiovascular Problems (Carotid artery disease) Neurology: No history of: Seizures Endocrine: History of: Diabetes Mellitus (NIDDM) Rheumatology: History of;: Rheumatoid Arthritis Respiratory: History of: Asthma, Bronchitis, COPD (steroid-dependent) Gastrointestinal: History of: Diverticulitis/ Diverticulosis, GERD - Surgical History Cardiac Surgeries: Sugical HX of: Cardiac Surgery Abdominal Surgeries: Surgical HX of: Appendectomy, Colonoscopy Patient denies: Cholecystectomy Reproductive Surgeries: Surgical HX of;: Hysterectomy (PARTIAL) Orthopedic Surgeries: Patient denies;: Orthopedic Surgery - Family History Family History: Reports;: Family Heart Disease (FATHER, SON), Family Hypertension (FATHER, SON), Family Stroke (FATHER) - Social History Smoking Status: Never smoker Frequency of Alcohol Use: None Type of Drug Use: None - Constitutional Constitutional: Present: fatigue - Gastrointestinal Gastrointestinal: Present: abdominal pain - Genitourinary Genitourinary: Present: flank pain - Musculoskeletal Musculoskeletal: Present: back pain - Neurological Neurological: Present: paresthesias (Right lower extremity) Exam - Constitutional Vitals: Period Temp Pulse Resp BP Sys/Hernández Pulse Ox Last 24 Hr 97.5 F-99.2 F 71-115 16-20 111-158/68-81 93-99 General appearance: normal weight, other (Anxious) - Head Head exam: Present: normal inspection - Eye Eye exam: Present: EOMI - Neck Neck exam: Present: trachea midline - Respiratory Respiratory exam: Present: clear to auscultation bilaterally - Cardiovascular Cardiovascular exam: Present: irregular rhythm - GI/Abdominal GI/Abdominal exam: Present: normal bowel sounds, soft (Mild right lower quadrant abdominal tenderness) - Back Exam Back exam: Present: vertebral tenderness - Neurological Exam Neurological exam: Present: alert, oriented X3, motor sensory deficit (Weakness dorsiflexion and plantar flexion right foot), other (Positive straight leg raise on the right) - Skin Skin exam: Present: normal color Results - Labs CBC & BMP: 05/13/17 05:31 05/13/17 05:31
[2017-05-13] MEDS: SENNA 8.6 MG TABLET PO SCH (22:34)
[2017-05-13] MEDS: GABAPENTIN 100 MG CAPSULE PO SCH (22:37)
[2017-05-13] MEDS: LACTULOSE 20 GM/30 ML UDCUP PO PRN (22:43)
--- NOTE | 2017-05-14 07:04 | Pulmonology Progress Note ---
Pulmonary - PN: Subj Interval history: This 81-year-old lady has a history of asthma. Also has atrial fibrillation. She has had a good bit of abdominal pain and apparently abdominal angina. She has had stents placed. She was having some constipation and was given medicine for that last night. She apparently has some back pain radiating to her leg and is being seen by pain physicians. Stable from a pulmonary standpoint Exam (Progress Note) - Constitutional Vitals: Period Temp Pulse Resp BP Sys/Hernández Pulse Ox Last 24 Hr 97.6 F-99 F 71-118 16-98 116-158/72-81 96-100 Exam: Patient's alert oriented vital signs normal. Pupils react to light. Throat is clear. Neck supple no bruits. Chest is clear equal breath sounds no wheezing. Heart irregular without murmur. Abdomen soft mild tenderness bowel sounds present. Extremities no clubbing cyanosis or edema. Calves nontender Results - Labs CBC & BMP: 05/13/17 05:31 05/13/17 05:31 Lab Results: I have reviewed the past 24 hour labs Assessment and Plan (1) Asthma Status: Chronic Assessment and plan: No active bronchospasm. Continuing current broncho-dilators. She is on Atrovent. Current Visit: Yes (2) Atrial fibrillation Status: Chronic Assessment and plan: On anticoagulants with Eliquis. Rate is controlled. Current Visit: No Qualifiers: Atrial fibrillation type: chronic Qualified Code(s): I48.2 - Chronic atrial fibrillation (3) Lumbar back pain with radiculopathy affecting right lower extremity Problem details: Right lower quadrant back and right leg pain Status: Acute Assessment and plan: Has been evaluated by Dr. Banks for pain clinic. Current Visit: No (4) Mesenteric ischemia, chronic Status: Resolved Assessment and plan: Has had stents and is on anticoagulants. Current Visit: No
[2017-05-14] MEDS: IPRATROPIUM 500 MCG/2.5 ML NEB RESP TX SCH ×2 (07:47→10:32)
[2017-05-14 07:57] VITALS: BP 145/84
--- NOTE | 2017-05-14 08:39 | Cardiology Progress Note ---
Assessment and Plan (1) Chronic atrial fibrillation Status: Chronic Assessment and plan: Patient is now rate controlled. At this point, we will continue current plan of care with p.o. diltiazem, digoxin and Eliquis. We will monitor her on the telemetry unit for recurrent RVR and adjust her medication regimen as needed throughout her hospitalization. Current Visit: Yes (2) Leukocytosis Status: Acute Assessment and plan: Most likely secondary to patient's steroid therapy. Takes prednisone daily. Afebrile. Current Visit: Yes (3) Abdominal pain Status: Chronic Assessment and plan: Abdominal CT revealed widely patent superior mesenteric artery stent and constipation. No acute abnormality was found in order to explain patient's symptoms. KUB has been ordered per hospitalist to further evaluate. Will defer workup further workup of this to gastroenterology. Current Visit: Yes Qualifiers: Abdominal location: epigastric Qualified Code(s): R10.13 - Epigastric pain (4) Asthma Status: Chronic Assessment and plan: Clinically stable at present. Continue with current plan of care. Current Visit: Yes (5) COPD, severe Status: Chronic Assessment and plan: No wheezing auscultated. Appears to be clinically stable. Defer management of this to attending. Current Visit: Yes (6) Chronic anticoagulation Status: Chronic Assessment and plan: Patient's Eliquis was decreased to low dose at her last cardiology appointment due to significant weight loss. She is tolerating this well. H&H is stable. Will monitor for bleeding with daily H&H. Current Visit: Yes (7) Cor pulmonale Status: Chronic Assessment and plan: Stable at present. Current Visit: Yes (8) Diabetes mellitus Status: Deleted Assessment and plan: This is being managed by the hospitalist service. Current Visit: Yes Qualifiers: Diabetes mellitus type: type 2 (9) Hypertension Status: Chronic Assessment and plan: Currently well controlled. Will monitor blood pressure and adjust her medications accordingly. Current Visit: Yes Qualifiers: Hypertension type: essential hypertension Qualified Code(s): I10 - Essential (primary) hypertension Cardiology - PN: Subj Interval history: This patient continues stable without significant problems related to tachycardia palpitations or dyspnea. She feels better today she is not complaining of lower abdominal discomfort and I think the plan is for her to be discharged if she continues to do well through the day today. Exam (Progress Note) - Constitutional Vitals: Period Temp Pulse Resp BP Sys/Hernández Pulse Ox Last 24 Hr 97.6 F-99 F 71-118 16-98 116-145/72-84 93-100 Exam: General: Appears well with no apparent distress. Pleasant and cooperative. Appears comfortable. HEENT: PERRL, normocephalic, atraumatic. Mucous membranes moist. No jaundice noted. Conjunctiva moist and clear, sclerae anicteric Neck: No JVD/HJR, no thyromegaly or lymphadenopathy noted. Cardiac: Irregular rhythm, controlled rate. No murmur rub or gallop. Lungs: Clear to auscultation without accessory muscle use to assist the respiratory pattern. Not requiring oxygen. Abdomen: Soft, bowel sounds normoactive. Slightly tender. No abdominal bruit or thrill noted. No masses noted. Extremities: No clubbing, cyanosis noted. No edema noted. Upper extremity pulses 2+. Lower extremity pulses 2+. Capillary refill less than 3 seconds. Skin: No unusual lesions or rashes. No skin breakdown appreciated. Neuro: Awake, alert and oriented 3. Moves all extremities well without hemiparesis or paralysis. No essential tremor is appreciated. Result/EKG - Labs CBC & BMP: 05/13/17 05:31 05/13/17 05:31 Labs: Laboratory Results - last 24 hr 05/13/17 05/13/17 05/13/17 11:47 16:47 20:03 POC Glucose 201 H 257 H 190 H Digoxin 05/14/17 05/14/17 05:02 07:35 POC Glucose 143 H Digoxin 0.60 L
--- NOTE | 2017-05-14 09:32 | Discharge Summary ---
Hospital Course - Hospital Course Hospital Course: 81-year-old white female admitted to the hospital with abdominal pain. The patient has a history of atrial fibrillation and is anticoagulated with Eliquis. 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 She presents to the emergency department with recurrent abdominal pain. She is noted to have significant retained fecal matter on the KUB and CT scan. The stent was widely patent. She was seen in consultation by general surgery and no operative interventions were offered due to patency of the stent. She was also seen by gastroenterology and cardiology. She has received multiple laxatives with a good result. A repeat KUB shows resolution of her severe constipation. This was the likely cause of her recurrent abdominal pain. She is also found to have degenerative disc disease in her back and hip. She will follow-up with pain management as an outpatient. She was advised to reduce the dose of narcotic medications to avoid opioid induced constipation. She did receive 1 dose of Relistor during the hospitalization in conjunction with multiple doses of magnesium citrate and lactulose. She is being discharged home today to continue her home medications without change. I have added MiraLAX and Colace. She was also given a prescription for lactulose as needed. She will follow-up with Dr. Medrano her primary care physician as well as GI as needed. - Time spent with patient Time with patient DS: Greater than 30 minutes (Total discharge time for this patient, including [id number] time, clinical documentation, medication reconciliation, and discharge planning was 40 minutes.) Diagnosis - Discharge Diagnosis (1) Abdominal pain Status: Resolved (2) Atrial fibrillation with RVR Status: Resolved (3) COPD, severe Status: Chronic (4) Chronic anticoagulation Status: Chronic (5) Cor pulmonale Status: Chronic (6) Hypertension Status: Chronic (7) Constipation Status: Resolved Discharge Plan - Discharge Data Disposition: Disch To Home/Self Care Condition at Discharge: Stable Discharge Diet: advance to your usual diet Activity: resume usual activities as tolerated Hygiene: no restrictions Weight Bearing at Discharge: full weight bearing Driving: no restrictions Contact your physician if you experience:: fever over 101, Shortness of breath, Bleeding, pain uncontrolled by pain medications - Discharge Medications New Docusate Sodium Cap [Colace Cap] 100 mg PO BID capsule HYDROcodone/ACETAMIN 7.5-325 [Pomeroy 7.5-325] 1 tablet PO Q4H PRN #30 tablet PRN Reason: Pain Moderate (4-7) Lactulose Liquid [Chronulac] 20 gm PO Q4H PRN #300 ml PRN Reason: Constipation Senna Tab [Senokot] 8.6 mg PO BEDTIME tablet Gabapentin Cap/Tab [Neurontin Cap/Tab] 100 mg PO TID #90 capsule Continue Montelukast Tab [Singulair Tab] 10 mg PO DAILY Esomeprazole Magnesium [Esomeprazole] 40 mg PO DAILY Tiotropium Inhalation [Spiriva Handihaler] 18 mcg INH DAILY Ipratropium Inhaler [Atrovent Inhaler] 2 puff INH Q6HR PRN PRN Reason: Shortness Of Breath Digoxin Tab [Lanoxin Tab] 0.125 mg PO DAILY Potassium Chloride 10 meq PO DAILY W/BREAKFAST Apixaban [Eliquis] 2.5 mg PO BID Olodaterol HCl [Striverdi Respimat] 2 puffs IH DAILY dilTIAZem HCl [Tiazac] 120 mg PO BID Clopidogrel [Plavix] 75 mg PO DAILY #90 tablet prednisoLONE [Millipred Tab] 10 mg PO DAILY traMADol TAB [Ultram] 100 mg PO BID #30 - Follow Up or Referral Follow Up: Gurvinder Medrano MD [Primary Care Provider] - William Manriquez MD [Physician] - - Forms/Instructions Exam - Constitutional Vitals: Period Temp Pulse Resp BP Sys/Hernández Pulse Ox Last 24 Hr 97.6 F-99 F 71-118 16-98 116-145/72-84 93-100 Discharge Results Procedures and tests throughout hospitalization: Pending Orders 05/10/17 16:36 Blood Culture Stat Labs on day of discharge: Labs from last 24 hours 05/14/17 05/14/17 05/13/17 07:35 05:02 20:03 POC Glucose 143 H 190 H Digoxin 0.60 L 05/13/17 05/13/17 16:47 11:47 POC Glucose 257 H 201 H Digoxin Preliminary micro results at discharge 05/10/17 16:36 Blood Culture - Preliminary Blood No growth at 3 days 05/10/17 16:37 Blood Culture - Preliminary Blood No growth at 3 days DS: Provider Date of admission: 05/10/17 14:41 Primary care physician: Gurvinder Medrano MD Attending physician on admission: Orlando Rodarte MD Consults: 05/10/17 14:43 Consult to Physician [CONS] Routine Comment: Consulting Provider: Jeff Ellis When should Consulting Provider be notified: Now Person Notified: Libia Date Notified: 05/10/17 Time Notified: 16:34 Consult to Physician [CONS] Routine Comment: known to you Consulting Provider: Gurvinder Medrano When should Consulting Provider be notified: Now Person Notified: Ivonne Date Notified: 05/10/17 Time Notified: 16:43 Consult Notification Comment: Called initially to Kia with ; states she is pt of . Spoke with Ivonne @ 's office regarding consult. States he will see in a.m. Consult to Physician [CONS] Routine Comment: pt. known to you, mesent. ischemia Consulting Provider: Gurvinder Gilliam When should Consulting Provider be notified: Now Person Notified: Haylie Date Notified: 05/10/17 Time Notified: 16:45 05/10/17 14:46 Consult to Physician [CONS] Routine Comment: Consulting Provider: Elroy Yi When should Consulting Provider be notified: Now Person Notified: Date Notified: 05/10/17 Time Notified: 16:55 Consult Notification Comment: States he saw in ER 05/13/17 10:48 Consult to Physician [CONS] Routine Comment: abn. MRI L/S spine Consulting Provider: Buster Banks Consult to Specialist Group: Pain Management Person Notified: rohan Date Notified: 05/13/17 Time Notified: 11:40 Discharging clinician: Johnson Gaspar MD Expected date of discharge: 05/14/17
[2017-05-14] MEDS: prednisoLONE 5 MG TABLET PO SCH (09:59)
[2017-05-14] MEDS: DOCUSATE SODIUM 100 MG CAPSULE PO SCH (09:59)
[2017-05-14] MEDS: GABAPENTIN 100 MG CAPSULE PO SCH (10:00)
[2017-05-14] MEDS: POTASSIUM CHLORIDE 10 MEQ TABLET PO SCH (10:00)
[2017-05-14] MEDS: traMADol 50 MG TABLET PO PRN (10:00)
[2017-05-14] MEDS: MONTELUKAST 10 MG TABLET PO SCH (10:00)
[2017-05-14] MEDS: PANTOPRAZOLE 40 MG TABLET PO SCH (10:00)
[2017-05-14] MEDS: CLOPIDOGREL 75 MG TABLET PO SCH (10:00)
[2017-05-14] MEDS: DILTIAZEM CD 120 MG CAPSULE PO SCH (10:00)
[2017-05-14] MEDS: STRIVERDI RESPIMAT IH SCH (10:01)
[2017-05-14] MEDS: APIXABAN 2.5 MG TABLET PO SCH (10:01)
[2017-05-14] MEDS: METHYLNALTREXONE 12 MG/0.6 ML VIAL SUBCUT SCH (10:02)
== END 2017-05-14 11:35 | disposition home or self-care (01) | DRG 392 ==
LOC: EDUNIT# → N.ED 09:50 → SUATTDRO 14:41 → N.EDINP 14:41 → N.TELES 16:05
PROVIDERS: ADMIT Internal Medicine; ATTEND Family Medicine

== ENCOUNTER 2018-03-10 09:14 | Inpatient (IN) ==
[2018-03-10] MEDS ORDERED: DILTIAZEM 50 MG/10 ML VIAL IV STA (10:06)
[2018-03-10 10:17] LABS: Basophils # 0.1 10*3/uL (0.0-0.2); Basophils % 0.3 % (0.0-0.8); Eosinophils # 0.1 10*3/uL (0.0-0.87); Eosinophils % 0.4 % (0.00-10.9); Hematocrit 37.2 VOL% (35.7-47.0); Hemoglobin 11.7 GM/DL (12.0-16.0); Immature Granulocytes % 0.3 %; Immature Granulocytes Absolute 0.05 #; Lymphocytes # 1.1 10*3/uL (1.4-4.0); Lymphocytes % 7.7 % (21.3-54.2); Mean Corpuscular HGB Conc 31.5 GM/DL (32-36); Mean Corpuscular Hemoglobin 24 PG (27-34); Mean Corpuscular Volume 76.5 FL (87-102); Mean Platelet Volume 12.1 FL (9.6-12.0); Monocytes # 1.2 10*3/uL (0.11-0.8); Monocytes % 7.9 % (1.7-12.7); Neutrophils # 12.1 10*3/uL (1.4-7.4); Neutrophils % 83.4 % (38.7-73.9); Platelet Count 223 T/CUMM (130-400); Red Blood Count 4.86 MC/CUMM (3.8-5.5); Red Cell Distribution Width 17.2 % (9.3-17.3); White Blood Count 14.5 T/CUMM (4-12)
[2018-03-10] MEDS ORDERED: DILTIAZEM INJ 100 MG in SODIUM CHLORIDE 0.9% 100 ML IV SCH (10:30)
[2018-03-10 10:33] LABS: Alanine Aminotransferase 16 U/L (13-56); Albumin 3.2 G/DL (3.4-5.0); Alkaline Phosphatase 80 U/L (45-117); Aspartate Amino Transferase 16 U/L (0-37); Blood Urea Nitrogen 9 MG/DL (7-18); Calcium 8.1 MG/DL (8.5-10.1); Glucose 161 MG/DL (74-106); Osmolality,Calculated 265.5 MOS/KG (273-304); Potassium 3.1 MMOL/L (3.5-5.1); Sodium 132 MMOL/L (136-145); Thyroid Stimulating Hormone 0.393 uIU/ml (0.358-3.74); Total Protein 7.2 G/DL (6.4-8.3); Troponin I Only < 0.015 NG/ML (0.00-0.045)
[2018-03-10] MEDS ORDERED: ONDANSETRON 4 MG/2 ML VIAL IV PRN (15:26)
[2018-03-10] MEDS ORDERED: ACETAMINOPHEN 325 MG TABLET PO PRN (15:26)
[2018-03-10] MEDS ORDERED: MELOXICAM 7.5 MG TABLET PO PRN (15:30)
[2018-03-10] MEDS: SODIUM CHLORIDE 0.9% 1,000 ML IV SCH (17:17)
[2018-03-10] MEDS: POTASSIUM CHLORIDE 20 MEQ TABLET PO PRN ×4 (17:32→23:41)
[2018-03-10 19:44] LABS: Apearance,Urine CLEAR (Clear); Bilirubin,Urine Negative (Negative); Blood, Urine Negative (Negative); Glucose,Urine (UA) Negative (Negative); Ketones,Urine Negative (Negative); Nitrite,Urine Negative (Negative); Protein,Urine Negative; Squamous Epithelial Cell,Urine Occasional /HPF (0-10); Urine Color Yellow (Yellow); Urine Specific Gravity 1.027 (1.001-1.035); Urine Urobilinogen < 2.0 EU/DL (0.2-1.0)
[2018-03-10] MEDS: traMADol 50 MG TABLET PO PRN (20:41)
[2018-03-10] MEDS: ZALEPLON 5 MG CAPSULE PO PRN (20:41)
[2018-03-10] MEDS: APIXABAN 2.5 MG TABLET PO SCH (20:41)
[2018-03-10] MEDS: DILTIAZEM 60 MG TABLET PO SCH (22:54)
[2018-03-10] MEDS: ALUMINUM/MAGNES/SIMETH MAX STR 30 ML UDCUP PO PRN (23:41)
[2018-03-11] MEDS: IPRATROPIUM 500 MCG/2.5 ML NEB RESP TX PRN ×2 (03:01→09:00)
[2018-03-11 05:39] LABS: Basophils # 0.1 10*3/uL (0.0-0.2); Basophils % 0.4 % (0.0-0.8); Eosinophils # 0.1 10*3/uL (0.0-0.87); Hemoglobin 11.4 GM/DL (12.0-16.0); Immature Granulocytes % 0.4 %; Immature Granulocytes Absolute 0.05 #; Lymphocytes # 1.9 10*3/uL (1.4-4.0); Lymphocytes % 15.4 % (21.3-54.2); Mean Corpuscular HGB Conc 30.8 GM/DL (32-36); Mean Corpuscular Hemoglobin 24 PG (27-34); Mean Corpuscular Volume 77.2 FL (87-102); Mean Platelet Volume 11.9 FL (9.6-12.0); Monocytes # 1.3 10*3/uL (0.11-0.8); Monocytes % 10.6 % (1.7-12.7); Neutrophils # 8.8 10*3/uL (1.4-7.4); Neutrophils % 72.2 % (38.7-73.9); Platelet Count 221 T/CUMM (130-400); Red Blood Count 4.79 MC/CUMM (3.8-5.5); Red Cell Distribution Width 17.3 % (9.3-17.3); White Blood Count 12.2 T/CUMM (4-12)
[2018-03-11 05:47] LABS: INR 1.1; PT Patient Result 11.4 SECS
[2018-03-11 06:06] LABS: Calcium 8.7 MG/DL (8.5-10.1); Osmolality,Calculated 269.1 MOS/KG (273-304); Potassium 4.2 MMOL/L (3.5-5.1); Risk Ratio 3.17; VLDL CHOLESTEROL 22.2 MG/DL
[2018-03-11] MEDS: APIXABAN 2.5 MG TABLET PO SCH ×2 (08:38→20:15)
[2018-03-11] MEDS: DILTIAZEM 60 MG TABLET PO SCH ×4 (08:38→20:15)
[2018-03-11] MEDS: MONTELUKAST 10 MG TABLET PO SCH (08:38)
[2018-03-11] MEDS: DIGOXIN 0.125 MG TABLET PO SCH (08:38)
[2018-03-11] MEDS: DOCUSATE SODIUM 100 MG CAPSULE PO SCH (08:39)
[2018-03-11] MEDS ORDERED: NON-FORMULARY MEDICATION (Tiotropium Inhalation 18 MCG) INH SCH (09:00)
[2018-03-11] MEDS ORDERED: PANTOPRAZOLE 40 MG TABLET PO SCH (09:00)
[2018-03-11] MEDS ORDERED: prednisoLONE 5 MG TABLET PO SCH (09:00)
[2018-03-11] MEDS: traMADol 50 MG TABLET PO PRN ×2 (09:10→17:42)
[2018-03-11] MEDS ORDERED: ALBUTEROL/IPRATROPIUM 3 ML NEB RESP TX PRN (09:40)
[2018-03-11] MEDS ORDERED: LACTULOSE 20 GM/30 ML UDCUP PO PRN (09:55)
[2018-03-11] MEDS ORDERED: SENNA 8.6 MG TABLET PO PRN (09:55)
[2018-03-11] MEDS ORDERED: DILTIAZEM CD 120 MG CAPSULE PO SCH (10:00)
[2018-03-11] MEDS: POTASSIUM CHLORIDE 10 MEQ TABLET PO SCH (12:09)
[2018-03-11] MEDS: ALUMINUM/MAGNES/SIMETH MAX STR 30 ML UDCUP PO PRN (12:09)
[2018-03-11] MEDS: methylPREDNISolone SOD SUC 40 MG/1 ML VIAL IV SCH ×2 (12:09→17:38)
[2018-03-11] MEDS: BENZONATATE 100 MG CAPSULE PO SCH ×2 (12:09→20:15)
[2018-03-11] MEDS: metFORMIN 500 MG TABLET PO SCH (12:09)
[2018-03-11] MEDS: ALBUTEROL 2 MG TABLET PO SCH (12:09)
[2018-03-11] MEDS: LEVOFLOXACIN INJ 750 MG in PREMIX 1 EACH IV SCH (12:10)
[2018-03-11] MEDS: SODIUM CHLORIDE 0.9% 1,000 ML IV SCH (12:20)
[2018-03-11] MEDS: ALBUTEROL/IPRATROPIUM 3 ML NEB RESP TX SCH ×2 (13:40→20:21)
[2018-03-11] MEDS: ZALEPLON 5 MG CAPSULE PO PRN (23:10)
[2018-03-12] MEDS: ALBUTEROL/IPRATROPIUM 3 ML NEB RESP TX SCH ×4 (01:40→20:08)
[2018-03-12] MEDS: methylPREDNISolone SOD SUC 40 MG/1 ML VIAL IV SCH ×3 (03:21→17:10)
[2018-03-12 04:54] LABS: Basophils % 0.1 % (0.0-0.8); Hematocrit 34.4 VOL% (35.7-47.0); Hemoglobin 10.7 GM/DL (12.0-16.0); Immature Granulocytes % 0.8 %; Immature Granulocytes Absolute 0.11 #; Lymphocytes # 0.9 10*3/uL (1.4-4.0); Lymphocytes % 6.7 % (21.3-54.2); Mean Corpuscular HGB Conc 31.1 GM/DL (32-36); Mean Corpuscular Hemoglobin 24 PG (27-34); Mean Corpuscular Volume 77.1 FL (87-102); Mean Platelet Volume 11.5 FL (9.6-12.0); Monocytes # 0.4 10*3/uL (0.11-0.8); Monocytes % 2.6 % (1.7-12.7); Neutrophils % 89.8 % (38.7-73.9); Platelet Count 218 T/CUMM (130-400); Red Blood Count 4.46 MC/CUMM (3.8-5.5); White Blood Count 13.3 T/CUMM (4-12)
[2018-03-12 05:21] LABS: Calcium 8.2 MG/DL (8.5-10.1); Osmolality,Calculated 271.8 MOS/KG (273-304); Potassium 4.1 MMOL/L (3.5-5.1)
[2018-03-12] MEDS: traMADol 50 MG TABLET PO PRN (08:57)
[2018-03-12] MEDS: DILTIAZEM 60 MG TABLET PO SCH ×4 (08:58→20:45)
[2018-03-12] MEDS: MONTELUKAST 10 MG TABLET PO SCH (08:58)
[2018-03-12] MEDS: POTASSIUM CHLORIDE 10 MEQ TABLET PO SCH (08:59)
[2018-03-12] MEDS: APIXABAN 2.5 MG TABLET PO SCH ×2 (08:59→20:45)
[2018-03-12] MEDS: DIGOXIN 0.125 MG TABLET PO SCH (08:59)
[2018-03-12] MEDS: metFORMIN 500 MG TABLET PO SCH (08:59)
[2018-03-12] MEDS: DOCUSATE SODIUM 100 MG CAPSULE PO SCH (08:59)
[2018-03-12] MEDS: BENZONATATE 100 MG CAPSULE PO SCH ×2 (08:59→20:45)
[2018-03-12] MEDS: LEVOFLOXACIN INJ 750 MG in PREMIX 1 EACH IV SCH (09:00)
[2018-03-12] MEDS: FAMOTIDINE 20 MG/2 ML VIAL IV SCH ×2 (09:00→20:45)
[2018-03-12] MEDS: ALUMINUM/MAGNES/SIMETH MAX STR 30 ML UDCUP PO PRN (09:00)
[2018-03-12] MEDS ORDERED: HYOSCYAMINE 0.125 MG TABLET PO PRN (10:23)
[2018-03-12] MEDS: ALBUTEROL 2 MG TABLET PO SCH (10:30)
[2018-03-12] MEDS: HYOSCYAMINE 0.125 MG TABLET PO SCH ×2 (11:51→17:10)
[2018-03-12] MEDS: PANTOPRAZOLE 40 MG VIAL IV SCH (11:51)
[2018-03-12 13:20] LABS: % Iron Saturation 6.9 % (18-50)
[2018-03-12 13:56] LABS: Folate 17.4 NG/ML (5.4-24.0)
[2018-03-12] MEDS: SODIUM CHLORIDE 0.9% 1,000 ML IV SCH (23:56)
[2018-03-13] MEDS: ALBUTEROL/IPRATROPIUM 3 ML NEB RESP TX SCH ×4 (00:20→19:32)
[2018-03-13] MEDS: methylPREDNISolone SOD SUC 40 MG/1 ML VIAL IV SCH ×3 (01:17→18:08)
[2018-03-13 04:42] LABS: Basophils % 0.1 % (0.0-0.8); Hematocrit 33.5 VOL% (35.7-47.0); Hemoglobin 10.8 GM/DL (12.0-16.0); Immature Granulocytes % 1.6 %; Immature Granulocytes Absolute 0.46 #; Lymphocytes # 0.9 10*3/uL (1.4-4.0); Lymphocytes % 3.3 % (21.3-54.2); Mean Corpuscular HGB Conc 32.2 GM/DL (32-36); Mean Corpuscular Hemoglobin 24 PG (27-34); Mean Corpuscular Volume 74.9 FL (87-102); Mean Platelet Volume 11.9 FL (9.6-12.0); Monocytes # 1.4 10*3/uL (0.11-0.8); Monocytes % 4.8 % (1.7-12.7); Neutrophils # 25.4 10*3/uL (1.4-7.4); Neutrophils % 90.2 % (38.7-73.9); Platelet Count 285 T/CUMM (130-400); Red Blood Count 4.47 MC/CUMM (3.8-5.5); Red Cell Distribution Width 17.2 % (9.3-17.3); White Blood Count 28.1 T/CUMM (4-12)
[2018-03-13 05:02] LABS: Calcium 8.5 MG/DL (8.5-10.1); Osmolality,Calculated 265.4 MOS/KG (273-304); Potassium 4.5 MMOL/L (3.5-5.1)
[2018-03-13 05:06] LABS: Band Neutrophils 2 % (0-10); Giant Platelets Few; Hypochromasia 1+; Lymphocytes 3 % (20-55); Platelet Estimate Adequate; Segmented Neutrophils 91 % (50-85); Total Cells Counted 100
[2018-03-13] MEDS: POTASSIUM CHLORIDE 10 MEQ TABLET PO SCH (09:10)
[2018-03-13] MEDS: FAMOTIDINE 20 MG/2 ML VIAL IV SCH ×2 (09:10→21:23)
[2018-03-13] MEDS: PANTOPRAZOLE 40 MG VIAL IV SCH (09:10)
[2018-03-13] MEDS: APIXABAN 2.5 MG TABLET PO SCH ×2 (09:10→21:23)
[2018-03-13] MEDS: HYOSCYAMINE 0.125 MG TABLET PO SCH ×3 (09:11→16:47)
[2018-03-13] MEDS: DILTIAZEM 60 MG TABLET PO SCH ×4 (09:11→21:23)
[2018-03-13] MEDS: metFORMIN 500 MG TABLET PO SCH (09:11)
[2018-03-13] MEDS: BENZONATATE 100 MG CAPSULE PO SCH ×2 (09:12→21:23)
[2018-03-13] MEDS: DIGOXIN 0.125 MG TABLET PO SCH (09:12)
[2018-03-13] MEDS: ALBUTEROL 2 MG TABLET PO SCH (09:13)
[2018-03-13] MEDS: DOCUSATE SODIUM 100 MG CAPSULE PO SCH (09:13)
[2018-03-13] MEDS: MONTELUKAST 10 MG TABLET PO SCH (09:13)
[2018-03-13] MEDS: LEVOFLOXACIN INJ 750 MG in PREMIX 1 EACH IV SCH (11:00)
[2018-03-13] MEDS: traMADol 50 MG TABLET PO PRN ×2 (11:07→21:28)
[2018-03-13] MEDS ORDERED: OLODATEROL HCL INH SCH (11:15)
[2018-03-13] MEDS: SODIUM CHLORIDE 1 GM TABLET PO SCH ×2 (15:12→21:36)
[2018-03-13] MEDS: INSULIN REGULAR 100 UNIT/ML SUBCUT SCH ×2 (16:46→23:06)
[2018-03-13] MEDS: ALUMINUM/MAGNES/SIMETH MAX STR 30 ML UDCUP PO PRN (16:47)
[2018-03-13] MEDS ORDERED: FLUCONAZOLE INJ 200 MG in PREMIX 1 EACH IV SCH (18:30)
[2018-03-13] MEDS: INSULIN GLARGINE 100 UNIT/ML SUBCUT SCH (21:33)
[2018-03-14] MEDS: ZALEPLON 5 MG CAPSULE PO PRN (00:05)
[2018-03-14] MEDS: ALBUTEROL/IPRATROPIUM 3 ML NEB RESP TX SCH ×4 (00:25→19:33)
[2018-03-14] MEDS: methylPREDNISolone SOD SUC 40 MG/1 ML VIAL IV SCH ×3 (03:37→18:55)
[2018-03-14 04:52] LABS: Basophils % 0.2 % (0.0-0.8); Hematocrit 35.2 VOL% (35.7-47.0); Immature Granulocytes % 2.2 %; Immature Granulocytes Absolute 0.54 #; Lymphocytes # 0.8 10*3/uL (1.4-4.0); Lymphocytes % 3.2 % (21.3-54.2); Mean Corpuscular HGB Conc 31.3 GM/DL (32-36); Mean Corpuscular Hemoglobin 24 PG (27-34); Mean Platelet Volume 11.4 FL (9.6-12.0); Monocytes # 1.2 10*3/uL (0.11-0.8); Monocytes % 4.7 % (1.7-12.7); Neutrophils # 22.4 10*3/uL (1.4-7.4); Neutrophils % 89.7 % (38.7-73.9); Platelet Count 302 T/CUMM (130-400); Red Blood Count 4.63 MC/CUMM (3.8-5.5); Red Cell Distribution Width 17.4 % (9.3-17.3); White Blood Count 24.9 T/CUMM (4-12)
[2018-03-14 05:11] LABS: Lymphocytes 2 % (20-55); Segmented Neutrophils 95 % (50-85); Total Cells Counted 100
[2018-03-14 05:12] LABS: Hypochromasia 1+; Microcytosis 1+; Ovalocytes Slight; Platelet Estimate Normal
[2018-03-14 05:41] LABS: Calcium 8.5 MG/DL (8.5-10.1)
[2018-03-14 05:42] LABS: Albumin 3.6 G/DL (3.4-5.0); Bilirubin,Total 0.6 MG/DL (0.2-1.0); Osmolality,Calculated 271.8 MOS/KG (273-304); Potassium 4.7 MMOL/L (3.5-5.1); Total Protein 6.9 G/DL (6.4-8.3)
[2018-03-14] MEDS: ALUMINUM/MAGNES/SIMETH MAX STR 30 ML UDCUP PO PRN ×2 (08:09→16:26)
[2018-03-14] MEDS: HYOSCYAMINE 0.125 MG TABLET PO SCH ×3 (08:09→16:26)
[2018-03-14] MEDS: APIXABAN 2.5 MG TABLET PO SCH ×2 (09:56→21:33)
[2018-03-14] MEDS: MONTELUKAST 10 MG TABLET PO SCH (09:57)
[2018-03-14] MEDS: INSULIN REGULAR 100 UNIT/ML SUBCUT SCH ×4 (09:57→21:41)
[2018-03-14] MEDS: metFORMIN 500 MG TABLET PO SCH (09:57)
[2018-03-14] MEDS: POTASSIUM CHLORIDE 10 MEQ TABLET PO SCH (09:57)
[2018-03-14] MEDS: DILTIAZEM 60 MG TABLET PO SCH ×4 (09:58→21:33)
[2018-03-14] MEDS: ALBUTEROL 2 MG TABLET PO SCH (09:58)
[2018-03-14] MEDS: DIGOXIN 0.125 MG TABLET PO SCH (09:58)
[2018-03-14] MEDS: FAMOTIDINE 20 MG/2 ML VIAL IV SCH ×2 (09:58→21:40)
[2018-03-14] MEDS: DOCUSATE SODIUM 100 MG CAPSULE PO SCH (09:58)
[2018-03-14] MEDS: PANTOPRAZOLE 40 MG VIAL IV SCH (09:59)
[2018-03-14] MEDS: SODIUM CHLORIDE 1 GM TABLET PO SCH ×3 (10:02→21:45)
[2018-03-14] MEDS: BENZONATATE 100 MG CAPSULE PO SCH ×2 (10:02→21:46)
[2018-03-14] MEDS: traMADol 50 MG TABLET PO PRN ×2 (10:03→21:43)
[2018-03-14] MEDS: LEVOFLOXACIN INJ 750 MG in PREMIX 1 EACH IV SCH (11:17)
[2018-03-14] MEDS: FLUCONAZOLE 200 MG TABLET PO SCH (14:18)
[2018-03-14] MEDS: CHLORHEXIDINE 0.12% ORAL RINSE 60 ML BOTTLE SWISH/SPIT SCH (21:40)
[2018-03-14] MEDS: INSULIN GLARGINE 100 UNIT/ML SUBCUT SCH (21:41)
[2018-03-15] MEDS: ALBUTEROL/IPRATROPIUM 3 ML NEB RESP TX SCH ×4 (01:10→19:06)
[2018-03-15] MEDS: methylPREDNISolone SOD SUC 40 MG/1 ML VIAL IV SCH ×3 (02:40→17:34)
[2018-03-15 04:37] LABS: Basophils # 0.1 10*3/uL (0.0-0.2); Basophils % 0.2 % (0.0-0.8); Hematocrit 35.6 VOL% (35.7-47.0); Hemoglobin 11.4 GM/DL (12.0-16.0); Immature Granulocytes % 2.2 %; Immature Granulocytes Absolute 0.53 #; Lymphocytes # 0.9 10*3/uL (1.4-4.0); Lymphocytes % 3.8 % (21.3-54.2); Mean Corpuscular Hemoglobin 24 PG (27-34); Mean Corpuscular Volume 75.3 FL (87-102); Mean Platelet Volume 12.2 FL (9.6-12.0); Monocytes # 1.6 10*3/uL (0.11-0.8); Monocytes % 6.5 % (1.7-12.7); Neutrophils # 20.9 10*3/uL (1.4-7.4); Neutrophils % 87.3 % (38.7-73.9); Platelet Count 345 T/CUMM (130-400); Red Blood Count 4.73 MC/CUMM (3.8-5.5); Red Cell Distribution Width 17.8 % (9.3-17.3)
[2018-03-15 05:06] LABS: Albumin 3.4 G/DL (3.4-5.0); Bilirubin,Total 0.7 MG/DL (0.2-1.0); Calcium 8.3 MG/DL (8.5-10.1); Osmolality,Calculated 279.1 MOS/KG (273-304); Potassium 4.7 MMOL/L (3.5-5.1); Total Protein 6.8 G/DL (6.4-8.3)
[2018-03-15 05:24] LABS: Giant Platelets Few; Hypochromasia 1+; Lymphocytes 3 % (20-55); Platelet Estimate Adequate; Segmented Neutrophils 92 % (50-85); Total Cells Counted 100
[2018-03-15 05:25] LABS: Microcytosis Slight
[2018-03-15] MEDS: SODIUM CHLORIDE 1 GM TABLET PO SCH ×3 (09:19→22:03)
[2018-03-15] MEDS: DOCUSATE SODIUM 100 MG CAPSULE PO SCH (09:19)
[2018-03-15] MEDS: BENZONATATE 100 MG CAPSULE PO SCH ×3 (09:19→22:19)
[2018-03-15] MEDS: MONTELUKAST 10 MG TABLET PO SCH (09:20)
[2018-03-15] MEDS: FLUCONAZOLE 200 MG TABLET PO SCH (09:20)
[2018-03-15] MEDS: DIGOXIN 0.125 MG TABLET PO SCH (09:20)
[2018-03-15] MEDS: APIXABAN 2.5 MG TABLET PO SCH ×2 (09:20→22:04)
[2018-03-15] MEDS: HYOSCYAMINE 0.125 MG TABLET PO SCH ×3 (09:20→17:33)
[2018-03-15] MEDS: DILTIAZEM 60 MG TABLET PO SCH ×4 (09:20→22:03)
[2018-03-15] MEDS: metFORMIN 500 MG TABLET PO SCH (09:21)
[2018-03-15] MEDS: POTASSIUM CHLORIDE 20 MEQ/15 ML UDCUP PO SCH (09:21)
[2018-03-15] MEDS: INSULIN REGULAR 100 UNIT/ML SUBCUT SCH ×4 (09:22→22:07)
[2018-03-15] MEDS: PANTOPRAZOLE 40 MG VIAL IV SCH (09:23)
[2018-03-15] MEDS: FAMOTIDINE 20 MG/2 ML VIAL IV SCH ×2 (09:23→22:08)
[2018-03-15] MEDS: CHLORHEXIDINE 0.12% ORAL RINSE 60 ML BOTTLE SWISH/SPIT SCH ×2 (09:24→22:08)
[2018-03-15] MEDS: ALBUTEROL 2 MG TABLET PO SCH (09:28)
[2018-03-15] MEDS: traMADol 50 MG TABLET PO PRN ×2 (09:37→22:02)
[2018-03-15] MEDS ORDERED: FLUCONAZOLE 100 MG TABLET PO SCH (18:40)
[2018-03-15] MEDS: INSULIN GLARGINE 100 UNIT/ML SUBCUT SCH (22:03)
[2018-03-15] MEDS: ZALEPLON 5 MG CAPSULE PO PRN (22:03)
[2018-03-16] MEDS: ALBUTEROL/IPRATROPIUM 3 ML NEB RESP TX SCH ×2 (00:10→07:44)
[2018-03-16] MEDS: methylPREDNISolone SOD SUC 40 MG/1 ML VIAL IV SCH (03:28)
[2018-03-16 04:49] LABS: Basophils # 0.1 10*3/uL (0.0-0.2); Basophils % 0.2 % (0.0-0.8); Hematocrit 36.2 VOL% (35.7-47.0); Hemoglobin 11.4 GM/DL (12.0-16.0); Immature Granulocytes % 2.2 %; Immature Granulocytes Absolute 0.46 #; Lymphocytes # 0.9 10*3/uL (1.4-4.0); Lymphocytes % 4.5 % (21.3-54.2); Mean Corpuscular HGB Conc 31.5 GM/DL (32-36); Mean Corpuscular Hemoglobin 24 PG (27-34); Mean Corpuscular Volume 75.3 FL (87-102); Mean Platelet Volume 10.4 FL (9.6-12.0); Monocytes # 0.9 10*3/uL (0.11-0.8); Monocytes % 4.4 % (1.7-12.7); Neutrophils # 18.5 10*3/uL (1.4-7.4); Neutrophils % 88.7 % (38.7-73.9); Platelet Count 289 T/CUMM (130-400); Red Blood Count 4.81 MC/CUMM (3.8-5.5); Red Cell Distribution Width 17.5 % (9.3-17.3); White Blood Count 20.9 T/CUMM (4-12)
[2018-03-16 05:13] LABS: Lymphocytes 3 % (20-55); Segmented Neutrophils 95 % (50-85); Total Cells Counted 100
[2018-03-16 05:14] LABS: Hypochromasia 1+; Microcytosis Slight; Ovalocytes Slight; Platelet Estimate Adequate
[2018-03-16 05:18] LABS: Albumin 3.3 G/DL (3.4-5.0); Bilirubin,Total 0.6 MG/DL (0.2-1.0); Calcium 8.4 MG/DL (8.5-10.1); Osmolality,Calculated 276.4 MOS/KG (273-304); Potassium 4.4 MMOL/L (3.5-5.1); Total Protein 6.5 G/DL (6.4-8.3)
[2018-03-16 08:09] VITALS: BP 159/77
[2018-03-16] MEDS: FAMOTIDINE 20 MG/2 ML VIAL IV SCH (09:23)
[2018-03-16] MEDS: INSULIN REGULAR 100 UNIT/ML SUBCUT SCH ×2 (09:23→12:22)
[2018-03-16] MEDS: PANTOPRAZOLE 40 MG VIAL IV SCH (09:24)
[2018-03-16] MEDS: CHLORHEXIDINE 0.12% ORAL RINSE 60 ML BOTTLE SWISH/SPIT SCH (09:25)
[2018-03-16] MEDS: POTASSIUM CHLORIDE 20 MEQ/15 ML UDCUP PO SCH (09:25)
[2018-03-16] MEDS: BENZONATATE 100 MG CAPSULE PO SCH (09:27)
[2018-03-16] MEDS: MONTELUKAST 10 MG TABLET PO SCH (09:28)
[2018-03-16] MEDS: DIGOXIN 0.125 MG TABLET PO SCH (09:28)
[2018-03-16] MEDS: SODIUM CHLORIDE 1 GM TABLET PO SCH (09:28)
[2018-03-16] MEDS: DOCUSATE SODIUM 100 MG CAPSULE PO SCH (09:28)
[2018-03-16] MEDS: HYOSCYAMINE 0.125 MG TABLET PO SCH ×2 (09:29→12:22)
[2018-03-16] MEDS: predniSONE 20 MG TABLET PO SCH ×2 (09:29→09:34)
[2018-03-16] MEDS: APIXABAN 2.5 MG TABLET PO SCH (09:29)
[2018-03-16] MEDS: metFORMIN 500 MG TABLET PO SCH (09:29)
[2018-03-16] MEDS: ALBUTEROL 2 MG TABLET PO SCH (09:30)
[2018-03-16] MEDS: DILTIAZEM 60 MG TABLET PO SCH ×2 (09:30→12:23)
[2018-03-16] MEDS: traMADol 50 MG TABLET PO PRN (09:41)
[2018-03-16] MEDS ORDERED: methylPREDNISolone SOD SUC 40 MG/1 ML VIAL IV ONE (10:53)
== END 2018-03-16 13:48 | disposition home or self-care (01) | DRG 191 ==
LOC: EDUNIT# → N.ED 09:14 → N.EDINP 15:25 → SUATTDRO 15:25 → N.TELEN 16:37
PROVIDERS: ATTEND Internal Medicine

== ENCOUNTER 2018-03-19 08:19 | Inpatient (IN) ==
[2018-03-19] MEDS ORDERED: DILTIAZEM 100 MG VIAL.ADD IV ONE (08:26)
[2018-03-19] MEDS ORDERED: SODIUM CHLORIDE 0.9% 100 ML IV ONE (08:28)
[2018-03-19] MEDS ORDERED: DILTIAZEM 50 MG/10 ML VIAL IV STA (08:56)
[2018-03-19] MEDS ORDERED: SODIUM CHLORIDE 0.9% 500 ML IV STA (08:56)
[2018-03-19 09:06] LABS: Basophils # 0.1 10*3/uL (0.0-0.2); Basophils % 0.3 % (0.0-0.8); Eosinophils # 0.1 10*3/uL (0.0-0.87); Eosinophils % 0.4 % (0.00-10.9); Hematocrit 48.4 VOL% (35.7-47.0); Hemoglobin 15.3 GM/DL (12.0-16.0); Immature Granulocytes % 1.5 %; Immature Granulocytes Absolute 0.32 #; Lymphocytes # 2.7 10*3/uL (1.4-4.0); Lymphocytes % 12.9 % (21.3-54.2); Mean Corpuscular HGB Conc 31.6 GM/DL (32-36); Mean Corpuscular Hemoglobin 24 PG (27-34); Mean Corpuscular Volume 74.9 FL (87-102); Mean Platelet Volume 10.9 FL (9.6-12.0); Monocytes # 1.9 10*3/uL (0.11-0.8); Monocytes % 8.7 % (1.7-12.7); Neutrophils # 16.1 10*3/uL (1.4-7.4); Neutrophils % 76.2 % (38.7-73.9); Platelet Count 300 T/CUMM (130-400); Red Blood Count 6.46 MC/CUMM (3.8-5.5); Red Cell Distribution Width 18.4 % (9.3-17.3); White Blood Count 21.2 T/CUMM (4-12)
[2018-03-19 09:12] LABS: INR 1.1; PT Patient Result 11.4 SECS; Partial Thromboplastin Time 24.7 SECS (0-40)
[2018-03-19] MEDS: DILTIAZEM INJ 100 MG in SODIUM CHLORIDE 0.9% 100 ML IV SCH ×2 (09:17→22:06)
[2018-03-19 09:25] LABS: Eosinophils 1 % (0-10); Hypochromasia Slight; Lymphocytes 12 % (20-55); Ovalocytes Slight; Platelet Estimate Adequate; Segmented Neutrophils 81 % (50-85); Total Cells Counted 100
[2018-03-19 09:26] LABS: Microcytosis Slight
[2018-03-19 10:04] LABS: Alanine Aminotransferase 23 U/L (13-56); Albumin 3.4 G/DL (3.4-5.0); Alkaline Phosphatase 80 U/L (45-117); Aspartate Amino Transferase 18 U/L (0-37); Blood Urea Nitrogen 22 MG/DL (7-18); Calcium 8.5 MG/DL (8.5-10.1); Glucose 205 MG/DL (74-106); Osmolality,Calculated 270.7 MOS/KG (273-304); Potassium 3.7 MMOL/L (3.5-5.1); Sodium 131 MMOL/L (136-145); Troponin I Only < 0.015 NG/ML (0.00-0.045)
[2018-03-19] MEDS ORDERED: MELOXICAM 7.5 MG TABLET PO PRN (10:49)
[2018-03-19] MEDS ORDERED: HYOSCYAMINE 0.125 MG TABLET PO PRN (10:49)
[2018-03-19] MEDS ORDERED: LACTULOSE 20 GM/30 ML UDCUP PO PRN (10:49)
[2018-03-19] MEDS: NYSTATIN 500,000 UNIT/5 ML UDCUP SWISH/SWAL SCH ×3 (12:24→20:15)
[2018-03-19] MEDS: IPRATROPIUM 500 MCG/2.5 ML NEB RESP TX SCH ×2 (13:04→20:03)
[2018-03-19] MEDS: POTASSIUM CHLORIDE 20 MEQ TABLET PO SCH ×2 (14:00→16:39)
[2018-03-19] MEDS: BENZONATATE 100 MG CAPSULE PO SCH (20:16)
[2018-03-19] MEDS: APIXABAN 2.5 MG TABLET PO SCH (20:16)
[2018-03-19] MEDS: traMADol 50 MG TABLET PO PRN (20:24)
[2018-03-19] MEDS: INSULIN GLARGINE 100 UNIT/ML SUBCUT SCH (20:25)
[2018-03-19] MEDS ORDERED: INSULIN GLARGINE 100 UNIT/ML SUBCUT SCH (21:00)
[2018-03-20] MEDS: IPRATROPIUM 500 MCG/2.5 ML NEB RESP TX SCH ×5 (01:41→23:55)
[2018-03-20 04:38] LABS: Basophils % 0.2 % (0.0-0.8); Eosinophils # 0.1 10*3/uL (0.0-0.87); Eosinophils % 0.7 % (0.00-10.9); Hematocrit 44.1 VOL% (35.7-47.0); Hemoglobin 13.8 GM/DL (12.0-16.0); Immature Granulocytes % 1.2 %; Lymphocytes # 3.1 10*3/uL (1.4-4.0); Mean Corpuscular HGB Conc 31.3 GM/DL (32-36); Mean Corpuscular Hemoglobin 24 PG (27-34); Mean Corpuscular Volume 77.2 FL (87-102); Mean Platelet Volume 10.4 FL (9.6-12.0); Monocytes # 1.5 10*3/uL (0.11-0.8); Monocytes % 8.6 % (1.7-12.7); Neutrophils # 12.1 10*3/uL (1.4-7.4); Neutrophils % 71.3 % (38.7-73.9); Platelet Count 241 T/CUMM (130-400); Red Blood Count 5.71 MC/CUMM (3.8-5.5); White Blood Count 16.9 T/CUMM (4-12)
[2018-03-20 05:25] LABS: Osmolality,Calculated 271.2 MOS/KG (273-304); Potassium 4.3 MMOL/L (3.5-5.1)
[2018-03-20] MEDS: DILTIAZEM INJ 100 MG in SODIUM CHLORIDE 0.9% 100 ML IV SCH (05:58)
[2018-03-20] MEDS: metFORMIN 500 MG TABLET PO SCH (08:59)
[2018-03-20] MEDS: FERROUS SULFATE 325 MG TABLET PO SCH (08:59)
[2018-03-20] MEDS: BENZONATATE 100 MG CAPSULE PO SCH ×2 (08:59→21:11)
[2018-03-20] MEDS: MONTELUKAST 10 MG TABLET PO SCH (08:59)
[2018-03-20] MEDS: PANTOPRAZOLE 40 MG TABLET PO SCH (08:59)
[2018-03-20] MEDS: DOCUSATE SODIUM 100 MG CAPSULE PO SCH (08:59)
[2018-03-20] MEDS: FLUCONAZOLE 100 MG TABLET PO SCH (08:59)
[2018-03-20] MEDS: APIXABAN 2.5 MG TABLET PO SCH ×2 (08:59→21:11)
[2018-03-20] MEDS ORDERED: NON-FORMULARY MEDICATION (Tiotropium Inhalation 18 MCG) INH SCH (09:00)
[2018-03-20] MEDS: NYSTATIN 500,000 UNIT/5 ML UDCUP SWISH/SWAL SCH ×4 (09:00→21:11)
[2018-03-20] MEDS ORDERED: ALBUTEROL 2 MG TABLET PO SCH (09:00)
[2018-03-20] MEDS: INSULIN GLARGINE 100 UNIT/ML SUBCUT SCH ×2 (09:00→21:10)
[2018-03-20] MEDS: POTASSIUM CHLORIDE 10 MEQ TABLET PO SCH (09:00)
[2018-03-20] MEDS: traMADol 50 MG TABLET PO PRN ×2 (09:02→21:14)
[2018-03-20] MEDS: DILTIAZEM 60 MG TABLET PO SCH ×4 (10:17→21:11)
[2018-03-20] MEDS: MYLANTA/LIDO VISC 2:1 300 ML BOTTLE SWISH/SWAL SCH ×4 (10:51→21:11)
[2018-03-20] MEDS ORDERED: MYLANTA/LIDO VISC 2:1 300 ML BOTTLE SWISH/SWAL SCH (11:30)
[2018-03-20] MEDS: ALBUTEROL 2.5 MG/3 ML NEB RESP TX SCH ×3 (12:12→23:55)
[2018-03-20] MEDS: DIGOXIN 0.125 MG TABLET PO SCH (13:06)
[2018-03-20 21:51] LABS: Apearance,Urine CLEAR (Clear); Bilirubin,Urine Negative (Negative); Blood, Urine Small mg/dL (Negative); Glucose,Urine (UA) Negative (Negative); Ketones,Urine Negative (Negative); Mucus,Urine Occasional /LPF (Occasional); Nitrite,Urine Negative (Negative); Protein,Urine Negative; RBC,Urine <1 /HPF (0-4); Urine Color Yellow (Yellow); Urine Urobilinogen < 2.0 EU/DL (0.2-1.0); WBC,Urine <1 /HPF (0-6)
[2018-03-21 05:02] LABS: Basophils % 0.1 % (0.0-0.8); Eosinophils # 0.1 10*3/uL (0.0-0.87); Eosinophils % 0.8 % (0.00-10.9); Hematocrit 39.9 VOL% (35.7-47.0); Hemoglobin 12.8 GM/DL (12.0-16.0); Immature Granulocytes % 0.8 %; Immature Granulocytes Absolute 0.13 #; Lymphocytes % 18.1 % (21.3-54.2); Mean Corpuscular HGB Conc 32.1 GM/DL (32-36); Mean Corpuscular Hemoglobin 24 PG (27-34); Mean Corpuscular Volume 74.9 FL (87-102); Mean Platelet Volume 10.3 FL (9.6-12.0); Monocytes # 1.8 10*3/uL (0.11-0.8); Neutrophils # 11.5 10*3/uL (1.4-7.4); Neutrophils % 69.2 % (38.7-73.9); Platelet Count 210 T/CUMM (130-400); Red Blood Count 5.33 MC/CUMM (3.8-5.5); Red Cell Distribution Width 17.7 % (9.3-17.3); White Blood Count 16.6 T/CUMM (4-12)
[2018-03-21 05:26] LABS: Calcium 7.7 MG/DL (8.5-10.1); Osmolality,Calculated 268.4 MOS/KG (273-304)
[2018-03-21] MEDS: MYLANTA/LIDO VISC 2:1 300 ML BOTTLE SWISH/SWAL SCH ×4 (06:49→21:27)
[2018-03-21] MEDS: IPRATROPIUM 500 MCG/2.5 ML NEB RESP TX SCH ×3 (07:30→19:00)
[2018-03-21] MEDS: ALBUTEROL 2.5 MG/3 ML NEB RESP TX SCH ×3 (07:30→19:00)
[2018-03-21] MEDS: INSULIN GLARGINE 100 UNIT/ML SUBCUT SCH ×2 (08:40→21:26)
[2018-03-21] MEDS: FERROUS SULFATE 325 MG TABLET PO SCH (08:41)
[2018-03-21] MEDS: DILTIAZEM 60 MG TABLET PO SCH ×4 (08:41→21:26)
[2018-03-21] MEDS: POTASSIUM CHLORIDE 10 MEQ TABLET PO SCH (08:41)
[2018-03-21] MEDS: BENZONATATE 100 MG CAPSULE PO SCH ×2 (08:41→21:26)
[2018-03-21] MEDS: DOCUSATE SODIUM 100 MG CAPSULE PO SCH (08:41)
[2018-03-21] MEDS: MONTELUKAST 10 MG TABLET PO SCH (08:42)
[2018-03-21] MEDS: NYSTATIN 500,000 UNIT/5 ML UDCUP SWISH/SWAL SCH ×4 (08:42→21:27)
[2018-03-21] MEDS: FLUCONAZOLE 100 MG TABLET PO SCH (08:42)
[2018-03-21] MEDS: PANTOPRAZOLE 40 MG TABLET PO SCH (08:42)
[2018-03-21] MEDS: traMADol 50 MG TABLET PO PRN ×2 (08:42→21:28)
[2018-03-21] MEDS: metFORMIN 500 MG TABLET PO SCH (08:42)
[2018-03-21] MEDS: APIXABAN 2.5 MG TABLET PO SCH ×2 (08:42→21:26)
[2018-03-21] MEDS: prednisoLONE 5 MG TABLET PO SCH (12:57)
[2018-03-21] MEDS: DIGOXIN 0.125 MG TABLET PO SCH (12:57)
[2018-03-21] MEDS ORDERED: GLUCAGON 1 MG VIAL IM PRN (20:35)
[2018-03-21] MEDS ORDERED: DEXTROSE 50% 25 GM/50 ML VIAL IV PRN (20:35)
[2018-03-21] MEDS: INSULIN REGULAR 100 UNIT/ML SUBCUT SCH (21:26)
[2018-03-22] MEDS: IPRATROPIUM 500 MCG/2.5 ML NEB RESP TX SCH ×4 (00:40→19:25)
[2018-03-22] MEDS: ALBUTEROL 2.5 MG/3 ML NEB RESP TX SCH ×4 (00:40→19:25)
[2018-03-22 05:01] LABS: Basophils % 0.1 % (0.0-0.8); Eosinophils # 0.1 10*3/uL (0.0-0.87); Eosinophils % 0.5 % (0.00-10.9); Hematocrit 39.3 VOL% (35.7-47.0); Hemoglobin 12.7 GM/DL (12.0-16.0); Immature Granulocytes % 0.8 %; Immature Granulocytes Absolute 0.13 #; Lymphocytes # 2.5 10*3/uL (1.4-4.0); Lymphocytes % 15.1 % (21.3-54.2); Mean Corpuscular HGB Conc 32.3 GM/DL (32-36); Mean Corpuscular Hemoglobin 24 PG (27-34); Mean Corpuscular Volume 75.4 FL (87-102); Monocytes # 1.9 10*3/uL (0.11-0.8); Monocytes % 11.5 % (1.7-12.7); Neutrophils # 11.8 10*3/uL (1.4-7.4); Platelet Count 212 T/CUMM (130-400); Red Blood Count 5.21 MC/CUMM (3.8-5.5); Red Cell Distribution Width 17.7 % (9.3-17.3); White Blood Count 16.4 T/CUMM (4-12)
[2018-03-22 05:36] LABS: Calcium 8.5 MG/DL (8.5-10.1); Osmolality,Calculated 265.2 MOS/KG (273-304); Potassium 4.6 MMOL/L (3.5-5.1)
[2018-03-22] MEDS: INSULIN REGULAR 100 UNIT/ML SUBCUT SCH ×4 (07:43→21:14)
[2018-03-22] MEDS: INSULIN GLARGINE 100 UNIT/ML SUBCUT SCH ×2 (08:53→21:07)
[2018-03-22] MEDS: PANTOPRAZOLE 40 MG TABLET PO SCH (08:53)
[2018-03-22] MEDS: metFORMIN 500 MG TABLET PO SCH (08:54)
[2018-03-22] MEDS: DOCUSATE SODIUM 100 MG CAPSULE PO SCH (08:54)
[2018-03-22] MEDS: MONTELUKAST 10 MG TABLET PO SCH (08:55)
[2018-03-22] MEDS: APIXABAN 2.5 MG TABLET PO SCH ×2 (08:55→21:07)
[2018-03-22] MEDS: POTASSIUM CHLORIDE 10 MEQ TABLET PO SCH (08:55)
[2018-03-22] MEDS: FLUCONAZOLE 100 MG TABLET PO SCH (08:55)
[2018-03-22] MEDS: BENZONATATE 100 MG CAPSULE PO SCH ×2 (08:55→21:07)
[2018-03-22] MEDS: FERROUS SULFATE 325 MG TABLET PO SCH (08:55)
[2018-03-22] MEDS: DILTIAZEM 60 MG TABLET PO SCH ×4 (08:55→21:07)
[2018-03-22] MEDS: NYSTATIN 500,000 UNIT/5 ML UDCUP SWISH/SWAL SCH ×4 (08:55→21:08)
[2018-03-22] MEDS: prednisoLONE 5 MG TABLET PO SCH (08:55)
[2018-03-22] MEDS: MYLANTA/LIDO VISC 2:1 300 ML BOTTLE SWISH/SWAL SCH ×4 (08:56→21:09)
[2018-03-22] MEDS: traMADol 50 MG TABLET PO PRN ×2 (09:00→21:11)
[2018-03-22] MEDS: DIGOXIN 0.125 MG TABLET PO SCH (13:06)
[2018-03-23] MEDS: IPRATROPIUM 500 MCG/2.5 ML NEB RESP TX SCH ×3 (00:35→13:15)
[2018-03-23] MEDS: ALBUTEROL 2.5 MG/3 ML NEB RESP TX SCH ×3 (00:35→13:15)
[2018-03-23] MEDS: INSULIN REGULAR 100 UNIT/ML SUBCUT SCH ×2 (09:07→11:56)
[2018-03-23] MEDS: INSULIN GLARGINE 100 UNIT/ML SUBCUT SCH (09:13)
[2018-03-23] MEDS: DOCUSATE SODIUM 100 MG CAPSULE PO SCH (09:13)
[2018-03-23] MEDS: NYSTATIN 500,000 UNIT/5 ML UDCUP SWISH/SWAL SCH ×2 (09:13→12:16)
[2018-03-23] MEDS: MYLANTA/LIDO VISC 2:1 300 ML BOTTLE SWISH/SWAL SCH ×2 (09:14→12:16)
[2018-03-23] MEDS: MONTELUKAST 10 MG TABLET PO SCH (09:15)
[2018-03-23] MEDS: FLUCONAZOLE 100 MG TABLET PO SCH (09:16)
[2018-03-23] MEDS: BENZONATATE 100 MG CAPSULE PO SCH (09:16)
[2018-03-23] MEDS: prednisoLONE 5 MG TABLET PO SCH (09:16)
[2018-03-23] MEDS: DILTIAZEM 60 MG TABLET PO SCH ×2 (09:16→12:16)
[2018-03-23] MEDS: APIXABAN 2.5 MG TABLET PO SCH (09:17)
[2018-03-23] MEDS: metFORMIN 500 MG TABLET PO SCH (09:17)
[2018-03-23] MEDS: FERROUS SULFATE 325 MG TABLET PO SCH (09:17)
[2018-03-23] MEDS: POTASSIUM CHLORIDE 10 MEQ TABLET PO SCH (09:17)
[2018-03-23] MEDS: PANTOPRAZOLE 40 MG TABLET PO SCH (09:17)
[2018-03-23] MEDS: traMADol 50 MG TABLET PO PRN (09:24)
[2018-03-23] MEDS: DIGOXIN 0.125 MG TABLET PO SCH (12:16)
[2018-03-23 12:17] VITALS: BP 142/71
== END 2018-03-23 15:25 | disposition home health service (06) | DRG 191 ==
LOC: EDBD → EDUNIT# → N.ED 08:19 → SUATTDRO 11:01 → N.EDINP 11:01 → N.ICU 11:08 → N.TELEN 11:20
PROVIDERS: ADMIT Internal Medicine; ATTEND Internal Medicine

== ENCOUNTER 2019-01-20 22:57 | Inpatient (IN) ==
[2019-01-20] MEDS ORDERED: ONDANSETRON 4 MG/2 ML VIAL IV STA (23:20)
[2019-01-20] MEDS ORDERED: SODIUM CHLORIDE 0.9% 1,000 ML IV STA (23:20)
[2019-01-21 00:39] LABS: Alanine Aminotransferase 18 U/L (13-56); Albumin 3.3 G/DL (3.4-5.0); Alkaline Phosphatase 78 U/L (45-117); Aspartate Amino Transferase 10 U/L (0-37); Blood Urea Nitrogen 17 MG/DL (7-18); Glucose 186 MG/DL (74-106); Lipase < 50.0 U/L (73-393); Potassium 3.1 MMOL/L (3.5-5.1); Sodium 136 MMOL/L (136-145); Total Protein 6.6 G/DL (6.4-8.3)
[2019-01-21 00:40] LABS: Basophils # 0.1 10*3/uL (0.0-0.2); Basophils % 0.4 % (0.0-0.8); Eosinophils % 0.2 % (0.00-10.9); Hematocrit 40.6 VOL% (35.7-47.0); Hemoglobin 12.2 GM/DL (12.0-16.0); Immature Granulocytes % 0.8 %; Immature Granulocytes Absolute 0.15 #; Lymphocytes # 0.6 10*3/uL (1.4-4.0); Mean Corpuscular Hemoglobin 24 PG (27-34); Mean Corpuscular Volume 79.1 FL (87-102); Mean Platelet Volume 11.4 FL (9.6-12.0); Monocytes # 1.1 10*3/uL (0.11-0.8); Monocytes % 5.7 % (1.7-12.7); Neutrophils # 16.6 10*3/uL (1.4-7.4); Neutrophils % 89.9 % (38.7-73.9); Platelet Count 258 T/CUMM (130-400); Red Blood Count 5.13 MC/CUMM (3.8-5.5); Red Cell Distribution Width 15.9 % (9.3-17.3); White Blood Count 18.4 T/CUMM (4-12)
[2019-01-21 01:39] LABS: Band Neutrophils 2 % (0-10); Lymphocytes 5 % (20-55); Segmented Neutrophils 85 % (50-85)
[2019-01-21 01:40] LABS: Platelet Estimate Normal; Total Cells Counted 100
[2019-01-21 01:40] LABS: Apearance,Urine CLEAR (Clear); Bilirubin,Urine Negative (Negative); Blood, Urine Negative (Negative); Glucose,Urine (UA) 50 mg/dL (Negative); Hyaline Casts,Urine 3 /LPF (0-3); Ketones,Urine 5 mg/dL (Negative); Mucus,Urine Occasional /LPF (Occasional); Nitrite,Urine Negative (Negative); Protein,Urine Negative; RBC,Urine <1 /HPF (0-4); Urine Color Straw (Yellow); Urine Specific Gravity 1.012 (1.001-1.035); Urine Urobilinogen < 2.0 EU/DL (0.2-1.0)
[2019-01-21] MEDS ORDERED: CIPROFLOXACIN INJ 400 MG in PREMIX 1 EACH IV STA (01:49)
[2019-01-21] MEDS ORDERED: POTASSIUM BICARB EFFERVESCENT 25 MEQ TABLET PO ONE (03:34)
[2019-01-21] MEDS ORDERED: PROMETHAZINE 25 MG/1 ML VIAL IM STA (04:19)
[2019-01-21] MEDS ORDERED: SODIUM CHLORIDE 0.9% 1,000 ML IV STA (05:00)
[2019-01-21] MEDS ORDERED: GLUCAGON 1 MG VIAL IM PRN (05:56)
[2019-01-21] MEDS ORDERED: DEXTROSE 50% 25 GM/50 ML SYRINGE IV PRN (05:56)
[2019-01-21] MEDS ORDERED: ONDANSETRON 4 MG/2 ML VIAL IV PRN (06:43)
[2019-01-21] MEDS ORDERED: ACETAMINOPHEN 500 MG TABLET PO PRN (07:02)
[2019-01-21] MEDS: SODIUM CHLORIDE 0.9% 1,000 ML IV SCH (07:11)
[2019-01-21] MEDS: PIPERACILLIN/TAZOBACTAM 3,375 MG in SODIUM CHLORIDE 0.9% 100 ML IV SCH ×3 (07:11→23:18)
[2019-01-21] MEDS: IPRATROPIUM 500 MCG/2.5 ML NEB RESP TX SCH ×3 (08:40→19:32)
[2019-01-21] MEDS ORDERED: OLODATEROL HCL INH SCH (09:00)
[2019-01-21] MEDS ORDERED: NON-FORMULARY MEDICATION (Tiotropium Inhalation 18 MCG) INH SCH (09:00)
[2019-01-21] MEDS: GABAPENTIN 100 MG CAPSULE PO SCH ×3 (09:11→20:57)
[2019-01-21] MEDS: ALBUTEROL 2 MG TABLET PO SCH (09:11)
[2019-01-21] MEDS: FERROUS SULFATE 325 MG TABLET PO SCH (09:11)
[2019-01-21] MEDS: DIGOXIN 0.125 MG TABLET PO SCH (09:11)
[2019-01-21] MEDS: POTASSIUM CHLORIDE 10 MEQ TABLET PO SCH (09:12)
[2019-01-21] MEDS: APIXABAN 5 MG TABLET PO SCH ×2 (09:12→20:57)
[2019-01-21] MEDS: traMADol 50 MG TABLET PO PRN ×2 (09:12→20:57)
[2019-01-21] MEDS: PANTOPRAZOLE 40 MG TABLET PO SCH (09:12)
[2019-01-21] MEDS: INSULIN LISPRO 100 UNIT/ML SUBCUT SCH ×4 (09:14→20:58)
[2019-01-21] MEDS: prednisoLONE 5 MG TABLET PO SCH (11:08)
[2019-01-21] MEDS: DOCUSATE SODIUM 100 MG CAPSULE PO SCH (13:44)
[2019-01-21] MEDS: MONTELUKAST 10 MG TABLET PO SCH (18:15)
[2019-01-21] MEDS ORDERED: INSULIN GLARGINE 100 UNIT/ML SUBCUT SCH (21:00)
[2019-01-21] MEDS: ZALEPLON 5 MG CAPSULE PO PRN (23:58)
[2019-01-22] MEDS: IPRATROPIUM 500 MCG/2.5 ML NEB RESP TX SCH ×4 (00:42→19:25)
[2019-01-22] MEDS: SODIUM CHLORIDE 0.9% 1,000 ML IV SCH (03:25)
[2019-01-22 05:26] LABS: Basophils % 0.4 % (0.0-0.8); Eosinophils # 0.1 10*3/uL (0.0-0.87); Hematocrit 34.6 VOL% (35.7-47.0); Hemoglobin 10.4 GM/DL (12.0-16.0); Immature Granulocytes % 0.5 %; Immature Granulocytes Absolute 0.04 #; Lymphocytes # 1.4 10*3/uL (1.4-4.0); Lymphocytes % 16.4 % (21.3-54.2); Mean Corpuscular HGB Conc 30.1 GM/DL (32-36); Mean Corpuscular Hemoglobin 24 PG (27-34); Mean Corpuscular Volume 78.5 FL (87-102); Mean Platelet Volume 11.9 FL (9.6-12.0); Monocytes # 0.9 10*3/uL (0.11-0.8); Monocytes % 11.1 % (1.7-12.7); Neutrophils # 5.9 10*3/uL (1.4-7.4); Neutrophils % 70.6 % (38.7-73.9); Platelet Count 178 T/CUMM (130-400); Red Blood Count 4.41 MC/CUMM (3.8-5.5); Red Cell Distribution Width 16.1 % (9.3-17.3); White Blood Count 8.3 T/CUMM (4-12)
[2019-01-22 05:53] LABS: Calcium 7.2 MG/DL (8.5-10.1); Osmolality,Calculated 273.5 MOS/KG (273-304)
[2019-01-22 05:56] LABS: Potassium 2.3 MMOL/L (3.5-5.1)
[2019-01-22] MEDS: POTASSIUM CHLORIDE 20 MEQ TABLET PO SCH ×3 (06:31→14:46)
[2019-01-22] MEDS: PIPERACILLIN/TAZOBACTAM 3,375 MG in SODIUM CHLORIDE 0.9% 100 ML IV SCH ×3 (06:31→21:01)
[2019-01-22] MEDS: INSULIN LISPRO 100 UNIT/ML SUBCUT SCH ×4 (08:25→21:06)
[2019-01-22] MEDS: DILTIAZEM CD 120 MG CAPSULE PO SCH ×2 (10:05→21:01)
[2019-01-22] MEDS: DIGOXIN 0.125 MG TABLET PO SCH (10:06)
[2019-01-22] MEDS: DOCUSATE SODIUM 100 MG CAPSULE PO SCH (10:07)
[2019-01-22] MEDS: ALBUTEROL 2 MG TABLET PO SCH (10:07)
[2019-01-22] MEDS: PANTOPRAZOLE 40 MG TABLET PO SCH (10:07)
[2019-01-22] MEDS: FERROUS SULFATE 325 MG TABLET PO SCH (10:07)
[2019-01-22] MEDS: POTASSIUM CHLORIDE 10 MEQ TABLET PO SCH (10:07)
[2019-01-22] MEDS: APIXABAN 5 MG TABLET PO SCH ×2 (10:08→21:02)
[2019-01-22] MEDS: GABAPENTIN 100 MG CAPSULE PO SCH ×3 (10:08→21:01)
[2019-01-22] MEDS: prednisoLONE 5 MG TABLET PO SCH (10:09)
[2019-01-22] MEDS: traMADol 50 MG TABLET PO PRN ×2 (10:15→21:07)
[2019-01-22 14:27] LABS: Calcium 7.2 MG/DL (8.5-10.1); Potassium 3.7 MMOL/L (3.5-5.1)
[2019-01-22] MEDS ORDERED: METOPROLOL TARTRATE 5 MG/5 ML VIAL IV PRN (16:53)
[2019-01-22] MEDS: MONTELUKAST 10 MG TABLET PO SCH (18:44)
[2019-01-22] MEDS: ZALEPLON 5 MG CAPSULE PO PRN (22:33)
[2019-01-23] MEDS: IPRATROPIUM 500 MCG/2.5 ML NEB RESP TX SCH ×3 (00:10→14:09)
[2019-01-23] MEDS: SODIUM CHLORIDE 0.9% 1,000 ML IV SCH (02:00)
[2019-01-23] MEDS ORDERED: POTASSIUM CHLORIDE 20 MEQ TABLET PO PRN ×2 (04:00)
[2019-01-23] MEDS: PIPERACILLIN/TAZOBACTAM 3,375 MG in SODIUM CHLORIDE 0.9% 100 ML IV SCH ×2 (05:10→14:00)
[2019-01-23] MEDS: DILTIAZEM CD 120 MG CAPSULE PO SCH (08:49)
[2019-01-23] MEDS: prednisoLONE 5 MG TABLET PO SCH (08:49)
[2019-01-23] MEDS: POTASSIUM CHLORIDE 10 MEQ TABLET PO SCH (08:50)
[2019-01-23] MEDS: PANTOPRAZOLE 40 MG TABLET PO SCH (08:50)
[2019-01-23] MEDS: APIXABAN 5 MG TABLET PO SCH (08:50)
[2019-01-23] MEDS: INSULIN LISPRO 100 UNIT/ML SUBCUT SCH ×2 (08:50→11:59)
[2019-01-23] MEDS: GABAPENTIN 100 MG CAPSULE PO SCH ×2 (08:50→15:33)
[2019-01-23] MEDS: FERROUS SULFATE 325 MG TABLET PO SCH (08:50)
[2019-01-23] MEDS: DIGOXIN 0.125 MG TABLET PO SCH (08:50)
[2019-01-23] MEDS: ALBUTEROL 2 MG TABLET PO SCH (08:50)
[2019-01-23] MEDS: DOCUSATE SODIUM 100 MG CAPSULE PO SCH (08:50)
[2019-01-23] MEDS: traMADol 50 MG TABLET PO PRN (08:57)
[2019-01-23 12:14] VITALS: BP 127/76
[2019-01-23] MEDS ORDERED: metroNIDAZOLE 250 MG TABLET PO SCH (15:00)
[2019-01-23] MEDS ORDERED: CIPROFLOXACIN 500 MG TABLET PO SCH (21:00)
== END 2019-01-23 16:36 | disposition home or self-care (01) | DRG 392 ==
LOC: EDUNIT# → N.ED 22:57 → N.2E 01-21 05:14 → N.EDINP 01-21 05:14 → N.2E 01-21 05:59 → UNDODISIN 01-23 16:36 → N.2EOUT 01-24 12:04
PROVIDERS: ADMIT Hospitalist; ATTEND Hospitalist

== ENCOUNTER 2019-07-24 04:59 | Observation (INO) ==
[2019-07-24] MEDS ORDERED: MORPHINE 4 MG/1 ML VIAL IV STA ×2 (05:05→06:11)
[2019-07-24] MEDS ORDERED: ONDANSETRON 4 MG/2 ML VIAL IV STA ×2 (05:05→08:35)
[2019-07-24] MEDS ORDERED: LIDOCAINE 1%/EPI INJ 20 ML VIAL INFILTRAT STA (05:07)
[2019-07-24] MEDS ORDERED: DIPH/TET/ACEL PERT BOOSTER VACCINE 0.5 ML VIAL IM ONE (05:13)
[2019-07-24] MEDS ORDERED: ACETAMINOPHEN 500 MG TABLET PO STA (05:13)
[2019-07-24 05:33] LABS: INR 0.9; PT Patient Result 10.2 SECS (9.6-12.2); Partial Thromboplastin Time 24.7 SECS (20.8-36.0)
[2019-07-24 05:35] LABS: Basophils # 0.1 10*3/uL (0.0-0.2); Basophils % 0.5 % (0.0-0.8); Eosinophils # 0.2 10*3/uL (0.0-0.87); Eosinophils % 1.3 % (0.00-10.9); Hematocrit 44.4 VOL% (35.7-47.0); Hemoglobin 14.6 GM/DL (12.0-16.0); Immature Granulocytes % 1.1 %; Immature Granulocytes Absolute 0.17 #; Lymphocytes # 3.6 10*3/uL (1.4-4.0); Mean Corpuscular HGB Conc 32.9 GM/DL (32-36); Mean Corpuscular Volume 88.3 FL (87-102); Mean Platelet Volume 11.3 FL (9.6-12.0); Monocytes % 9.3 % (1.7-12.7); Neutrophils % 64.8 % (38.7-73.9); Platelet Count 235 T/CUMM (130-400); Red Blood Count 5.03 MC/CUMM (3.8-5.5); Red Cell Distribution Width 16.5 % (9.3-17.3); White Blood Count 15.9 T/CUMM (4-12)
[2019-07-24 05:55] LABS: Albumin 3.6 G/DL (3.4-5.0); Bilirubin,Total 0.4 MG/DL (0.2-1.0); Calcium 9.4 MG/DL (8.5-10.1); Osmolality,Calculated 272.1 MOS/KG (273-304); Total Protein 7.2 G/DL (6.4-8.3)
[2019-07-24] MEDS ORDERED: BACITRACIN OINT 0.9 GM PACK TOP STA (06:13)
[2019-07-24] MEDS ORDERED: HYDROmorphone 2 MG/1 ML VIAL IV STA (08:35)
[2019-07-24] MEDS ORDERED: NITROGLYCERIN SL 0.4 MG TABLET SL PRN (11:23)
[2019-07-24] MEDS ORDERED: CHLORTHALIDONE 25 MG TABLET PO PRN (11:23)
[2019-07-24] MEDS ORDERED: ACETAMINOPHEN 325 MG TABLET PO PRN (11:23)
[2019-07-24] MEDS ORDERED: ONDANSETRON ODT 4 MG TABLET PO PRN (11:23)
[2019-07-24] MEDS ORDERED: PROMETHAZINE 25 MG/1 ML VIAL IM PRN (11:23)
[2019-07-24] MEDS ORDERED: traMADol 50 MG TABLET PO PRN (11:23)
[2019-07-24] MEDS ORDERED: ONDANSETRON 4 MG/2 ML VIAL IV PRN (11:23)
[2019-07-24] MEDS: KETOROLAC 15 MG/1 ML VIAL IV PRN ×2 (11:47→17:07)
[2019-07-24] MEDS ORDERED: IPRATROPIUM 500 MCG/2.5 ML NEB RESP TX PRN (13:00)
[2019-07-24] MEDS: IPRATROPIUM 500 MCG/2.5 ML NEB RESP TX SCH ×2 (13:03→19:40)
[2019-07-24] MEDS: LACTATED RINGERS 1,000 ML IV SCH (14:57)
[2019-07-24] MEDS: GABAPENTIN 100 MG CAPSULE PO SCH ×2 (14:57→20:55)
[2019-07-24] MEDS: FERROUS SULFATE 325 MG TABLET PO SCH (16:55)
[2019-07-24] MEDS: prednisoLONE 5 MG TABLET PO SCH (16:55)
[2019-07-24] MEDS: metFORMIN 500 MG TABLET PO SCH (16:55)
[2019-07-24] MEDS: DOCUSATE SODIUM 100 MG CAPSULE PO SCH (16:55)
[2019-07-24] MEDS: DIGOXIN 0.125 MG TABLET PO SCH (16:55)
[2019-07-24] MEDS: PANTOPRAZOLE 40 MG TABLET PO SCH (16:56)
[2019-07-24] MEDS: POTASSIUM CHLORIDE 10 MEQ TABLET PO SCH (16:56)
[2019-07-24] MEDS: HYDROmorphone 2 MG/1 ML VIAL IV PRN (19:42)
[2019-07-24] MEDS: MONTELUKAST 10 MG TABLET PO SCH (20:54)
[2019-07-24] MEDS: DILTIAZEM CD 120 MG CAPSULE PO SCH (20:55)
[2019-07-24] MEDS: APIXABAN 2.5 MG TABLET PO SCH ×2 (20:55→21:20)
[2019-07-24] MEDS: INSULIN GLARGINE 100 UNIT/ML SUBCUT SCH (21:08)
[2019-07-25] MEDS: KETOROLAC 15 MG/1 ML VIAL IV PRN ×2 (00:01→06:34)
[2019-07-25] MEDS: IPRATROPIUM 500 MCG/2.5 ML NEB RESP TX SCH ×4 (01:20→20:08)
[2019-07-25] MEDS: LACTATED RINGERS 1,000 ML IV SCH ×2 (01:35→14:13)
[2019-07-25 07:25] LABS: Basophils # 0.1 10*3/uL (0.0-0.2); Basophils % 0.4 % (0.0-0.8); Eosinophils # 0.1 10*3/uL (0.0-0.87); Eosinophils % 0.8 % (0.00-10.9); Hematocrit 42.2 VOL% (35.7-47.0); Hemoglobin 13.7 GM/DL (12.0-16.0); Immature Granulocytes % 0.5 %; Immature Granulocytes Absolute 0.07 #; Lymphocytes # 2.2 10*3/uL (1.4-4.0); Lymphocytes % 16.3 % (21.3-54.2); Mean Corpuscular HGB Conc 32.5 GM/DL (32-36); Mean Corpuscular Volume 88.1 FL (87-102); Mean Platelet Volume 11.3 FL (9.6-12.0); Monocytes % 9.9 % (1.7-12.7); Neutrophils % 72.1 % (38.7-73.9); Platelet Count 193 T/CUMM (130-400); Red Blood Count 4.79 MC/CUMM (3.8-5.5); Red Cell Distribution Width 16.2 % (9.3-17.3); White Blood Count 13.6 T/CUMM (4-12)
[2019-07-25 07:41] LABS: Calcium 8.6 MG/DL (8.5-10.1); Osmolality,Calculated 274.7 MOS/KG (273-304)
[2019-07-25] MEDS ORDERED: POTASSIUM CHLORIDE 10 MEQ TABLET PO SCH (08:00)
[2019-07-25] MEDS ORDERED: metFORMIN 500 MG TABLET PO SCH (08:00)
[2019-07-25] MEDS ORDERED: DIGOXIN 0.125 MG TABLET PO SCH (09:00)
[2019-07-25] MEDS ORDERED: PANTOPRAZOLE 40 MG TABLET PO SCH ×2 (09:00)
[2019-07-25] MEDS ORDERED: prednisoLONE 5 MG TABLET PO SCH (09:00)
[2019-07-25] MEDS ORDERED: FERROUS SULFATE 325 MG TABLET PO SCH (09:00)
[2019-07-25] MEDS ORDERED: DOCUSATE SODIUM 100 MG CAPSULE PO SCH (09:00)
[2019-07-25] MEDS: ALBUTEROL 2 MG TABLET PO SCH (09:00)
[2019-07-25] MEDS: TIOTROPIUM BROMIDE 18 MCG INH SCH (09:05)
[2019-07-25] MEDS: OLODATEROL INH SCH (09:05)
[2019-07-25] MEDS: PANTOPRAZOLE 40 MG TABLET PO SCH (09:06)
[2019-07-25] MEDS: FERROUS SULFATE 325 MG TABLET PO SCH (09:06)
[2019-07-25] MEDS: DIGOXIN 0.125 MG TABLET PO SCH (09:06)
[2019-07-25] MEDS: DOCUSATE SODIUM 100 MG CAPSULE PO SCH (09:07)
[2019-07-25] MEDS: POTASSIUM CHLORIDE 10 MEQ TABLET PO SCH (09:07)
[2019-07-25] MEDS: prednisoLONE 5 MG TABLET PO SCH (09:07)
[2019-07-25] MEDS: GABAPENTIN 100 MG CAPSULE PO SCH ×3 (09:07→21:41)
[2019-07-25] MEDS: metFORMIN 500 MG TABLET PO SCH (09:08)
[2019-07-25] MEDS: glipiZIDE 5 MG TABLET PO SCH (09:08)
[2019-07-25] MEDS: DILTIAZEM CD 120 MG CAPSULE PO SCH ×2 (09:08→21:40)
[2019-07-25] MEDS: HYDROmorphone 2 MG/1 ML VIAL IV PRN (09:20)
[2019-07-25] MEDS: APIXABAN 5 MG TABLET PO SCH (09:44)
[2019-07-25] MEDS: APIXABAN 2.5 MG TABLET PO SCH (09:45)
[2019-07-25] MEDS ORDERED: HYDROmorphone 2 MG/1 ML VIAL IV PRN (10:04)
[2019-07-25] MEDS: LIDOCAINE 5% PATCH TRANSDERM SCH (11:30)
[2019-07-25] MEDS: DICLOFENAC 1% GEL 100 GM TUBE TOP SCH ×2 (12:10→21:41)
[2019-07-25] MEDS: KETOROLAC 15 MG/1 ML VIAL IV SCH ×2 (12:45→18:40)
[2019-07-25] MEDS: MONTELUKAST 10 MG TABLET PO SCH (18:46)
[2019-07-25] MEDS: INSULIN GLARGINE 100 UNIT/ML SUBCUT SCH (21:41)
[2019-07-26] MEDS: KETOROLAC 15 MG/1 ML VIAL IV SCH ×3 (00:22→12:32)
[2019-07-26] MEDS: IPRATROPIUM 500 MCG/2.5 ML NEB RESP TX SCH ×2 (00:33→07:52)
[2019-07-26] MEDS: glipiZIDE 5 MG TABLET PO SCH (09:33)
[2019-07-26] MEDS: PANTOPRAZOLE 40 MG TABLET PO SCH (09:34)
[2019-07-26] MEDS: DILTIAZEM CD 120 MG CAPSULE PO SCH (09:34)
[2019-07-26] MEDS: metFORMIN 500 MG TABLET PO SCH (09:34)
[2019-07-26] MEDS: DOCUSATE SODIUM 100 MG CAPSULE PO SCH (09:34)
[2019-07-26] MEDS: POTASSIUM CHLORIDE 10 MEQ TABLET PO SCH (09:34)
[2019-07-26] MEDS: DIGOXIN 0.125 MG TABLET PO SCH (09:35)
[2019-07-26] MEDS: prednisoLONE 5 MG TABLET PO SCH (09:35)
[2019-07-26] MEDS: APIXABAN 5 MG TABLET PO SCH (09:35)
[2019-07-26] MEDS: GABAPENTIN 100 MG CAPSULE PO SCH (09:35)
[2019-07-26] MEDS: LIDOCAINE 5% PATCH TRANSDERM SCH (09:36)
[2019-07-26] MEDS: DICLOFENAC 1% GEL 100 GM TUBE TOP SCH (09:36)
[2019-07-26] MEDS: OLODATEROL INH SCH (09:38)
[2019-07-26] MEDS: ALBUTEROL 2 MG TABLET PO SCH (09:38)
[2019-07-26] MEDS: TIOTROPIUM BROMIDE 18 MCG INH SCH (09:40)
[2019-07-26] MEDS: FERROUS SULFATE 325 MG TABLET PO SCH (09:41)
[2019-07-26 11:58] VITALS: BP 137/85
== END 2019-07-26 12:30 | disposition home or self-care (01) ==
LOC: EDBD → EDUNIT# → N.EDINP 04:59 → N.ED 04:59 → N.3E 10:56
PROVIDERS: ADMIT Surgery; ATTEND Surgery

== ENCOUNTER 2021-05-08 20:56 | Inpatient (IN) ==
[2021-05-08 21:26] LABS: Basophils # 0.1 10*3/uL (0.0-0.2); Basophils % 0.4 % (0.0-0.8); Eosinophils # 0.1 10*3/uL (0.0-0.87); Eosinophils % 0.8 % (0.00-10.9); Hematocrit 36.2 VOL% (35.7-47.0); Immature Granulocytes % 0.5 %; Immature Granulocytes Absolute 0.07 #; Lymphocytes # 3.1 10*3/uL (1.4-4.0); Lymphocytes % 20.3 % (21.3-54.2); Mean Corpuscular HGB Conc 30.4 GM/DL (32-36); Mean Corpuscular Volume 84.2 FL (87-102); Mean Platelet Volume 11.2 FL (9.6-12.0); Monocytes % 9.2 % (1.7-12.7); Neutrophils % 68.8 % (38.7-73.9); Platelet Count 309 T/CUMM (130-400); Red Cell Distribution Width 14.9 % (9.3-17.3); White Blood Count 15.5 T/CUMM (4-12)
[2021-05-08] MEDS ORDERED: DILTIAZEM 50 MG/10 ML VIAL IV STA ×2 (21:34→22:30)
[2021-05-08 21:53] LABS: PT Patient Result 11.4 SECS (10.5-12.0); Partial Thromboplastin Time 24.7 SECS (23.9-33.8)
[2021-05-08] MEDS ORDERED: FUROSEMIDE 40 MG/4 ML VIAL IV STA (22:08)
[2021-05-08 22:25] LABS: Albumin 3.4 G/DL (3.4-5.0); Bilirubin,Total 0.5 MG/DL (0.20-1.00); Calcium 8.4 MG/DL (8.5-10.1); Osmolality,Calculated 271.1 MOS/KG (273-304); Potassium 3.8 MMOL/L (3.5-5.1); Total Protein 7.2 G/DL (6.4-8.2)
[2021-05-09] MEDS ORDERED: diphenhydrAMINE CAP 25 MG CAPSULE PO PRN (00:31)
[2021-05-09] MEDS ORDERED: NICOTINE 21 MG/24 HR PATCH TRANSDERM PRN (00:31)
[2021-05-09] MEDS ORDERED: guaiFENesin/DM ER 600-30 MG TABLET PO PRN (00:31)
[2021-05-09] MEDS ORDERED: ACETAMINOPHEN 325 MG TABLET PO PRN (00:31)
[2021-05-09] MEDS ORDERED: DEXTROSE 50% 25 GM/50 ML VIAL IV PRN ×2 (00:31→08:41)
[2021-05-09] MEDS ORDERED: hydrALAZINE 20 MG/1 ML VIAL IV PRN (00:31)
[2021-05-09] MEDS ORDERED: GLUCAGON 1 MG VIAL IM PRN (00:31)
[2021-05-09] MEDS ORDERED: ZALEPLON 5 MG CAPSULE PO PRN (00:31)
[2021-05-09] MEDS ORDERED: MORPHINE 2 MG/1 ML SYRINGE IV PRN (00:31)
[2021-05-09] MEDS ORDERED: DILTIAZEM 100 MG VIAL.ADD IV ONE (00:38)
[2021-05-09] MEDS: DILTIAZEM INJ 100 MG in SODIUM CHLORIDE 0.9% 100 ML IV SCH ×3 (01:05→18:27)
[2021-05-09] MEDS: ALBUTEROL/IPRATROPIUM 3 ML NEB RESP TX SCH ×3 (01:06→11:40)
[2021-05-09] MEDS ORDERED: NITROGLYCERIN SL 0.4 MG TABLET SL PRN (01:14)
[2021-05-09 05:28] LABS: Basophils # 0.1 10*3/uL (0.0-0.2); Basophils % 0.6 % (0.0-0.8); Eosinophils # 0.3 10*3/uL (0.0-0.87); Eosinophils % 1.4 % (0.00-10.9); Hemoglobin 11.7 GM/DL (12.0-16.0); Immature Granulocytes % 0.5 %; Immature Granulocytes Absolute 0.08 #; Lymphocytes # 3.8 10*3/uL (1.4-4.0); Lymphocytes % 21.7 % (21.3-54.2); Mean Corpuscular Volume 84.8 FL (87-102); Mean Platelet Volume 11.7 FL (9.6-12.0); Monocytes % 9.9 % (1.7-12.7); Neutrophils % 65.9 % (38.7-73.9); Platelet Count 341 T/CUMM (130-400); White Blood Count 17.3 T/CUMM (4-12)
[2021-05-09 05:49] LABS: Albumin 3.7 G/DL (3.4-5.0); Bilirubin,Total 0.8 MG/DL (0.20-1.00); Calcium 9.1 MG/DL (8.5-10.1); Osmolality,Calculated 270.4 MOS/KG (273-304); Potassium 3.6 MMOL/L (3.5-5.1); Total Protein 7.6 G/DL (6.4-8.2)
[2021-05-09] MEDS ORDERED: PANTOPRAZOLE 40 MG TABLET PO SCH (09:00)
[2021-05-09] MEDS ORDERED: DOCUSATE SODIUM 100 MG CAPSULE PO SCH (09:00)
[2021-05-09] MEDS ORDERED: ENOXAPARIN 40 MG/0.4 ML SYRINGE SUBCUT SCH (09:00)
[2021-05-09] MEDS ORDERED: CHLORTHALIDONE 25 MG TABLET PO PRN (09:02)
[2021-05-09] MEDS ORDERED: traMADol 50 MG TABLET PO PRN (09:02)
[2021-05-09] MEDS: POTASSIUM CHLORIDE 10 MEQ TABLET PO SCH (09:05)
[2021-05-09] MEDS: APIXABAN 5 MG TABLET PO SCH (09:05)
[2021-05-09] MEDS: GABAPENTIN 100 MG CAPSULE PO SCH ×3 (09:06→20:42)
[2021-05-09] MEDS: FERROUS SULFATE 325 MG TABLET PO SCH (09:06)
[2021-05-09] MEDS ORDERED: POTASSIUM CHLORIDE 20 MEQ TABLET PO ONE (09:08)
[2021-05-09] MEDS ORDERED: DILTIAZEM HCL 120 MG PO SCH (09:15)
[2021-05-09] MEDS: PREDNISOLONE 5 MG PO SCH (09:46)
[2021-05-09] MEDS: OLODATEROL INH SCH (09:46)
[2021-05-09] MEDS: TIOTROPIUM BROMIDE INH SCH (09:46)
[2021-05-09] MEDS: DILTIAZEM 30 MG TABLET PO SCH ×3 (10:23→20:42)
[2021-05-09] MEDS ORDERED: FUROSEMIDE 40 MG/4 ML VIAL IV ONE (10:56)
[2021-05-09] MEDS ORDERED: NEBIVOLOL 5 MG TABLET PO SCH (11:30)
[2021-05-09] MEDS: DIGOXIN 0.125 MG TABLET PO SCH (12:31)
[2021-05-09] MEDS: ONDANSETRON 4 MG/2 ML VIAL IV PRN ×2 (14:33→20:43)
[2021-05-09] MEDS ORDERED: MONTELUKAST 10 MG TABLET PO SCH ×2 (19:00→21:00)
[2021-05-09] MEDS ORDERED: INSULIN GLARGINE 100 UNIT/ML SUBCUT SCH (21:00)
[2021-05-10] MEDS: DILTIAZEM INJ 100 MG in SODIUM CHLORIDE 0.9% 100 ML IV SCH (03:38)
[2021-05-10] MEDS: ALBUTEROL/IPRATROPIUM 3 ML NEB RESP TX SCH ×2 (03:56→07:39)
[2021-05-10] MEDS: DILTIAZEM 30 MG TABLET PO SCH (04:29)
[2021-05-10 06:51] LABS: Basophils # 0.1 10*3/uL (0.0-0.2); Basophils % 0.4 % (0.0-0.8); Eosinophils # 0.2 10*3/uL (0.0-0.87); Hematocrit 33.6 VOL% (35.7-47.0); Hemoglobin 10.6 GM/DL (12.0-16.0); Immature Granulocytes % 0.4 %; Immature Granulocytes Absolute 0.04 #; Lymphocytes # 2.5 10*3/uL (1.4-4.0); Mean Corpuscular HGB Conc 31.5 GM/DL (32-36); Mean Platelet Volume 10.9 FL (9.6-12.0); Monocytes % 12.9 % (1.7-12.7); Neutrophils % 62.3 % (38.7-73.9); Platelet Count 289 T/CUMM (130-400); Red Blood Count 4.05 MC/CUMM (3.8-5.5); White Blood Count 11.3 T/CUMM (4-12)
[2021-05-10 07:11] LABS: Calcium 8.2 MG/DL (8.5-10.1); Osmolality,Calculated 268.7 MOS/KG (273-304); Potassium 3.8 MMOL/L (3.5-5.1)
[2021-05-10] MEDS ORDERED: FUROSEMIDE 40 MG/4 ML VIAL IV ONE (08:21)
[2021-05-10] MEDS ORDERED: DILTIAZEM 30 MG TABLET PO PRN (08:24)
[2021-05-10] MEDS ORDERED: NEBIVOLOL 10 MG TABLET PO SCH (09:00)
[2021-05-10] MEDS ORDERED: glipiZIDE 5 MG TABLET PO SCH (09:00)
[2021-05-10] MEDS ORDERED: DOCUSATE SODIUM 100 MG CAPSULE PO SCH (09:00)
[2021-05-10] MEDS ORDERED: PANTOPRAZOLE 40 MG TABLET PO SCH (09:00)
[2021-05-10] MEDS ORDERED: SPIRONOLACTONE 25 MG TABLET PO SCH (09:00)
[2021-05-10] MEDS ORDERED: ALBUTEROL 2 MG TABLET PO SCH (09:00)
[2021-05-10] MEDS: DIGOXIN 0.125 MG TABLET PO SCH (09:22)
[2021-05-10] MEDS: POTASSIUM CHLORIDE 10 MEQ TABLET PO SCH (09:22)
[2021-05-10] MEDS: APIXABAN 5 MG TABLET PO SCH (09:22)
[2021-05-10] MEDS: FERROUS SULFATE 325 MG TABLET PO SCH (09:22)
[2021-05-10] MEDS: GABAPENTIN 100 MG CAPSULE PO SCH ×2 (09:23→14:10)
[2021-05-10] MEDS: PREDNISOLONE 5 MG PO SCH (09:23)
[2021-05-10] MEDS: OLODATEROL INH SCH (09:23)
[2021-05-10] MEDS: TIOTROPIUM BROMIDE INH SCH (09:24)
[2021-05-10 12:37] VITALS: BP 128/69
== END 2021-05-10 14:52 | disposition home or self-care (01) | DRG 309 ==
LOC: EDUNIT# → EDBD → N.EDINP 20:56 → N.ED 20:56 → N.TELES 05-09 00:49
PROVIDERS: ADMIT Hospitalist; ATTEND Hospitalist

== ENCOUNTER 2021-08-20 03:54 | Inpatient (IN) ==
[2021-08-20] MEDS ORDERED: DILTIAZEM 50 MG/10 ML VIAL IV STA (04:14)
[2021-08-20] MEDS ORDERED: IPRATROPIUM 500 MCG/2.5 ML NEB RESP TX STA (04:14)
[2021-08-20] MEDS ORDERED: methylPREDNISolone SOD SUC 125 MG/2 ML VIAL IV STA (04:14)
[2021-08-20] MEDS ORDERED: ONDANSETRON 4 MG/2 ML VIAL IV STA (04:14)
[2021-08-20] MEDS ORDERED: LEVALBUTEROL 1.25 MG/3 ML NEB RESP TX STA (04:18)
[2021-08-20 04:42] LABS: Basophils # 0.1 10*3/uL (0.0-0.2); Basophils % 0.7 % (0.0-0.8); Eosinophils # 0.3 10*3/uL (0.0-0.87); Eosinophils % 2.6 % (0.00-10.9); Hematocrit 37.9 VOL% (35.7-47.0); Hemoglobin 11.9 GM/DL (12.0-16.0); Immature Granulocytes % 0.4 %; Immature Granulocytes Absolute 0.05 #; Lymphocytes # 1.7 10*3/uL (1.4-4.0); Lymphocytes % 14.4 % (21.3-54.2); Mean Corpuscular HGB Conc 31.4 GM/DL (32-36); Mean Platelet Volume 11.2 FL (9.6-12.0); Monocytes % 10.5 % (1.7-12.7); Neutrophils % 71.4 % (38.7-73.9); Platelet Count 301 T/CUMM (130-400); Red Blood Count 4.74 MC/CUMM (3.8-5.5); Red Cell Distribution Width 15.1 % (9.3-17.3)
[2021-08-20 05:03] LABS: Albumin 2.8 G/DL (3.4-5.0); Bilirubin,Total 0.7 MG/DL (0.20-1.00); Calcium 8.4 MG/DL (8.5-10.1); Osmolality,Calculated 276.4 MOS/KG (273-304); Total Protein 6.5 G/DL (6.4-8.2)
[2021-08-20] MEDS ORDERED: POTASSIUM CHLORIDE 20 MEQ TABLET PO STA (05:13)
[2021-08-20] MEDS ORDERED: INSULIN REGULAR 100 UNIT/ML SUBCUT STA (05:13)
[2021-08-20] MEDS ORDERED: GLUCAGON 1 MG VIAL IM PRN (05:24)
[2021-08-20] MEDS ORDERED: DEXTROSE 50% 25 GM/50 ML VIAL IV PRN (05:24)
[2021-08-20] MEDS ORDERED: ONDANSETRON 4 MG/2 ML VIAL IV PRN (05:24)
[2021-08-20] MEDS ORDERED: ENOXAPARIN 100 MG/ML SYRINGE SUBCUT STA (05:26)
[2021-08-20] MEDS: DILTIAZEM INJ 100 MG in SODIUM CHLORIDE 0.9% 100 ML IV SCH (05:29)
[2021-08-20 05:50] LABS: INR 1.1
[2021-08-20] MEDS: LEVALBUTEROL 1.25 MG/3 ML NEB RESP TX SCH ×3 (07:20→19:35)
[2021-08-20 08:27] LABS: Risk Ratio 3.5; Thyroid Stimulating Hormone 0.872 uIU/ml (0.358-3.74); VLDL Cholesterol 21.4 MG/DL
[2021-08-20] MEDS ORDERED: POTASSIUM CHLORIDE 20 MEQ TABLET PO ONE (08:29)
[2021-08-20] MEDS ORDERED: POTASSIUM CHLORIDE RIDER 10 MEQ/100 ML PREMIX IV PRN (08:30)
[2021-08-20] MEDS ORDERED: MAGNESIUM SULF RIDER 4 GM/100 ML PREMIX IV PRN (08:30)
[2021-08-20] MEDS ORDERED: MAGNESIUM SULF RIDER 2 GM/50 ML PREMIX IV PRN (08:30)
[2021-08-20] MEDS ORDERED: INFLUENZA VIRUS VACCINE 0.5 ML SYRINGE IM ONE (08:58)
[2021-08-20] MEDS ORDERED: APIXABAN 2.5 MG TABLET PO SCH (09:00)
[2021-08-20] MEDS ORDERED: traMADol 50 MG TABLET PO PRN (09:09)
[2021-08-20] MEDS ORDERED: IPRATROPIUM 500 MCG/2.5 ML NEB RESP TX PRN (09:09)
[2021-08-20] MEDS ORDERED: OLODATEROL INH SCH (09:15)
[2021-08-20] MEDS ORDERED: PREDNISOLONE 5 MG PO SCH (09:15)
[2021-08-20] MEDS ORDERED: MAGNESIUM SULF RIDER 2 GM/50 ML PREMIX IV ONE (09:20)
[2021-08-20] MEDS ORDERED: SPIRONOLACTONE 25 MG TABLET PO SCH (09:30)
[2021-08-20] MEDS ORDERED: NEBIVOLOL 10 MG TABLET PO SCH (09:30)
[2021-08-20] MEDS ORDERED: atenoloL 50 MG TABLET PO SCH (09:30)
[2021-08-20] MEDS: INSULIN REGULAR 100 UNIT/ML SUBCUT SCH ×5 (09:52→22:03)
[2021-08-20] MEDS: atenoloL 25 MG TABLET PO SCH (10:29)
[2021-08-20] MEDS: DOCUSATE SODIUM 100 MG CAPSULE PO SCH (10:29)
[2021-08-20] MEDS: APIXABAN 2.5 MG TABLET PO SCH (10:29)
[2021-08-20] MEDS: PANTOPRAZOLE 40 MG TABLET PO SCH (10:29)
[2021-08-20] MEDS ORDERED: SPIRONOLACTONE 50 MG TABLET PO SCH (10:30)
[2021-08-20] MEDS: IPRATROPIUM 500 MCG/2.5 ML NEB RESP TX SCH ×4 (10:49→19:35)
[2021-08-20] MEDS: SKIN HEALING OINT (AQUAPHOR) 50 GM TUBE TOP SCH (13:17)
[2021-08-20] MEDS: metFORMIN 500 MG TABLET PO SCH ×2 (13:18→16:31)
[2021-08-20] MEDS: DIGOXIN 0.125 MG TABLET PO SCH (13:18)
[2021-08-20] MEDS ORDERED: FUROSEMIDE 40 MG/4 ML VIAL IV ONE (14:24)
[2021-08-20] MEDS: CLORAZEPATE 3.75 MG TABLET PO PRN ×2 (14:33→22:04)
[2021-08-20] MEDS: GABAPENTIN 100 MG CAPSULE PO SCH ×2 (14:33→22:04)
[2021-08-20 15:23] LABS: Folate 13.32 NG/ML (5.38-24.0)
[2021-08-20] MEDS: glipiZIDE 10 MG TABLET PO SCH (16:31)
[2021-08-20 17:59] LABS: % Iron Saturation 8.1 % (18-50)
[2021-08-20] MEDS: MONTELUKAST 10 MG TABLET PO SCH (22:04)
[2021-08-21] MEDS: LEVALBUTEROL 1.25 MG/3 ML NEB RESP TX SCH ×4 (00:50→19:27)
[2021-08-21] MEDS: IPRATROPIUM 500 MCG/2.5 ML NEB RESP TX SCH (07:30)
[2021-08-21 07:34] LABS: Basophils % 0.1 % (0.0-0.8); Eosinophils % 0.2 % (0.00-10.9); Hematocrit 36.1 VOL% (35.7-47.0); Hemoglobin 11.1 GM/DL (12.0-16.0); Immature Granulocytes % 0.7 %; Immature Granulocytes Absolute 0.15 #; Lymphocytes # 2.7 10*3/uL (1.4-4.0); Lymphocytes % 13.1 % (21.3-54.2); Mean Corpuscular HGB Conc 30.7 GM/DL (32-36); Mean Corpuscular Volume 79.9 FL (87-102); Mean Platelet Volume 12.1 FL (9.6-12.0); Neutrophils % 75.9 % (38.7-73.9); Platelet Count 370 T/CUMM (130-400); Red Blood Count 4.52 MC/CUMM (3.8-5.5); Red Cell Distribution Width 15.4 % (9.3-17.3); White Blood Count 20.9 T/CUMM (4-12)
[2021-08-21 08:02] LABS: Band Neutrophils 1 % (0-10); Eosinophils 1 % (0-10); Lymphocytes 15 % (20-55); Platelet Estimate Normal; Segmented Neutrophils 74 % (50-85)
[2021-08-21 08:03] LABS: Hypochromasia Slight; Microcytosis 1+; Total Cells Counted 100
[2021-08-21 08:06] LABS: Bilirubin,Total 0.5 MG/DL (0.20-1.00); Calcium 9.1 MG/DL (8.5-10.1); Osmolality,Calculated 268.1 MOS/KG (273-304); Potassium 4.2 MMOL/L (3.5-5.1); Total Protein 6.7 G/DL (6.4-8.2)
[2021-08-21] MEDS ORDERED: CYANOCOBALAMIN 1000 MCG/1 ML VIAL IM ONE (09:24)
[2021-08-21] MEDS: POTASSIUM CHLORIDE 20 MEQ TABLET PO SCH (09:42)
[2021-08-21] MEDS: GABAPENTIN 100 MG CAPSULE PO SCH ×3 (09:42→21:20)
[2021-08-21] MEDS: DOCUSATE SODIUM 100 MG CAPSULE PO SCH (09:42)
[2021-08-21] MEDS: glipiZIDE 10 MG TABLET PO SCH (09:42)
[2021-08-21] MEDS: PANTOPRAZOLE 40 MG TABLET PO SCH (09:43)
[2021-08-21] MEDS: metFORMIN 500 MG TABLET PO SCH (09:43)
[2021-08-21] MEDS: atenoloL 25 MG TABLET PO SCH (09:43)
[2021-08-21] MEDS: APIXABAN 2.5 MG TABLET PO SCH (09:44)
[2021-08-21] MEDS: SKIN HEALING OINT (AQUAPHOR) 50 GM TUBE TOP SCH (09:44)
[2021-08-21] MEDS: INSULIN REGULAR 100 UNIT/ML SUBCUT SCH ×4 (10:08→20:38)
[2021-08-21] MEDS: FERROUS SULFATE 325 MG TABLET PO SCH ×2 (10:26→20:37)
[2021-08-21] MEDS: SPIRONOLACTONE 25 MG TABLET PO SCH (10:26)
[2021-08-21] MEDS: DILTIAZEM INJ 100 MG in SODIUM CHLORIDE 0.9% 100 ML IV SCH (11:57)
[2021-08-21] MEDS: methylPREDNISolone 4 MG TABLET PO SCH (12:37)
[2021-08-21] MEDS: MONTELUKAST 10 MG TABLET PO SCH (20:37)
[2021-08-21] MEDS: CLORAZEPATE 3.75 MG TABLET PO PRN (21:02)
[2021-08-22] MEDS: LEVALBUTEROL 1.25 MG/3 ML NEB RESP TX SCH ×2 (00:06→07:57)
[2021-08-22] MEDS: DILTIAZEM INJ 100 MG in SODIUM CHLORIDE 0.9% 100 ML IV SCH (05:18)
[2021-08-22 07:25] LABS: Basophils % 0.2 % (0.0-0.8); Eosinophils # 0.1 10*3/uL (0.0-0.87); Eosinophils % 0.8 % (0.00-10.9); Hematocrit 36.6 VOL% (35.7-47.0); Hemoglobin 10.9 GM/DL (12.0-16.0); Immature Granulocytes % 0.6 %; Immature Granulocytes Absolute 0.07 #; Lymphocytes # 1.9 10*3/uL (1.4-4.0); Lymphocytes % 15.3 % (21.3-54.2); Mean Corpuscular HGB Conc 29.8 GM/DL (32-36); Mean Corpuscular Volume 81.9 FL (87-102); Mean Platelet Volume 12.5 FL (9.6-12.0); Monocytes % 10.9 % (1.7-12.7); Neutrophils % 72.2 % (38.7-73.9); Platelet Count 202 T/CUMM (130-400); Red Blood Count 4.47 MC/CUMM (3.8-5.5); Red Cell Distribution Width 15.9 % (9.3-17.3); White Blood Count 12.4 T/CUMM (4-12)
[2021-08-22] MEDS: metFORMIN 500 MG TABLET PO SCH ×4 (07:28→13:24)
[2021-08-22] MEDS: glipiZIDE 10 MG TABLET PO SCH ×2 (07:29→09:16)
[2021-08-22] MEDS: DIGOXIN 0.125 MG TABLET PO SCH (07:29)
[2021-08-22] MEDS: GABAPENTIN 100 MG CAPSULE PO SCH ×2 (07:29→09:23)
[2021-08-22 07:44] LABS: Calcium 8.3 MG/DL (8.5-10.1); Osmolality,Calculated 285.2 MOS/KG (273-304); Potassium 4.5 MMOL/L (3.5-5.1)
[2021-08-22 07:46] LABS: Alanine Aminotransferase 95 U/L (13-56); Albumin 2.7 G/DL (3.4-5.0); Alkaline Phosphatase 147 U/L (45-117); Aspartate Amino Transferase 62 U/L (0-37); Bilirubin,Direct < 0.100 MG/DL (0.0-0.20); Bilirubin,Indirect 0.3 MG/DL (0.0-1.0); Bilirubin,Total < 0.39 MG/DL (0.20-1.00)
[2021-08-22 09:09] LABS: Hepatitis B Core IgM Quant 0.08 Index; Hepatitis B Surface Ag Quant < 0.10 Index; Hepatitis B Surface Ag Result Non-Reactive (NonReactive); Hepatitis C Virus Ab Quant 0.02 Index; Hepatitis C Virus Ab Result Non-Reactive (NonReactive)
[2021-08-22] MEDS: DOCUSATE SODIUM 100 MG CAPSULE PO SCH (09:15)
[2021-08-22] MEDS: FERROUS SULFATE 325 MG TABLET PO SCH (09:15)
[2021-08-22] MEDS: methylPREDNISolone 4 MG TABLET PO SCH (09:15)
[2021-08-22] MEDS: SPIRONOLACTONE 25 MG TABLET PO SCH (09:16)
[2021-08-22] MEDS: APIXABAN 2.5 MG TABLET PO SCH (09:16)
[2021-08-22] MEDS: PANTOPRAZOLE 40 MG TABLET PO SCH (09:16)
[2021-08-22] MEDS: POTASSIUM CHLORIDE 20 MEQ TABLET PO SCH (09:16)
[2021-08-22] MEDS: SKIN HEALING OINT (AQUAPHOR) 50 GM TUBE TOP SCH (09:17)
[2021-08-22] MEDS: INSULIN REGULAR 100 UNIT/ML SUBCUT SCH ×2 (09:17→11:52)
[2021-08-22] MEDS ORDERED: atenoloL 25 MG TABLET PO SCH (09:30)
[2021-08-22] MEDS: atenoloL 25 MG TABLET PO SCH (09:38)
[2021-08-22 10:11] VITALS: BP 123/93
== END 2021-08-22 12:07 | disposition home health service (06) | DRG 309 ==
LOC: EDUNIT# → EDBD → N.ED 03:54 → N.EDINP 05:24 → N.TELEN 06:21
PROVIDERS: ADMIT Internal Medicine; ATTEND Internal Medicine

== ENCOUNTER 2021-11-29 12:29 | Inpatient (IN) ==
[2021-11-29] MEDS ORDERED: SODIUM CHLORIDE 0.9% 1,000 ML IV STA (19:42)
[2021-11-29 21:57] LABS: Basophils % 0.2 % (0.0-0.8); Eosinophils % 0.1 % (0.00-10.9); Hemoglobin 14.5 GM/DL (12.0-16.0); Immature Granulocytes % 0.9 %; Lymphocytes # 0.8 10*3/uL (1.4-4.0); Lymphocytes % 7.7 % (21.3-54.2); Mean Corpuscular HGB Conc 31.5 GM/DL (32-36); Mean Corpuscular Volume 88.6 FL (87-102); Mean Platelet Volume 11.1 FL (9.6-12.0); Monocytes % 13.8 % (1.7-12.7); Neutrophils % 77.3 % (38.7-73.9); Platelet Count 224 T/CUMM (130-400); Red Blood Count 5.19 MC/CUMM (3.8-5.5); Red Cell Distribution Width 16.8 % (9.3-17.3); White Blood Count 10.9 T/CUMM (4-12)
[2021-11-29] MEDS ORDERED: DEXAMETHASONE 10 MG/1 ML VIAL IV ONE (22:14)
[2021-11-29] MEDS ORDERED: cefTRIAXone 1,000 MG in SODIUM CHLORIDE 0.9% 100 ML IV STA (22:14)
[2021-11-29 22:16] LABS: Alanine Aminotransferase 20 U/L (13-56); Alkaline Phosphatase 67 U/L (45-117); Aspartate Amino Transferase 10 U/L (0-37); Blood Urea Nitrogen 13 MG/DL (7-18); Calcium 8.4 MG/DL (8.5-10.1); Carbon Dioxide 32 MMOL/L (21-32); Estimated Glom Filtration Rate 75 ML/MIN; Glucose 108 MG/DL (74-106); Osmolality,Calculated 277.5 MOS/KG (273-304); Potassium 3.5 MMOL/L (3.5-5.1); Sodium 139 MMOL/L (136-145); Total Protein 6.2 G/DL (6.4-8.2)
[2021-11-29] MEDS ORDERED: GLUCAGON 1 MG VIAL IM PRN (23:27)
[2021-11-29] MEDS ORDERED: ACETAMINOPHEN 325 MG TABLET PO PRN (23:27)
[2021-11-29] MEDS ORDERED: APIXABAN 2.5 MG TABLET PO SCH (23:45)
[2021-11-30] MEDS ORDERED: DEXTROSE 10% 250 ML BAG IV PRN (00:32)
[2021-11-30] MEDS: atenoloL 25 MG TABLET PO SCH ×3 (03:00→22:45)
[2021-11-30] MEDS ORDERED: IPRATROPIUM BROMIDE INH PRN (03:35)
[2021-11-30] MEDS ORDERED: [UNRECOGNIZED DRUG - OTHER] INH PRN (03:35)
[2021-11-30 05:13] LABS: Basophils % 0.1 % (0.0-0.8); Eosinophils % 0.1 % (0.00-10.9); Hematocrit 47.5 VOL% (35.7-47.0); Immature Granulocytes % 0.7 %; Lymphocytes # 0.6 10*3/uL (1.4-4.0); Mean Corpuscular HGB Conc 31.6 GM/DL (32-36); Mean Corpuscular Volume 89.3 FL (87-102); Mean Platelet Volume 11.2 FL (9.6-12.0); Monocytes % 3.9 % (1.7-12.7); Neutrophils % 91.2 % (38.7-73.9); Platelet Count 248 T/CUMM (130-400); Red Blood Count 5.32 MC/CUMM (3.8-5.5); Red Cell Distribution Width 16.9 % (9.3-17.3); White Blood Count 13.9 T/CUMM (4-12)
[2021-11-30 05:29] LABS: Albumin 3.1 G/DL (3.4-5.0); Bilirubin,Total 0.4 MG/DL (0.20-1.00); Calcium 8.3 MG/DL (8.5-10.1); Ferritin 90.7 ng/mL (8-252); Osmolality,Calculated 275.8 MOS/KG (273-304); Potassium 3.8 MMOL/L (3.5-5.1)
[2021-11-30 05:34] LABS: Band Neutrophils 2 % (0-10); Hypochromia 1+; Lymphocytes 4 % (20-55); Microcytosis 1+; Segmented Neutrophils 93 % (50-85); Total Cells Counted 100
[2021-11-30 06:19] LABS: Sedimentation Rate-Westergren 18 MM/HR (0-30)
[2021-11-30] MEDS: INSULIN LISPRO 100 UNIT/ML SUBCUT SCH ×2 (08:36→17:55)
[2021-11-30] MEDS ORDERED: REMDESIVIR 200 MG in SODIUM CHLORIDE 0.9% 210 ML IV ONE (09:00)
[2021-11-30] MEDS ORDERED: DEXAMETHASONE 4 MG TABLET PO SCH (09:00)
[2021-11-30] MEDS: PANTOPRAZOLE 40 MG TABLET PO SCH (09:17)
[2021-11-30] MEDS: APIXABAN 2.5 MG TABLET PO SCH ×2 (09:17→22:45)
[2021-11-30] MEDS: NON-FORMULARY MEDICATION (Tiotropium Bromide [Spiriva With Handihaler] 18 MCG/CAPSULE caps INH SCH (10:25)
[2021-11-30] MEDS: OLODATEROL INH SCH (10:25)
[2021-11-30] MEDS: DEXAMETHASONE 4 MG/1 ML VIAL IV SCH (12:21)
[2021-11-30] MEDS: MONTELUKAST 10 MG TABLET PO SCH (22:44)
[2021-11-30] MEDS: DONEPEZIL 5 MG TABLET PO SCH (22:45)
[2021-11-30] MEDS: cefTRIAXone 1,000 MG in SODIUM CHLORIDE 0.9% 100 ML IV SCH (23:58)
[2021-11-30] MEDS: MELATONIN 3 MG TABLET PO PRN (23:58)
[2021-12-01] MEDS ORDERED: cefTRIAXone 1,000 MG VIAL IM SCH
[2021-12-01] MEDS: DOXYCYCLINE HYCLATE INJ 100 MG in SODIUM CHLORIDE 0.9% 100 ML IV SCH ×2 (01:05→15:37)
[2021-12-01 05:02] LABS: Basophils % 0.1 % (0.0-0.8); Eosinophils % 0.1 % (0.00-10.9); Hematocrit 42.9 VOL% (35.7-47.0); Hemoglobin 13.6 GM/DL (12.0-16.0); Immature Granulocytes % 0.7 %; Immature Granulocytes Absolute 0.08 #; Lymphocytes # 1.1 10*3/uL (1.4-4.0); Lymphocytes % 9.2 % (21.3-54.2); Mean Corpuscular HGB Conc 31.7 GM/DL (32-36); Mean Corpuscular Volume 89.4 FL (87-102); Mean Platelet Volume 11.3 FL (9.6-12.0); Monocytes % 13.2 % (1.7-12.7); Neutrophils % 76.7 % (38.7-73.9); Platelet Count 232 T/CUMM (130-400); Red Cell Distribution Width 16.4 % (9.3-17.3); White Blood Count 11.7 T/CUMM (4-12)
[2021-12-01 05:55] LABS: Albumin 2.7 G/DL (3.4-5.0); Bilirubin,Total 0.8 MG/DL (0.20-1.00); Calcium 7.9 MG/DL (8.5-10.1); Osmolality,Calculated 279.7 MOS/KG (273-304); Potassium 3.6 MMOL/L (3.5-5.1); Total Protein 6.1 G/DL (6.4-8.2)
[2021-12-01] MEDS: INSULIN LISPRO 100 UNIT/ML SUBCUT SCH ×2 (07:59→16:36)
[2021-12-01] MEDS: DEXAMETHASONE 4 MG/1 ML VIAL IV SCH (08:45)
[2021-12-01] MEDS: APIXABAN 2.5 MG TABLET PO SCH ×2 (08:45→20:50)
[2021-12-01] MEDS: PANTOPRAZOLE 40 MG TABLET PO SCH (08:45)
[2021-12-01] MEDS: OLODATEROL INH SCH (08:47)
[2021-12-01] MEDS: NON-FORMULARY MEDICATION (Tiotropium Bromide [Spiriva With Handihaler] 18 MCG/CAPSULE caps INH SCH (08:49)
[2021-12-01] MEDS ORDERED: REMDESIVIR 100 MG in SODIUM CHLORIDE 0.9% 100 ML IV SCH (09:00)
[2021-12-01] MEDS: ASCORBIC ACID 500 MG TABLET PO SCH ×2 (09:54→20:51)
[2021-12-01] MEDS: DILTIAZEM 30 MG TABLET PO SCH ×3 (09:55→20:50)
[2021-12-01] MEDS: SPIRONOLACTONE 25 MG TABLET PO SCH (12:10)
[2021-12-01] MEDS: GABAPENTIN 100 MG CAPSULE PO SCH ×2 (15:39→20:51)
[2021-12-01] MEDS: glipiZIDE 10 MG TABLET PO SCH (20:50)
[2021-12-01] MEDS: MELATONIN 3 MG TABLET PO PRN (20:50)
[2021-12-01] MEDS: DONEPEZIL 5 MG TABLET PO SCH (20:50)
[2021-12-01] MEDS: traMADol 50 MG TABLET PO PRN (22:25)
[2021-12-01] MEDS: MONTELUKAST 10 MG TABLET PO SCH (22:26)
[2021-12-01] MEDS: cefTRIAXone 1,000 MG in SODIUM CHLORIDE 0.9% 100 ML IV SCH (23:37)
[2021-12-02] MEDS: DOXYCYCLINE HYCLATE INJ 100 MG in SODIUM CHLORIDE 0.9% 100 ML IV SCH ×2 (01:07→14:00)
[2021-12-02 05:36] LABS: Basophils % 0.1 % (0.0-0.8); Eosinophils % 0.1 % (0.00-10.9); Hematocrit 44.3 VOL% (35.7-47.0); Hemoglobin 13.8 GM/DL (12.0-16.0); Immature Granulocytes % 0.6 %; Immature Granulocytes Absolute 0.06 #; Lymphocytes # 0.8 10*3/uL (1.4-4.0); Lymphocytes % 8.8 % (21.3-54.2); Mean Corpuscular HGB Conc 31.2 GM/DL (32-36); Mean Corpuscular Volume 90.6 FL (87-102); Mean Platelet Volume 10.7 FL (9.6-12.0); Monocytes % 11.5 % (1.7-12.7); Neutrophils % 78.9 % (38.7-73.9); Platelet Count 213 T/CUMM (130-400); Red Blood Count 4.89 MC/CUMM (3.8-5.5); Red Cell Distribution Width 16.3 % (9.3-17.3); White Blood Count 9.5 T/CUMM (4-12)
[2021-12-02 06:10] LABS: Calcium 8.4 MG/DL (8.5-10.1); Osmolality,Calculated 275.1 MOS/KG (273-304); Potassium 3.6 MMOL/L (3.5-5.1)
[2021-12-02] MEDS: ASCORBIC ACID 500 MG TABLET PO SCH ×2 (08:26→20:02)
[2021-12-02] MEDS: glipiZIDE 10 MG TABLET PO SCH ×2 (08:26→20:01)
[2021-12-02] MEDS: PANTOPRAZOLE 40 MG TABLET PO SCH (08:26)
[2021-12-02] MEDS: SPIRONOLACTONE 25 MG TABLET PO SCH (08:27)
[2021-12-02] MEDS: APIXABAN 2.5 MG TABLET PO SCH ×2 (08:27→20:01)
[2021-12-02] MEDS: DILTIAZEM 30 MG TABLET PO SCH ×4 (08:27→20:01)
[2021-12-02] MEDS: REMDESIVIR 100 MG in SODIUM CHLORIDE 0.9% 100 ML IV SCH (08:28)
[2021-12-02] MEDS: GABAPENTIN 100 MG CAPSULE PO SCH ×3 (08:28→20:01)
[2021-12-02] MEDS: DEXAMETHASONE 4 MG/1 ML VIAL IV SCH (08:31)
[2021-12-02] MEDS: INSULIN LISPRO 100 UNIT/ML SUBCUT SCH ×2 (11:25→19:25)
[2021-12-02] MEDS: NON-FORMULARY MEDICATION (Tiotropium Bromide [Spiriva With Handihaler] 18 MCG/CAPSULE caps INH SCH (11:25)
[2021-12-02] MEDS: OLODATEROL INH SCH (11:25)
[2021-12-02] MEDS: MELATONIN 3 MG TABLET PO PRN (20:01)
[2021-12-02] MEDS: MONTELUKAST 10 MG TABLET PO SCH (20:01)
[2021-12-02] MEDS: DONEPEZIL 5 MG TABLET PO SCH (20:02)
[2021-12-02] MEDS: traMADol 50 MG TABLET PO PRN (23:04)
[2021-12-02] MEDS: cefTRIAXone 1,000 MG in SODIUM CHLORIDE 0.9% 100 ML IV SCH (23:05)
[2021-12-03] MEDS: DOXYCYCLINE HYCLATE INJ 100 MG in SODIUM CHLORIDE 0.9% 100 ML IV SCH ×2 (01:02→13:30)
[2021-12-03 06:31] LABS: Hematocrit 43.1 VOL% (35.7-47.0); Hemoglobin 13.9 GM/DL (12.0-16.0); Immature Granulocytes % 0.4 %; Immature Granulocytes Absolute 0.03 #; Lymphocytes # 0.6 10*3/uL (1.4-4.0); Mean Corpuscular HGB Conc 32.3 GM/DL (32-36); Mean Corpuscular Volume 88.7 FL (87-102); Mean Platelet Volume 11.1 FL (9.6-12.0); Monocytes % 10.7 % (1.7-12.7); Neutrophils % 80.9 % (38.7-73.9); Platelet Count 197 T/CUMM (130-400); Red Blood Count 4.86 MC/CUMM (3.8-5.5); Red Cell Distribution Width 15.9 % (9.3-17.3); White Blood Count 7.9 T/CUMM (4-12)
[2021-12-03 06:55] LABS: Alanine Aminotransferase 19 U/L (13-56); Alkaline Phosphatase 61 U/L (45-117); Aspartate Amino Transferase 10 U/L (0-37); Bilirubin,Total < 0.39 MG/DL (0.20-1.00); Blood Urea Nitrogen 15 MG/DL (7-18); Calcium 8.5 MG/DL (8.5-10.1); Carbon Dioxide 32 MMOL/L (21-32); Estimated Glom Filtration Rate 88 ML/MIN; Glucose 235 MG/DL (74-106); Osmolality,Calculated 274.4 MOS/KG (273-304); Potassium 3.6 MMOL/L (3.5-5.1); Sodium 133 MMOL/L (136-145); Total Protein 6.2 G/DL (6.4-8.2)
[2021-12-03] MEDS: INSULIN LISPRO 100 UNIT/ML SUBCUT SCH ×2 (07:58→19:26)
[2021-12-03] MEDS: APIXABAN 2.5 MG TABLET PO SCH ×2 (07:59→21:38)
[2021-12-03] MEDS: glipiZIDE 10 MG TABLET PO SCH ×2 (07:59→21:38)
[2021-12-03] MEDS: SPIRONOLACTONE 25 MG TABLET PO SCH (07:59)
[2021-12-03] MEDS: DEXAMETHASONE 4 MG/1 ML VIAL IV SCH (07:59)
[2021-12-03] MEDS: DILTIAZEM 30 MG TABLET PO SCH (07:59)
[2021-12-03] MEDS: GABAPENTIN 100 MG CAPSULE PO SCH ×3 (07:59→21:38)
[2021-12-03] MEDS: ASCORBIC ACID 500 MG TABLET PO SCH ×2 (08:00→21:38)
[2021-12-03] MEDS: PANTOPRAZOLE 40 MG TABLET PO SCH (08:00)
[2021-12-03] MEDS: OLODATEROL INH SCH (08:00)
[2021-12-03] MEDS: NON-FORMULARY MEDICATION (Tiotropium Bromide [Spiriva With Handihaler] 18 MCG/CAPSULE caps INH SCH (08:00)
[2021-12-03] MEDS: REMDESIVIR 100 MG in SODIUM CHLORIDE 0.9% 100 ML IV SCH (08:00)
[2021-12-03] MEDS ORDERED: CYANOCOBALAMIN 1000 MCG/1 ML VIAL IM ONE (09:49)
[2021-12-03] MEDS: DILTIAZEM 60 MG TABLET PO SCH ×4 (11:11→21:38)
[2021-12-03] MEDS: MONTELUKAST 10 MG TABLET PO SCH ×2 (11:12→21:38)
[2021-12-03] MEDS: hydrALAZINE 20 MG/1 ML VIAL IV PRN ×2 (11:30→19:00)
[2021-12-03] MEDS: LORazepam 2 MG/1 ML VIAL IV PRN (12:50)
[2021-12-03] MEDS: SERTRALINE 25 MG TABLET PO SCH (15:00)
[2021-12-03 15:51] LABS: ABG Base Excess 6.1 MMOL/L (-2.5-2.5); ABG HCO3 32.7 MMOL/L (20-26); ABG Oxygen Saturation 98.3 % (95-100); ABG PH 7.392 (7.35-7.45); ABG TCO2 34.4 MMOL/L (23-27)
[2021-12-03] MEDS: traMADol 50 MG TABLET PO PRN (21:30)
[2021-12-03] MEDS: DONEPEZIL 5 MG TABLET PO SCH (21:37)
[2021-12-04] MEDS: cefTRIAXone 1,000 MG in SODIUM CHLORIDE 0.9% 100 ML IV SCH ×2 (00:49→23:27)
[2021-12-04] MEDS: DOXYCYCLINE HYCLATE INJ 100 MG in SODIUM CHLORIDE 0.9% 100 ML IV SCH ×2 (00:49→13:52)
[2021-12-04 06:01] LABS: Basophils % 0.1 % (0.0-0.8); Hematocrit 44.5 VOL% (35.7-47.0); Hemoglobin 14.1 GM/DL (12.0-16.0); Immature Granulocytes % 0.9 %; Immature Granulocytes Absolute 0.14 #; Lymphocytes # 0.8 10*3/uL (1.4-4.0); Lymphocytes % 5.4 % (21.3-54.2); Mean Corpuscular HGB Conc 31.7 GM/DL (32-36); Mean Corpuscular Volume 89.5 FL (87-102); Mean Platelet Volume 11.5 FL (9.6-12.0); Monocytes % 8.3 % (1.7-12.7); Neutrophils % 85.3 % (38.7-73.9); Platelet Count 154 T/CUMM (130-400); Red Blood Count 4.97 MC/CUMM (3.8-5.5); Red Cell Distribution Width 16.1 % (9.3-17.3); White Blood Count 14.7 T/CUMM (4-12)
[2021-12-04 06:32] LABS: Bilirubin,Total 1.6 MG/DL (0.20-1.00); Calcium 8.4 MG/DL (8.5-10.1); Osmolality,Calculated 273.1 MOS/KG (273-304); Potassium 4.1 MMOL/L (3.5-5.1); Total Protein 6.4 G/DL (6.4-8.2)
[2021-12-04] MEDS: INSULIN LISPRO 100 UNIT/ML SUBCUT SCH ×2 (07:31→17:22)
[2021-12-04 08:46] LABS: Ferritin 86.5 ng/mL (8-252)
[2021-12-04] MEDS: DEXAMETHASONE 4 MG/1 ML VIAL IV SCH (08:48)
[2021-12-04] MEDS: REMDESIVIR 100 MG in SODIUM CHLORIDE 0.9% 100 ML IV SCH (08:48)
[2021-12-04] MEDS: DILTIAZEM 60 MG TABLET PO SCH ×4 (08:49→21:06)
[2021-12-04] MEDS: PANTOPRAZOLE 40 MG TABLET PO SCH (08:49)
[2021-12-04] MEDS: MONTELUKAST 10 MG TABLET PO SCH ×2 (08:49→21:06)
[2021-12-04] MEDS: ASCORBIC ACID 500 MG TABLET PO SCH ×2 (08:49→21:06)
[2021-12-04] MEDS: glipiZIDE 10 MG TABLET PO SCH ×2 (08:49→21:06)
[2021-12-04] MEDS: APIXABAN 2.5 MG TABLET PO SCH ×2 (08:50→21:06)
[2021-12-04] MEDS: GABAPENTIN 100 MG CAPSULE PO SCH ×3 (08:50→21:06)
[2021-12-04] MEDS: SPIRONOLACTONE 25 MG TABLET PO SCH (08:50)
[2021-12-04] MEDS: SERTRALINE 25 MG TABLET PO SCH (08:50)
[2021-12-04] MEDS ORDERED: DIGOXIN 0.5 MG/2 ML AMP IV ONE (09:44)
[2021-12-04] MEDS: OLODATEROL INH SCH (10:06)
[2021-12-04] MEDS: NON-FORMULARY MEDICATION (Tiotropium Bromide [Spiriva With Handihaler] 18 MCG/CAPSULE caps INH SCH (10:07)
[2021-12-04] MEDS: traMADol 50 MG TABLET PO PRN ×2 (11:11→21:07)
[2021-12-04] MEDS: DIGOXIN 0.5 MG/2 ML AMP IV SCH ×2 (15:42→21:07)
[2021-12-04] MEDS: DONEPEZIL 5 MG TABLET PO SCH (21:05)
[2021-12-05] MEDS: DOXYCYCLINE HYCLATE INJ 100 MG in SODIUM CHLORIDE 0.9% 100 ML IV SCH ×2 (00:46→14:21)
[2021-12-05] MEDS: DIGOXIN 0.5 MG/2 ML AMP IV SCH (05:30)
[2021-12-05] MEDS ORDERED: DIGOXIN 0.5 MG/2 ML AMP ONE (05:45)
[2021-12-05 05:48] LABS: Basophils % 0.1 % (0.0-0.8); Hematocrit 43.4 VOL% (35.7-47.0); Hemoglobin 14.1 GM/DL (12.0-16.0); Immature Granulocytes % 0.6 %; Immature Granulocytes Absolute 0.08 #; Lymphocytes # 0.6 10*3/uL (1.4-4.0); Lymphocytes % 4.3 % (21.3-54.2); Mean Corpuscular HGB Conc 32.5 GM/DL (32-36); Mean Corpuscular Volume 88.6 FL (87-102); Mean Platelet Volume 11.1 FL (9.6-12.0); Monocytes % 6.5 % (1.7-12.7); Neutrophils % 88.5 % (38.7-73.9); Platelet Count 202 T/CUMM (130-400); Red Cell Distribution Width 15.7 % (9.3-17.3); White Blood Count 13.9 T/CUMM (4-12)
[2021-12-05 06:02] LABS: Albumin 3.1 G/DL (3.4-5.0); Bilirubin,Total 0.4 MG/DL (0.20-1.00); Calcium 8.5 MG/DL (8.5-10.1); Osmolality,Calculated 273.5 MOS/KG (273-304); Potassium 3.7 MMOL/L (3.5-5.1); Total Protein 6.4 G/DL (6.4-8.2)
[2021-12-05 06:06] LABS: Lymphocytes 3 % (20-55); Platelet Estimate Adequate; Segmented Neutrophils 91 % (50-85); Total Cells Counted 100
[2021-12-05] MEDS: INSULIN LISPRO 100 UNIT/ML SUBCUT SCH ×2 (09:10→17:31)
[2021-12-05] MEDS: REMDESIVIR 100 MG in SODIUM CHLORIDE 0.9% 100 ML IV SCH (09:10)
[2021-12-05] MEDS: GABAPENTIN 100 MG CAPSULE PO SCH ×3 (09:10→21:45)
[2021-12-05] MEDS: DILTIAZEM 60 MG TABLET PO SCH ×5 (09:11→21:46)
[2021-12-05] MEDS: SPIRONOLACTONE 25 MG TABLET PO SCH (09:11)
[2021-12-05] MEDS: ASCORBIC ACID 500 MG TABLET PO SCH ×2 (09:11→21:46)
[2021-12-05] MEDS: cloNIDine 0.1 MG TABLET PO SCH ×2 (09:11→21:45)
[2021-12-05] MEDS: glipiZIDE 10 MG TABLET PO SCH ×2 (09:11→21:46)
[2021-12-05] MEDS: SERTRALINE 25 MG TABLET PO SCH (09:12)
[2021-12-05] MEDS: PANTOPRAZOLE 40 MG TABLET PO SCH (09:12)
[2021-12-05] MEDS: APIXABAN 2.5 MG TABLET PO SCH ×2 (09:12→21:46)
[2021-12-05] MEDS: MONTELUKAST 10 MG TABLET PO SCH ×2 (09:12→21:46)
[2021-12-05] MEDS: DEXAMETHASONE 4 MG/1 ML VIAL IV SCH (09:13)
[2021-12-05] MEDS: OLODATEROL INH SCH (09:48)
[2021-12-05] MEDS: NON-FORMULARY MEDICATION (Tiotropium Bromide [Spiriva With Handihaler] 18 MCG/CAPSULE caps INH SCH (09:48)
[2021-12-05] MEDS: DIGOXIN 0.125 MG TABLET PO SCH (13:04)
[2021-12-05] MEDS ORDERED: ALUM/MAG/SIMETH/LIDO VISC 1:1 30 ML BOTTLE PO ONE (14:14)
[2021-12-05] MEDS ORDERED: ALBUTEROL INHALER 18 GM INH PRN (15:16)
[2021-12-05] MEDS: LORazepam 2 MG/1 ML VIAL IV PRN (15:35)
[2021-12-05] MEDS: DONEPEZIL 5 MG TABLET PO SCH (21:46)
[2021-12-06] MEDS: cefTRIAXone 1,000 MG in SODIUM CHLORIDE 0.9% 100 ML IV SCH (00:11)
[2021-12-06] MEDS: DOXYCYCLINE HYCLATE INJ 100 MG in SODIUM CHLORIDE 0.9% 100 ML IV SCH ×2 (00:43→12:27)
[2021-12-06 05:56] LABS: Basophils % 0.1 % (0.0-0.8); Hemoglobin 14.8 GM/DL (12.0-16.0); Immature Granulocytes % 0.6 %; Lymphocytes # 0.6 10*3/uL (1.4-4.0); Mean Corpuscular HGB Conc 32.2 GM/DL (32-36); Mean Corpuscular Volume 89.3 FL (87-102); Mean Platelet Volume 11.4 FL (9.6-12.0); Neutrophils % 89.3 % (38.7-73.9); Platelet Count 187 T/CUMM (130-400); Red Blood Count 5.15 MC/CUMM (3.8-5.5); Red Cell Distribution Width 15.4 % (9.3-17.3); White Blood Count 16.1 T/CUMM (4-12)
[2021-12-06 06:23] LABS: Calcium 8.4 MG/DL (8.5-10.1); Osmolality,Calculated 273.2 MOS/KG (273-304); Potassium 3.8 MMOL/L (3.5-5.1)
[2021-12-06 06:35] LABS: Lymphocytes 4 % (20-55); Platelet Estimate Adequate; Segmented Neutrophils 94 % (50-85); Total Cells Counted 100
[2021-12-06] MEDS: PANTOPRAZOLE 40 MG TABLET PO SCH (08:23)
[2021-12-06] MEDS: MONTELUKAST 10 MG TABLET PO SCH ×2 (08:23→21:01)
[2021-12-06] MEDS: ASCORBIC ACID 500 MG TABLET PO SCH ×2 (08:23→21:01)
[2021-12-06] MEDS: NON-FORMULARY MEDICATION (Tiotropium Bromide [Spiriva With Handihaler] 18 MCG/CAPSULE caps INH SCH (08:23)
[2021-12-06] MEDS: DILTIAZEM 60 MG TABLET PO SCH ×4 (09:25→21:01)
[2021-12-06] MEDS: glipiZIDE 10 MG TABLET PO SCH ×2 (09:27→21:01)
[2021-12-06] MEDS: traMADol 50 MG TABLET PO PRN (09:28)
[2021-12-06] MEDS: SERTRALINE 25 MG TABLET PO SCH (09:29)
[2021-12-06] MEDS: cloNIDine 0.1 MG TABLET PO SCH ×2 (09:29→21:01)
[2021-12-06] MEDS: APIXABAN 2.5 MG TABLET PO SCH ×2 (09:30→21:01)
[2021-12-06] MEDS: GABAPENTIN 100 MG CAPSULE PO SCH ×3 (09:35→21:01)
[2021-12-06] MEDS: INSULIN LISPRO 100 UNIT/ML SUBCUT SCH ×2 (09:38→17:49)
[2021-12-06] MEDS: DEXAMETHASONE 4 MG/1 ML VIAL IV SCH (09:39)
[2021-12-06] MEDS: SPIRONOLACTONE 25 MG TABLET PO SCH (09:39)
[2021-12-06] MEDS: OLODATEROL INH SCH (11:33)
[2021-12-06] MEDS: DIGOXIN 0.125 MG TABLET PO SCH (13:05)
[2021-12-06] MEDS: DONEPEZIL 5 MG TABLET PO SCH (21:01)
[2021-12-06] MEDS: MELATONIN 3 MG TABLET PO PRN (21:02)
[2021-12-07] MEDS: DOXYCYCLINE HYCLATE INJ 100 MG in SODIUM CHLORIDE 0.9% 100 ML IV SCH ×2 (00:36→14:12)
[2021-12-07] MEDS: cefTRIAXone 1,000 MG in SODIUM CHLORIDE 0.9% 100 ML IV SCH ×2 (00:36→22:59)
[2021-12-07 06:04] LABS: Basophils % 0.1 % (0.0-0.8); Hematocrit 45.3 VOL% (35.7-47.0); Hemoglobin 14.6 GM/DL (12.0-16.0); Immature Granulocytes % 0.7 %; Lymphocytes # 0.5 10*3/uL (1.4-4.0); Lymphocytes % 3.5 % (21.3-54.2); Mean Corpuscular HGB Conc 32.2 GM/DL (32-36); Mean Corpuscular Volume 88.3 FL (87-102); Mean Platelet Volume 11.3 FL (9.6-12.0); Monocytes % 5.4 % (1.7-12.7); Neutrophils % 90.3 % (38.7-73.9); Platelet Count 193 T/CUMM (130-400); Red Blood Count 5.13 MC/CUMM (3.8-5.5); Red Cell Distribution Width 15.2 % (9.3-17.3); White Blood Count 15.2 T/CUMM (4-12)
[2021-12-07 06:30] LABS: Lymphocytes 2 % (20-55); Platelet Estimate Adequate; Segmented Neutrophils 92 % (50-85); Total Cells Counted 100
[2021-12-07 06:55] LABS: Calcium 8.6 MG/DL (8.5-10.1); Ferritin 115.2 ng/mL (8-252); Osmolality,Calculated 271.4 MOS/KG (273-304)
[2021-12-07] MEDS: DILTIAZEM 60 MG TABLET PO SCH ×4 (09:45→20:54)
[2021-12-07] MEDS: SPIRONOLACTONE 25 MG TABLET PO SCH (09:45)
[2021-12-07] MEDS: INSULIN LISPRO 100 UNIT/ML SUBCUT SCH ×2 (09:45→18:00)
[2021-12-07] MEDS: OLODATEROL INH SCH (09:46)
[2021-12-07] MEDS: glipiZIDE 10 MG TABLET PO SCH ×2 (09:46→20:54)
[2021-12-07] MEDS: MONTELUKAST 10 MG TABLET PO SCH ×2 (09:46→20:54)
[2021-12-07] MEDS: cloNIDine 0.1 MG TABLET PO SCH ×2 (09:46→20:54)
[2021-12-07] MEDS: DEXAMETHASONE 4 MG/1 ML VIAL IV SCH (09:46)
[2021-12-07] MEDS: GABAPENTIN 100 MG CAPSULE PO SCH ×3 (09:46→20:54)
[2021-12-07] MEDS: APIXABAN 2.5 MG TABLET PO SCH ×2 (09:46→20:54)
[2021-12-07] MEDS: PANTOPRAZOLE 40 MG TABLET PO SCH (09:46)
[2021-12-07] MEDS: ASCORBIC ACID 500 MG TABLET PO SCH ×2 (09:47→20:55)
[2021-12-07] MEDS: NON-FORMULARY MEDICATION (Tiotropium Bromide [Spiriva With Handihaler] 18 MCG/CAPSULE caps INH SCH (09:47)
[2021-12-07] MEDS: SERTRALINE 25 MG TABLET PO SCH (09:47)
[2021-12-07] MEDS: DIGOXIN 0.125 MG TABLET PO SCH (12:55)
[2021-12-07] MEDS: DONEPEZIL 5 MG TABLET PO SCH (20:54)
[2021-12-07] MEDS: MELATONIN 3 MG TABLET PO PRN (22:59)
[2021-12-07] MEDS: traMADol 50 MG TABLET PO PRN (22:59)
[2021-12-08] MEDS: DOXYCYCLINE HYCLATE INJ 100 MG in SODIUM CHLORIDE 0.9% 100 ML IV SCH (00:08)
[2021-12-08 05:33] LABS: Basophils % 0.1 % (0.0-0.8); Eosinophils % 0.1 % (0.00-10.9); Hematocrit 41.8 VOL% (35.7-47.0); Hemoglobin 13.5 GM/DL (12.0-16.0); Immature Granulocytes % 0.7 %; Immature Granulocytes Absolute 0.12 #; Lymphocytes # 0.7 10*3/uL (1.4-4.0); Lymphocytes % 4.4 % (21.3-54.2); Mean Corpuscular HGB Conc 32.3 GM/DL (32-36); Mean Corpuscular Volume 87.8 FL (87-102); Mean Platelet Volume 11.8 FL (9.6-12.0); Monocytes % 8.2 % (1.7-12.7); Neutrophils % 86.5 % (38.7-73.9); Platelet Count 182 T/CUMM (130-400); Red Blood Count 4.76 MC/CUMM (3.8-5.5); Red Cell Distribution Width 15.5 % (9.3-17.3); White Blood Count 16.4 T/CUMM (4-12)
[2021-12-08 05:52] LABS: Calcium 8.2 MG/DL (8.5-10.1); Osmolality,Calculated 273.7 MOS/KG (273-304); Potassium 4.2 MMOL/L (3.5-5.1)
[2021-12-08 06:09] LABS: Lymphocytes 2 % (20-55); Platelet Estimate Adequate; Segmented Neutrophils 95 % (50-85); Total Cells Counted 100
[2021-12-08] MEDS: INSULIN LISPRO 100 UNIT/ML SUBCUT SCH ×3 (08:57→16:39)
[2021-12-08] MEDS: DEXAMETHASONE 4 MG/1 ML VIAL IV SCH (08:57)
[2021-12-08] MEDS: glipiZIDE 10 MG TABLET PO SCH ×2 (08:58→20:13)
[2021-12-08] MEDS: ASCORBIC ACID 500 MG TABLET PO SCH ×2 (08:58→20:14)
[2021-12-08] MEDS: PANTOPRAZOLE 40 MG TABLET PO SCH (08:58)
[2021-12-08] MEDS: DILTIAZEM 60 MG TABLET PO SCH ×5 (08:58→20:13)
[2021-12-08] MEDS: MONTELUKAST 10 MG TABLET PO SCH ×2 (08:58→20:14)
[2021-12-08] MEDS: SERTRALINE 25 MG TABLET PO SCH (08:58)
[2021-12-08] MEDS: APIXABAN 2.5 MG TABLET PO SCH ×2 (08:58→20:13)
[2021-12-08] MEDS: SPIRONOLACTONE 25 MG TABLET PO SCH (08:58)
[2021-12-08] MEDS: GABAPENTIN 100 MG CAPSULE PO SCH ×3 (08:58→20:14)
[2021-12-08] MEDS: cloNIDine 0.1 MG TABLET PO SCH ×2 (08:58→20:13)
[2021-12-08] MEDS: OLODATEROL INH SCH (10:05)
[2021-12-08] MEDS: NON-FORMULARY MEDICATION (Tiotropium Bromide [Spiriva With Handihaler] 18 MCG/CAPSULE caps INH SCH (10:06)
[2021-12-08] MEDS: DIGOXIN 0.125 MG TABLET PO SCH (12:08)
[2021-12-08] MEDS: metFORMIN 500 MG TABLET PO SCH (16:32)
[2021-12-08] MEDS: DONEPEZIL 5 MG TABLET PO SCH (20:13)
[2021-12-08] MEDS: LORazepam 2 MG/1 ML VIAL IV PRN (20:33)
[2021-12-09] MEDS: traMADol 50 MG TABLET PO PRN ×2 (00:59→13:37)
[2021-12-09 06:01] LABS: Calcium 8.5 MG/DL (8.5-10.1); Osmolality,Calculated 274.7 MOS/KG (273-304); Potassium 5.6 MMOL/L (3.5-5.1)
[2021-12-09 07:09] LABS: Basophils % 0.1 % (0.0-0.8); Hematocrit 44.7 VOL% (35.7-47.0); Hemoglobin 14.6 GM/DL (12.0-16.0); Immature Granulocytes % 0.5 %; Immature Granulocytes Absolute 0.09 #; Lymphocytes # 0.5 10*3/uL (1.4-4.0); Lymphocytes % 3.2 % (21.3-54.2); Mean Corpuscular HGB Conc 32.7 GM/DL (32-36); Mean Corpuscular Volume 87.6 FL (87-102); Mean Platelet Volume 11.3 FL (9.6-12.0); Monocytes % 8.6 % (1.7-12.7); Neutrophils % 87.6 % (38.7-73.9); Platelet Count 181 T/CUMM (130-400); Red Cell Distribution Width 15.2 % (9.3-17.3); White Blood Count 16.9 T/CUMM (4-12)
[2021-12-09 07:27] LABS: Lymphocytes 2 % (20-55); Segmented Neutrophils 95 % (50-85); Total Cells Counted 100
[2021-12-09 07:28] LABS: Platelet Estimate Adequate
[2021-12-09] MEDS ORDERED: SODIUM POLYSTYRENE SULFATE 15 GM/60 ML BOTTLE PO STA (07:30)
[2021-12-09] MEDS: INSULIN LISPRO 100 UNIT/ML SUBCUT SCH (07:59)
[2021-12-09] MEDS: SERTRALINE 25 MG TABLET PO SCH (08:00)
[2021-12-09] MEDS: ASCORBIC ACID 500 MG TABLET PO SCH (08:00)
[2021-12-09] MEDS: GABAPENTIN 100 MG CAPSULE PO SCH ×2 (08:00→16:02)
[2021-12-09] MEDS: cloNIDine 0.1 MG TABLET PO SCH (08:00)
[2021-12-09] MEDS: MONTELUKAST 10 MG TABLET PO SCH (08:00)
[2021-12-09] MEDS: glipiZIDE 10 MG TABLET PO SCH (08:00)
[2021-12-09] MEDS: APIXABAN 2.5 MG TABLET PO SCH (08:00)
[2021-12-09] MEDS: PANTOPRAZOLE 40 MG TABLET PO SCH (08:01)
[2021-12-09] MEDS: metFORMIN 500 MG TABLET PO SCH (08:01)
[2021-12-09] MEDS: DILTIAZEM 60 MG TABLET PO SCH ×2 (08:01→13:10)
[2021-12-09] MEDS ORDERED: DEXAMETHASONE 4 MG TABLET PO SCH (09:00)
[2021-12-09] MEDS: OLODATEROL INH SCH (09:29)
[2021-12-09] MEDS: NON-FORMULARY MEDICATION (Tiotropium Bromide [Spiriva With Handihaler] 18 MCG/CAPSULE caps INH SCH (09:29)
[2021-12-09 11:10] LABS: Calcium 8.6 MG/DL (8.5-10.1); Osmolality,Calculated 269.9 MOS/KG (273-304); Potassium 4.8 MMOL/L (3.5-5.1)
[2021-12-09 11:33] VITALS: BP 146/87
[2021-12-09] MEDS: DIGOXIN 0.125 MG TABLET PO SCH (13:10)
== END 2021-12-09 15:13 | disposition swing bed (61) | DRG 177 ==
LOC: N.ED 12:29 → N.EDINP 12:29 → N.5E 11-30 19:08 → SUATTDRO 12-01 10:08 → N.CC 12-01 16:59
PROVIDERS: ADMIT Internal Medicine; ATTEND Internal Medicine